=== PATIENT | male | born 1950 | race Caucasian/White ===

== ENCOUNTER → 2016-09-02 | Outpatient (CLI) | payer MEDICARE ==
[2016-09-02 09:58] LABS: ALT 46 U/L (21-72); AST 21 U/L (17-59); Cholesterol 258 mg/dL (<200); HDL Cholesterol 61 mg/dL (40-60); Triglycerides 290 mg/dL (<150)
== END | disposition home or self-care (01) ==
LOC: LABWHC1 08:53
PROVIDERS: ATTEND Internal Medicine Cardiovascular Disease
DX: E78.2 Mixed hyperlipidemia (principal); R06.02 Shortness of breath; R94.31 Abnormal electrocardiogram [ECG] [EKG]
CPT/HCPCS: 36415; 80061; 84450; 84460

== ENCOUNTER → 2016-09-10 | Outpatient (CLI) | payer MEDICARE ==
[2016-09-10 12:04] LABS: CHCM 33.1; HCT 43.3 % (39.0-53.0); HDW 2.25; MCH 29.3 pg (25.0-35.0); MCHC 32.2 g/dL (31.0-37.0); MCV 90.9 fL (80.0-100.0); Mean Platelet Volume 6.1; RBC 4.77 m/uL (4.30-5.90); RDW 12.3 % (11.5-15.5); WBC 6.2 k/uL (3.8-10.6)
[2016-09-10 13:10] LABS: Anion Gap 9 mmol/L; Blood Urea Nitrogen 14 mg/dL (9-20); Calcium 9.2 mg/dL (8.4-10.2); Carbon Dioxide 29 mmol/L (22-30); Chloride 101 mmol/L (98-107); Glucose 225 mg/dL (74-99); Non-African American GFR(MDRD) >60 (>60 ml/min/1.73 sqM); Potassium 4.7 mmol/L (3.5-5.1); Sodium 139 mmol/L (137-145)
[2016-09-10 13:41] LABS: Prostate Specific Antigen 0.38 ng/mL (0.00-4.00)
== END | disposition home or self-care (01) ==
LOC: LABWHC1 11:15
PROVIDERS: ATTEND Family Medicine
DX: Z12.5 Encounter for screening for malignant neoplasm of prostate (principal); E55.9 Vitamin D deficiency, unspecified; R07.9 Chest pain, unspecified; N52.9 Male erectile dysfunction, unspecified
CPT/HCPCS: 36415; 80048; 82306; 84153; 84402; 84403; 84443; 85027

== ENCOUNTER 2019-10-30 09:01 | Day surgery (SDC) | payer MEDICARE ==
[~2019-10-30 09:01] MED LIST: ALPRAZolam 0.25 MG TAB PO PRN; ALPRAZolam 0.5 MG TAB PO PRN; ASPIRIN 325 MG TAB PO STA; ATORVASTATIN 80 MG TAB PO STA; NITROGLYCERIN SL TABS 0.4 MG TAB SUBLINGUAL PRN; SODIUM CHLORIDE 0.9% 1,000 ML in EMPTY BAG 1 BAG IV ONE
[2019-10-30] MEDS ORDERED: SODIUM CHLORIDE 0.9% 1,000 ML IV ONE (09:37)
[2019-10-30 09:38] LABS: Glucose,Whole Blood 227 mg/dL (75-99)
[2019-10-30] MEDS ORDERED: INSULIN ASPART (NovoLOG) 100 UNIT/ML VIAL SQ ONE (09:45)
[2019-10-30] MEDS ORDERED: VERAPAMIL 2.5 MG/ML 2 ML AMP ONE (10:07)
[2019-10-30] MEDS ORDERED: LIDOCAINE 1% INJ 10MG/ML (20 ML MDV) ONE (10:07)
[2019-10-30] MEDS ORDERED: fentaNYL (PF) 50 MCG/ML 2 ML AMP ONE (10:20)
[2019-10-30] MEDS ORDERED: fentaNYL (PF) 50 MCG/ML 2 ML AMP IV ONE (10:36)
[2019-10-30] MEDS ORDERED: LIDOCAINE 1% INJ 10MG/ML (20 ML MDV) SQ ONE (10:43)
[2019-10-30] MEDS ORDERED: VERAPAMIL SYRINGE (5 MG/10 ML) INTRAARTER ONE (10:46)
[2019-10-30] MEDS ORDERED: CLOPIDOGREL 75 MG TAB ONE (10:57)
[2019-10-30] MEDS ORDERED: BIVALIRUDIN BOLUS 250 MG/50 ML IV ONE (10:58)
[2019-10-30] MEDS ORDERED: BIVALIRUDIN 250 MG in SODIUM CHLORIDE 0.9% 50 ML IV ONE (10:59)
[2019-10-30] MEDS ORDERED: CLOPIDOGREL 75 MG TAB PO ONE (10:59)
[2019-10-30] MEDS ORDERED: IOPAMIDOL-370 125ML BTL INJ ONE (11:10)
[2019-10-30] MEDS ORDERED: IOPAMIDOL-370 100ML BTL INJ ONE ×2 (11:26→11:43)
[2019-10-30] MEDS ORDERED: ONDANSETRON 4 MG/2 ML VIAL ONE (11:49)
[2019-10-30] MEDS ORDERED: ONDANSETRON 4 MG/2 ML VIAL IVP ONE (11:51)
[2019-10-30] MEDS ORDERED: ZOLPIDEM 5 MG TAB PO PRN (11:59)
[2019-10-30] MEDS ORDERED: MAG HYDROX/AL HYDROX/SIMETH 30 ML CUP PO PRN (11:59)
[2019-10-30] MEDS ORDERED: NITROGLYCERIN SL TABS 0.4 MG TAB SUBLINGUAL PRN (11:59)
[2019-10-30] MEDS ORDERED: ATROPINE SULFATE 0.1 MG/ML 10ML SYRINGE IV PRN (11:59)
[2019-10-30] MEDS ORDERED: RX INFO: IV CONTRAST WAS GIVEN 1 EACH MISC MISCELLANE PRN (11:59)
[2019-10-30] MEDS ORDERED: SODIUM CHLORIDE 0.9% 1,000 ML IV SCH (12:00)
[2019-10-30 16:58] LABS: Glucose,Whole Blood 299 mg/dL (75-99)
[2019-10-30] MEDS: INSULIN ASPART (NovoLOG) 100 UNIT/ML VIAL SQ SCH ×2 (18:21→21:17)
--- NOTE | 2019-10-30 18:34 | CC ---
CARDIAC CATHETERIZATION REPORT Mr. Miller is a 69-year-old male with known history of hypertension, hyperlipidemia, diabetes mellitus, prior history of myocardial infarction, who recently has been complaining of progressive dyspnea as well as progressive fatigue. He had a stress test where he had chest discomfort on the treadmill as well as evidence of inducible ischemia in the inferolateral wall with transient ischemic dilatation of the left ventricle. In view of that, recommendation was made regarding cardiac catheterization. The procedure, its risks and complications were discussed with the patient, who was in full understanding and agreement. PROCEDURE DESCRIPTION: Patient was brought to the rags laborer in a fasting, semi-sedated state. After receiving fentanyl and Benadryl and achieving a moderate conscious sedated state, using Xylocaine anesthesia and Seldinger technique, a 6-[place]izen [place] sheath was introduced in the right radial artery. Selective right and left coronary angiography was performed using 5- [place] 3-1/2 bend right and left Iliana catheters. Multiple views were taken of the arteries, including hemiaxial views. Following that, angioplasty and stenting was performed. Following that, a 5-[place]izen [place] tight pigtail catheter was introduced in the left ventricle and pressures were calculated. Following that, catheter and sheath were removed. Hemostasis was obtained with deployment of a TR band. There was no immediate complication. Patient was returned to his room in stable condition. FINDINGS: LEFT MAIN: This is a short-sized vessel bifurcating into left circumflex and left anterior descending artery. Left main coronary artery has no evidence of high-grade stenosis. LEFT ANTERIOR DESCENDING ARTERY: This is a large-sized vessel reaching toward the apex. It tapers down in the distal third, giving rise to a diagonal branch of large caliber in the proximal segment. The left anterior descending artery at the takeoff of the diagonal branch has a 40% to 50% plaque involving the diagonal branch as well. The rest of the vessel has no high-grade stenosis. LEFT CIRCUMFLEX: This is a large dominant vessel giving rise to a proximal obtuse marginal branch. At the takeoff of the the vessel is totally occluded with retrograde feeling involving the left PDA and PLV. RIGHT CORONARY ARTERY: This is a small nondominant vessel that has a 60% to 70%stenosis proximally. LEFT VENTRICULOGRAM: Not performed. HEMODYNAMICS: There was no gradient across the aortic valve. The left ventricular end-diastolic pressure was 16-20 mmHg. CONCLUSION: 1. Total occlusion of the mid left circumflex with contralateral collateral. 2. Moderate disease in the LAD. 3. A small nondominant right coronary artery. RECOMMENDATIONS: In view of findings and anatomy, I have recommended proceeding with attempted angioplasty and stenting of the left circumflex. The procedure, its risks and complications were discussed with the patient, who is in full understanding and agreement. MMJESSENIA / NIGHATN: [id number] /
--- NOTE | 2019-10-30 19:28 | PTCA ---
PERCUTANEOUSTRANS CORORONARY ANGIOGRAPHY Mr. Miller is a 69-year-old male with a known history of hypertension, hyperlipidemia, diabetes mellitus, who had abnormal myocardial perfusion imaging and symptoms of progressive dyspnea and an episode of chest discomfort. He underwent cardiac catheterization and was found to have a chronic total occlusion of the left circumflex. In view of that, recommendation was made regarding angioplasty and stenting. The procedure, its risks and complications were discussed with the patient, who was in full understanding and agreement. PROCEDURE DESCRIPTION: A 6-[place] EBU 3.75 guiding catheter was introduced into the system. After cannulating the left main, a 0.014 balanced medium-weight J-wire with a Corsair catheter were introduced. With the help of the Corsair catheter, the wire was advanced across the total occlusion and positioned distally. Following that, a 2.5 x 12 mm Trek balloon was advanced and multiple inflations at 8 atmospheres were done. Following that the balloon was removed and a 3.5 x 15 mm Xience Andree stent was deployed and post-dilated at 18 atmospheres. Following that the balloon was removed and a 4.0 x 12 mm NC Trek balloon was advanced and one inflation at 12 atmospheres was done. Following that, the balloon was removed and the wire with the help of the Corsair was advanced across the total occlusion of the left PLV. After positioning the wire distally, a 2.0 x 12 mm Mini Trek balloon was advanced. Multiple inflations to a maximum of 8 atmospheres were done. After the last inflation, after appropriate wait, the balloon and the guidewire were withdrawn back into the guiding catheter. Images were obtained and repeated. Those images revealed stable successful stenting. At that point, the guiding catheter, the balloon and the guidewire were removed. The left ventricular end-diastolic pressure was calculated. Following that, catheter and sheath were removed. Hemostasis was obtained with deployment of a TR band. There was no immediate complication. Patient was returned to his room in stable condition. Of note, the patient received Angiomax per protocol as well as oral loading dose of clopidogrel. He had no chest discomfort or EKG changes with the inflations. RESULTS: 1. Successful stenting of the mid left circumflex with reduction of stenosis from 100% to 0%. 2. Successful angioplasty of the small left PLV with reduction of stenosis from 100% to less than 5%. RECOMMENDATIONS: Patient will be continued on aspirin, Plavix, beta blockers, YODIT inhibitor and statin. The importance of dual antiplatelet treatment was discussed with the patient and his family, and they are in full understanding and agreement. FRANSICO / NIGHATN: [id number] /
[2019-10-30] MEDS: LISINOPRIL 5 MG TAB PO SCH (20:11)
[2019-10-30] MEDS ORDERED: GABAPENTIN 300 MG CAP PO SCH (21:00)
[2019-10-30 21:12] LABS: Glucose,Whole Blood 265 mg/dL (75-99)
[2019-10-31 06:25] LABS: Glucose,Whole Blood 183 mg/dL (75-99)
[2019-10-31] MEDS ORDERED: LEVOTHYROXINE 112 MCG TAB PO SCH (06:30)
[2019-10-31] MEDS: INSULIN ASPART (NovoLOG) 100 UNIT/ML VIAL SQ SCH (06:33)
[2019-10-31 06:48] VITALS: RESP 18
[2019-10-31 07:27] LABS: African American GFR (CKD) >90 (>60 ml/min/1.73 sqM); Anion Gap 5 mmol/L; Blood Urea Nitrogen 16 mg/dL (9-20); Carbon Dioxide 28 mmol/L (22-30); Chloride 101 mmol/L (98-107); Glucose 166 mg/dL (74-99); Non-African American GFR(CKD) 81 (>60 ml/min/1.73 sqM); Potassium 4.6 mmol/L (3.5-5.1); Sodium 134 mmol/L (137-145)
[2019-10-31] MEDS ORDERED: PANTOPRAZOLE 40 MG TABLET PO SCH (07:30)
[2019-10-31] MEDS: LISINOPRIL 5 MG TAB PO SCH (08:11)
[2019-10-31 08:17] VITALS: BP 125/67; PULSE 61; TEMP 98.5
[2019-10-31] MEDS ORDERED: ATORVASTATIN 80 MG TAB PO SCH (09:00)
[2019-10-31] MEDS ORDERED: METOPROLOL SUCCINATE (ER) 25 MG TAB.ER.24H PO SCH (09:00)
[2019-10-31] MEDS ORDERED: ASPIRIN 81 MG PO SCH (09:00)
--- NOTE | 2019-10-31 09:36 | PN ---
PROGRESS NOTE Mr. Miller is a 69-year-old male who presented with symptoms of progressive dyspnea and had normal myocardial perfusion imaging, underwent cardiac catheterization and was found to have chronic occluded left circumflex in the midsegment, underwent revascularization with PCI and stenting of the midcircumflex and angioplasty of the left PLV. He is doing well this morning. He is breathing stable. He denied any dizziness. No palpitation. No nausea. He is ambulating and feels better. He continues on aspirin once a day, Plavix 75 mg daily, Lipitor 80 mg daily, insulin, Zestril 5 mg twice a day, metoprolol succinate 25 mg daily. PHYSICAL EXAMINATION: Blood pressure 125/60 with a heart rate of 60. LUNGS: Clear. HEART: Regular rate and rhythm. S1, S2. No S3. No rub. ABDOMEN: Soft, nontender. EXTREMITIES: No edema. Right radial pulse intact. LAB DATA: Lab data revealed a BUN and creatinine of 16 and 0.96, potassium 4.6. EKG reported no acute changes. IMPRESSION: 1. Status post stenting of the left circumflex and angioplasty of the left PLV. 2. Hypertension. 3. Hyperlipidemia. RECOMMENDATIONS: The patient will be discharged home today and followed as an outpatient in one week. MMODL / IJN: [id number] /
[2019-10-31 10:41] VITALS: BMI 28.5
[2019-10-31] MEDS ORDERED: CLOPIDOGREL 75 MG TAB PO SCH (12:00)
[2019-10-31 14:03] LABS: Hemoglobin A1C 9.5 % (4.0-6.0)
== END 2019-10-31 11:20 | disposition home or self-care (01) ==
LOC: CATHCVL 09:01 → 3SCARD 16:10 → CATHCVL 10-31 11:20
PROVIDERS: ATTEND Internal Medicine Interventional Cardiology
DX: I25.10 Atherosclerotic heart disease of native coronary artery without angina pectoris (principal); I25.82 Chronic total occlusion of coronary artery; I10 Essential (primary) hypertension; R94.39 Abnormal result of other cardiovascular function study; I25.2 Old myocardial infarction; E11.9 Type 2 diabetes mellitus without complications; E78.5 Hyperlipidemia, unspecified
CPT/HCPCS: 92921; 93458; 85347; 80048; 83036; C9600; C1769 ×2; C1887 ×2; C1725 ×2; C1874; C1894; J2405; J2001; J3010; J0583; Q9967 ×2

== ENCOUNTER → 2020-03-08 | Outpatient (CLI) | payer MEDICARE ==
[2020-03-08 19:29] LABS: African American GFR (CKD) 64.1 (60.0-200.0); Albumin 4.2 g/dL (3.80-4.90); Albumin/Globulin Ratio 1.83 (1.60-3.17); Anion Gap 9.9 mmol/L (4.00-12.00); Calcium 9.4 mg/dL (8.7-10.3); Carbon Dioxide 25.1 mmol/L (21.6-31.8); Chol/HDL Ratio 3.29; Globulin 2.3 g/dL (1.6-3.3); LDL Cholesterol,Calculated 75.8 mg/dL (0.0-131.0); Non-African American GFR(CKD) 55.3 (60.0-200.0); Potassium 5.6 mmol/L (3.5-5.5); Total Bilirubin 0.5 mg/dL (0.3-1.2); Total Protein 6.5 g/dL (6.2-8.2); VLDL Calculation 20.2 mg/dL (5.00-40.00)
== END | disposition home or self-care (01) ==
LOC: LABWHC1 12:14
PROVIDERS: ATTEND Nurse Practitioner Adult Health
DX: I10 Essential (primary) hypertension (principal); E78.2 Mixed hyperlipidemia
CPT/HCPCS: 36415; 80053; 80061

== ENCOUNTER 2020-09-25 07:59 | Day surgery (SDC) | payer MEDICARE ==
[2020-09-23 08:23] VITALS: BMI 31.0
[2020-09-25 08:26] VITALS: RESP 16; TEMP 99.2
[2020-09-25 08:28] LABS: Glucose,Whole Blood 209 mg/dL (75-99)
[2020-09-25] MEDS ORDERED: INSULIN ASPART (NovoLOG) 100 UNIT/ML VIAL SQ SCH (08:28)
[2020-09-25] MEDS ORDERED: INSULIN ASPART (NovoLOG) 100 UNIT/ML VIAL SQ ONE (08:31)
[2020-09-25 08:49] LABS: Basophils # (A) 0.1 k/uL (0-0.2); Basophils % (A) 1 %; Eosinophils # (A) 0.5 k/uL (0-0.7); Eosinophils % (A) 4 %; HCT 36.1 % (39.0-53.0); HGB 12.3 gm/dL (13.0-17.5); Lymphocytes # (A) 2.8 k/uL (1.0-4.8); Lymphocytes % (A) 26 %; MCH 30.3 pg (25.0-35.0); MCHC 34.1 g/dL (31.0-37.0); Mean Platelet Volume 6.5; Monocytes # (A) 0.6 k/uL (0-1.0); Monocytes % (A) 5 %; Neutrophils # (A) 6.6 k/uL (1.3-7.7); Neutrophils % (A) 62 %; Platelet Count 313 k/uL (150-450); RBC 4.06 m/uL (4.30-5.90); RDW 13.2 % (11.5-15.5); WBC 10.7 k/uL (3.8-10.6)
[2020-09-25] MEDS ORDERED: fentaNYL (PF) 50 MCG/ML 2 ML AMP IV ONE (09:45)
[2020-09-25] MEDS ORDERED: LIDOCAINE 1% INJ 10MG/ML (20 ML MDV) SQ ONE (09:45)
[2020-09-25] MEDS ORDERED: VERAPAMIL SYRINGE (5 MG/10 ML) INTRAARTER ONE (09:46)
[2020-09-25] MEDS ORDERED: HEPARIN SODIUM 1,000 UN/ML (10ML VL) IV ONE (09:52)
[2020-09-25] MEDS ORDERED: IOPAMIDOL-370 125ML BTL INJ ONE (09:59)
[2020-09-25] MEDS ORDERED: RX INFO: IV CONTRAST WAS GIVEN 1 EACH MISC MISCELLANE PRN (10:18)
[2020-09-25] MEDS ORDERED: SODIUM CHLORIDE 0.9% 1,000 ML IV SCH (10:30)
--- NOTE | 2020-09-25 11:51 | CC ---
CARDIAC CATHETERIZATION REPORT Mr. Miller is a 70-year-old male with a known history of coronary artery disease, status post stenting of the left circumflex in October of 2019 who has been complaining of progressive dyspnea on exertion. He is scheduled to undergo bladder surgery for malignancy. In view of that, recommendation was made regarding cardiac catheterization. The procedure as well as the risks and the complications were discussed with the patient who is in full understanding and agreement. PROCEDURE: Patient was brought to solar lab technician in a fasting semi-sedated state after receiving fentanyl and Benadryl and achieving moderate conscious sedated state. Using Xylocaine anesthesia and Seldinger technique, a 6-[place] sheath was introduced in the right radial artery. Selective right and left coronary angiography performed using 5-[place] 3.5 bend right and left Iliana catheter. Multiple views of the coronary artery including hemiaxial views were obtained. The right Iliana was used to cross the aortic valve and left ventricular end-diastolic pressure was calculated. Following that, catheter and sheath were removed. Hemostasis was obtained with deployment of a TR band. There was no immediate complication. The patient was returned to his room in stable condition. Of note, the patient received 4500 units of intravenous heparin as well as intra-arterial verapamil. FINDINGS: LEFT MAIN: This is a short size vessel, bifurcating into left circumflex and left anterior descending artery. Left main artery has no evidence of high-grade stenosis. LEFT ANTERIOR DESCENDING ARTERY: This is a vessel tapers down distal third, giving rise to a large size diagonal branch proximally. The left anterior descending artery in the proximal segment at the takeoff of the first diagonal branch has a 40% to 50% plaque. The rest of the vessel has no high-grade stenosis. LEFT CIRCUMFLEX: This is a large dominant vessel giving rise to obtuse marginal branch. The stented segment following the obtuse marginal branch is patent. Distally it bifurcates into PDA and posterolateral segment and branches. The left PLV has a 60% plaque. The rest of the vessel has no high-grade stenosis. RIGHT CORONARY ARTERY: This is a small nondominant vessel that gives rise to an acute marginal branch and small distal branch. The right coronary artery in the proximal segment has a 50% to 60% tubular lesion. The rest of the vessel has no high-grade stenosis. HEMODYNAMICS: There was no gradient across the aortic valve. The left ventricular end-diastolic pressure was 14-16 mmHg. CONCLUSION: 1. Patent stent to the left circumflex with moderate significant disease in the left PLV. 2. Moderate disease in the right coronary artery that is small and nondominant as well as mild to moderate disease in the LAD. RECOMMENDATION: In view of finding anatomy and the upcoming surgical intervention, I see no contraindication to proceed with surgical procedure. I will continue medical therapy and he will be re-evaluated down the road following his surgical intervention to see if revascularization of the left PLV is needed. Those findings and recommendation were discussed with the patient and his over the phone and they are in full understanding and agreement. Duration of the sedation is 16 minutes. MMODL / IJN: [id number] /
--- NOTE | 2020-09-25 11:54 | LTR ---
September 25, 2020 Re: Stephon Miller Dear Dr. Lamb: I had the opportunity to perform cardiac catheterization on Mr. Miller at [facility] on the 25 of September and a full copy of the procedure note will be forwarded to you. In brief, he was found to have patent stented left circumflex with moderate significant disease in the left PLV. Based on those findings, I recommend proceeding with his scheduled bladder surgical intervention and subsequently re-evaluate the need to undergo revascularization of his left PLV. Thank you again for allowing me the opportunity to participate in his care. Please feel free to call for any questions. Sincerely yours, MD PORTER MckeonL / NIGHATN: [id number] /
[2020-09-25 13:53] VITALS: BP 123/60; PULSE 60
[2020-09-25] MEDS ORDERED: lisinopriL 5 MG TAB PO SCH (21:00)
[2020-09-25] MEDS ORDERED: GABAPENTIN 300 MG CAP PO SCH (21:00)
[2020-09-25] MEDS ORDERED: NON FORMULARY DRUG (Repaglinide [Prandin] 2 MG Tablet) PO SCH (21:00)
[2020-09-26] MEDS ORDERED: LEVOTHYROXINE 100 MCG TAB PO SCH (06:30)
[2020-09-26] MEDS ORDERED: PANTOPRAZOLE 40 MG TABLET PO SCH (07:30)
[2020-09-26] MEDS ORDERED: GABAPENTIN 300 MG CAP PO SCH (09:00)
[2020-09-26] MEDS ORDERED: ATORVASTATIN 80 MG TAB PO SCH (09:00)
[2020-09-26] MEDS ORDERED: ASPIRIN 81 MG PO SCH (09:00)
[2020-09-26] MEDS ORDERED: METOPROLOL SUCCINATE (ER) 25 MG TAB.ER.24H PO SCH (09:00)
== END 2020-09-25 13:32 | disposition home or self-care (01) ==
LOC: CATHCVL 07:59
PROVIDERS: ATTEND Internal Medicine Interventional Cardiology
DX: I25.10 Atherosclerotic heart disease of native coronary artery without angina pectoris (principal); I12.9 Hypertensive chronic kidney disease with stage 1 through stage 4 chronic kidney disease, or unspecified chronic kidney disease; E11.22 Type 2 diabetes mellitus with diabetic chronic kidney disease; E78.2 Mixed hyperlipidemia; N18.9 Chronic kidney disease, unspecified; D49.4 Neoplasm of unspecified behavior of bladder; M19.90 Unspecified osteoarthritis, unspecified site; Z87.891 Personal history of nicotine dependence; Z82.49 Family history of ischemic heart disease and other diseases of the circulatory system; Z79.02 Long term (current) use of antithrombotics/antiplatelets; Z79.82 Long term (current) use of aspirin; Z79.899 Other long term (current) drug therapy; Z79.84 Long term (current) use of oral hypoglycemic drugs; Z79.890 Hormone replacement therapy
CPT/HCPCS: 93458; 85025; C1769; C1894; J2001; J3010; J1644; Q9967

== ENCOUNTER 2020-11-24 17:46 | Inpatient (IN) | payer MEDICARE ==
[2020-11-24 19:16] LABS: Basophils % (A) 0 %; Eosinophils % (A) 0 %; HCT 36.1 % (39.0-53.0); Lymphocytes # (A) 0.9 k/uL (1.0-4.8); Lymphocytes % (A) 16 %; MCH 28.9 pg (25.0-35.0); MCHC 33.2 g/dL (31.0-37.0); MCV 87.1 fL (80.0-100.0); Mean Platelet Volume 6.5; Monocytes # (A) 0.2 k/uL (0-1.0); Monocytes % (A) 4 %; Neutrophils # (A) 4.5 k/uL (1.3-7.7); Neutrophils % (A) 79 %; Platelet Count 288 k/uL (150-450); RBC 4.14 m/uL (4.30-5.90); RDW 12.9 % (11.5-15.5); WBC 5.8 k/uL (3.8-10.6)
--- NOTE | 2020-11-24 19:16 | XR ---
EXAMINATION TYPE: XR chest 2V DATE OF EXAM: 11/24/2020 COMPARISON: NONE HISTORY: Shortness of breath. TECHNIQUE: Frontal and lateral views of the chest are obtained. FINDINGS: There is mild perihilar and bibasilar patchy airspace opacities. No pleural effusion, or p neumothorax seen. The cardiac silhouette size is within normal limits. The osseous structures are intact. IMPRESSION: Mild patchy opacities, concerning for infiltrates.
[2020-11-24 19:22] LABS: Calcium 8.8 mg/dL (8.4-10.2); Total Bilirubin 0.5 mg/dL (0.2-1.3); Total Protein 7.1 g/dL (6.3-8.2)
[2020-11-24 19:24] LABS: INR 0.9 (<1.2); Potassium 6.3 mmol/L (3.5-5.1); Prothrombin Time 9.9 sec (9.0-12.0)
[2020-11-24] MEDS ORDERED: SODIUM CHLORIDE 0.9% 2,000 ML IV ONE (19:32)
--- NOTE | 2020-11-24 20:09 | ED ---
SOB HPI - General Chief Complaint: Shortness of Breath Stated Complaint: COVID+, WEAK, SOB Time Seen by Provider: 11/24/20 19:17 Source: patient Mode of arrival: wheelchair Limitations: no limitations - History of Present Illness Initial Comments: Patient is a 7-year-old male with multiple medical conditions who presents emergency Department with worsening shortness of breath. Reports that his is currently in the ICU with Covid. He has had symptoms and has a positive for Covid on the . Reports that he did have some nausea, diarrhea, fevers and muscle aches. He has had increasing shortness of breath and cough which brought him to the emergency room today. He denies previous history of pulmonary issues. Denies any chest pain. No lower extremity swelling. No other alleviating, precipitating or modifying factors - Related Data Home Medications Medication Instructions Recorded Confirmed Celecoxib [CeleBREX] 200 mg PO DAILY 10/27/19 11/24/20 Multivitamins, Thera [Multivitamin 1 tab PO DAILY 10/27/19 11/24/20 (formulary)] Omeprazole 20 mg PO DAILY 10/27/19 11/24/20 Ergocalciferol [Vitamin D2 (1250 1,250 mcg PO PAGE 09/23/20 11/24/20 Mcg = 71162 Iu)] Gabapentin 600 mg PO DAILY 09/23/20 11/24/20 Levothyroxine Sodium [Synthroid] 100 mcg PO DAILY 09/23/20 11/24/20 Metoprolol Succinate (ER) [Toprol 25 mg PO DAILY 09/23/20 11/24/20 XL] Repaglinide [Prandin] 2 mg PO BID 09/23/20 11/24/20 metFORMIN HCL 1,000 mg PO DAILY 09/23/20 11/24/20 Clopidogrel Bisulfate [Plavix] 75 mg PO DAILY 11/24/20 11/24/20 Previous Rx's Medication Instructions Recorded Aspirin 81 mg PO DAILY chew 10/31/19 Atorvastatin [Lipitor] 80 mg PO DAILY #90 tab 10/31/19 lisinopriL [Zestril] 5 mg PO BID #180 tab 10/31/19 Allergies Allergy/AdvReac Type Severity Reaction Status Date / Time No Known Allergies Allergy Verified 09/23/20 08:05 Review of Systems ROS Statement: Those systems with pertinent positive or pertinent negative responses have been documented in the HPI. ROS Other: All systems not noted in ROS Statement are negative. Past Medical History Past Medical History: Coronary Artery Disease (CAD), Cancer, Diabetes Mellitus, GERD/Reflux, Hyperlipidemia, Hypertension, Myocardial Infarction (NH), Osteoarthritis (OA), Thyroid Disorder Additional Past Medical History / Comment(s): increased SOB with activity, hiatal hernia, tendonitis, bladder cancer, hx kidney stones Last Myocardial Infarction Date:: unk History of Any Multi-Drug Resistant Organisms: None Reported Past Surgical History: Heart Catheterization With Stent, Orthopedic Surgery Additional Past Surgical History / Comment(s): colonoscopy, rt knee arthroscopy, two cardiac stents, thien cataracts Past Anesthesia/Blood Transfusion Reactions: Postoperative Nausea & Vomiting (PONV) Date of Last Stent Placement:: 10/2019 Past Psychological History: No Psychological Hx Reported Smoking Status: Former smoker - Past Family History Sister(s) Family Medical History: Cancer Additional Family Medical History / Comment(s): lung with metastisis, breast Father Family Medical History: Cancer Additional Family Medical History / Comment(s): bladder General Exam Limitations: no limitations General appearance: alert, in no apparent distress Head exam: Present: atraumatic, normocephalic, normal inspection Eye exam: Present: normal appearance, PERRL, EOMI. Absent: scleral icterus, conjunctival injection, periorbital swelling ENT exam: Present: normal exam, mucous membranes moist Neck exam: Present: normal inspection. Absent: tenderness, meningismus, lymphadenopathy Respiratory exam: Present: normal lung sounds bilaterally. Absent: respiratory distress, wheezes, rales, rhonchi, stridor Cardiovascular Exam: Present: regular rate, normal rhythm, normal heart sounds. Absent: systolic murmur, diastolic murmur, rubs, gallop, clicks GI/Abdominal exam: Present: soft, normal bowel sounds. Absent: distended, tenderness, guarding, rebound, rigid Extremities exam: Present: normal inspection, full ROM, normal capillary refill. Absent: tenderness, pedal edema, joint swelling, calf tenderness Back exam: Present: normal inspection Neurological exam: Present: alert, oriented X3, CN II-XII intact Psychiatric exam: Present: normal affect, normal mood Skin exam: Present: warm, dry, intact, normal color. Absent: rash Course Vital Signs 11/24/20 11/24/20 11/24/20 18:34 19:37 20:57 Temperature 99.4 F 100.7 F H Pulse Rate 86 81 Respiratory 18 20 18 Rate Blood Pressure 136/72 113/96 O2 Sat by Pulse 93 L 94 L Oximetry 11/24/20 11/24/20 11/25/20 23:12 23:40 01:00 Temperature 100.4 F H Pulse Rate 81 Respiratory 22 Rate Blood Pressure 157/70 O2 Sat by Pulse 22 L 95 95 Oximetry 11/25/20 11/25/20 11/25/20 05:17 09:25 10:38 Temperature 98.2 F 100.1 F H 97.8 F Pulse Rate 70 80 84 Respiratory 18 18 18 Rate Blood Pressure 131/72 132/63 130/75 O2 Sat by Pulse 93 L 98 94 L Oximetry 11/25/20 11/25/20 11/25/20 11:34 15:48 18:45 Temperature 98.4 F Pulse Rate 89 69 67 Respiratory 18 18 18 Rate Blood Pressure 145/83 120/69 132/72 O2 Sat by Pulse 97 98 98 Oximetry Medical Decision Making - Medical Decision Making Upon arrival patient was placed into room 26. A thorough history and physical exam is performed. Laboratory studies are conducted and the patient went for chest x-ray. Laboratory studies are reviewed and demonstrated a potassium of 6.3 with a lactic acid of 2.7. Chest x-ray is reviewed and demonstrates mild patchy opacities concerning for infiltrates. Patient does have oxygen saturations of 93-94% on room air. I did repeat the patient's potassium for which I do that she the same value of 6.3. Because this patient was given calcium chloride, half amp of dextrose, 10 units of insulin, 2 L of normal saline and 30 gm of Kayexalate. I did recommend admission to the hospital for [place] and hyperkalemia. The patient did agree to this. I spoke with Dr. townsend who agreed to admit the patient. Patient is currently awaiting a bed on the floor - Lab Data Result diagrams: 11/25/20 05:08 11/25/20 08:40 Lab Results 11/24/20 11/24/20 11/24/20 Range/Units 18:52 18:52 18:52 WBC 5.8 (3.8-10.6) k/uL RBC 4.14 L (4.30-5.90) m/uL Hgb 12.0 L (13.0-17.5) gm/dL Hct 36.1 L (39.0-53.0) % MCV 87.1 (80.0-100.0) fL MCH 28.9 (25.0-35.0) pg MCHC 33.2 (31.0-37.0) g/dL RDW 12.9 (11.5-15.5) % Plt Count 288 (150-450) k/uL MPV 6.5 Neutrophils % 79 % Lymphocytes % 16 % Monocytes % 4 % Eosinophils % 0 % Basophils % 0 % Neutrophils # 4.5 (1.3-7.7) k/uL Lymphocytes # 0.9 L (1.0-4.8) k/uL Monocytes # 0.2 (0-1.0) k/uL Eosinophils # 0.0 (0-0.7) k/uL Basophils # 0.0 (0-0.2) k/uL PT 9.9 (9.0-12.0) sec INR 0.9 (<1.2) APTT 25.0 (22.0-30.0) sec D-Dimer (<0.60) mg/L FEU Sodium 133 L (137-145) mmol/L Potassium 6.3 H* (3.5-5.1) mmol/L Chloride 100 (98-107) mmol/L Carbon Dioxide 22 (22-30) mmol/L Anion Gap 11 mmol/L BUN 26 H (9-20) mg/dL Creatinine 1.55 H (0.66-1.25) mg/dL Est GFR (CKD-EPI)AfAm 52 (>60 ml/min/1.73 sqM) Est GFR (CKD-EPI)NonAf 45 (>60 ml/min/1.73 sqM) Glucose 199 H (74-99) mg/dL Lactic Ac Sepsis Rflx Plasma Lactic Acid Thompson (0.7-2.0) mmol/L Calcium 8.8 (8.4-10.2) mg/dL Total Bilirubin 0.5 (0.2-1.3) mg/dL AST 57 (17-59) U/L ALT 37 (4-49) U/L Alkaline Phosphatase 94 (38-126) U/L Troponin I (0.000-0.034) ng/mL Total Protein 7.1 (6.3-8.2) g/dL Albumin 4.0 (3.5-5.0) g/dL 11/24/20 11/24/20 11/24/20 Range/Units 18:52 18:52 18:52 WBC (3.8-10.6) k/uL RBC (4.30-5.90) m/uL Hgb (13.0-17.5) gm/dL Hct (39.0-53.0) % MCV (80.0-100.0) fL MCH (25.0-35.0) pg MCHC (31.0-37.0) g/dL RDW (11.5-15.5) % Plt Count (150-450) k/uL MPV Neutrophils % % Lymphocytes % % Monocytes % % Eosinophils % % Basophils % % Neutrophils # (1.3-7.7) k/uL Lymphocytes # (1.0-4.8) k/uL Monocytes # (0-1.0) k/uL Eosinophils # (0-0.7) k/uL Basophils # (0-0.2) k/uL PT (9.0-12.0) sec INR (<1.2) APTT (22.0-30.0) sec D-Dimer 0.32 (<0.60) mg/L FEU Sodium (137-145) mmol/L Potassium (3.5-5.1) mmol/L Chloride (98-107) mmol/L Carbon Dioxide (22-30) mmol/L Anion Gap mmol/L BUN (9-20) mg/dL Creatinine (0.66-1.25) mg/dL Est GFR (CKD-EPI)AfAm (>60 ml/min/1.73 sqM) Est GFR (CKD-EPI)NonAf (>60 ml/min/1.73 sqM) Glucose (74-99) mg/dL Lactic Ac Sepsis Rflx Plasma Lactic Acid Thompson 2.7 H* (0.7-2.0) mmol/L Calcium (8.4-10.2) mg/dL Total Bilirubin (0.2-1.3) mg/dL AST (17-59) U/L ALT (4-49) U/L Alkaline Phosphatase (38-126) U/L Troponin I <0.012 (0.000-0.034) ng/mL Total Protein (6.3-8.2) g/dL Albumin (3.5-5.0) g/dL 11/24/20 11/24/20 11/24/20 Range/Units 19:25 20:48 21:44 WBC (3.8-10.6) k/uL RBC (4.30-5.90) m/uL Hgb (13.0-17.5) gm/dL Hct (39.0-53.0) % MCV (80.0-100.0) fL MCH (25.0-35.0) pg MCHC (31.0-37.0) g/dL RDW (11.5-15.5) % Plt Count (150-450) k/uL MPV Neutrophils % % Lymphocytes % % Monocytes % % Eosinophils % % Basophils % % Neutrophils # (1.3-7.7) k/uL Lymphocytes # (1.0-4.8) k/uL Monocytes # (0-1.0) k/uL Eosinophils # (0-0.7) k/uL Basophils # (0-0.2) k/uL PT (9.0-12.0) sec INR (<1.2) APTT (22.0-30.0) sec D-Dimer (<0.60) mg/L FEU Sodium (137-145) mmol/L Potassium 6.3 H* (3.5-5.1) mmol/L Chloride (98-107) mmol/L Carbon Dioxide (22-30) mmol/L Anion Gap mmol/L BUN (9-20) mg/dL Creatinine (0.66-1.25) mg/dL Est GFR (CKD-EPI)AfAm (>60 ml/min/1.73 sqM) Est GFR (CKD-EPI)NonAf (>60 ml/min/1.73 sqM) Glucose (74-99) mg/dL Lactic Ac Sepsis Rflx Y Plasma Lactic Acid Thompson 1.1 (0.7-2.0) mmol/L Calcium (8.4-10.2) mg/dL Total Bilirubin (0.2-1.3) mg/dL AST (17-59) U/L ALT (4-49) U/L Alkaline Phosphatase (38-126) U/L Troponin I (0.000-0.034) ng/mL Total Protein (6.3-8.2) g/dL Albumin (3.5-5.0) g/dL - EKG Data EKG Comments: EKG demonstrates normal sinus rhythm with a ventricular rate of 81. GA interval 158. QRS 92. QTC 385. Q wave in lead 3. No acute ST segment elevations Disposition Clinical Impression: DARWIN (acute kidney injury), Hyperkalemia, COVID-19 Disposition: ADMITTED IP TO THIS HOSP Condition: Stable Is patient prescribed a controlled substance at d/c from ED?: No Decision to Admit Reason: Admit from EC Decision Date: 11/24/20 Decision Time: 21:43
[2020-11-24] MEDS ORDERED: SODIUM POLYSTYRENE SULFONATE 15 GM/60 ML BOTTLE PO STA (21:18)
[2020-11-24] MEDS ORDERED: CALCIUM CHLORIDE 100 MG/ML 10 ML SYRINGE IVP STA (21:18)
[2020-11-24] MEDS ORDERED: INSULIN REGULAR 100 UNIT/ML VIAL IV ONE (21:18)
[2020-11-24] MEDS: DEXTROSE 50% SYRINGE 50 ML IVP STA (21:33)
[2020-11-24] MEDS ORDERED: ACETAMINOPHEN TAB 500 MG TAB PO STA (21:40)
[2020-11-24] MEDS ORDERED: NALOXONE 0.4 MG/ML 1 ML VIAL IV PRN (21:44)
[2020-11-24] MEDS ORDERED: SODIUM CHLORIDE 0.9% 1,000 ML IV STA (21:46)
[2020-11-24] MEDS ORDERED: ALBUTEROL HFA INHALER INHALATION SCH (22:00)
[2020-11-25 02:02] LABS: Calcium 8.3 mg/dL (8.4-10.2); Potassium 4.7 mmol/L (3.5-5.1)
[2020-11-25] MEDS: DEXTROSE 50% SYRINGE 50 ML IVP STA (02:34)
[2020-11-25 02:37] LABS: Glucose,Whole Blood 36 mg/dL (75-99)
[2020-11-25 02:50] LABS: Glucose,Whole Blood 176 mg/dL (75-99)
[2020-11-25 05:56] LABS: Basophils % (A) 0 %; Eosinophils % (A) 1 %; HCT 29.2 % (39.0-53.0); HGB 10.2 gm/dL (13.0-17.5); Lymphocytes # (A) 0.9 k/uL (1.0-4.8); Lymphocytes % (A) 21 %; MCH 30.8 pg (25.0-35.0); MCHC 35.1 g/dL (31.0-37.0); MCV 87.9 fL (80.0-100.0); Mean Platelet Volume 6.7; Monocytes # (A) 0.2 k/uL (0-1.0); Monocytes % (A) 4 %; Neutrophils # (A) 3.2 k/uL (1.3-7.7); Neutrophils % (A) 73 %; Platelet Count 218 k/uL (150-450); RBC 3.32 m/uL (4.30-5.90); RDW 12.5 % (11.5-15.5); WBC 4.4 k/uL (3.8-10.6)
[2020-11-25 06:14] LABS: Calcium 8.2 mg/dL (8.4-10.2); Potassium 5.3 mmol/L (3.5-5.1)
[2020-11-25 06:22] LABS: Glucose,Whole Blood 106 mg/dL (75-99)
[2020-11-25] MEDS: ALBUTEROL HFA INHALER INHALATION SCH ×4 (08:06→21:05)
[2020-11-25 09:22] LABS: Calcium 8.1 mg/dL (8.4-10.2); Potassium 5.6 mmol/L (3.5-5.1)
[2020-11-25] MEDS: ASPIRIN 81 MG PO SCH (11:27)
[2020-11-25] MEDS: GABAPENTIN 300 MG CAP PO SCH (11:27)
[2020-11-25] MEDS: ACETAMINOPHEN TAB 325 MG TAB PO PRN (11:28)
[2020-11-25] MEDS: CHOLECALCIFEROL 25 MCG (1000 IU) TABLET PO SCH (11:28)
[2020-11-25] MEDS: CLOPIDOGREL 75 MG TAB PO SCH (11:29)
[2020-11-25] MEDS: METOPROLOL SUCCINATE (ER) 25 MG TAB.ER.24H PO SCH (11:29)
[2020-11-25] MEDS: PANTOPRAZOLE 40 MG TABLET PO SCH (11:29)
[2020-11-25] MEDS: DEXAMETHASONE SOD PHOSPHATE 10 MG/ML 1 ML VIAL IV SCH (11:30)
[2020-11-25] MEDS: LEVOTHYROXINE 100 MCG TAB PO SCH (11:30)
[2020-11-25] MEDS: ASCORBIC ACID 500 MG TAB PO SCH (11:30)
[2020-11-25] MEDS: ENOXAPARIN 40 MG/0.4 ML SYRINGE SQ SCH (11:33)
[2020-11-25] MEDS: INSULIN ASPART (NovoLOG) 100 UNIT/ML VIAL SQ SCH ×3 (13:07→22:44)
[2020-11-25 13:10] LABS: Glucose,Whole Blood 238 mg/dL (75-99)
--- NOTE | 2020-11-25 15:56 | CONS ---
CONSULTATION REASON FOR CONSULTATION: Renal failure. HISTORY OF PRESENT ILLNESS: The patient is a 70-year-old male who was admitted to the hospital with complaints of shortness of breath. He was COVID-positive on November 19. Patient denies any nausea, vomiting. He denies any previous history of kidney diseases. He denies use of any nonsteroidal anti-inflammatory agents prior to admission. Patient was maintained on YODIT inhibitors. Serum creatinine was 1.5 mg/dL. Review of previous lab shows creatinine of 1.3 in February of 2020. Blood pressure has not been significantly low. Currently patient is maintained on Decadron. He did get IV fluids on initial admission. He is currently having good urine output. PAST MEDICAL HISTORY: Hypertension, gastroesophageal reflux disease, type 2 diabetes, hypothyroidism, coronary artery disease, history of HI, hiatal hernia, kidney stones, bladder cancer. PAST SURGICAL HISTORY: Cardiac catheterization, coronary stent placement, colonoscopy, right knee arthroscopy, coronary stents, cataract surgery. SOCIAL HISTORY: Patient is a former smoker. No history of drug abuse or alcohol abuse. MEDICATIONS: Medications prior to admission included vitamin D, gabapentin, omeprazole, Celebrex, Synthroid, Prandin, metformin, aspirin, Lipitor, Zestril. ALLERGIES: NONE. REVIEW OF SYSTEMS: As per HPI. Other systems negative. PHYSICAL EXAMINATION: Patient is comfortable. Blood pressure 130/75, heart rate 84 per minute, T-max 100.1. No evidence of edema noted. [employer] exam grossly intact. Lungs and heart not examined. LABS: Sodium 133, potassium 5.6. CO2 is 25, BUN 22, creatinine 1.5, hemoglobin 10.2 g/dL. ASSESSMENT: 1. Acute kidney injury associated with underlying COVID-19 pneumonia as well as use of Celebrex prior to admission. Maintain patient off of NSAIDs and Becerra-2 inhibitors. He did get a dose of Kayexalate. Repeat labs in a.m. Maintain low-potassium diet. 2. COVID-19 pneumonia, maintained on Decadron. 3. Hyperkalemia associated with acute kidney injury, use of Becerra-2 inhibitors prior to admission. 4. History of bladder cancer. 5. Chronic kidney disease. Prior creatinine 1.3 in February of 2020. PLAN: Check UA. Continue off of IV fluids. Low-potassium diet. Repeat labs in a.m. Avoid NSAIDs and Becerra-2 inhibitors. Thank you for this consultation. Will continue to follow the patient with you during his hospitalization. MMPOLINAL / NIGHATN: [id number] /
--- NOTE | 2020-11-25 16:13 | US ---
EXAMINATION TYPE: US kidneys/renal and bladder DATE OF EXAM: 11/25/2020 COMPARISON: NONE CLINICAL HISTORY: Renal failure. abnormal labs. Covid. EXAM MEASUREMENTS: Right Kidney: 9.6 x 4.6 x 4.8 cm Left Kidney: 9.5 x 4.3 x 5.0 cm Right Kidney: No hydronephrosis or masses seen Left Kidney: No hydronephrosis or masses seen Bladder: moderately distended, anechoic Bilateral Jets not seen Kidneys show normal cortical medullary differentiation IMPRESSION: No hydronephrosis
[2020-11-25 17:20] LABS: Glucose,Whole Blood 485 mg/dL (75-99)
[2020-11-25 20:24] LABS: Appearance,Urine Clear (Clear); Bilirubin,Urine Negative (Negative); Blood,Urine Negative (Negative); Color,Urine Yellow; Glucose,Urine (UA) 4+ (Negative); Ketones,Urine Negative (Negative); Leukocyte Esterase,Urine Negative (Negative); Nitrite,Urine Negative (Negative); Protein,Urine 1+ (Negative); RBC,Urine <1 /hpf (0-5); Specific Gravity,Urine 1.018 (1.001-1.035); WBC,Urine 1 /hpf (0-5)
[2020-11-25 21:20] LABS: Glucose,Whole Blood 431 mg/dL (75-99)
[2020-11-25] MEDS: INSULIN DETEMIR (LEVEMIR) 100 UNIT/ML SYR SQ SCH (23:06)
[2020-11-25] MEDS: ATORVASTATIN 80 MG TAB PO SCH (23:09)
[2020-11-26 03:20] LABS: Glucose,Whole Blood 279 mg/dL (75-99)
[2020-11-26] MEDS: ALBUTEROL HFA INHALER INHALATION SCH ×4 (08:02→19:04)
--- NOTE | 2020-11-26 08:19 | P.HPIM ---
History of Present Illness H&P Date: 11/25/20 Chief Complaint: shortness of breath Stephon Miller is a 70 yo M with T2DM, HTN, HLD who presented to the ED with worsening malaise and shortness of breath. He notes his is currently in the ICU with COVID pneumonia. He states his symptoms started about a week ago and he has developed progressively worsening cough as well as chest tightness and chills. No nausea, vomiting or diarrhea. He is a nonsmoker. On presentation he was hypoxic and febrile, WBC 5.8, sodium 133, potassium 6.3, Cr 1.55, lactic 2.7, trop negative. CXR with bilateral patchy infiltrates. Review of Systems All systems: negative Constitutional: Reports malaise, Reports weakness, Denies chills, Denies fever Eyes: denies blurred vision, denies pain Ears, nose, mouth and throat: Denies headache, Denies sore throat Cardiovascular: Denies chest pain, Denies shortness of breath Respiratory: Reports cough, Reports cough with sputum, Reports dyspnea Gastrointestinal: Denies abdominal pain, Denies diarrhea, Denies nausea, Denies vomiting Musculoskeletal: Denies myalgias Integumentary: Denies pruritus, Denies rash Neurological: Denies numbness, Denies weakness Psychiatric: Denies anxiety, Denies depression Endocrine: Denies fatigue, Denies weight change Past Medical History Past Medical History: Coronary Artery Disease (CAD), Cancer, Diabetes Mellitus, GERD/Reflux, Hyperlipidemia, Hypertension, Myocardial Infarction ([place]), Osteoarthritis (OA), Thyroid Disorder Additional Past Medical History / Comment(s): increased SOB with activity, hiatal hernia, tendonitis, bladder cancer, hx kidney stones Last Myocardial Infarction Date:: unk History of Any Multi-Drug Resistant Organisms: None Reported Past Surgical History: Heart Catheterization With Stent, Orthopedic Surgery Additional Past Surgical History / Comment(s): colonoscopy, rt knee arthroscopy, two cardiac stents, thien cataracts Past Anesthesia/Blood Transfusion Reactions: Postoperative Nausea & Vomiting (PONV) Date of Last Stent Placement:: 10/2019 Past Psychological History: No Psychological Hx Reported Smoking Status: Former smoker - Past Family History Sister(s) Family Medical History: Cancer Additional Family Medical History / Comment(s): lung with metastisis, breast Father Family Medical History: Cancer Additional Family Medical History / Comment(s): bladder Medications and Allergies Home Medications Medication Instructions Recorded Confirmed Type Celecoxib [CeleBREX] 200 mg PO DAILY 10/27/19 11/24/20 History Multivitamins, Thera [Multivitamin 1 tab PO DAILY 10/27/19 11/24/20 History (formulary)] Omeprazole 20 mg PO DAILY 10/27/19 11/24/20 History Aspirin 81 mg PO DAILY chew 10/31/19 11/24/20 Rx Atorvastatin [Lipitor] 80 mg PO DAILY #90 tab 10/31/19 11/24/20 Rx lisinopriL [Zestril] 5 mg PO BID #180 tab 10/31/19 11/24/20 Rx Ergocalciferol [Vitamin D2 (1250 1,250 mcg PO PAGE 09/23/20 11/24/20 History Mcg = 45227 Iu)] Gabapentin 600 mg PO DAILY 09/23/20 11/24/20 History Levothyroxine Sodium [Synthroid] 100 mcg PO DAILY 09/23/20 11/24/20 History Metoprolol Succinate (ER) [Toprol 25 mg PO DAILY 09/23/20 11/24/20 History XL] Repaglinide [Prandin] 2 mg PO BID 09/23/20 11/24/20 History metFORMIN HCL 1,000 mg PO DAILY 09/23/20 11/24/20 History Clopidogrel Bisulfate [Plavix] 75 mg PO DAILY 11/24/20 11/24/20 History Allergies Allergy/AdvReac Type Severity Reaction Status Date / Time No Known Allergies Allergy Verified 09/23/20 08:05 Physical Exam Vitals: Vital Signs Temp Pulse Resp BP Pulse Ox 11/26/20 08:02 94 L 11/26/20 05:17 98.4 F 62 16 112/60 97 11/26/20 03:00 56 L 18 132/77 95 11/26/20 02:00 54 L 18 126/73 95 11/26/20 01:00 62 18 93 L 11/26/20 00:00 60 18 130/76 93 L 11/25/20 23:00 58 L 18 93 L 11/25/20 22:00 97.8 F 54 L 18 132/77 96 11/25/20 21:06 96 11/25/20 21:00 54 L 18 130/76 96 11/25/20 20:00 68 18 131/72 97 11/25/20 19:00 98.1 F 67 18 132/77 97 11/25/20 18:45 67 18 132/72 98 11/25/20 15:48 98.4 F 69 18 120/69 98 11/25/20 11:34 89 18 145/83 97 11/25/20 10:38 97.8 F 84 18 130/75 94 L 11/25/20 09:25 100.1 F H 80 18 132/63 98 General: well developed, well nourished, NAD HEENT: normocephalic, atraumatic, mucus membranes moist Neck: supple, no thyromegaly or JVD CV: RRR, no murmur Lungs: normal effort, clear throughout Abd: soft, nontender, non distended Neuro: alert and oriented x3, no focal deficit Skin: warm and dry Results CBC & Chem 7: 11/25/20 05:08 11/25/20 08:40 Labs: Abnormal Lab Results - Last 24 Hours (Table) 11/25/20 11/25/20 11/25/20 Range/Units 08:40 13:03 17:19 Sodium 133 L (137-145) mmol/L Potassium 5.6 H (3.5-5.1) mmol/L BUN 22 H (9-20) mg/dL Creatinine 1.50 H (0.66-1.25) mg/dL Glucose 120 H (74-99) mg/dL POC Glucose (mg/dL) 238 H 485 H (75-99) mg/dL Calcium 8.1 L (8.4-10.2) mg/dL Urine Protein (Negative) Urine Glucose (UA) (Negative) 11/25/20 11/25/20 11/26/20 Range/Units 20:04 21:13 03:18 Sodium (137-145) mmol/L Potassium (3.5-5.1) mmol/L BUN (9-20) mg/dL Creatinine (0.66-1.25) mg/dL Glucose (74-99) mg/dL POC Glucose (mg/dL) 431 H 279 H (75-99) mg/dL Calcium (8.4-10.2) mg/dL Urine Protein 1+ H (Negative) Urine Glucose (UA) 4+ H (Negative) Assessment and Plan (1) Acute hypoxemic respiratory failure due to COVID-19 Current Visit: Yes Status: Acute Code(s): U07.1 - COVID-19; J96.01 - ACUTE RESPIRATORY FAILURE WITH HYPOXIA SNOMED Code(s): 584239964 (2) Essential hypertension Current Visit: Yes Status: Acute Code(s): I10 - ESSENTIAL (PRIMARY) HYPERTENSION SNOMED Code(s): 47706371 (3) Type 2 diabetes mellitus Current Visit: Yes Status: Acute Code(s): E11.9 - TYPE 2 DIABETES MELLITUS WITHOUT COMPLICATIONS SNOMED Code(s): 56835931 (4) DARWIN (acute kidney injury) Current Visit: Yes Status: Acute Code(s): N17.9 - ACUTE KIDNEY FAILURE, UNSPECIFIED SNOMED Code(s): 75846492 (5) COVID-19 Current Visit: Yes Status: Acute Code(s): U07.1 - COVID-19 SNOMED Code(s): 460645714 (6) Hyperkalemia Current Visit: Yes Status: Acute Code(s): E87.5 - HYPERKALEMIA SNOMED C ode(s): 46831690 Plan: 1. COVID pneumonia. Acute hypoxic respiratory failure. Admit, start vit C, vit D, ASA, decadron. Maintain O2 sats above 90%. Closely monitor 2. Acute kidney injury, secondary to above. Nephrology consult. Hold lisinopril. IV fluids 3. T2DM. Hold metformin. Cover with levemir and sliding scale 4. Hypothyroidism. Continue synthroid 5. CKD 3b 6. Hx tobacco use
[2020-11-26 08:29] LABS: HCT 31.1 % (39.0-53.0); HGB 10.6 gm/dL (13.0-17.5); MCH 29.8 pg (25.0-35.0); MCV 87.8 fL (80.0-100.0); Mean Platelet Volume 6.7; Platelet Count 282 k/uL (150-450); RBC 3.54 m/uL (4.30-5.90); RDW 12.5 % (11.5-15.5); WBC 7.3 k/uL (3.8-10.6)
[2020-11-26 09:13] LABS: African American GFR (CKD) 57 (>60 ml/min/1.73 sqM); Anion Gap 7 mmol/L; Blood Urea Nitrogen 28 mg/dL (9-20); Calcium 8.3 mg/dL (8.4-10.2); Carbon Dioxide 23 mmol/L (22-30); Chloride 104 mmol/L (98-107); Glucose 251 mg/dL (74-99); Non-African American GFR(CKD) 50 (>60 ml/min/1.73 sqM); Potassium 5.3 mmol/L (3.5-5.1); Sodium 134 mmol/L (137-145)
--- NOTE | 2020-11-26 09:25 | P.PN ---
Subjective Patient is seen in follow-up for acute kidney injury and hyperkalemia. Potassium level 5.3. Admits to a nonproductive cough. No chest pain or buster rtness of breath. Oral intake is good. Good urine output. Vital signs are stable. General: The patient appeared well nourished and normally developed. HEENT: Head exam is unremarkable. Neck is without jugular venous distension. LUNGS: Breath sounds decreased. HEART: Rate and Rhythm are regular. ABDOMEN: Soft, nontender. EXTREMITITES: No edema. Objective - Vital Signs Vital signs: Vital Signs Temp 98.4 F 11/26/20 05:17 Pulse 62 11/26/20 05:17 Resp 16 11/26/20 05:17 BP 112/60 11/26/20 05:17 Pulse Ox 94 L 11/26/20 08:02 - Labs CBC & Chem 7: 11/26/20 08:06 11/26/20 08:06 Labs: Abnormal Lab Results - Last 24 Hours (Table) 11/25/20 11/25/20 11/25/20 Range/Units 08:40 13:03 17:19 RBC (4.30-5.90) m/uL Hgb (13.0-17.5) gm/dL Hct (39.0-53.0) % Sodium 133 L (137-145) mmol/L Potassium 5.6 H (3.5-5.1) mmol/L BUN 22 H (9-20) mg/dL Creatinine 1.50 H (0.66-1.25) mg/dL Glucose 120 H (74-99) mg/dL POC Glucose (mg/dL) 238 H 485 H (75-99) mg/dL Calcium 8.1 L (8.4-10.2) mg/dL Urine Protein (Negative) Urine Glucose (UA) (Negative) 11/25/20 11/25/20 11/26/20 Range/Units 20:04 21:13 03:18 RBC (4.30-5.90) m/uL Hgb (13.0-17.5) gm/dL Hct (39.0-53.0) % Sodium (137-145) mmol/L Potassium (3.5-5.1) mmol/L BUN (9-20) mg/dL Creatinine (0.66-1.25) mg/dL Glucose (74-99) mg/dL POC Glucose (mg/dL) 431 H 279 H (75-99) mg/dL Calcium (8.4-10.2) mg/dL Urine Protein 1+ H (Negative) Urine Glucose (UA) 4+ H (Negative) 11/26/20 11/26/20 Range/Units 08:06 08:06 RBC 3.54 L (4.30-5.90) m/uL Hgb 10.6 L (13.0-17.5) gm/dL Hct 31.1 L (39.0-53.0) % Sodium 134 L (137-145) mmol/L Potassium 5.3 H (3.5-5.1) mmol/L BUN 28 H (9-20) mg/dL Creatinine 1.43 H (0.66-1.25) mg/dL Glucose 251 H (74-99) mg/dL POC Glucose (mg/dL) (75-99) mg/dL Calcium 8.3 L (8.4-10.2) mg/dL Urine Protein (Negative) Urine Glucose (UA) (Negative) Assessment and Plan Plan: Assessment: 1. Acute kidney injury mostly prerenal secondary to cord 19 pneumonia and nonsteroidals. Renal function stable. Creatinine 1.43 today. No hydronephrosis noted on kidney ultrasound. 2. Hyperkalemia secondary to acute kidney injury, lisinopril and nonsteroidals. Better. 3. Coated 19 pneumonia maintained on steroids. 4. Diabetes mellitus. 5. Chronic kidney disease stage IIIa secondary to diabetic kidney disease. Creatinine 1.3 in February 2020. Plan: Hold lisinopril. Avoid nephrotoxins. Encourage oral intake. Continue to monitor renal function and urine output. Low potassium diet.
[2020-11-26] MEDS: PANTOPRAZOLE 40 MG TABLET PO SCH (09:56)
[2020-11-26] MEDS: DEXAMETHASONE SOD PHOSPHATE 10 MG/ML 1 ML VIAL IV SCH (09:56)
[2020-11-26] MEDS: METOPROLOL SUCCINATE (ER) 25 MG TAB.ER.24H PO SCH (09:56)
[2020-11-26] MEDS: ENOXAPARIN 40 MG/0.4 ML SYRINGE SQ SCH (09:56)
[2020-11-26] MEDS: ASPIRIN 81 MG PO SCH (09:56)
[2020-11-26] MEDS: ASCORBIC ACID 500 MG TAB PO SCH (09:56)
[2020-11-26] MEDS: CHOLECALCIFEROL 25 MCG (1000 IU) TABLET PO SCH (09:56)
[2020-11-26] MEDS: CLOPIDOGREL 75 MG TAB PO SCH (09:57)
[2020-11-26] MEDS: LEVOTHYROXINE 100 MCG TAB PO SCH (09:57)
[2020-11-26 10:09] LABS: Glucose,Whole Blood 283 mg/dL (75-99)
[2020-11-26] MEDS: INSULIN ASPART (NovoLOG) 100 UNIT/ML VIAL SQ SCH ×4 (10:11→23:03)
[2020-11-26] MEDS: INSULIN DETEMIR (LEVEMIR) 100 UNIT/ML SYR SQ SCH ×2 (10:12→23:02)
[2020-11-26 12:20] LABS: Glucose,Whole Blood 333 mg/dL (75-99)
[2020-11-26] MEDS: GABAPENTIN 300 MG CAP PO SCH (17:56)
[2020-11-26 18:19] LABS: Glucose,Whole Blood 316 mg/dL (75-99)
--- NOTE | 2020-11-26 21:39 | P.PN ---
Subjective Progress Note Date: 11/26/20 He is feeling improved today, less coughing and not short of breath. His creatinine is improved to 1.43 from 1.5 yesterday. He continues on 3 LPM O2. Objective - Vital Signs Vital signs: Vital Signs Temp 98.1 F 11/26/20 10:02 Pulse 73 11/26/20 20:00 Resp 20 11/26/20 20:00 BP 132/75 11/26/20 20:00 Pulse Ox 92 L 11/26/20 20:00 Intake & Output 11/26/20 11/26/20 11/27/20 06:59 18:59 06:59 Weight 86.183 kg - Exam General: well nourished, well developed, NAD. Vitals reviewed Lungs: normal respiratory effort, no wheezes or rales CV: Regular rate and rhythm, no murmur. Peripheral pulses 2+ Abdomen: soft, nondistended, no organomegaly Skin: warm and dry. - Labs CBC & Chem 7: 11/26/20 08:06 11/26/20 08:06 Labs: Abnormal Lab Results - Last 24 Hours (Table) 11/26/20 11/26/20 11/26/20 Range/Units 03:18 08:06 08:06 RBC 3.54 L (4.30-5.90) m/uL Hgb 10.6 L (13.0-17.5) gm/dL Hct 31.1 L (39.0-53.0) % Sodium 134 L (137-145) mmol/L Potassium 5.3 H (3.5-5.1) mmol/L BUN 28 H (9-20) mg/dL Creatinine 1.43 H (0.66-1.25) mg/dL Glucose 251 H (74-99) mg/dL POC Glucose (mg/dL) 279 H (75-99) mg/dL Calcium 8.3 L (8.4-10.2) mg/dL 11/26/20 11/26/20 11/26/20 Range/Units 10:07 12:17 18:16 RBC (4.30-5.90) m/uL Hgb (13.0-17.5) gm/dL Hct (39.0-53.0) % Sodium (137-145) mmol/L Potassium (3.5-5.1) mmol/L BUN (9-20) mg/dL Creatinine (0.66-1.25) mg/dL Glucose (74-99) mg/dL POC Glucose (mg/dL) 283 H 333 H 316 H (75-99) mg/dL Calcium (8.4-10.2) mg/dL Assessment and Plan (1) Acute hypoxemic respiratory failure due to COVID-19 Current Visit: Yes Status: Acute Code(s): U07.1 - COVID-19; J96.01 - ACUTE RESPIRATORY FAILURE WITH HYPOXIA SNOMED Code(s): 240393411 (2) Essential hypertension Current Visit: Yes Status: Acute Code(s): I10 - ESSENTIAL (PRIMARY) HYPERTENSION SNOMED Code(s): 02627692 (3) Type 2 diabetes mellitus Current Visit: Yes Status: Acute Code(s): E11.9 - TYPE 2 DIABETES MELLITUS WITHOUT COMPLICATIONS SNOMED Code(s): 31652246 (4) DARWIN (acute kidney injury) Current Visit: Yes Status: Acute Code(s): N17.9 - ACUTE KIDNEY FAILURE, UNSPECIFIED SNOMED Code(s): 62367559 (5) COVID-19 Current Visit: Yes Status: Acute Code(s): U07.1 - COVID-19 SNOMED Code(s): 172490611 (6) Hyperkalemia Current Visit: Yes Status: Acute Code(s): E87.5 - HYPERKALEMIA SNOMED Code(s): 92591748 Plan: Continue with current medications and treatments, continue to wean O2 as tolerated. Continue with IV fluids and follow labs
[2020-11-26 22:31] LABS: Glucose,Whole Blood 343 mg/dL (75-99)
[2020-11-26] MEDS: ATORVASTATIN 80 MG TAB PO SCH (23:07)
[2020-11-27] MEDS: LEVOTHYROXINE 100 MCG TAB PO SCH (05:23)
[2020-11-27] MEDS: ALBUTEROL HFA INHALER INHALATION SCH ×4 (08:11→20:30)
[2020-11-27 08:26] LABS: Glucose,Whole Blood 309 mg/dL (75-99)
[2020-11-27] MEDS: METOPROLOL SUCCINATE (ER) 25 MG TAB.ER.24H PO SCH (08:34)
[2020-11-27] MEDS: ASPIRIN 81 MG PO SCH (08:34)
[2020-11-27] MEDS: ENOXAPARIN 40 MG/0.4 ML SYRINGE SQ SCH (08:35)
[2020-11-27] MEDS: CLOPIDOGREL 75 MG TAB PO SCH (08:35)
[2020-11-27] MEDS: GABAPENTIN 300 MG CAP PO SCH (08:35)
[2020-11-27] MEDS: PANTOPRAZOLE 40 MG TABLET PO SCH (08:35)
[2020-11-27] MEDS: ASCORBIC ACID 500 MG TAB PO SCH (08:35)
[2020-11-27] MEDS: DEXAMETHASONE SOD PHOSPHATE 10 MG/ML 1 ML VIAL IV SCH (08:35)
[2020-11-27] MEDS: INSULIN DETEMIR (LEVEMIR) 100 UNIT/ML SYR SQ SCH ×2 (08:36→21:25)
[2020-11-27] MEDS: CHOLECALCIFEROL 25 MCG (1000 IU) TABLET PO SCH (09:08)
[2020-11-27] MEDS: INSULIN ASPART (NovoLOG) 100 UNIT/ML VIAL SQ SCH ×4 (09:08→21:24)
[2020-11-27 09:47] LABS: African American GFR (CKD) 49.8 (60.0-200.0); Anion Gap 9.3 mmol/L (4.00-12.00); BUN/Creat Ratio 23.13 Ratio (12.00-20.00); Calcium 8.8 mg/dL (8.7-10.3); Carbon Dioxide 22.7 mmol/L (21.6-31.8); Magnesium 1.8 mg/dL (1.5-2.4); Potassium 5.1 mmol/L (3.5-5.5)
[2020-11-27 12:16] LABS: Glucose,Whole Blood 337 mg/dL (75-99)
--- NOTE | 2020-11-27 12:36 | P.PN ---
Subjective Patient is seen in follow-up for acute kidney injury and hyperkalemia. Potassium level 5.1. Admits to a nonproductive cough. Has been voiding. Does get short of breath with exertion. Currently on 5 L nasal cannula. Creatinine fairly stable at 1.6 today. Vital signs are stable. General: The patient appeared well nourished and normally developed. HEENT: Head exam is unremarkable. Neck is without jugular venous distension. LUNGS: Breath sounds decreased. HEART: Rate and Rhythm are regular. ABDOMEN: Soft, nontender. EXTREMITITES: No edema. Objective - Vital Signs Vital signs: Vital Signs Temp 98.3 F 11/27/20 08:00 Pulse 84 11/27/20 08:00 Resp 20 11/27/20 08:00 BP 155/88 11/27/20 08:00 Pulse Ox 84 L 11/27/20 08:00 Intake & Output 11/26/20 11/27/20 11/27/20 18:59 06:59 18:59 Intake Total 240 100 Output Total 200 Balance 40 100 Weight 86.183 kg Intake: Oral 240 100 Output: Urine 200 Other: Voiding Method Urinal # Voids 1 - Labs CBC & Chem 7: 11/26/20 08:06 11/27/20 05:28 Labs: Abnormal Lab Results - Last 24 Hours (Table) 11/26/20 11/26/20 11/27/20 Range/Units 18:16 22:12 05:28 BUN 37.0 H (9.0-27.0) mg/dL Creatinine 1.6 H (0.6-1.5) mg/dL Est GFR (CKD-EPI)AfAm 49.8 L (60.0-200.0) Est GFR (CKD-EPI)NonAf 43.0 L (60.0-200.0) BUN/Creatinine Ratio 23.13 H (12.00-20.00) Ratio Glucose 281 H (70-110) mg/dL POC Glucose (mg/dL) 316 H 343 H (75-99) mg/dL 11/27/20 11/27/20 Range/Units 08:21 12:14 BUN (9.0-27.0) mg/dL Creatinine (0.6-1.5) mg/dL Est GFR (CKD-EPI)AfAm (60.0-200.0) Est GFR (CKD-EPI)NonAf (60.0-200.0) BUN/Creatinine Ratio (12.00-20.00) Ratio Glucose (70-110) mg/dL POC Glucose (mg/dL) 309 H 337 H (75-99) mg/dL Assessment and Plan Plan: Assessment: 1. Acute kidney injury mostly prerenal secondary to cord 19 pneumonia and nonsteroidals. Renal function stable. Creatinine 1.6 today. No hydronephrosis noted on kidney ultrasound. 2. Hyperkalemia secondary to acute kidney injury, lisinopril and nonsteroidals. Better. 3. Coated 19 pneumonia maintained on steroids. 4. Diabetes mellitus. 5. Chronic kidney disease stage IIIa secondary to diabetic kidney disease. Creatinine 1.3 in February 2020. Plan: Continue to hold lisinopril. Avoid nephrotoxins. Encourage oral intake. Continue to monitor renal function and urine output. Low potassium diet.
[2020-11-27 13:21] VITALS: BMI 29.7
--- NOTE | 2020-11-27 16:40 | P.PN ---
Subjective Progress Note Date: 11/27/20 11/27/2020 during the night, patient became more hypoxic, requiring nonrebreather. Significant clinical improvement, maintaining O2 sats in the 90s on 5 L nasal cannula. Minimal nonproductive cough. Creatinine 1.6. Objective - Vital Signs Vital signs: Vital Signs Temp 97 F L 11/27/20 13:59 Pulse 81 11/27/20 13:59 Resp 20 11/27/20 13:59 BP 150/70 11/27/20 13:59 Pulse Ox 90 L 11/27/20 13:59 Intake & Output 11/26/20 11/27/20 11/27/20 18:59 06:59 18:59 Intake Total 240 218 Output Total 200 Balance 40 218 Weight 86.183 kg 86.183 kg Intake: Oral 240 218 Output: Urine 200 Other: Voiding Method Urinal # Voids 1 - Exam - Exam General: well nourished, well developed, NAD. Vitals reviewed Lungs: normal respiratory effort, minimal rhonchi, no wheezes or rales CV: Regular rate and rhythm, no murmur. Peripheral pulses 2+ Abdomen: soft, nondistended, no organomegaly Skin: warm and dry. - Labs CBC & Chem 7: 11/26/20 08:06 11/27/20 05:28 Labs: Abnormal Lab Results - Last 24 Hours (Table) 11/26/20 11/26/20 11/27/20 Range/Units 18:16 22:12 05:28 BUN 37.0 H (9.0-27.0) mg/dL Creatinine 1.6 H (0.6-1.5) mg/dL Est GFR (CKD-EPI)AfAm 49.8 L (60.0-200.0) Est GFR (CKD-EPI)NonAf 43.0 L (60.0-200.0) BUN/Creatinine Ratio 23.13 H (12.00-20.00) Ratio Glucose 281 H (70-110) mg/dL POC Glucose (mg/dL) 316 H 343 H (75-99) mg/dL 11/27/20 11/27/20 Range/Units 08:21 12:14 BUN (9.0-27.0) mg/dL Creatinine (0.6-1.5) mg/dL Est GFR (CKD-EPI)AfAm (60.0-200.0) Est GFR (CKD-EPI)NonAf (60.0-200.0) BUN/Creatinine Ratio (12.00-20.00) Ratio Glucose (70-110) mg/dL POC Glucose (mg/dL) 309 H 337 H (75-99) mg/dL Assessment and Plan Assessment: (1) Acute hypoxemic respiratory failure due to COVID-19 Current Visit: Yes Status: Acute Code(s): U07.1 - COVID-19; J96.01 - ACUTE RESPIRATORY FAILURE WITH HYPOXIA SNOMED Code(s): 724865110 (2) Essential hypertension Current Visit: Yes Status: Acute Code(s): I10 - ESSENTIAL (PRIMARY) HYPERTENSION SNOMED Code(s): 69492499 (3) Type 2 diabetes mellitus Current Visit: Yes Status: Acute Code(s): E11.9 - TYPE 2 DIABETES MELLITUS WITHOUT COMPLICATIONS SNOMED Code(s): 43089612 (4) DARWIN (acute kidney injury), prerenal secondary to #1 Current Visit: Yes Status: Acute Code(s): N17.9 - ACUTE KIDNEY FAILURE, UNSPECIFIED SNOMED Code(s): 76580526 (5) chronic kidney disease stage IIIa secondary to DKA, baseline 1.3 (6) COVID-19 Current Visit: Yes Status: Acute Code(s): U07.1 - COVID-19 SNOMED Code(s): 362592162 (7) Hyperkalemia secondary to acute renal failure, YODIT inhibitor and NSAIDs, improving Current Visit: Yes Status: Acute Code(s): E87.5 - HYPERKALEMIA SNOMED Code(s): 04298370 Plan: Continue on current medication regime ,monitoring and symptomatic treatment. Weaning of oxygen in progress. Maintain Covid regimen. Continue holding YODIT inhibitor, close monitoring of renal function with repeat labs or dered for a.m. hyperglycemia,Levemir adjusted. Close monitoring of renal function. The impression and plan of care has been dictated as directed. : I performed a history and examination of this patient, discussed the same with the dictator. I agree with the dictator's note ,documented as a scribe. Any additional findings or plans will be noted.
[2020-11-27 17:15] LABS: Glucose,Whole Blood 386 mg/dL (75-99)
[2020-11-27] MEDS: ATORVASTATIN 80 MG TAB PO SCH (21:24)
[2020-11-27 21:39] LABS: Glucose,Whole Blood 397 mg/dL (75-99)
[2020-11-28] MEDS: LEVOTHYROXINE 100 MCG TAB PO SCH (05:59)
[2020-11-28 07:51] LABS: Glucose,Whole Blood 193 mg/dL (75-99)
[2020-11-28] MEDS: INSULIN DETEMIR (LEVEMIR) 100 UNIT/ML SYR SQ SCH ×2 (07:52→20:03)
[2020-11-28] MEDS: PANTOPRAZOLE 40 MG TABLET PO SCH (07:53)
[2020-11-28] MEDS: GABAPENTIN 300 MG CAP PO SCH (07:54)
[2020-11-28] MEDS: METOPROLOL SUCCINATE (ER) 25 MG TAB.ER.24H PO SCH (07:54)
[2020-11-28] MEDS: ASCORBIC ACID 500 MG TAB PO SCH (08:01)
[2020-11-28] MEDS: ASPIRIN 81 MG PO SCH (08:01)
[2020-11-28] MEDS: DEXAMETHASONE SOD PHOSPHATE 10 MG/ML 1 ML VIAL IV SCH (08:02)
[2020-11-28] MEDS: ENOXAPARIN 40 MG/0.4 ML SYRINGE SQ SCH (08:02)
[2020-11-28] MEDS: CHOLECALCIFEROL 25 MCG (1000 IU) TABLET PO SCH (08:02)
[2020-11-28] MEDS: CLOPIDOGREL 75 MG TAB PO SCH (08:02)
[2020-11-28] MEDS: INSULIN ASPART (NovoLOG) 100 UNIT/ML VIAL SQ SCH ×4 (08:22→20:03)
[2020-11-28] MEDS: ALBUTEROL HFA INHALER INHALATION SCH ×4 (09:21→19:30)
--- NOTE | 2020-11-28 09:28 | P.PN ---
Subjective Patient is seen in follow-up for acute kidney injury and hyperkalemia. Labs from today pending. Has been voiding. Does get short of breath with exertion. Remains on 5 L nasal cannula. No active complaints. Hemodynamically stable. Vital signs are stable. General: The patient appeared well nourished and normally developed. HEENT: Head exam is unremarkable. Neck is without jugular venous distension. LUNGS: Breath sounds decreased. HEART: Rate and Rhythm are regular. ABDOMEN: Soft, nontender. EXTREMITITES: No edema. Objective - Vital Signs Vital signs: Vital Signs Temp 98.5 F 11/28/20 07:36 Pulse 79 11/28/20 07:36 Resp 18 11/28/20 07:36 BP 150/81 11/28/20 07:36 Pulse Ox 90 L 11/28/20 07:36 Intake & Output 11/27/20 11/28/20 11/28/20 18:59 06:59 18:59 Intake Total 218 320 Output Total 1100 400 Balance 218 -780 -400 Weight 86.183 kg Intake: Oral 218 320 Output: Urine 1100 400 Other: Voiding Method Urinal # Voids 1 - Labs CBC & Chem 7: 11/26/20 08:06 11/27/20 05:28 Labs: Abnormal Lab Results - Last 24 Hours (Table) 11/27/20 11/27/20 11/27/20 Range/Units 05:28 12:14 17:13 BUN 37.0 H (9.0-27.0) mg/dL Creatinine 1.6 H (0.6-1.5) mg/dL Est GFR (CKD-EPI)AfAm 49.8 L (60.0-200.0) Est GFR (CKD-EPI)NonAf 43.0 L (60.0-200.0) BUN/Creatinine Ratio 23.13 H (12.00-20.00) Ratio Glucose 281 H (70-110) mg/dL POC Glucose (mg/dL) 337 H 386 H (75-99) mg/dL 11/27/20 11/28/20 Range/Units 21:23 07:38 BUN (9.0-27.0) mg/dL Creatinine (0.6-1.5) mg/dL Est GFR (CKD-EPI)AfAm (60.0-200.0) Est GFR (CKD-EPI)NonAf (60.0-200.0) BUN/Creatinine Ratio (12.00-20.00) Ratio Glucose (70-110) mg/dL POC Glucose (mg/dL) 397 H 193 H (75-99) mg/dL Assessment and Plan Plan: Assessment: 1. Acute kidney injury mostly prerenal secondary to cord 19 pneumonia and nonsteroidals. Renal function stable. Creatinine 1.6 as of yesterday. No hydronephrosis noted on kidney ultrasound. 2. Hyperkalemia secondary to acute kidney injury, lisinopril and nonsteroidals. Better. 3. Coated 19 pneumonia maintained on steroids. 4. Diabetes mellitus. 5. Chronic kidney disease stage IIIa secondary to diabetic kidney disease. Creatinine 1.3 in February 2020. Plan: Continue to hold lisinopril. Avoid nephrotoxins. Encourage oral intake. Continue to monitor renal function and urine output. Low potassium diet. Follow-up morning labs.
--- NOTE | 2020-11-28 10:14 | P.PN ---
Subjective Progress Note Date: 11/28/20 11/27/2020 during the night, patient became more hypoxic, requiring nonrebreather. Significant clinical improvement, maintaining O2 sats in the 90s on 5 L nasal cannula. Minimal nonproductive cough. Creatinine 1.6. 11/28/2020 Required nonrebreather briefly during the night; currently maintained on 5 L nasal cannula, O2 sats of 90-91%. Complains of worsening shortness of breath, especially with minimal exertion, nonproductive cough. Maintained on Covid regimen, including dexamethasone. Blood sugars elevated throughout the night, better controlled this morning. Denies chest pain, palpitations or shortness of breath. Labs pending. Objective - Vital Signs Vital signs: Vital Signs Temp 98.5 F 11/28/20 07:36 Pulse 79 11/28/20 07:36 Resp 18 11/28/20 07:36 BP 150/81 11/28/20 07:36 Pulse Ox 90 L 11/28/20 07:36 Intake & Output 11/27/20 11/28/20 11/28/20 18:59 06:59 18:59 Intake Total 218 320 100 Output Total 1100 400 Balance 218 -780 -300 Weight 86.183 kg Intake: Oral 218 320 100 Output: Urine 1100 400 Other: Voiding Method Urinal # Voids 1 - Exam - Exam General: Sitting up in bed, NAD. Mild increase in respiratory effort ,Vitals reviewed Lungs: normal respiratory effort, minimal rhonchi, no wheezes or rales CV: Regular rate and rhythm, no murmur. Peripheral pulses 2+ Abdomen: soft, nondistended, no organomegaly. Positive bowel sounds Skin: warm and dry. - Labs CBC & Chem 7: 11/26/20 08:06 11/27/20 05:28 Labs: Abnormal Lab Results - Last 24 Hours (Table) 11/27/20 11/27/20 11/27/20 Range/Units 12:14 17:13 21:23 POC Glucose (mg/dL) 337 H 386 H 397 H (75-99) mg/dL 11/28/20 Range/Units 07:38 POC Glucose (mg/dL) 193 H (75-99) mg/dL Assessment and Plan Assessment: (1) Acute hypoxemic respiratory failure due to COVID-19 Current Visit: Yes Status: Acute Code(s): U07.1 - COVID-19; J96.01 - ACUTE RESPIRATORY FAILURE WITH HYPOXIA SNOMED Code(s): 508389494 (2) Essential hypertension Current Visit: Yes Status: Acute Code(s): I10 - ESSENTIAL (PRIMARY) HYPERTENSION SNOMED Code(s): 51716498 (3) Type 2 diabetes mellitus Current Visit: Yes Status: Acute Code(s): E11.9 - TYPE 2 DIABETES MELLITUS WITHOUT COMPLICATIONS SNOMED Code(s): 49926261 (4) DARWIN (acute kidney injury), prerenal secondary to #1 Current Visit: Yes Status: Acute Code(s): N17.9 - ACUTE KIDNEY FAILURE, UNSPECIFIED SNOMED Code(s): 96663388 (5) chronic kidney disease stage IIIa secondary to DKA, baseline 1.3 (6) COVID-19 Current Visit: Yes Status: Acute Code(s): U07.1 - COVID-19 SNOMED Code(s): 197733429 (7) Hyperkalemia secondary to acute renal failure, YODIT inhibitor and NSAIDs, improving Current Visit: Yes Status: Acute Code(s): E87.5 - HYPERKALEMIA SNOMED Code(s): 31093667 Plan: Continue on current medication regime ,monitoring and symptomatic treatment. Patient unable to wean from 5 L, requiring nonrebreather at night, complains of exertional hypoxia, may benefit from Remdesevir-pulmonary consulted. Maintain Covid regimen. Levemir further adjusted for tighter control blood sugars. Labs pending, continue holding YODIT inhibitor. Close monitoring of renal function. The impression and plan of care has been dictated as directed. : I performed a history and examination of this patient, discussed the same with the dictator. I agree with the dictator's note ,documented as a scribe. Any additional findings or plans will be noted.
[2020-11-28] MEDS ORDERED: INSULIN DETEMIR (LEVEMIR) 100 UNIT/ML SYR SQ ONE (10:30)
[2020-11-28] MEDS: ZINC SULFATE 220 MG CAP PO SCH (10:41)
[2020-11-28 11:11] LABS: Basophils # (A) 0.02 X 10*3/uL (0.00-0.10); Basophils % (A) 0.2 %; Eosinophils # (A) 0 X 10*3/uL (0.04-0.35); Eosinophils % (A) 0 %; HCT 31.6 % (39.6-50.0); HGB 10.7 g/dL (13.0-17.0); Lymphocytes # (A) 0.97 X 10*3/uL (0.90-5.00); Lymphocytes % (A) 8.8 %; MCH 29.6 pg (27.0-32.0); MCHC 33.9 g/dL (32.0-37.0); MCV 87.3 fL (80.0-97.0); Mean Platelet Volume 8.9 fL (9.5-12.2); Monocytes # (A) 0.64 X 10*3/uL (0.20-1.00); Monocytes % (A) 5.8 %; Neutrophils # (A) 9.27 X 10*3/uL (1.80-7.70); Neutrophils % (A) 84.5 %; Platelet Count 357 X 10*3/uL (140-440); RBC 3.62 X 10*6/uL (4.40-5.60); RDW 12.4 % (11.5-14.5); WBC 10.98 X 10*3/uL (4.50-10.00)
[2020-11-28 12:03] LABS: African American GFR (CKD) 58.6 (60.0-200.0); Anion Gap 12.5 mmol/L (4.00-12.00); BUN/Creat Ratio 28.57 Ratio (12.00-20.00); Calcium 8.8 mg/dL (8.7-10.3); Carbon Dioxide 20.5 mmol/L (21.6-31.8); Magnesium 1.8 mg/dL (1.5-2.4); Non-African American GFR(CKD) 50.5 (60.0-200.0); Potassium 4.7 mmol/L (3.5-5.5)
[2020-11-28 12:21] LABS: Glucose,Whole Blood 225 mg/dL (75-99)
--- NOTE | 2020-11-28 12:33 | P.CNPUL ---
History of Present Illness Consult date: 11/28/20 Requesting physician: Collin Lamb Reason for consult: pneumonia Chief complaint: Shortness of breath and weakness. History of present illness: This is a 70-year-old white male with history of multiple medical problems including hypertension, type 2 diabetes, dyslipidemia, coronary artery disease and previous MN, previous stent placement, degenerative joint disease, bladder cancer, nephrolithiasis, patient presented to the emergency room on 11/24/2020, mostly with 1 week history of multiple constitutional symptoms including muscle aches, fever, shortness of breath, cough, nausea, and he tested positive on the with contreras virus PCR. Chest x-ray showed evidence of bilateral opacitie s/infiltrates. Patient had adequate saturations on room air, it was about 94%, he was also noted to be hyperkalemic, and he had lactic acid of 2.7. Received dextrose, insulin, Kayexalate, and the patient was eventually admitted seen by nephrology on consultation, he was placed on the Covid 19 cocktail, and we were asked to see him yesterday because of his worsening shortness of breath. No follow-up chest x-ray done since admission, and I will be ordering one to be done today. Labs today clearly showed relatively normal CBC. Elevated BUN of 40 creatinine is 1.4. D-dimer was normal on admission, and I do not see any inflammatory markers on the chart. After evaluating the patient, we recommended one unit of convalescent plan is to be given. Patient obviously did not qualify for REM. And he is not at the point of requiring actemtra Review of Systems Constitutional: Reports malaise, Reports weakness, Denies chills, Denies fever Eyes: denies blurred vision, denies pain Ears, nose, mouth and throat: Denies headache, Denies sore throat Cardiovascular: Denies chest pain, Denies shortness of breath Respiratory: Reports cough, Reports cough with sputum, Reports dyspnea Gastrointestinal: Denies abdominal pain, Denies diarrhea, Denies nausea, Denies vomiting Musculoskeletal: Vague aches and pains and fatigue. Integumentary: Denies pruritus, Denies rash Neurological: Denies numbness, Denies weakness Psychiatric: Denies anxiety, Denies depression Endocrine: Denies any symptoms to suggest hypothyroidism. Past Medical History Past Medical History: Coronary Artery Disease (CAD), Cancer, Diabetes Mellitus, GERD/Reflux, Hyperlipidemia, Hypertension, Myocardial Infarction (MN), Osteoarthritis (OA), Thyroid Disorder Additional Past Medical History / Comment(s): Pt tested covid + on 11/19/20 at [facility]. Other hx: NIDDM type II, neuropathy bilateral hands, bladder cancer with surgery and will be receiving BCG installation soon, cardiomyopathy, MN per diagnostic-pt thinks showed on EKG, hiatal hernia, arthritis bilateral hands/chronic cervical and low back pain, tendonitis bilateral hands, bilateral carpal tunnel syndrome, nephrolithiasis-pt passed stone on his own, hypothyroid Last Myocardial Infarction Date:: unk History of Any Multi-Drug Resistant Organisms: None Reported Past Surgical History: Bladder Surgery, Heart Catheterization, Heart Catheterization With Stent, Orthopedic Surgery Additional Past Surgical History / Comment(s): 10/2019 PCI with stents, cystoscopies/bladder tumor resection, cervical epi steroid injection, R knee arthroscopy, EGD, colonoscopy, bilateral cataract removals. Past Anesthesia/Blood Transfusion Reactions: Postoperative Nausea & Vomiting (PONV) Date of Last Stent Placement:: 10/2019 Smoking Status: Former smoker - Past Family History Sister(s) Family Medical History: Cancer Additional Family Medical History / Comment(s): Sister of dinesh with metastisis to her brain at the age of 70 yrs.. Father Family Medical History: Cancer Additional Family Medical History / Comment(s): Father had bladder cancer. He lived to be 95 yrs old. Mother Additional Family Medical History / Comment(s): Mother had lupus. She at the age of 84 yrs. Medications and Allergies Home Medications Medication Instructions Recorded Confirmed Type Celecoxib [CeleBREX] 200 mg PO DAILY 10/27/19 11/24/20 History Multivitamins, Thera [Multivitamin 1 tab PO DAILY 10/27/19 11/24/20 History (formulary)] Omeprazole 20 mg PO DAILY 10/27/19 11/24/20 History Aspirin 81 mg PO DAILY chew 10/31/19 11/24/20 Rx Atorvastatin [Lipitor] 80 mg PO DAILY #90 tab 10/31/19 11/24/20 Rx lisinopriL [Zestril] 5 mg PO BID #180 tab 10/31/19 11/24/20 Rx Ergocalciferol [Vitamin D2 (1250 1,250 mcg PO PAGE 09/23/20 11/24/20 History Mcg = 01245 Iu)] Gabapentin 600 mg PO DAILY 09/23/20 11/24/20 History Levothyroxine Sodium [Synthroid] 100 mcg PO DAILY 09/23/20 11/24/20 History Metoprolol Succinate (ER) [Toprol 25 mg PO DAILY 09/23/20 11/24/20 History XL] Repaglinide [Prandin] 2 mg PO BID 09/23/20 11/24/20 History metFORMIN HCL 1,000 mg PO DAILY 09/23/20 11/24/20 History Clopidogrel Bisulfate [Plavix] 75 mg PO DAILY 11/24/20 11/24/20 History Allergies Allergy/AdvReac Type Severity Reaction Status Date / Time No Known Allergies Allergy Verified 09/23/20 08:05 Physical Exam Vitals: Vital Signs Temp Pulse Resp BP Pulse Ox 11/28/20 07:36 98.5 F 70 18 150/81 90 L 11/28/20 02:00 97.7 F 79 18 135/67 90 L 11/27/20 20:00 98.3 F 71 22 157/83 91 L 11/27/20 14:20 98.5 F 11/27/20 13:59 97 F L 81 20 150/70 90 L Intake and Output 11/27/20 11/28/20 11/28/20 22:59 06:59 14:59 Intake Total 320 100 Output Total 1100 200 Balance -780 -100 Intake: Oral 320 100 Output: Urine 1100 200 Other: Voiding Method Urinal # Voids 1 Physical Exam: Revealed 70-year-old white male in no distress, pleasant, on 5 L nasal cannula, O2 saturations 90%. Head: Atraumatic, normocephalic. HEENT:[Neck is supple.] [No neck masses.] [No thyromegaly.] [No JVD.] Chest: [No medical chest expansion, crackles at the bases bilaterally..] Cardiac Exam: [Normal S1 and S2, no S3 gallop, no murmur.] Abdomen: [Soft, nontender, no megaly, no rebound, no guarding, normal bowel sounds.] Extremities: [No clubbing, no edema, no cyanosis.] Neurological Exam: [No focal neurologic deficit.] Alert and oriented 3. Psychiatric: Normal mood affect and normal mental status examination. Musculoskeletal: No limitation in range of motion, no deformities. Results - Laboratory Findings CBC and BMP: 11/28/20 06:19 11/28/20 06:19 PT/INR, D-dimer PT 9.9 sec (9.0-12.0) 11/24/20 18:52 INR 0.9 (<1.2) 11/24/20 18:52 D-Dimer 0.32 mg/L FEU (<0.60) 11/24/20 18:52 Abnormal lab findings: Abnormal Labs 11/24/20 11/24/20 11/24/20 18:52 18:52 18:52 WBC RBC 4.14 L Hgb 12.0 L Hct 36.1 L MPV Immature Gran # Neutrophils # Lymphocytes # 0.9 L Eosinophils # Sodium 133 L Potassium 6.3 H* Carbon Dioxide Anion Gap BUN 26 H Creatinine 1.55 H Est GFR (CKD-EPI)AfAm Est GFR (CKD-EPI)NonAf BUN/Creatinine Ratio Glucose 199 H POC Glucose (mg/dL) Plasma Lactic Acid Thompson 2.7 H* Calcium Urine Protein Urine Glucose (UA) 11/24/20 11/25/20 11/25/20 20:48 01:14 02:31 WBC RBC Hgb Hct MPV Immature Gran # Neutrophils # Lymphocytes # Eosinophils # Sodium 132 L Potassium 6.3 H* Carbon Dioxide Anion Gap BUN 23 H Creatinine 1.56 H Est GFR (CKD-EPI)AfAm Est GFR (CKD-EPI)NonAf BUN/Creatinine Ratio Glucose 38 L* POC Glucose (mg/dL) 36 L Plasma Lactic Acid Thompson Calcium 8.3 L Urine Protein Urine Glucose (UA) 11/25/20 11/25/20 11/25/20 02:47 05:08 05:08 WBC RBC 3.32 L Hgb 10.2 L Hct 29.2 L MPV Immature Gran # Neutrophils # Lymphocytes # 0.9 L Eosinophils # Sodium 133 L Potassium 5.3 H Carbon Dioxide Anion Gap BUN 22 H Creatinine 1.55 H Est GFR (CKD-EPI)AfAm Est GFR (CKD-EPI)NonAf BUN/Creatinine Ratio Glucose 122 H POC Glucose (mg/dL) 176 H Plasma Lactic Acid Thompson Calcium 8.2 L Urine Protein Urine Glucose (UA) 11/25/20 11/25/2021 06:20 08:40 13:03 WBC RBC Hgb Hct MPV Immature Gran # Neutrophils # Lymphocytes # Eosinophils # Sodium 133 L Potassium 5.6 H Carbon Dioxide Anion Gap BUN 22 H Creatinine 1.50 H Est GFR (CKD-EPI)AfAm Est GFR (CKD-EPI)NonAf BUN/Creatinine Ratio Glucose 120 H POC Glucose (mg/dL) 106 H 238 H Plasma Lactic Acid Thompson Calcium 8.1 L Urine Protein Urine Glucose (UA) 11/25/20 11/25/20 11/25/20 17:19 20:04 21:13 WBC RBC Hgb Hct MPV Immature Gran # Neutrophils # Lymphocytes # Eosinophils # Sodium Potassium Carbon Dioxide Anion Gap BUN Creatinine Est GFR (CKD-EPI)AfAm Est GFR (CKD-EPI)NonAf BUN/Creatinine Ratio Glucose POC Glucose (mg/dL) 485 H 431 H Plasma Lactic Acid Thompson Calcium Urine Protein 1+ H Urine Glucose (UA) 4+ H 11/26/20 11/26/20 11/26/20 03:18 08:06 08:06 WBC RBC 3.54 L Hgb 10.6 L Hct 31.1 L MPV Immature Gran # Neutrophils # Lymphocytes # Eosinophils # Sodium 134 L Potassium 5.3 H Carbon Dioxide Anion Gap BUN 28 H Creatinine 1.43 H Est GFR (CKD-EPI)AfAm Est GFR (CKD-EPI)NonAf BUN/Creatinine Ratio Glucose 251 H POC Glucose (mg/dL) 279 H Plasma Lactic Acid Thompson Calcium 8.3 L Urine Protein Urine Glucose (UA) 11/26/20 11/26/20 11/26/20 10:07 12:17 18:16 WBC RBC Hgb Hct MPV Immature Gran # Neutrophils # Lymphocytes # Eosinophils # Sodium Potassium Carbon Dioxide Anion Gap BUN Creatinine Est GFR (CKD-EPI)AfAm Est GFR (CKD-EPI)NonAf BUN/Creatinine Ratio Glucose POC Glucose (mg/dL) 283 H 333 H 316 H Plasma Lactic Acid Thompson Calcium Urine Protein Urine Glucose (UA) 11/26/20 11/27/20 11/27/20 22:12 05:28 08:21 WBC RBC Hgb Hct MPV Immature Gran # Neutrophils # Lymphocytes # Eosinophils # Sodium Potassium Carbon Dioxide Anion Gap BUN 37.0 H Creatinine 1.6 H Est GFR (CKD-EPI)AfAm 49.8 L Est GFR (CKD-EPI)NonAf 43.0 L BUN/Creatinine Ratio 23.13 H Glucose 281 H POC Glucose (mg/dL) 343 H 309 H Plasma Lactic Acid Thompson Calcium Urine Protein Urine Glucose (UA) 11/27/20 11/27/20 11/27/20 12:14 17:13 21:23 WBC RBC Hgb Hct MPV Immature Gran # Neutrophils # Lymphocytes # Eosinophils # Sodium Potassium Carbon Dioxide Anion Gap BUN Creatinine Est GFR (CKD-EPI)AfAm Est GFR (CKD-EPI)NonAf BUN/Creatinine Ratio Glucose POC Glucose (mg/dL) 337 H 386 H 397 H Plasma Lactic Acid Thompson Calcium Urine Protein Urine Glucose (UA) 11/28/20 11/28/20 11/28/20 06:19 06:19 07:38 WBC 10.98 H RBC 3.62 L Hgb 10.7 L Hct 31.6 L MPV 8.9 L Immature Gran # 0.08 H Neutrophils # 9.27 H Lymphocytes # Eosinophils # 0 L Sodium Potassium Carbon Dioxide 20.5 L Anion Gap 12.50 H BUN 40.0 H Creatinine Est GFR (CKD-EPI)AfAm 58.6 L Est GFR (CKD-EPI)NonAf 50.5 L BUN/Creatinine Ratio 28.57 H Glucose 193 H POC Glucose (mg/dL) 193 H Plasma Lactic Acid Thompson Calcium Urine Protein Urine Glucose (UA) - Diagnostic Findings Chest x-ray: image reviewed (Chest x-ray showed bilateral opacities/infiltrates consistent with covid19 pneumonia.) Assessment and Plan Assessment: Impression: Acute hypoxic respiratory failure secondary to acute covid 19 pneumonitis. Acute on chronic kidney injury associated with underlying Covid 19 infection History of bladder cancer. Acute hyperkalemia with acute kidney injury. Chronic kidney disease, previous creatinine was 1.3 in February 2020. 9 essential hypertension. Type 2 diabetes Recommendation: Continue present supportive care measures Continue oxygen Repeat chest x-ray and check inflammatory markers Continue the Covid 19 cocktail. Will recommend convalescent plasma Patient is out of the window for REM and he presently does not qualify for ac temra Prognosis is relatively guarded. We'll continue to follow. Time with Patient: Greater than 30
--- NOTE | 2020-11-28 13:40 | XR ---
EXAMINATION TYPE: XR chest 1V portable DATE OF EXAM: 11/28/2020 COMPARISON: Chest x-ray 11/24/2020 HISTORY: Cough and shortness of breath, Covid pneumonia TECHNIQUE: Single frontal view of the chest is obtained. FINDINGS: Patchy bilateral airspace disease is present. There is no evident pneumothorax or pleural effusion. Cardiac mediastinal silhouette is not significantly changed accounting for differences in t echnique. There are overlying artifacts. IMPRESSION: Correlate for pneumonia.
[2020-11-28 17:26] LABS: Glucose,Whole Blood 347 mg/dL (75-99)
[2020-11-28 19:56] LABS: Glucose,Whole Blood 278 mg/dL (75-99)
[2020-11-28] MEDS: ATORVASTATIN 80 MG TAB PO SCH (20:03)
[2020-11-29] MEDS: LEVOTHYROXINE 100 MCG TAB PO SCH (05:44)
[2020-11-29 06:56] LABS: Glucose,Whole Blood 147 mg/dL (75-99)
[2020-11-29] MEDS ORDERED: INSULIN DETEMIR (LEVEMIR) 100 UNIT/ML SYR SQ SCH (07:00)
[2020-11-29] MEDS: INSULIN DETEMIR (LEVEMIR) 100 UNIT/ML SYR SQ SCH ×2 (07:30→22:16)
[2020-11-29] MEDS: PANTOPRAZOLE 40 MG TABLET PO SCH (07:30)
[2020-11-29] MEDS: ASPIRIN 81 MG PO SCH (08:24)
[2020-11-29] MEDS: GABAPENTIN 300 MG CAP PO SCH (08:24)
[2020-11-29] MEDS: INSULIN ASPART (NovoLOG) 100 UNIT/ML VIAL SQ SCH ×4 (08:24→21:54)
[2020-11-29] MEDS: ASCORBIC ACID 500 MG TAB PO SCH (08:25)
[2020-11-29] MEDS: METOPROLOL SUCCINATE (ER) 25 MG TAB.ER.24H PO SCH (08:25)
[2020-11-29] MEDS: CHOLECALCIFEROL 25 MCG (1000 IU) TABLET PO SCH (08:25)
[2020-11-29] MEDS: ZINC SULFATE 220 MG CAP PO SCH (08:25)
[2020-11-29] MEDS: DEXAMETHASONE SOD PHOSPHATE 10 MG/ML 1 ML VIAL IV SCH (08:25)
[2020-11-29] MEDS: CLOPIDOGREL 75 MG TAB PO SCH (08:25)
[2020-11-29] MEDS: ENOXAPARIN 40 MG/0.4 ML SYRINGE SQ SCH (08:26)
[2020-11-29] MEDS ORDERED: ASCORBIC ACID 500 MG TAB PO SCH (09:00)
--- NOTE | 2020-11-29 09:42 | P.PN ---
Subjective Patient is seen in follow-up for acute kidney injury and hyperkalemia. 0.4 as of yesterday. Has been voiding. Did become more short of breath and is now on 6 L nasal cannula. Oral intake fair. Hemodynamically stable. Vital signs are stable. General: The patient appeared well nourished and normally developed. HEENT: Head exam is unremarkable. Neck is without jugular venous distension. LUNGS: Breath sounds decreased. HEART: Rate and Rhythm are regular. ABDOMEN: Soft, nontender. EXTREMITITES: No edema. Objective - Vital Signs Vital signs: Vital Signs Temp 99.3 F 11/29/20 01:09 Pulse 83 11/29/20 01:09 Resp 22 11/29/20 01:09 BP 127/69 11/29/20 01:09 Pulse Ox 89 L 11/29/20 01:09 Intake & Output 11/28/20 11/29/20 11/29/20 18:59 06:59 18:59 Intake Total 953 180 Output Total 900 350 Balance 53 -350 180 Intake: Oral 600 180 Blood Product 353 Ffp Convalescent Plasma 353 Cpd Unit [id number] Output: Urine 900 350 Other: Voiding Method Urinal Urinal Urinal # Voids 1 - Labs CBC & Chem 7: 11/28/20 06:19 11/28/20 06:19 Labs: Abnormal Lab Results - Last 24 Hours (Table) 11/28/20 11/28/20 11/28/20 Range/Units 06:19 06:19 06:19 WBC 10.98 H (4.50-10.00) X 10*3/uL RBC 3.62 L (4.40-5.60) X 10*6/uL Hgb 10.7 L (13.0-17.0) g/dL Hct 31.6 L (39.6-50.0) % MPV 8.9 L (9.5-12.2) fL Immature Gran # 0.08 H (0.00-0.04) X 10*3/uL Neutrophils # 9.27 H (1.80-7.70) X 10*3/uL Eosinophils # 0 L (0.04-0.35) X 10*3/uL D-Dimer (<0.60) mg/L FEU Carbon Dioxide 20.5 L (21.6-31.8) mmol/L Anion Gap 12.50 H (4.00-12.00) mmol/L BUN 40.0 H (9.0-27.0) mg/dL Est GFR (CKD-EPI)AfAm 58.6 L (60.0-200.0) Est GFR (CKD-EPI)NonAf 50.5 L (60.0-200.0) BUN/Creatinine Ratio 28.57 H (12.00-20.00) Ratio Glucose 193 H (70-110) mg/dL POC Glucose (mg/dL) (75-99) mg/dL Lactate Dehydrogenase 1466 H (313-618) U/L C-Reactive Protein 24.0 H (<10.0) mg/L 11/28/20 11/28/20 11/28/20 Range/Units 11:40 12:16 17:24 WBC (4.50-10.00) X 10*3/uL RBC (4.40-5.60) X 10*6/uL Hgb (13.0-17.0) g/dL Hct (39.6-50.0) % MPV (9.5-12.2) fL Immature Gran # (0.00-0.04) X 10*3/uL Neutrophils # (1.80-7.70) X 10*3/uL Eosinophils # (0.04-0.35) X 10*3/uL D-Dimer 1.21 H (<0.60) mg/L FEU Carbon Dioxide (21.6-31.8) mmol/L Anion Gap (4.00-12.00) mmol/L BUN (9.0-27.0) mg/dL Est GFR (CKD-EPI)AfAm (60.0-200.0) Est GFR (CKD-EPI)NonAf (60.0-200.0) BUN/Creatinine Ratio (12.00-20.00) Ratio Glucose (70-110) mg/dL POC Glucose (mg/dL) 225 H 347 H (75-99) mg/dL Lactate Dehydrogenase (313-618) U/L C-Reactive Protein (<10.0) mg/L 11/28/20 11/29/20 Range/Units 19:52 06:52 WBC (4.50-10.00) X 10*3/uL RBC (4.40-5.60) X 10*6/uL Hgb (13.0-17.0) g/dL Hct (39.6-50.0) % MPV (9.5-12.2) fL Immature Gran # (0.00-0.04) X 10*3/uL Neutrophils # (1.80-7.70) X 10*3/uL Eosinophils # (0.04-0.35) X 10*3/uL D-Dimer (<0.60) mg/L FEU Carbon Dioxide (21.6-31.8) mmol/L Anion Gap (4.00-12.00) mmol/L BUN (9.0-27.0) mg/dL Est GFR (CKD-EPI)AfAm (60.0-200.0) Est GFR (CKD-EPI)NonAf (60.0-200.0) BUN/Creatinine Ratio (12.00-20.00) Ratio Glucose (70-110) mg/dL POC Glucose (mg/dL) 278 H 147 H (75-99) mg/dL Lactate Dehydrogenase (313-618) U/L C-Reactive Protein (<10.0) mg/L Assessment and Plan Plan: Assessment: 1. Acute kidney injury mostly prerenal secondary to cord 19 pneumonia and nonsteroidals. Renal function stable. Creatinine 1.4 as of yesterday. No hydronephrosis noted on kidney ultrasound. 2. Hyperkalemia secondary to acute kidney injury, lisinopril and nonsteroidals. Better. 3. Coated 19 pneumonia maintained on steroids and zinc. 4. Diabetes mellitus. 5. Chronic kidney disease stage IIIa secondary to diabetic kidney disease. Creatinine 1.3 in February 2020. Plan: Continue to hold lisinopril. Avoid nephrotoxins. Encourage oral intake. Continue to monitor renal function and urine output. Low potassium diet.
[2020-11-29] MEDS: ALBUTEROL HFA INHALER INHALATION SCH ×4 (09:46→20:17)
[2020-11-29 10:33] LABS: African American GFR (CKD) 58.6 (60.0-200.0); Anion Gap 10.3 mmol/L (4.00-12.00); BUN/Creat Ratio 26.43 Ratio (12.00-20.00); Calcium 8.9 mg/dL (8.7-10.3); Carbon Dioxide 23.7 mmol/L (21.6-31.8); Non-African American GFR(CKD) 50.5 (60.0-200.0); Potassium 4.7 mmol/L (3.5-5.5)
[2020-11-29 11:40] LABS: Glucose,Whole Blood 185 mg/dL (75-99)
--- NOTE | 2020-11-29 13:34 | P.PN ---
Subjective Progress Note Date: 11/29/20 Principal diagnosis: Acute hypoxic respiratory failure secondary to acute covid 19 pneumonitis. This is a 70-year-old white male with history of multiple medical problems including hypertension, type 2 diabetes, dyslipidemia, coronary artery disease and previous CA, previous stent placement, degenerative joint disease, bladder cancer, nephrolithiasis, patient presented to the emergency room on 11/24/2020, mostly with 1 week history of multiple constitutional symptoms including muscle aches, fever, shortness of breath, cough, nausea, and he tested positive on the with contreras virus PCR. Chest x-ray showed evidence of bilateral opacities/infiltrates. Patient had adequate saturations on room air, it was about 94%, he was also noted to be hyperkalemic, and he had lactic acid of 2.7. Received dextrose, insulin, Kayexalate, and the patient was eventually admitted seen by nephrology on consultation, he was placed on the Covid 19 cocktail, and we were asked to see him yesterday because of his worsening shortness of breath. No follow-up chest x-ray done since admission, and I will be ordering one to be done today. Labs today clearly showed relatively normal CBC. Elevated BUN of 40 creatinine is 1.4. D-dimer was normal on admission, and I do not see any inflammatory markers on the chart. After evaluating the patient, we recommended one unit of convalescent plan is to be given. Patient obviously did not qualify for REM. And he is not at the point of requiring actemtra Patient was reevaluated today on 11/29/2020, he is basically about the same. Not much of a change in the last 24 hours. Patient is on 6 L nasal cannula, and his O2 saturation is in the low 90s. Continues to have intermittent cough, shortness of breath, basic metabolic profile is normal. His LDH is 1466, and C- reactive protein is 24. Patient remains on the Covid 19 cocktail. He received convalescent plasma. He was out of the window for REM. Objective - Vital Signs Vital signs: Vital Signs Temp 99.3 F 11/29/20 01:09 Pulse 83 11/29/20 01:09 Resp 22 11/29/20 01:09 BP 127/69 11/29/20 01:09 Pulse Ox 89 L 11/29/20 01:09 Intake & Output 11/28/20 11/29/20 11/29/20 18:59 06:59 18:59 Intake Total 953 180 Output Total 900 350 Balance 53 -350 180 Intake: Oral 600 180 Blood Product 353 Ffp Convalescent Plasma 353 Cpd Unit [id number] Output: Urine 900 350 Other: Voiding Method Urinal Urinal Urinal # Voids 1 - Exam Physical Exam: Revealed 70-year-old white male in no distress, pleasant, on 6 L nasal cannula, O2 saturations 90%. Head: Atraumatic, normocephalic. HEENT:[Neck is supple.] [No neck masses.] [No thyromegaly.] [No JVD.] Chest: [No medical chest expansion, crackles at the bases bilaterally..] Cardiac Exam: [Normal S1 and S2, no S3 gallop, no murmur.] Abdomen: [Soft, nontender, no megaly, no rebound, no guarding, normal bowel sounds.] Extremities: [No clubbing, no edema, no cyanosis.] Neurological Exam: [No focal neurologic deficit.] Alert and oriented 3. Psychiatric: Normal mood affect and normal mental status examination. Musculoskeletal: No limitation in range of motion, no deformities. - Labs CBC & Chem 7: 11/28/20 06:19 11/29/20 05:10 Labs: Abnormal Lab Results - Last 24 Hours (Table) 11/28/20 11/28/20 11/29/20 Range/Units 17:24 19:52 05:10 BUN 37.0 H (9.0-27.0) mg/dL Est GFR (CKD-EPI)AfAm 58.6 L (60.0-200.0) Est GFR (CKD-EPI)NonAf 50.5 L (60.0-200.0) BUN/Creatinine Ratio 26.43 H (12.00-20.00) Ratio Glucose 162 H (70-110) mg/dL POC Glucose (mg/dL) 347 H 278 H (75-99) mg/dL 11/29/20 11/29/20 Range/Units 06:52 11:35 BUN (9.0-27.0) mg/dL Est GFR (CKD-EPI)AfAm (60.0-200.0) Est GFR (CKD-EPI)NonAf (60.0-200.0) BUN/Creatinine Ratio (12.00-20.00) Ratio Glucose (70-110) mg/dL POC Glucose (mg/dL) 147 H 185 H (75-99) mg/dL Assessment and Plan Assessment: Impression: Acute hypoxic respiratory failure secondary to acute covid 19 pneumonitis. Acute on chronic kidney injury associated with underlying Covid 19 infection History of bladder cancer. Acute hyperkalemia with acute kidney injury. Chronic kidney disease, previous creatinine was 1.3 in February 2020. 9 essential hypertension. Type 2 diabetes Recommendation: Obviously the patient is not quite ready to be discharged home. Continue present supportive care measures Continue oxygen, titrate accordingly maintain O2 saturation above 90%. Continue to follow inflammatory markers. Continue the Covid 19 cocktail. Received 1 unit of convalescent plasma. Patient is out of the window for REM and he presently does not qualify for actemra Prognosis is relatively guarded. We'll continue to follow. Time with Patient: Less than 30
--- NOTE | 2020-11-29 14:29 | P.PN ---
Subjective Progress Note Date: 11/29/20 11/27/2020 during the night, patient became more hypoxic, requiring nonrebreather. Significant clinical improvement, maintaining O2 sats in the 90s on 5 L nasal cannula. Minimal nonproductive cough. Creatinine 1.6. 11/28/2020 Required nonrebreather briefly during the night; currently maintained on 5 L nasal cannula, O2 sats of 90-91%. Complains of worsening shortness of breath, especially with minimal exertion, nonproductive cough. Maintained on Covid regimen, including dexamethasone. Blood sugars elevated throughout the night, better controlled this morning. Denies chest pain, palpitations or shortness of breath. Labs pending. 11/29/20 S/P convalescent plasma .Continues on Covid regimen, maintaining O2 sats in the 90s on 6 L nasal cannula. Occasional nonproductive cough. Denies chest pain, palpitations. Evaluated by pulmonary, outside the window for Remdesevir. Creatinine 1.4. Objective - Vital Signs Vital signs: Vital Signs Temp 99.3 F 11/29/20 01:09 Pulse 83 11/29/20 01:09 Resp 22 11/29/20 01:09 BP 127/69 11/29/20 01:09 Pulse Ox 89 L 11/29/20 01:09 Intake & Output 11/28/20 11/29/20 11/29/20 18:59 06:59 18:59 Intake Total 953 330 Output Total 900 350 Balance 53 -350 330 Intake: Oral 600 330 Blood Product 353 Ffp Convalescent Plasma 353 Cpd Unit [id number] Output: Urine 900 350 Other: Voiding Method Urinal Urinal Urinal # Voids 1 - Exam - Exam General: Sitting up in bed, NAD. Vitals reviewed Lungs: normal respiratory effort, minimal rhonchi, no wheezes/ rales CV: Regular rate and rhythm, no murmur. Peripheral pulses 2+ Abdomen: soft, nondistended, no organomegaly. Positive bowel sounds Skin: warm and dry. - Labs CBC & Chem 7: 11/28/20 06:19 11/29/20 05:10 Labs: Abnormal Lab Results - Last 24 Hours (Table) 11/28/20 11/28/20 11/29/20 Range/Units 17:24 19:52 05:10 BUN 37.0 H (9.0-27.0) mg/dL Est GFR (CKD-EPI)AfAm 58.6 L (60.0-200.0) Est GFR (CKD-EPI)NonAf 50.5 L (60.0-200.0) BUN/Creatinine Ratio 26.43 H (12.00-20.00) Ratio Glucose 162 H (70-110) mg/dL POC Glucose (mg/dL) 347 H 278 H (75-99) mg/dL 11/29/20 11/29/20 Range/Units 06:52 11:35 BUN (9.0-27.0) mg/dL Est GFR (CKD-EPI)AfAm (60.0-200.0) Est GFR (CKD-EPI)NonAf (60.0-200.0) BUN/Creatinine Ratio (12.00-20.00) Ratio Glucose (70-110) mg/dL POC Glucose (mg/dL) 147 H 185 H (75-99) mg/dL Assessment and Plan Assessment: (1) Acute hypoxemic respiratory failure due to COVID-19, status post convalescent plasma, outside the window for Remdesevir. Current Visit: Yes Status: Acute Code(s): U07.1 - COVID-19; J96.01 - ACUTE RESPIRATORY FAILURE WITH HYPOXIA SNOMED Code(s): 335071648 (2) Essential hypertension Current Visit: Yes Status: Acute Code(s): I10 - ESSENTIAL (PRIMARY) HYPERTENSION SNOMED Code(s): 23836382 (3) Type 2 diabetes mellitus Current Visit: Yes Status: Acute Code(s): E11.9 - TYPE 2 DIABETES MELLITUS WITHOUT COMPLICATIONS SNOMED Code(s): 97550864 (4) DARWIN (acute kidney injury), prerenal secondary to #1 Current Visit: Yes Status: Acute Code(s): N17.9 - ACUTE KIDNEY FAILURE, UNSPECIFIED SNOMED Code(s): 62749955 (5) chronic kidney disease stage IIIa secondary to DKA, baseline 1.3 (6) COVID-19 Current Visit: Yes Status: Acute Code(s): U07.1 - COVID-19 SNOMED Code(s): 927519725 (7) Hyperkalemia secondary to acute renal failure, YODIT inhibitor and NSAIDs,resolved Current Visit: Yes Status: Acute Code(s): E87.5 - HYPERKALEMIA SNOMED Code(s): 04453651 Plan: Continue on current medication regime ,monitoring and symptomatic treatment. Maintain COVID regimen .Continue titrating O2 to maintain O2 sat greater than 90%. Close monitoring of Accu-Cheks, renal function with repeat labs ordered for a.m. The impression and plan of care has been dictated as directed. : I performed a history and examination of this patient, discussed the same with the dictator. I agree with the dictator's note ,documented as a scribe. Any additional findings or plans will be noted.
[2020-11-29 17:01] LABS: Glucose,Whole Blood 329 mg/dL (75-99)
[2020-11-29 20:04] LABS: Glucose,Whole Blood 388 mg/dL (75-99)
[2020-11-29] MEDS: ATORVASTATIN 80 MG TAB PO SCH (21:54)
[2020-11-30] MEDS: LEVOTHYROXINE 100 MCG TAB PO SCH (06:05)
[2020-11-30 07:04] LABS: Glucose,Whole Blood 217 mg/dL (75-99)
[2020-11-30] MEDS: INSULIN DETEMIR (LEVEMIR) 100 UNIT/ML SYR SQ SCH ×2 (07:50→21:21)
[2020-11-30] MEDS: PANTOPRAZOLE 40 MG TABLET PO SCH (07:52)
[2020-11-30] MEDS: ALBUTEROL HFA INHALER INHALATION SCH ×4 (07:54→20:49)
[2020-11-30] MEDS: GABAPENTIN 300 MG CAP PO SCH (08:30)
[2020-11-30] MEDS: ASPIRIN 81 MG PO SCH (08:30)
[2020-11-30] MEDS: METOPROLOL SUCCINATE (ER) 25 MG TAB.ER.24H PO SCH (08:30)
[2020-11-30] MEDS: CHOLECALCIFEROL 25 MCG (1000 IU) TABLET PO SCH (08:30)
[2020-11-30] MEDS: INSULIN ASPART (NovoLOG) 100 UNIT/ML VIAL SQ SCH ×4 (08:30→21:19)
[2020-11-30] MEDS: DEXAMETHASONE SOD PHOSPHATE 10 MG/ML 1 ML VIAL IV SCH (08:31)
[2020-11-30] MEDS: ZINC SULFATE 220 MG CAP PO SCH (08:31)
[2020-11-30] MEDS: ASCORBIC ACID 500 MG TAB PO SCH (08:31)
[2020-11-30] MEDS: CLOPIDOGREL 75 MG TAB PO SCH (08:31)
[2020-11-30] MEDS: ENOXAPARIN 40 MG/0.4 ML SYRINGE SQ SCH (08:31)
--- NOTE | 2020-11-30 10:49 | P.PN ---
Subjective Progress Note Date: 11/30/20 Principal diagnosis: Shortness of breath. This is a 70-year-old white male with history of multiple medical problems including hypertension, type 2 diabetes, dyslipidemia, coronary artery disease and previous [place], previous stent placement, degenerative joint disease, bladder cancer, nephrolithiasis, patient presented to the emergency room on 11/24/2020, mostly with 1 week history of multiple constitutional symptoms including muscle aches, fever, shortness of breath, cough, nausea, and he tested positive on the with contreras virus PCR. Chest x-ray showed evidence of bilateral opacities/infiltrates. Patient had adequate saturations on room air, it was about 94%, he was also noted to be hyperkalemic, and he had lactic acid of 2.7. Received dextrose, insulin, Kayexalate, and the patient was eventually admitted seen by nephrology on consultation, he was placed on the Covid 19 cocktail, and we were asked to see him yesterday because of his worsening shortness of breath. No follow-up chest x-ray done since admission, and I will be ordering one to be done today. Labs today clearly showed relatively normal CBC. Elevated BUN of 40 creatinine is 1.4. D-dimer was normal on admission, and I do not see any inflammatory markers on the chart. After evaluating the patient, we recommended one unit of convalescent plan is to be given. Patient obviously did not qualify for REM. And he is not at the point of requiring actemtra Patient was reevaluated today on 11/29/2020, he is basically about the same. Not much of a change in the last 24 hours. Patient is on 6 L nasal cannula, and his O2 saturation is in the low 90s. Continues to have intermittent cough, shor tness of breath, basic metabolic profile is normal. His LDH is 1466, and C- reactive protein is 24. Patient remains on the Covid 19 cocktail. He received convalescent plasma. He was out of the window for REM. Progress note dated 11/30/2020. 70-year-old male who was admitted with a diagnosis of acute hypoxemic respiratory failure secondary to COVID 19 pneumonia. The patient has a history of multiple medical problems including essential hypertension, type 2 diabetes mellitus, hyperlipidemia, coronary artery disease, previous [place] with stent placement, degenerative joint disease, bladder cancer, and kidney stones. He presented to the emergency department on November 24, with one-week worth of muscle aches, fever, shortness breath, cough, nausea, and tested positive for COVID on the . The patient was outside the window for REM, but did receive CP. No new labs today. The patient is currently on 15 L high flow nasal O2. The patient does not feel any better today. Chest x-ray on November 28 showed bilateral patchy airspace disease. Objective - Vital Signs Vital signs: Vital Signs Temp 99.1 F 11/30/20 07:57 Pulse 83 11/30/20 00:56 Resp 20 11/30/20 07:57 BP 145/66 11/30/20 07:57 Pulse Ox 87 L 11/30/20 07:57 Intake & Output 11/29/20 11/30/20 11/30/20 18:59 06:59 18:59 Intake Total 510 180 Output Total 500 300 Balance 10 -300 180 Intake: Oral 510 180 Output: Urine 500 300 Other: Voiding Method Urinal Urinal # Voids 1 2 - Exam No acute distress, oriented 3. High flow nasal cannula noted at 15 L. Patient appears a bit weak. No conversational dyspnea. HEENT examination is grossly unremarkable. Mucous membranes are moist. No oral lesions. Neck supple. Full range of motion. No adenopathy thyromegaly or neck vein distention. Cardiovascular examination reveals regular rhythm rate. S1-S2 normal. No S3 or S4. No discernible murmur noted. Heart rate 83 bpm. Lungs reveal bilateral and bibasilar rhonchi and crackles. No wheezes. The patient has a hard time taking a deep breath. When he does, he coughs. Abdomen soft bowel sounds are heard. No masses or tenderness. Extremities are intact. No cyanosis clubbing or edema. Skin is without rash or lesion. Neurologic examination is brief but nonfocal. - Labs CBC & Chem 7: 11/28/20 06:19 11/29/20 05:10 Labs: Abnormal Lab Results - Last 24 Hours (Table) 11/29/20 11/29/20 11/29/20 Range/Units 11:35 17:00 20:02 POC Glucose (mg/dL) 185 H 329 H 388 H (75-99) mg/dL 11/30/20 Range/Units 06:59 POC Glucose (mg/dL) 217 H (75-99) mg/dL Assessment and Plan Assessment: Acute hypoxemic respiratory failure secondary to COVID 19 pneumonitis/pneumonia. Acute on chronic kidney injury, associated with COVID infection. History of bladder cancer Acute kidney injury associated hyperkalemia. Essential hypertension. Type 2 diabetes. History of CAD, with previous myocardial infarction and stent placement. History of hyperlipidemia. History of kidney stones. Plan: Plan dated 11/30/2020. Currently, the patient is not feeling much improvement. He is on 15 L high flow oxygen. The patient did receive CP. He was outside the window for REM. He is currently on vitamin C, vitamin D3, and zinc. In addition, he is on Decadron, and Lovenox. Additional recommendations and suggestions are forthcoming. We will continue to follow the patient closely. Patient may eventually be transferred to the intensive care unit. Other options would include BiPAP and/or AIRVO. We will continue to watch this patient carefully, and make recom mendations were appropriate. Time with Patient: Less than 30
[2020-11-30 12:06] LABS: Glucose,Whole Blood 275 mg/dL (75-99)
[2020-11-30 16:52] LABS: Glucose,Whole Blood 349 mg/dL (75-99)
--- NOTE | 2020-11-30 17:13 | P.PN ---
Subjective Progress Note Date: 11/30/20 Follow-up for acute kidney injury. Objective - Vital Signs Vital signs: Vital Signs Temp 98.2 F 11/30/20 14:00 Pulse 84 11/30/20 14:00 Resp 20 11/30/20 16:23 BP 142/74 11/30/20 14:00 Pulse Ox 87 L 11/30/20 16:23 Intake & Output 11/29/20 11/30/20 11/30/20 18:59 06:59 18:59 Intake Total 510 360 Output Total 500 300 Balance 10 -300 360 Intake: Oral 510 360 Output: Urine 500 300 Other: Voiding Method Urinal Urinal Urinal # Voids 1 2 - Exam Family limited secondary to Covid 19 pandemic. - Labs CBC & Chem 7: 11/28/20 06:19 11/29/20 05:10 Labs: Abnormal Lab Results - Last 24 Hours (Table) 11/29/20 11/30/20 11/30/20 Range/Units 20:02 06:59 12:04 POC Glucose (mg/dL) 388 H 217 H 275 H (75-99) mg/dL 11/30/20 Range/Units 16:47 POC Glucose (mg/dL) 349 H (75-99) mg/dL Assessment and Plan Assessment: #1 acute kidney injury secondary to Covid 90 pneumonia and NSAID use. Renal function stable creatinine around 1.4 #2 hyperkalemia secondary to acute kidney injury/lisinopril/NSAID use. Res olved. #3 Covid 90 pneumonia #4 CK D stage III secondary to diabetic kidney disease Baseline creatinine about 1.3 MG per DL. Plan: #1 renal function stable continue to hold lisinopril. #2 avoid nephrotoxic agents and hypotensive episodes.
--- NOTE | 2020-11-30 18:07 | P.PN ---
Subjective Progress Note Date: 11/30/20 70-year-old male who was admitted with a diagnosis of acute hypoxemic respiratory failure secondary to COVID 19 pneumonia. The patient has a history of multiple medical problems including essential hypertension, type 2 diabetes mellitus, hyperlipidemia, coronary artery disease, previous [place] with stent sienna cement, degenerative joint disease, bladder cancer, and kidney stones. He presented to the emergency department on November 24, with one-week worth of muscle aches, fever, shortness breath, cough, nausea, and tested positive for COVID on the . The patient was outside the window for REM, but did receive CP. 11/30/2020 Patient is seen and evaluated in room at bedside; The patient is currently on 15 L high flow nasal O2. The patient does not feel any better today. Chest x-ray on November 28 showed bilateral patchy airspace disease. Patient remains on vitamin C, vitamin D, zinc sulfate along with Decadron and subcu Lovenox; patient has not shown much improvement since admission; pulmonary service on board and recommending to continue current management with patient being high risk for need to be transferred to ICU; continue to monitor closely Objective - Vital Signs Vital signs: Vital Signs Temp 99.1 F 11/30/20 07:57 Pulse 83 11/30/20 00:56 Resp 20 11/30/20 07:57 BP 145/66 11/30/20 07:57 Pulse Ox 87 L 11/30/20 07:57 Intake & Output 11/29/20 11/30/20 11/30/20 18:59 06:59 18:59 Intake Total 510 180 Output Total 500 300 Balance 10 -300 180 Intake: Oral 510 180 Output: Urine 500 300 Other: Voiding Method Urinal Urinal # Voids 1 2 - Exam General: Sitting up in bed, NAD. Vitals reviewed Lungs: normal respiratory effort, minimal rhonchi, no wheezes/ rales CV: Regular rate and rhythm, no murmur. Peripheral pulses 2+ Abdomen: soft, nondistended, no organomegaly. Positive bowel sounds Skin: warm and dry. - Labs CBC & Chem 7: 11/28/20 06:19 11/29/20 05:10 Labs: Abnormal Lab Results - Last 24 Hours (Table) 11/29/20 11/29/20 11/30/20 Range/Units 17:00 20:02 06:59 POC Glucose (mg/dL) 329 H 388 H 217 H (75-99) mg/dL 11/30/20 Range/Units 12:04 POC Glucose (mg/dL) 275 H (75-99) mg/dL Assessment and Plan Assessment: Acute hypoxic respiratory failure secondary to acute covid 19 pneumonitis. Acute on chronic kidney injury associated with underlying Covid 19 infection History of bladder cancer. Acute hyperkalemia with acute kidney injury. Chronic kidney disease, previous creatinine was 1.3 in February 2020. 9 essential hypertension. Type 2 diabetes Recommendation: Continue present supportive care measures Continue oxygen Repeat chest x-ray and check inflammatory markers Continue the Covid 19 cocktail. Will recommend convalescent plasma Patient is out of the window for REM and he presently does not qualify for actemra Prognosis is relatively guarded.
[2020-11-30 19:42] LABS: Glucose,Whole Blood 411 mg/dL (75-99)
[2020-11-30] MEDS ORDERED: INSULIN ASPART (NovoLOG) 100 UNIT/ML VIAL SQ ONE (21:00)
[2020-11-30] MEDS: ATORVASTATIN 80 MG TAB PO SCH (21:23)
[2020-12-01 01:03] LABS: Glucose,Whole Blood 209 mg/dL (75-99)
[2020-12-01] MEDS: LEVOTHYROXINE 100 MCG TAB PO SCH (05:45)
[2020-12-01 07:43] LABS: Glucose,Whole Blood 105 mg/dL (75-99)
[2020-12-01] MEDS: INSULIN DETEMIR (LEVEMIR) 100 UNIT/ML SYR SQ SCH ×2 (08:15→22:08)
[2020-12-01] MEDS: ALBUTEROL HFA INHALER INHALATION SCH ×4 (08:48→21:35)
[2020-12-01] MEDS: ASPIRIN 81 MG PO SCH (09:34)
[2020-12-01] MEDS: CLOPIDOGREL 75 MG TAB PO SCH (09:34)
[2020-12-01] MEDS: GABAPENTIN 300 MG CAP PO SCH (09:34)
[2020-12-01] MEDS: PANTOPRAZOLE 40 MG TABLET PO SCH (09:34)
[2020-12-01] MEDS: ENOXAPARIN 40 MG/0.4 ML SYRINGE SQ SCH (09:34)
[2020-12-01] MEDS: ASCORBIC ACID 500 MG TAB PO SCH (09:34)
[2020-12-01] MEDS: CHOLECALCIFEROL 25 MCG (1000 IU) TABLET PO SCH (09:34)
[2020-12-01] MEDS: ZINC SULFATE 220 MG CAP PO SCH (09:34)
[2020-12-01] MEDS: METOPROLOL SUCCINATE (ER) 25 MG TAB.ER.24H PO SCH (09:35)
[2020-12-01] MEDS: DEXAMETHASONE SOD PHOSPHATE 10 MG/ML 1 ML VIAL IV SCH (09:35)
[2020-12-01 11:14] LABS: African American GFR (CKD) 50 (>60 ml/min/1.73 sqM); Anion Gap 7 mmol/L; Blood Urea Nitrogen 46 mg/dL (9-20); Carbon Dioxide 25 mmol/L (22-30); Chloride 101 mmol/L (98-107); Glucose 197 mg/dL (74-99); LDH 1882 U/L (313-618); Non-African American GFR(CKD) 43 (>60 ml/min/1.73 sqM); Potassium 5.7 mmol/L (3.5-5.1); Sodium 133 mmol/L (137-145)
[2020-12-01 11:20] LABS: Basophils % (A) 0 %; Eosinophils # (A) 0.2 k/uL (0-0.7); Eosinophils % (A) 1 %; HCT 34.2 % (39.0-53.0); HGB 11.8 gm/dL (13.0-17.5); Lymphocytes # (A) 0.6 k/uL (1.0-4.8); Lymphocytes % (A) 5 %; MCH 30.2 pg (25.0-35.0); MCHC 34.6 g/dL (31.0-37.0); MCV 87.4 fL (80.0-100.0); Mean Platelet Volume 6.8; Monocytes # (A) 0.3 k/uL (0-1.0); Monocytes % (A) 3 %; Neutrophils # (A) 10.3 k/uL (1.3-7.7); Neutrophils % (A) 90 %; Platelet Count 423 k/uL (150-450); RBC 3.91 m/uL (4.30-5.90); RDW 12.5 % (11.5-15.5); WBC 11.4 k/uL (3.8-10.6)
[2020-12-01 11:44] LABS: Glucose,Whole Blood 195 mg/dL (75-99)
--- NOTE | 2020-12-01 11:52 | XR ---
EXAMINATION TYPE: XR chest 1V portable DATE OF EXAM: 12/01/2020 Comparison: 11/28/2020 Clinical History: 70 year-old male shortness of breath Findings: The heart is normal size. Aorta within normal limits. Diffuse interstitial and patchy airspace opacit ies slightly progressed in the interval. No pleural effusion. Impression: Interstitial and patchy bilateral airspace infiltrates slightly progressed from prior.
[2020-12-01] MEDS: INSULIN ASPART (NovoLOG) 100 UNIT/ML VIAL SQ SCH ×3 (11:53→22:07)
--- NOTE | 2020-12-01 12:14 | P.PN ---
Subjective Progress Note Date: 12/01/20 Principal diagnosis: Shortness of breath. This is a 70-year-old white male with history of multiple medical problems including hypertension, type 2 diabetes, dyslipidemia, coronary artery disease and previous [place], previous stent placement, degenerative joint disease, bladder cancer, nephrolithiasis, patient presented to the emergency room on 11/24/2020, mostly with 1 week history of multiple constitutional symptoms including muscle aches, fever, shortness of breath, cough, nausea, and he tested positive on the with contreras virus PCR. Chest x-ray showed evidence of bilateral opacities/infiltrates. Patient had adequate saturations on room air, it was about 94%, he was also noted to be hyperkalemic, and he had lactic acid of 2.7. Received dextrose, insulin, Kayexalate, and the patient was eventually admitted seen by nephrology on consultation, he was placed on the Covid 19 cocktail, and we were asked to see him yesterday because of his worsening shortness of breath. No follow-up chest x-ray done since admission, and I will be ordering one to be done today. Labs today clearly showed relatively normal CBC. Elevated BUN of 40 creatinine is 1.4. D-dimer was normal on admission, and I do not see any inflammatory markers on the chart. After evaluating the patient, we recommended one unit of convalescent plan is to be given. Patient obviously did not qualify for REM. And he is not at the point of requiring actemtra Patient was reevaluated today on 11/29/2020, he is basically about the same. Not much of a change in the last 24 hours. Patient is on 6 L nasal cannula, and his O2 saturation is in the low 90s. Continues to have intermittent cough, shor tness of breath, basic metabolic profile is normal. His LDH is 1466, and C- reactive protein is 24. Patient remains on the Covid 19 cocktail. He received convalescent plasma. He was out of the window for REM. Progress note dated 11/30/2020. 70-year-old male who was admitted with a diagnosis of acute hypoxemic respiratory failure secondary to COVID 19 pneumonia. The patient has a history of multiple medical problems including essential hypertension, type 2 diabetes mellitus, hyperlipidemia, coronary artery disease, previous [place] with stent placement, degenerative joint disease, bladder cancer, and kidney stones. He presented to the emergency department on November 24, with one-week worth of muscle aches, fever, shortness breath, cough, nausea, and tested positive for COVID on the . The patient was outside the window for REM, but did receive CP. No new labs today. The patient is currently on 15 L high flow nasal O2. The patient does not feel any better today. Chest x-ray on November 28 showed bilateral patchy airspace disease. Progress note dated 12/01/2020. 70-year-old male was admitted with diagnosis of acute hypoxemic respiratory failure secondary to COVID 19 pneumonia. Currently, the patient is on both a nonrebreather mask, 15 L high flow nasal cannula. Saturations are 95%. The patient isn't receiving any IV fluids. The patient is lying on his left side. Yesterday I told him to move about in bed, right side down, left side down, supine, and even prone if possible. I did order a follow-up chest x-ray. White count 11.4, hemoglobin 0.8, hematocrit 34.2, and platelet count normal. Sodium 133, potassium 5.7, chlorides 101, CO2 25, anion gap 7, BUN 46, creatinine 1.60. LDH is 1882. Chest x-ray shows a pattern of bilateral patchy infiltrates, slightly worse than the prior chest x-ray. Objective - Vital Signs Vital signs: Vital Signs Temp 99.5 F 12/01/20 08:00 Pulse 109 H 12/01/20 08:00 Resp 22 12/01/20 08:00 BP 126/78 12/01/20 08:00 Pulse Ox 93 L 12/01/20 08:00 Intake & Output 11/30/20 12/01/20 12/01/20 18:59 06:59 18:59 Intake Total 600 240 Output Total 300 Balance 600 240 -300 Intake: Oral 600 240 Output: Urine 300 Other: Voiding Method Urinal Urinal Urinal # Voids 1 1 1 - Exam No acute distress, oriented 3. High flow nasal cannula noted at 15 L and nonrebreather mask. Patient appears a bit weak. No conversational dyspnea. HEENT examination is grossly unremarkable. Neck supple. Full range of motion. No adenopathy thyromegaly or neck vein distention. Cardiovascular examination reveals regular rhythm rate. S1-S2 normal. No S3 or S4. No discernible murmur noted. Heart rate 109 bpm. Lungs reveal bilateral and bibasilar rhonchi and crackles. No wheezes. The patient has a hard time taking a deep breath. When he does, he coughs. Abdomen soft bowel sounds are heard. No masses or tenderness. Extremities are intact. No cyanosis clubbing or edema. Skin is without rash or lesion. Neurologic examination is brief but nonfocal. - Labs CBC & Chem 7: 12/01/20 10:40 12/01/20 10:40 Labs: Abnormal Lab Results - Last 24 Hours (Table) 11/30/20 11/30/20 12/01/20 Range/Units 16:47 19:34 00:45 WBC (3.8-10.6) k/uL RBC (4.30-5.90) m/uL Hgb (13.0-17.5) gm/dL Hct (39.0-53.0) % Neutrophils # (1.3-7.7) k/uL Lymphocytes # (1.0-4.8) k/uL Sodium (137-145) mmol/L Potassium (3.5-5.1) mmol/L BUN (9-20) mg/dL Creatinine (0.66-1.25) mg/dL Glucose (74-99) mg/dL POC Glucose (mg/dL) 349 H 411 H 209 H (75-99) mg/dL Lactate Dehydrogenase (313-618) U/L 12/01/20 12/01/20 12/01/20 Range/Units 07:41 10:40 10:40 WBC 11.4 H (3.8-10.6) k/uL RBC 3.91 L (4.30-5.90) m/uL Hgb 11.8 L (13.0-17.5) gm/dL Hct 34.2 L (39.0-53.0) % Neutrophils # 10.3 H (1.3-7.7) k/uL Lymphocytes # 0.6 L (1.0-4.8) k/uL Sodium 133 L (137-145) mmol/L Potassium 5.7 H (3.5-5.1) mmol/L BUN 46 H (9-20) mg/dL Creatinine 1.60 H (0.66-1.25) mg/dL Glucose 197 H (74-99) mg/dL POC Glucose (mg/dL) 105 H (75-99) mg/dL Lactate Dehydrogenase 1882 H (313-618) U/L 12/01/20 Range/Units 11:43 WBC (3.8-10.6) k/uL RBC (4.30-5.90) m/uL Hgb (13.0-17.5) gm/dL Hct (39.0-53.0) % Neutrophils # (1.3-7.7) k/uL Lymphocytes # (1.0-4.8) k/uL Sodium (137-145) mmol/L Potassium (3.5-5.1) mmol/L BUN (9-20) mg/dL Creatinine (0.66-1.25) mg/dL Glucose (74-99) mg/dL POC Glucose (mg/dL) 195 H (75-99) mg/dL Lactate Dehydrogenase (313-618) U/L Assessment and Plan Assessment: Acute hypoxemic respiratory failure secondary to COVID 19 pneumonitis/pneumonia, with worsening oxygenation and chest x-ray. Acute on chronic kidney injury, associated with COVID infection. History of bladder cancer Acute kidney injury associated hyperkalemia. Essential hypertension. Type 2 diabetes. History of CAD, with previous myocardial infarction and stent placement. History of hyperlipidemia. History of kidney stones. Plan: Plan dated 11/30/2020. Currently, the patient is not feeling much improvement. He is on 15 L high flow oxygen. The patient did receive CP. He was outside the window for REM. He is currently on vitamin C, vitamin D3, and zinc. In addition, he is on Decadron, and Lovenox. Additional recommendations and suggestions are forthcoming. We will continue to follow the patient closely. Patient may eventually be transferred to the intensive care unit. Other options would include BiPAP and/or AIRVO. We will continue to watch this patient carefully, and make recommendations were appropriate. Plan dated 12/01/2020. Currently, the patient's both on 15 L high flow oxygen, and a nonrebreather mask. Saturations are 95%. The patient was outside the window for REM. The patient is currently on vitamin C, vitamin D3, and zinc. He is also on Decadron and Lovenox. We'll have to watch this patient carefully. He may deteriorate further. Chest x-ray shows a worsening pattern of bilateral infiltrates. We will continue to follow the patient closely and make recommendations were appropriate. Prognosis is very guarded. Time with Patient: Less than 30
--- NOTE | 2020-12-01 14:26 | P.PN ---
Subjective Progress Note Date: 12/01/20 Follow-up for acute kidney injury. Objective - Vital Signs Vital signs: Vital Signs Temp 99.5 F 12/01/20 08:00 Pulse 109 H 12/01/20 08:00 Resp 22 12/01/20 08:00 BP 126/78 12/01/20 08:00 Pulse Ox 93 L 12/01/20 08:00 Intake & Output 11/30/20 12/01/20 12/01/20 18:59 06:59 18:59 Intake Total 600 240 Output Total 300 Balance 600 240 -300 Intake: Oral 600 240 Output: Urine 300 Other: Voiding Method Urinal Urinal Urinal # Voids 1 1 1 - Exam Exam limited secondary to Covid 19 pandemic. - Labs CBC & Chem 7: 12/01/20 10:40 12/01/20 10:40 Labs: Abnormal Lab Results - Last 24 Hours (Table) 11/30/20 11/30/20 12/01/20 Range/Units 16:47 19:34 00:45 WBC (3.8-10.6) k/uL RBC (4.30-5.90) m/uL Hgb (13.0-17.5) gm/dL Hct (39.0-53.0) % Neutrophils # (1.3-7.7) k/uL Lymphocytes # (1.0-4.8) k/uL Sodium (137-145) mmol/L Potassium (3.5-5.1) mmol/L BUN (9-20) mg/dL Creatinine (0.66-1.25) mg/dL Glucose (74-99) mg/dL POC Glucose (mg/dL) 349 H 411 H 209 H (75-99) mg/dL Lactate Dehydrogenase (313-618) U/L 12/01/20 12/01/20 12/01/20 Range/Units 07:41 10:40 10:40 WBC 11.4 H (3.8-10.6) k/uL RBC 3.91 L (4.30-5.90) m/uL Hgb 11.8 L (13.0-17.5) gm/dL Hct 34.2 L (39.0-53.0) % Neutrophils # 10.3 H (1.3-7.7) k/uL Lymphocytes # 0.6 L (1.0-4.8) k/uL Sodium 133 L (137-145) mmol/L Potassium 5.7 H (3.5-5.1) mmol/L BUN 46 H (9-20) mg/dL Creatinine 1.60 H (0.66-1.25) mg/dL Glucose 197 H (74-99) mg/dL POC Glucose (mg/dL) 105 H (75-99) mg/dL Lactate Dehydrogenase 1882 H (313-618) U/L 12/01/20 Range/Units 11:43 WBC (3.8-10.6) k/uL RBC (4.30-5.90) m/uL Hgb (13.0-17.5) gm/dL Hct (39.0-53.0) % Neutrophils # (1.3-7.7) k/uL Lymphocytes # (1.0-4.8) k/uL Sodium (137-145) mmol/L Potassium (3.5-5.1) mmol/L BUN (9-20) mg/dL Creatinine (0.66-1.25) mg/dL Glucose (74-99) mg/dL POC Glucose (mg/dL) 195 H (75-99) mg/dL Lactate Dehydrogenase (313-618) U/L Assessment and Plan Assessment: #1 acute kidney injury secondary to Covid 90 pneumonia and NSAID use. #2 hyperkalemia secondary to acute kidney injury/lisinopril/NSAID use. Check bladder scan to rule out urinary retention #3 Covid 90 pneumonia #4 CK D stage III secondary to diabetic kidney disease Baseline creatinine about 1.3 MG per DL. Plan: #1 renal function stable, add Lasix 60 mg IV twice a day. #2 bladder scan to rule out urinary retention
[2020-12-01 16:28] LABS: Ferritin 1325.6 ng/mL (22.0-322.0)
[2020-12-01] MEDS: FUROSEMIDE 10 MG/ML 10 ML VIAL IV SCH ×2 (16:49→23:28)
[2020-12-01 17:47] LABS: Glucose,Whole Blood 369 mg/dL (75-99)
--- NOTE | 2020-12-01 17:54 | P.PN ---
Subjective Progress Note Date: 12/01/20 Principal diagnosis: Acute hypoxemic respiratory failure secondary to COVID 19 pneumonitis/pneumonia Acute on chronic kidney injury, associated with COVID infection 70-year-old male who was admitted with a diagnosis of acute hypoxemic respiratory failure secondary to COVID 19 pneumonia. The patient has a history of multiple medical problems including essential hypertension, type 2 diabetes mellitus, hyperlipidemia, coronary artery disease, previous DC with stent placement, degenerative joint disease, bladder cancer, and kidney stones. He presented to the emergency department on November 24, with one-week worth of muscle aches, fever, shortness breath, cough, nausea, and tested positive for COVID on the . The patient was outside the window for REM, but did receive CP. 11/30/2020 Patient is seen and evaluated in room at bedside; The patient is currently on 15 L high flow nasal O2. The patient does not feel any better today. Chest x-ray on November 28 showed bilateral patchy airspace disease. Patient remains on vitamin C, vitamin D, zinc sulfate along with Decadron and subcu Lovenox; patient has not shown much improvement since admission; pulmonary service on board and recommending to continue current management with patient being high risk for need to be transferred to ICU; continue to monitor closely 12/01/2020 Patient is seen and evaluated in room at bedside; Currently, the patient's both on 15 L high flow oxygen, and a nonrebreather mask with SpO2 at 95%. The patient was outside the window for REM. The patient is currently on vitamin C, vitamin D3, and zinc. He is also on Decadron and Lovenox. Patient shows worsening of chest x-ray and oxygenation. He may deteriorate further. Chest x- ray shows a worsening pattern of bilateral infiltrates. We will continue to follow the patient closely and make recommendations were appropriate. Prognosis is very guarded. Objective - Vital Signs Vital signs: Vital Signs Temp 99.5 F 12/01/20 08:00 Pulse 109 H 12/01/20 08:00 Resp 22 12/01/20 08:00 BP 126/78 12/01/20 08:00 Pulse Ox 93 L 12/01/20 08:00 Intake & Output 11/30/20 12/01/20 12/01/20 18:59 06:59 18:59 Intake Total 600 240 Output Total 300 Balance 600 240 -300 Intake: Oral 600 240 Output: Urine 300 Other: Voiding Method Urinal Urinal Urinal # Voids 1 1 1 - Exam General: Sitting up in bed, NAD. Vitals reviewed Lungs: normal respiratory effort, minimal rhonchi, no wheezes/ rales CV: Regular rate and rhythm, no murmur. Peripheral pulses 2+ Abdomen: soft, nondistended, no organomegaly. Positive bowel sounds Skin: warm and dry. - Labs CBC & Chem 7: 12/01/20 10:40 12/01/20 10:40 Labs: Abnormal Lab Results - Last 24 Hours (Table) 11/30/20 11/30/20 11/30/20 Range/Units 12:04 16:47 19:34 POC Glucose (mg/dL) 275 H 349 H 411 H (75-99) mg/dL 12/01/20 12/01/20 Range/Units 00:45 07:41 POC Glucose (mg/dL) 209 H 105 H (75-99) mg/dL Assessment and Plan Assessment: Acute hypoxic respiratory failure secondary to acute covid 19 pneumonitis. Acute on chronic kidney injury associated with underlying Covid 19 infection History of bladder cancer. Acute hyperkalemia with acute kidney injury. Chronic kidney disease, previous creatinine was 1.3 in February 2020. 9 essential hypertension. Type 2 diabetes Recommendation: Continue present supportive care measures Continue oxygen Repeat chest x-ray and check inflammatory markers Continue the Covid 19 cocktail. Will recommend convalescent plasma Patient is out of the window for REM and he presently does not qualify for actemra Prognosis is relatively guarded.
[2020-12-01] MEDS: ATORVASTATIN 80 MG TAB PO SCH (21:04)
[2020-12-01 22:03] LABS: Glucose,Whole Blood 395 mg/dL (75-99)
[2020-12-01] MEDS ORDERED: INSULIN ASPART (NovoLOG) 100 UNIT/ML VIAL SQ ONE (22:51)
[2020-12-02] MEDS: LEVOTHYROXINE 100 MCG TAB PO SCH (05:55)
[2020-12-02 06:00] LABS: Glucose,Whole Blood 158 mg/dL (75-99)
[2020-12-02 07:11] LABS: Glucose,Whole Blood 166 mg/dL (75-99)
[2020-12-02] MEDS: INSULIN DETEMIR (LEVEMIR) 100 UNIT/ML SYR SQ SCH ×2 (07:22→17:58)
[2020-12-02] MEDS: ALBUTEROL HFA INHALER INHALATION SCH ×4 (07:27→20:36)
[2020-12-02] MEDS: INSULIN ASPART (NovoLOG) 100 UNIT/ML VIAL SQ SCH ×4 (08:21→21:48)
[2020-12-02] MEDS: CHOLECALCIFEROL 25 MCG (1000 IU) TABLET PO SCH (08:22)
[2020-12-02] MEDS: CLOPIDOGREL 75 MG TAB PO SCH (08:22)
[2020-12-02] MEDS: METOPROLOL SUCCINATE (ER) 25 MG TAB.ER.24H PO SCH (08:22)
[2020-12-02] MEDS: ASPIRIN 81 MG PO SCH (08:22)
[2020-12-02] MEDS: ZINC SULFATE 220 MG CAP PO SCH (08:22)
[2020-12-02] MEDS: ASCORBIC ACID 500 MG TAB PO SCH (08:22)
[2020-12-02] MEDS: PANTOPRAZOLE 40 MG TABLET PO SCH (08:22)
[2020-12-02] MEDS: FUROSEMIDE 10 MG/ML 10 ML VIAL IV SCH ×2 (08:23→21:47)
[2020-12-02] MEDS: DEXAMETHASONE SOD PHOSPHATE 10 MG/ML 1 ML VIAL IV SCH ×2 (08:23→22:02)
[2020-12-02] MEDS: ENOXAPARIN 40 MG/0.4 ML SYRINGE SQ SCH (08:24)
[2020-12-02] MEDS: GABAPENTIN 300 MG CAP PO SCH (09:05)
[2020-12-02 11:09] LABS: Glucose,Whole Blood 347 mg/dL (75-99)
[2020-12-02 11:25] LABS: African American GFR (CKD) 49.8 (60.0-200.0); Anion Gap 11.1 mmol/L (4.00-12.00); BUN/Creat Ratio 37.5 Ratio (12.00-20.00); Calcium 8.7 mg/dL (8.7-10.3); Carbon Dioxide 22.9 mmol/L (21.6-31.8); Potassium 4.4 mmol/L (3.5-5.5)
--- NOTE | 2020-12-02 11:49 | P.PN ---
Subjective Progress Note Date: 12/02/20 Principal diagnosis: Acute hypoxic respiratory failure secondary to acute covid 19 pneumonitis. This is a 70-year-old white male with history of multiple medical problems including hypertension, type 2 diabetes, dyslipidemia, coronary artery disease and previous [place], previous stent placement, degenerative joint disease, bladder cancer, nephrolithiasis, patient presented to the emergency room on 11/24/2020, mostly with 1 week history of multiple constitutional symptoms including muscle aches, fever, shortness of breath, cough, nausea, and he tested positive on the with contreras virus PCR. Chest x-ray showed evidence of bilateral opacities/infiltrates. Patient had adequate saturations on room air, it was about 94%, he was also noted to be hyperkalemic, and he had lactic acid of 2.7. Received dextrose, insulin, Kayexalate, and the patient was eventually admitted seen by nephrology on consultation, he was placed on the Covid 19 cocktail, and we were asked to see him yesterday because of his worsening shortness of breath. No follow-up chest x-ray done since admission, and I will be ordering one to be done today. Labs today clearly showed relatively normal CBC. Elevated BUN of 40 creatinine is 1.4. D-dimer was normal on admission, and I do not see any inflammatory markers on the chart. After evaluating the patient, we recommended one unit of convalescent plan is to be given. Patient obviously did not qualify for REM. And he is not at the point of requiring actemtra Patient was reevaluated today on 11/29/2020, he is basically about the same. Not much of a change in the last 24 hours. Patient is on 6 L nasal cannula, and his O2 saturation is in the low 90s. Continues to have intermittent cough, shortness of breath, basic metabolic profile is normal. His LDH is 1466, and C- reactive protein is 24. Patient remains on the Covid 19 cocktail. He received convalescent plasma. He was out of the window for REM. Patient was reevaluated today on 12/02/2020, does not seem to be improving much. Patient is now on higher FiO2, requiring airvo high flow with FiO2 of 90% and total of 60 L/m in addition to this he is also on a nonrebreather. Chest x-ray seems to be a bit worse. LDH is worse 1881 last C-reactive protein is 24. Renal functioning is also worse with a BUN of 46 creatinine 1.60 and a potassium of 5.7 being addressed by nephrology on the case. His last chest x-ray was on 12/02/1912/17/2020, I will go ahead and order a chest x-ray for the morning. Patient remains on the Covid 19 cocktail. He received convalescent plasma. Interstitia l and patchy bilateral airspace disease/infiltrates progressed from admission x- ray. Repeat basic metabolic profile was done today, potassium is down to 4.4 from 5.7 yesterday. BUN is 60 creatinine is 1.60. Objective - Vital Signs Vital signs: Vital Signs Temp 97.7 F 12/02/20 08:41 Pulse 84 12/02/20 08:41 Resp 18 12/02/20 08:41 BP 105/75 12/02/20 08:41 Pulse Ox 90 L 12/02/20 08:41 Intake & Output 12/01/20 12/02/20 12/02/20 18:59 06:59 18:59 Intake Total 1050 Output Total 950 306 Balance 100 -306 Intake: Oral 1050 Output: Urine 950 306 Other: Voiding Method Urinal Urinal Urinal # Voids 1 1 - Exam Physical Exam: Revealed 70-year-old white male in mild distress in spite of FiO2 being high. Flow is high Head: Atraumatic, normocephalic. HEENT:[Neck is supple.] [No neck masses.] [No thyromegaly.] [No JVD.] Chest: Symmetrical chest expansion, crackles at the bases bilaterally..] Cardiac Exam: [Normal S1 and S2, no S3 gallop, no murmur.] Abdomen: [Soft, nontender, no megaly, no rebound, no guarding, normal bowel sounds.] Extremities: [No clubbing, no edema, no cyanosis.] Neurological Exam: [No focal neurologic deficit.] Alert and oriented 3. Psychiatric: Normal mood affect and normal mental status examination. Musculoskeletal: No limitation in range of motion, no deformities. - Labs CBC & Chem 7: 12/01/20 10:40 12/02/20 05:28 Labs: Abnormal Lab Results - Last 24 Hours (Table) 12/01/20 12/01/20 12/01/20 Range/Units 10:40 10:40 11:43 Sodium (135-145) mmol/L BUN (9.0-27.0) mg/dL Creatinine (0.6-1.5) mg/dL Est GFR (CKD-EPI)AfAm (60.0-200.0) Est GFR (CKD-EPI)NonAf (60.0-200.0) BUN/Creatinine Ratio (12.00-20.00) Ratio Glucose (70-110) mg/dL POC Glucose (mg/dL) 195 H (75-99) mg/dL Ferritin 1325.6 H (22.0-322.0) ng/mL Procalcitonin 0.33 H (0.02-0.09) ng/mL 12/01/20 12/01/20 12/02/20 Range/Units 17:45 22:01 05:28 Sodium 132 L (135-145) mmol/L BUN 60.0 H (9.0-27.0) mg/dL Creatinine 1.6 H (0.6-1.5) mg/dL Est GFR (CKD-EPI)AfAm 49.8 L (60.0-200.0) Est GFR (CKD-EPI)NonAf 43.0 L (60.0-200.0) BUN/Creatinine Ratio 37.50 H (12.00-20.00) Ratio Glucose 173 H (70-110) mg/dL POC Glucose (mg/dL) 369 H 395 H (75-99) mg/dL Ferritin (22.0-322.0) ng/mL Procalcitonin (0.02-0.09) ng/mL 12/02/20 12/02/20 12/02/20 Range/Units 05:57 07:04 11:06 Sodium (135-145) mmol/L BUN (9.0-27.0) mg/dL Creatinine (0.6-1.5) mg/dL Est GFR (CKD-EPI)AfAm (60.0-200.0) Est GFR (CKD-EPI)NonAf (60.0-200.0) BUN/Creatinine Ratio (12.00-20.00) Ratio Glucose (70-110) mg/dL POC Glucose (mg/dL) 158 H 166 H 347 H (75-99) mg/dL Ferritin (22.0-322.0) ng/mL Procalcitonin (0.02-0.09) ng/mL Assessment and Plan Assessment: Impression: Acute hypoxic respiratory failure secondary to acute covid 19 pneumonitis. Seems to be progressing since admission. Acute on chronic kidney injury associated with underlying Covid 19 infection History of bladder cancer. Acute hyperkalemia with acute kidney injury. Chronic kidney disease, previous creatinine was 1.3 in February 2020. Benign essential hypertension Type 2 diabetes. Recommendation: Continue high flow oxygen and titrate accordingly to maintain O2 saturation above 90%. Continue present supportive care measures Continue oxygen, titrate accordingly maintain O2 saturation above 90%. Continue to follow inflammatory markers. Continue the Covid 19 cocktail. Received 1 unit of convalescent plasma., Patient was out of the window for REM. May consider actemra, now that his condition is a bit worse. And he is requiring relatively high FiO2. Prognosis is relatively guarded. Patient is not ready for any discharge planning. If his condition gets worse we could potentially transfer the patient down to the ICU We'll continue to follow. Time with Patient: Less than 30
--- NOTE | 2020-12-02 15:38 | PN ---
PROGRESS NOTE Patient is seen for followup for acute kidney injury. He is currently being treated for COVID pneumonia. Serum creatinine is about the same over the last couple of days, staying at about 1.6. Patient has been voiding in a urinal; 24-hour output documented at 1.2 L. PHYSICAL EXAMINATION: On examination today, blood pressure 105/75, heart rate 84 per minute. Examination of lower extremities shows trace edema bilaterally. Lungs and heart are not examined due to COVID infection. [employer] EXAM: Grossly intact. LABS: Labs from today show sodium 132, potassium 4.4, BUN 60, creatinine 1.6 mg/dL. ASSESSMENT: 1. Acute kidney injury, acute tubular necrosis, nonoliguric, associated with underlying COVID infection and non-steroidal anti-inflammatories, currently stable. 2. Hyperkalemia associated with YODIT inhibitors and NSAID use. 3. Urine retention. 4. COVID-19 pneumonia. 5. Chronic kidney disease, stage 3, secondary to diabetic kidney disease. Baseline creatinine about 1.3 mg/dL. PLAN: Continue current dose of IV Lasix. Repeat labs in a.m. Monitor electrolytes. Continue steroids and management of COVID-19 pneumonia. MMODL / IJN: [id number] /
[2020-12-02 17:08] LABS: Glucose,Whole Blood 441 mg/dL (75-99)
--- NOTE | 2020-12-02 17:15 | P.PN ---
Subjective Progress Note Date: 12/02/20 11/27/2020 during the night, patient became more hypoxic, requiring nonrebreather. Significant clinical improvement, maintaining O2 sats in the 90s on 5 L nasal cannula. Minimal nonproductive cough. Creatinine 1.6. 11/28/2020 Required nonrebreather briefly during the night; currently maintained on 5 L nasal cannula, O2 sats of 90-91%. Complains of worsening shortness of breath, especially with minimal exertion, nonproductive cough. Maintained on Covid regimen, including dexamethasone. Blood sugars elevated throughout the night, better controlled this morning. Denies chest pain, palpitations or shortness of breath. Labs pending. 11/29/20 S/P convalescent plasma .Continues on Covid regimen, maintaining O2 sats in the 90s on 6 L nasal cannula. Occasional nonproductive cough. Denies chest pain, palpitations. Evaluated by pulmonary, outside the window for Remdesevir. Creatinine 1.4. 12/02/2020 maintained on high flow cannula with FiO2 of 90% post nonrebreather to maintain O2 sats in the 90s. Chest x-ray reporting progression of interstitial and patchy bilateral airspace infiltrates. Afebrile, T-max 99.5. BUN 60, Creatinine 1.6 sodium 132. Objective - Vital Signs Vital signs: Vital Signs Temp 97.7 F 12/02/20 08:41 Pulse 84 12/02/20 08:41 Resp 18 12/02/20 08:41 BP 105/75 12/02/20 08:41 Pulse Ox 90 L 12/02/20 08:41 Intake & Output 12/01/20 12/02/20 12/02/20 18:59 06:59 18:59 Intake Total 1050 Output Total 950 306 Balance 100 -306 Intake: Oral 1050 Output: Urine 950 306 Other: Voiding Method Urinal Urinal Urinal # Voids 1 1 - Exam - Exam General: Sitting up in bed, weak, malaise, etc. effort increased. Vitals reviewed Lungs: normal respiratory effort, minimal rhonchi, no wheezes/ rales CV: Regular rate and rhythm, no murmur. Peripheral pulses 2+ Abdomen: soft, nondistended, no organomegaly. Positive bowel sounds Skin: warm and dry. - Labs CBC & Chem 7: 12/01/20 10:40 12/02/20 05:28 Labs: Abnormal Lab Results - Last 24 Hours (Table) 12/01/20 12/01/20 12/01/20 Range/Units 10:40 10:40 10:40 WBC 11.4 H (3.8-10.6) k/uL RBC 3.91 L (4.30-5.90) m/uL Hgb 11.8 L (13.0-17.5) gm/dL Hct 34.2 L (39.0-53.0) % Neutrophils # 10.3 H (1.3-7.7) k/uL Lymphocytes # 0.6 L (1.0-4.8) k/uL Sodium 133 L (137-145) mmol/L Potassium 5.7 H (3.5-5.1) mmol/L BUN 46 H (9-20) mg/dL Creatinine 1.60 H (0.66-1.25) mg/dL Glucose 197 H (74-99) mg/dL POC Glucose (mg/dL) (75-99) mg/dL Ferritin 1325.6 H (22.0-322.0) ng/mL Lactate Dehydrogenase 1882 H (313-618) U/L Procalcitonin 0.33 H (0.02-0.09) ng/mL 12/01/20 12/01/20 12/01/20 Range/Units 11:43 17:45 22:01 WBC (3.8-10.6) k/uL RBC (4.30-5.90) m/uL Hgb (13.0-17.5) gm/dL Hct (39.0-53.0) % Neutrophils # (1.3-7.7) k/uL Lymphocytes # (1.0-4.8) k/uL Sodium (137-145) mmol/L Potassium (3.5-5.1) mmol/L BUN (9-20) mg/dL Creatinine (0.66-1.25) mg/dL Glucose (74-99) mg/dL POC Glucose (mg/dL) 195 H 369 H 395 H (75-99) mg/dL Ferritin (22.0-322.0) ng/mL Lactate Dehydrogenase (313-618) U/L Procalcitonin (0.02-0.09) ng/mL 12/02/20 12/02/20 Range/Units 05:57 07:04 WBC (3.8-10.6) k/uL RBC (4.30-5.90) m/uL Hgb (13.0-17.5) gm/dL Hct (39.0-53.0) % Neutrophils # (1.3-7.7) k/uL Lymphocytes # (1.0-4.8) k/uL Sodium (137-145) mmol/L Potassium (3.5-5.1) mmol/L BUN (9-20) mg/dL Creatinine (0.66-1.25) mg/dL Glucose (74-99) mg/dL POC Glucose (mg/dL) 158 H 166 H (75-99) mg/dL Ferritin (22.0-322.0) ng/mL Lactate Dehydrogenase (313-618) U/L Procalcitonin (0.02-0.09) ng/mL Assessment and Plan Assessment: (1) Acute hypoxemic respiratory failure due to COVID-19 pneumonitis, status post convalescent plasma, outside the window for anabell White. Current Visit: Yes Status: Acute Code(s): U07.1 - COVID-19; J96.01 - ACUTE RESPIRATORY FAILURE WITH HYPOXIA SNOMED Code(s): 614905156 (2) Essential hypertension Current Visit: Yes Status: Acute Code(s): I10 - ESSENTIAL (PRIMARY) HYPERTENSION SNOMED Code(s): 41105090 (3) Type 2 diabetes mellitus Current Visit: Yes Status: Acute Code(s): E11.9 - TYPE 2 DIABETES MELLITUS WITHOUT COMPLICATIONS SNOMED Code(s): 86216042 (4) DARWIN (acute kidney injury), prerenal secondary to #1 Current Visit: Yes Status: Acute Code(s): N17.9 - ACUTE KIDNEY FAILURE, UNSPECIFIED SNOMED Code(s): 76787606 (5) chronic kidney disease stage IIIa secondary to DKA, baseline 1.3 (6) COVID-19 Current Visit: Yes Status: Acute Code(s): U07.1 - COVID-19 SNOMED Code(s): 817964010 (7) Hyperkalemia secondary to acute renal failure, YODIT inhibitor and NSAIDs ,resolved Current Visit: Yes Status: Acute Code(s): E87.5 - HYPERKALEMIA SNOMED Code(s): 93007039 Plan: Continue on current medication regime ,monitoring and symptomatic treatment. Pulmonary discussing possible acterma. Maintain COVID regimen, titrating O2 to maintain O2 sat greater than 90%. Levemir increased. Close monitoring of Accu-Cheks, renal function with repeat labs ordered for a.m. prognosis guarded given multiple complex medical issues per The impression and plan of care has been dictated as directed. : I performed a history and examination of this patient, discussed the same with the dictator. I agree with the dictator's note ,documented as a scribe. Any additional findings or plans will be noted.
[2020-12-02 20:35] LABS: Glucose,Whole Blood 499 mg/dL (75-99)
[2020-12-02 20:35] LABS: Glucose,Whole Blood 454 mg/dL (75-99)
[2020-12-02] MEDS ORDERED: INSULIN DETEMIR (LEVEMIR) 100 UNIT/ML SYR SQ SCH (21:15)
[2020-12-02] MEDS: ATORVASTATIN 80 MG TAB PO SCH (21:47)
[2020-12-03 04:09] LABS: Albumin 3.7 g/dL (3.80-4.90); Total Bilirubin 0.8 mg/dL (0.2-1.2); Total Protein 6.5 g/dL (6.2-8.2)
[2020-12-03] MEDS: LEVOTHYROXINE 100 MCG TAB PO SCH (05:56)
[2020-12-03] MEDS: ALBUTEROL HFA INHALER INHALATION SCH ×4 (07:09→20:30)
[2020-12-03 07:15] LABS: Glucose,Whole Blood 136 mg/dL (75-99)
[2020-12-03] MEDS: INSULIN ASPART (NovoLOG) 100 UNIT/ML VIAL SQ SCH ×4 (09:04→20:25)
[2020-12-03] MEDS: FUROSEMIDE 10 MG/ML 10 ML VIAL IV SCH ×2 (09:40→20:24)
[2020-12-03] MEDS: ASPIRIN 81 MG PO SCH (09:41)
[2020-12-03] MEDS: ASCORBIC ACID 500 MG TAB PO SCH (09:41)
[2020-12-03] MEDS: CLOPIDOGREL 75 MG TAB PO SCH (09:41)
[2020-12-03] MEDS: ZINC SULFATE 220 MG CAP PO SCH (09:41)
[2020-12-03] MEDS: ENOXAPARIN 40 MG/0.4 ML SYRINGE SQ SCH (09:41)
[2020-12-03] MEDS: CHOLECALCIFEROL 25 MCG (1000 IU) TABLET PO SCH (09:41)
[2020-12-03] MEDS: METOPROLOL SUCCINATE (ER) 25 MG TAB.ER.24H PO SCH (09:41)
[2020-12-03] MEDS: PANTOPRAZOLE 40 MG TABLET PO SCH (09:41)
[2020-12-03] MEDS: DEXAMETHASONE SOD PHOSPHATE 10 MG/ML 1 ML VIAL IV SCH ×2 (09:42→20:25)
[2020-12-03] MEDS: GABAPENTIN 300 MG CAP PO SCH (09:42)
[2020-12-03] MEDS: INSULIN DETEMIR (LEVEMIR) 100 UNIT/ML SYR SQ SCH ×2 (10:05→20:25)
[2020-12-03] MEDS ORDERED: TOCILIZUMAB 720 MG in SODIUM CHLORIDE 0.9% 64 ML IV ONE (11:30)
[2020-12-03 11:33] LABS: Glucose,Whole Blood 145 mg/dL (75-99)
--- NOTE | 2020-12-03 12:16 | P.PN ---
Subjective Progress Note Date: 12/03/20 Principal diagnosis: Acute hypoxic respiratory failure secondary to acute covid 19 pneumonitis. This is a 70-year-old white male with history of multiple medical problems including hypertension, type 2 diabetes, dyslipidemia, coronary artery disease and previous [place], previous stent placement, degenerative joint disease, bladder cancer, nephrolithiasis, patient presented to the emergency room on 11/24/2020, mostly with 1 week history of multiple constitutional symptoms including muscle aches, fever, shortness of breath, cough, nausea, and he tested positive on the with contreras virus PCR. Chest x-ray showed evidence of bilateral opacities/infiltrates. Patient had adequate saturations on room air, it was about 94%, he was also noted to be hyperkalemic, and he had lactic acid of 2.7. Received dextrose, insulin, Kayexalate, and the patient was eventually admitted seen by nephrology on consultation, he was placed on the Covid 19 cocktail, and we were asked to see him yesterday because of his worsening shortness of breath. No follow-up chest x-ray done since admission, and I will be ordering one to be done today. Labs today clearly showed relatively normal CBC. Elevated BUN of 40 creatinine is 1.4. D-dimer was normal on admission, and I do not see any inflammatory markers on the chart. After evaluating the patient, we recommended one unit of convalescent plan is to be given. Patient obviously did not qualify for REM. And he is not at the point of requiring actemtra Patient was reevaluated today on 11/29/2020, he is basically about the same. Not much of a change in the last 24 hours. Patient is on 6 L nasal cannula, and his O2 saturation is in the low 90s. Continues to have intermittent cough, shortness of breath, basic metabolic profile is normal. His LDH is 1466, and C- reactive protein is 24. Patient remains on the Covid 19 cocktail. He received convalescent plasma. He was out of the window for REM. Patient was reevaluated today on 12/02/2020, does not seem to be improving much. Patient is now on higher FiO2, requiring airvo high flow with FiO2 of 90% and total of 60 L/m in addition to this he is also on a nonrebreather. Chest x-ray seems to be a bit worse. LDH is worse 1881 last C-reactive protein is 24. Renal functioning is also worse with a BUN of 46 creatinine 1.60 and a potassium of 5.7 being addressed by nephrology on the case. His last chest x-ray was on 12/02/1912/17/2020, I will go ahead and order a chest x-ray for the morning. Patient remains on the Covid 19 cocktail. He received convalescent plasma. Interstitia l and patchy bilateral airspace disease/infiltrates progressed from admission x- ray. Repeat basic metabolic profile was done today, potassium is down to 4.4 from 5.7 yesterday. BUN is 60 creatinine is 1.60. Reevaluated today on 12/03/2020, patient is about the same remains on nonrebreather mask and high flow cannula,He is on 90% FiO2 with flow of 15 L/m and his O2 saturation is in the low 90s. Continues to have intermittent cough, shortness of breath with any activity. Patient has been steadily worsening clinically over the last few days. Hence I would recommend actemra on this patient. Remains on the Covid 19 cocktail. And he also received convalescent plasma. Objective - Vital Signs Vital signs: Vital Signs Temp 98.1 F 12/03/20 08:00 Pulse 81 12/03/20 08:00 Resp 18 12/03/20 08:00 BP 121/72 12/03/20 08:00 Pulse Ox 90 L 12/03/20 08:00 Intake & Output 12/02/20 12/03/20 12/03/20 18:59 06:59 18:59 Output Total 630 300 Balance -630 -300 Output: Urine 400 300 Post Void Residual 230 Other: Voiding Method Urinal Urinal - Exam Physical Exam: Revealed 70-year-old white male in remains on high FiO2 and high flow oxygen. Head: Atraumatic, normocephalic. HEENT:[Neck is supple.] [No neck masses.] [No thyromegaly.] [No JVD.] Chest: Symmetrical chest expansion, crackles at the bases bilaterally..] Cardiac Exam: [Normal S1 and S2, no S3 gallop, no murmur.] Abdomen: [Soft, nontender, no megaly, no rebound, no guarding, normal bowel sounds.] Extremities: [No clubbing, no edema, no cyanosis.] Neurological Exam: [No focal neurologic deficit.] Alert and oriented 3. Psychiatric: Normal mood affect and normal mental status examination. Musculoskeletal: No limitation in range of motion, no deformities. - Labs CBC & Chem 7: 12/01/20 10:40 12/02/20 05:28 Labs: Abnormal Lab Results - Last 24 Hours (Table) 12/02/20 12/02/20 12/02/20 Range/Units 05:28 17:05 20:33 POC Glucose (mg/dL) 441 H 454 H (75-99) mg/dL AST 169 H (14-35) U/L ALT 223 H (10-49) U/L Alkaline Phosphatase 128 H (41-126) U/L Albumin 3.70 L (3.80-4.90) g/dL 12/02/20 12/03/20 12/03/20 Range/Units 20:34 07:13 11:32 POC Glucose (mg/dL) 499 H 136 H 145 H (75-99) mg/dL AST (14-35) U/L ALT (10-49) U/L Alkaline Phosphatase (41-126) U/L Albumin (3.80-4.90) g/dL Assessment and Plan Assessment: Impression: Acute hypoxic respiratory failure secondary to acute covid 19 pneumonitis. Worsening clinically over the last few days. Acute on chronic kidney injury associated with underlying Covid 19 infection History of bladder cancer. Acute hyperkalemia with acute kidney injury. Chronic kidney disease, previous creatinine was 1.3 in February 2020. Benign essential hypertension Type 2 diabetes. Recommendation: Continue high flow oxygen and titrate accordingly to maintain O2 saturation above 90%. Continue present supportive care measures Continue oxygen, titrate accordingly maintain O2 saturation above 90%. Continue to follow inflammatory markers. Continue the Covid 19 cocktail. Received 1 unit of convalescent plasma., actemra was added today. Prognosis is relatively guarded. Patient is not ready for any discharge planning. Clinically worse. We'll continue to follow. Time with Patient: Less than 30
--- NOTE | 2020-12-03 17:00 | P.PN ---
Subjective Progress Note Date: 12/03/20 11/27/2020 during the night, patient became more hypoxic, requiring nonrebreather. Significant clinical improvement, maintaining O2 sats in the 90s on 5 L nasal cannula. Minimal nonproductive cough. Creatinine 1.6. 11/28/2020 Required nonrebreather briefly during the night; currently maintained on 5 L nasal cannula, O2 sats of 90-91%. Complains of worsening shortness of breath, especially with minimal exertion, nonproductive cough. Maintained on Covid regimen, including dexamethasone. Blood sugars elevated throughout the night, better controlled this morning. Denies chest pain, palpitations or shortness of breath. Labs pending. 11/29/20 S/P convalescent plasma .Continues on Covid regimen, maintaining O2 sats in the 90s on 6 L nasal cannula. Occasional nonproductive cough. Denies chest pain, palpitations. Evaluated by pulmonary, outside the window for Remdesevir. Creatinine 1.4. 12/02/2020 maintained on high flow cannula with FiO2 of 90% post nonrebreather to maintain O2 sats in the 90s. Chest x-ray reporting progression of interstitial and patchy bilateral airspace infiltrates. Afebrile, T-max 99.5. BUN 60, Creatinine 1.6 sodium 132. 12/03/2020 maintained on Covid 19 cocktail ,continues on 15 L high flow nasal cannula and nonrebreather mask, maintaining O2 sats of 90%. Nonproductive cough. Afebrile. Minimal reserve. Objective - Vital Signs Vital signs: Vital Signs Temp 97.9 F 12/03/20 15:15 Pulse 87 12/03/20 15:15 Resp 16 12/03/20 15:15 BP 103/68 12/03/20 15:15 Pulse Ox 96 12/03/20 15:15 Intake & Output 12/02/20 12/03/20 12/03/20 18:59 06:59 18:59 Output Total 630 300 900 Balance -630 -300 -900 Output: Urine 400 300 900 Post Void Residual 230 Other: Voiding Method Urinal Urinal Urinal - Exam - Exam General: Sitting up in bed, weak, malaise, etc. effort increased. Vitals reviewed Lungs: normal respiratory effort, minimal rhonchi, no wheezes/ fine bibasilar rales CV: Regular rate and rhythm, no murmur. Peripheral pulses 2+ Abdomen: soft, nondistended, no organomegaly. Positive bowel sounds Skin: warm and dry. - Labs CBC & Chem 7: 12/01/20 10:40 12/02/20 05:28 Labs: Abnormal Lab Results - Last 24 Hours (Table) 12/02/20 12/02/20 12/02/20 Range/Units 05:28 17:05 20:33 POC Glucose (mg/dL) 441 H 454 H (75-99) mg/dL AST 169 H (14-35) U/L ALT 223 H (10-49) U/L Alkaline Phosphatase 128 H (41-126) U/L Albumin 3.70 L (3.80-4.90) g/dL 12/02/20 12/03/20 12/03/20 Range/Units 20:34 07:13 11:32 POC Glucose (mg/dL) 499 H 136 H 145 H (75-99) mg/dL AST (14-35) U/L ALT (10-49) U/L Alkaline Phosphatase (41-126) U/L Albumin (3.80-4.90) g/dL Assessment and Plan Assessment: (1) Acute hypoxemic respiratory failure due to COVID-19 pneumonitis, status post convalescent plasma, outside the window for anabell White. Current Visit: Yes Status: Acute Code(s): U07.1 - COVID-19; J96.01 - ACUTE RESPIRATORY FAILURE WITH HYPOXIA SNOMED Code(s): 960340060 (2) Essential hypertension Current Visit: Yes Status: Acute Code(s): I10 - ESSENTIAL (PRIMARY) H YPERTENSION SNOMED Code(s): 88891560 (3) Type 2 diabetes mellitus Current Visit: Yes Status: Acute Code(s): E11.9 - TYPE 2 DIABETES MELLITUS WITHOUT COMPLICATIONS SNOMED Code(s): 73507100 (4) DARWIN (acute kidney injury), prerenal secondary to #1 Current Visit: Yes Status: Acute Code(s): N17.9 - ACUTE KIDNEY FAILURE, UNSPECIFIED SNOMED Code(s): 00176655 (5) chronic kidney disease stage IIIa secondary to DKA, baseline 1.3 (6) COVID-19 Current Visit: Yes Status: Acute Code(s): U07.1 - COVID-19 SNOMED Code(s): 441491463 (7) Hyperkalemia secondary to acute renal failure, YODIT inhibitor and NSAIDs,resolved Current Visit: Yes Status: Acute Code(s): E87.5 - HYPERKALEMIA SNOMED Code(s): 40641438 Plan: Continue on current medication regime ,monitoring and symptomatic t reatment. Pulmonary discussing possible acterma. Maintain COVID regimen.Levemir increased yesterday,blood sugars controlled this morning. Close monitoring of Accu-Cheks, renal function with repeat labs ordered for a.m. prognosis guarded given multiple complex medical issues per The impression and plan of care has been dictated as directed. : I performed a history and examination of this patient, discussed the same with the dictator. I agree with the dictator's note ,documented as a scribe. Any additional findings or plans will be noted.
[2020-12-03 17:15] LABS: Glucose,Whole Blood 325 mg/dL (75-99)
[2020-12-03 19:58] LABS: Glucose,Whole Blood 286 mg/dL (75-99)
[2020-12-03] MEDS: ATORVASTATIN 80 MG TAB PO SCH (20:25)
--- NOTE | 2020-12-03 21:51 | PN ---
PROGRESS NOTE Patient is seen for followup for acute kidney injury. His serum creatinine was 1.6 yesterday. We do not have any labs today. It had been fairly stable. He is currently being treated for COVID pneumonia. Patient has been voiding. He denies any significant urinary symptoms. PHYSICAL EXAMINATION: On examination today, blood pressure was 103/68, heart rate 87 per minute. His lungs and heart are not examined. Lower extremities show no significant edema. 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 The patient is maintained on a non-rebreather, FiO2 at about 90%. LABS: No labs available from today. Serum creatinine 1.6 yesterday on 12/02/2020. ASSESSMENT: 1. Acute kidney injury, acute tubular necrosis, associated with underlying COVID infection and pneumonia, currently nonoliguric. Repeat labs in a.m. 2. Hyperkalemia associated with acute kidney injury and YODIT inhibitors and non- steroidal anti-inflammatory usage. 3. Urine retention, improved. 4. COVID-19 pneumonia. 5. Chronic kidney disease secondary to diabetic kidney disease; baseline creatinine about 1.3 mg/dL. 6. Volume overload, currently maintained on IV Lasix. PLAN: Continue with the IV Lasix. Check labs in a.m. MMODL / IJN: [id number] /
[2020-12-04] MEDS: LEVOTHYROXINE 100 MCG TAB PO SCH (05:48)
[2020-12-04] MEDS: ALBUTEROL HFA INHALER INHALATION SCH ×4 (07:11→19:23)
[2020-12-04 07:44] LABS: Glucose,Whole Blood 166 mg/dL (75-99)
[2020-12-04] MEDS: INSULIN DETEMIR (LEVEMIR) 100 UNIT/ML SYR SQ SCH (08:44)
[2020-12-04] MEDS: ZINC SULFATE 220 MG CAP PO SCH (08:45)
[2020-12-04] MEDS: ASPIRIN 81 MG PO SCH (08:45)
[2020-12-04] MEDS: FUROSEMIDE 10 MG/ML 10 ML VIAL IV SCH (08:45)
[2020-12-04] MEDS: GABAPENTIN 300 MG CAP PO SCH (08:45)
[2020-12-04] MEDS: CHOLECALCIFEROL 25 MCG (1000 IU) TABLET PO SCH (08:45)
[2020-12-04] MEDS: CLOPIDOGREL 75 MG TAB PO SCH (08:45)
[2020-12-04] MEDS: METOPROLOL SUCCINATE (ER) 25 MG TAB.ER.24H PO SCH (08:45)
[2020-12-04] MEDS: ASCORBIC ACID 500 MG TAB PO SCH (08:45)
[2020-12-04] MEDS: DEXAMETHASONE SOD PHOSPHATE 10 MG/ML 1 ML VIAL IV SCH ×2 (08:45→20:38)
[2020-12-04] MEDS: PANTOPRAZOLE 40 MG TABLET PO SCH (08:46)
[2020-12-04] MEDS: ENOXAPARIN 40 MG/0.4 ML SYRINGE SQ SCH (08:46)
[2020-12-04] MEDS: INSULIN ASPART (NovoLOG) 100 UNIT/ML VIAL SQ SCH ×4 (08:57→20:38)
--- NOTE | 2020-12-04 10:17 | P.PN ---
Subjective Progress Note Date: 12/04/20 Principal diagnosis: Acute hypoxic respiratory failure secondary to acute covid 19 pneumonitis. This is a 70-year-old white male with history of multiple medical problems including hypertension, type 2 diabetes, dyslipidemia, coronary artery disease and previous RI, previous stent placement, degenerative joint disease, bladder cancer, nephrolithiasis, patient presented to the emergency room on 11/24/2020, mostly with 1 week history of multiple constitutional symptoms including muscle aches, fever, shortness of breath, cough, nausea, and he tested positive on the with contreras virus PCR. Chest x-ray showed evidence of bilateral opacities/infiltrates. Patient had adequate saturations on room air, it was about 94%, he was also noted to be hyperkalemic, and he had lactic acid of 2.7. Received dextrose, insulin, Kayexalate, and the patient was eventually admitted seen by nephrology on consultation, he was placed on the Covid 19 cocktail, and we were asked to see him yesterday because of his worsening shortness of breath. No follow-up chest x-ray done since admission, and I will be ordering one to be done today. Labs today clearly showed relatively normal CBC. Elevated BUN of 40 creatinine is 1.4. D-dimer was normal on admission, and I do not see any inflammatory markers on the chart. After evaluating the patient, we recommended one unit of convalescent plan is to be given. Patient obviously did not qualify for REM. And he is not at the point of requiring actemtra Patient was reevaluated today on 11/29/2020, he is basically about the same. Not much of a change in the last 24 hours. Patient is on 6 L nasal cannula, and his O2 saturation is in the low 90s. Continues to have intermittent cough, shortness of breath, basic metabolic profile is normal. His LDH is 1466, and C- reactive protein is 24. Patient remains on the Covid 19 cocktail. He received convalescent plasma. He was out of the window for REM. Patient was reevaluated today on 12/02/2020, does not seem to be improving much. Patient is now on higher FiO2, requiring airvo high flow with FiO2 of 90% and total of 60 L/m in addition to this he is also on a nonrebreather. Chest x-ray seems to be a bit worse. LDH is worse 1881 last C-reactive protein is 24. Renal functioning is also worse with a BUN of 46 creatinine 1.60 and a potassium of 5.7 being addressed by nephrology on the case. His last chest x-ray was on 12/02/1912/17/2020, I will go ahead and order a chest x-ray for the morning. Patient remains on the Covid 19 cocktail. He received convalescent plasma. Interstitia l and patchy bilateral airspace disease/infiltrates progressed from admission x- ray. Repeat basic metabolic profile was done today, potassium is down to 4.4 from 5.7 yesterday. BUN is 60 creatinine is 1.60. Reevaluated today on 12/03/2020, patient is about the same remains on nonrebreather mask and high flow cannula,He is on 90% FiO2 with flow of 15 L/m and his O2 saturation is in the low 90s. Continues to have intermittent cough, shortness of breath with any activity. Patient has been steadily worsening clinically over the last few days. Hence I would recommend actemra on this patient. Remains on the Covid 19 cocktail. And he also received convalescent plasma. Patient was reevaluated today on 12/04/2020, remains on high flow oxygen using Airvo and a nonrebreather mask. Patient is on 90% FiO2 and 50 L flow with O2 saturation in the high 80s and low 90s. Clinically however he feels a bit better today compared to how he felt yesterday. Even his lungs sounded a bit better and less crackles noted on examination. No labs were done today except blood sugar of 166 Objective - Vital Signs Vital signs: Vital Signs Temp 97.1 F L 12/04/20 07:54 Pulse 83 12/04/20 07:54 Resp 20 12/04/20 07:54 BP 115/72 12/04/20 07:54 Pulse Ox 87 L 12/04/20 07:54 Intake & Output 12/03/20 12/04/20 12/04/20 18:59 06:59 18:59 Intake Total 200 Output Total 900 250 400 Balance -900 -50 -400 Intake: Oral 200 Output: Urine 900 250 400 Other: Voiding Method Urinal Urinal # Voids 2 - Exam Physical Exam: Revealed 70-year-old white male in remains on high FiO2 and high flow oxygen. Head: Atraumatic, normocephalic. HEENT:[Neck is supple.] [No neck masses.] [No thyromegaly.] [No JVD.] Chest: Symmetrical chest expansion, crackles at the bases bilaterally..] Cardiac Exam: [Normal S1 and S2, no S3 gallop, no murmur.] Abdomen: [Soft, nontender, no megaly, no rebound, no guarding, normal bowel sounds.] Extremities: [No clubbing, no edema, no cyanosis.] Neurological Exam: [No focal neurologic deficit.] Alert and oriented 3. Psychiatric: Normal mood affect and normal mental status examination. Musculoskeletal: No limitation in range of motion, no deformities. - Labs CBC & Chem 7: 12/01/20 10:40 12/02/20 05:28 Labs: Abnormal Lab Results - Last 24 Hours (Table) 12/03/20 12/03/20 12/03/20 Range/Units 11:32 17:14 19:57 POC Glucose (mg/dL) 145 H 325 H 286 H (75-99) mg/dL 12/04/20 Range/Units 07:11 POC Glucose (mg/dL) 166 H (75-99) mg/dL Assessment and Plan Assessment: Impression: Acute hypoxic respiratory failure secondary to acute covid 19 pneumonitis. With very poor marginal pulmonary status. Acute on chronic kidney injury associated with underlying Covid 19 infection History of bladder cancer. Acute hyperkalemia with acute kidney injury. Chronic kidney disease, previous creatinine was 1.3 in February 2020. Benign essential hypertension Type 2 diabetes. Recommendation: Continue high flow oxygen and titrate accordingly to maintain O2 saturation above 90%. Continue present supportive care measures Continue oxygen, titrate accordingly maintain O2 saturation above 90%. Continue to follow inflammatory markers. Continue the Covid 19 cocktail. Received 1 unit of convalescent plasma., He also received VIOLETA I. Prognosis is relatively guarded. Patient is not ready for any discharge planning. At least not in the next few days We'll continue to follow Time with Patient: Less than 30
[2020-12-04 10:32] LABS: Basophils # (A) 0.02 X 10*3/uL (0.00-0.10); Basophils % (A) 0.1 %; Eosinophils # (A) 0.13 X 10*3/uL (0.04-0.35); Eosinophils % (A) 0.8 %; HCT 36.8 % (39.6-50.0); HGB 12.6 g/dL (13.0-17.0); Lymphocytes # (A) 0.74 X 10*3/uL (0.90-5.00); Lymphocytes % (A) 4.4 %; MCHC 34.2 g/dL (32.0-37.0); MCV 84.6 fL (80.0-97.0); Mean Platelet Volume 9.3 fL (9.5-12.2); Monocytes # (A) 0.32 X 10*3/uL (0.20-1.00); Monocytes % (A) 1.9 %; Neutrophils % (A) 91.2 %; Platelet Count 578 X 10*3/uL (140-440); RBC 4.35 X 10*6/uL (4.40-5.60); RDW 12.1 % (11.5-14.5); WBC 16.88 X 10*3/uL (4.50-10.00)
[2020-12-04 11:14] LABS: African American GFR (CKD) 43.2 (60.0-200.0); Anion Gap 13.5 mmol/L (4.00-12.00); BUN/Creat Ratio 46.67 Ratio (12.00-20.00); Calcium 8.7 mg/dL (8.7-10.3); Carbon Dioxide 21.5 mmol/L (21.6-31.8); Non-African American GFR(CKD) 37.3 (60.0-200.0)
[2020-12-04 12:41] LABS: Glucose,Whole Blood 271 mg/dL (75-99)
[2020-12-04] MEDS ORDERED: INSULIN DETEMIR (LEVEMIR) 100 UNIT/ML SYR SQ ONE (15:31)
--- NOTE | 2020-12-04 15:34 | P.PN ---
Subjective Progress Note Date: 12/04/20 11/27/2020 during the night, patient became more hypoxic, requiring nonrebreather. Significant clinical improvement, maintaining O2 sats in the 90s on 5 L nasal cannula. Minimal nonproductive cough. Creatinine 1.6. 11/28/2020 Required nonrebreather briefly during the night; currently maintained on 5 L nasal cannula, O2 sats of 90-91%. Complains of worsening shortness of breath, especially with minimal exertion, nonproductive cough. Maintained on Covid regimen, including dexamethasone. Blood sugars elevated throughout the night, better controlled this morning. Denies chest pain, palpitations or shortness of breath. Labs pending. 11/29/20 S/P convalescent plasma .Continues on Covid regimen, maintaining O2 sats in the 90s on 6 L nasal cannula. Occasional nonproductive cough. Denies chest pain, palpitations. Evaluated by pulmonary, outside the window for Remdesevir. Creatinine 1.4. 12/02/2020 maintained on high flow cannula with FiO2 of 90% post nonrebreather to maintain O2 sats in the 90s. Chest x-ray reporting progression of interstitial and patchy bilateral airspace infiltrates. Afebrile, T-max 99.5. BUN 60, Creatinine 1.6 sodium 132. 12/03/2020 maintained on Covid 19 cocktail ,continues on 15 L high flow nasal cannula and nonrebreather mask, maintaining O2 sats of 90%. Nonproductive cough. Afebrile. Minimal reserve. 12/04/2020 Received Acterma yesterday. Maintained on 90% airvo and a nonrebreather mask, maintaining O2 sats in the high 80s to low 90s. Staff reports last night he ate better, was more conversant. Reports he feels more comfortable and not as weak. Afebrile. Creatinine 1.8. Hyperglycemic, blood sugars up to 271 at lunch. Objective - Vital Signs Vital signs: Vital Signs Temp 97.2 F L 12/04/20 14:00 Pulse 60 12/04/20 14:00 Resp 18 12/04/20 14:00 BP 107/67 12/04/20 14:00 Pulse Ox 92 L 12/04/20 14:00 Intake & Output 12/03/20 12/04/20 12/04/20 18:59 06:59 18:59 Intake Total 200 200 Output Total 900 250 400 Balance -900 -50 -200 Intake: Oral 200 200 Output: Urine 900 250 400 Other: Voiding Method Urinal Urinal Urinal # Voids 2 1 - Exam - Exam General: Sitting up in bed, appears comfortable, NAD.Vitals reviewed Lungs: normal respiratory effort, minimal rhonchi, no wheezes/ less bibasilar rales CV: Regular rate and rhythm, no murmur. Peripheral pulses 2+ Abdomen: soft, nondistended, no organomegaly. Positive bowel sounds Skin: warm and dry. - Labs CBC & Chem 7: 12/04/20 06:49 12/04/20 06:49 Labs: Abnormal Lab Results - Last 24 Hours (Table) 12/03/20 12/03/20 12/04/20 Range/Units 17:14 19:57 06:49 WBC 16.88 H (4.50-10.00) X 10*3/uL RBC 4.35 L (4.40-5.60) X 10*6/uL Hgb 12.6 L (13.0-17.0) g/dL Hct 36.8 L (39.6-50.0) % Plt Count 578 H (140-440) X 10*3/uL MPV 9.3 L (9.5-12.2) fL Immature Gran # 0.27 H (0.00-0.04) X 10*3/uL Neutrophils # 15.40 H (1.80-7.70) X 10*3/uL Lymphocytes # 0.74 L (0.90-5.00) X 10*3/uL Sodium (135-145) mmol/L Chloride (96-109) mmol/L Carbon Dioxide (21.6-31.8) mmol/L Anion Gap (4.00-12.00) mmol/L BUN (9.0-27.0) mg/dL Creatinine (0.6-1.5) mg/dL Est GFR (CKD-EPI)AfAm (60.0-200.0) Est GFR (CKD-EPI)NonAf (60.0-200.0) BUN/Creatinine Ratio (12.00-20.00) Ratio Glucose (70-110) mg/dL POC Glucose (mg/dL) 325 H 286 H (75-99) mg/dL 04/07/21 04/07/21 04/07/21 Range/Units 06:49 07:11 12:38 WBC (4.50-10.00) X 10*3/uL RBC (4.40-5.60) X 10*6/uL Hgb (13.0-17.0) g/dL Hct (39.6-50.0) % Plt Count (140-440) X 10*3/uL MPV (9.5-12.2) fL Immature Gran # (0.00-0.04) X 10*3/uL Neutrophils # (1.80-7.70) X 10*3/uL Lymphocytes # (0.90-5.00) X 10*3/uL Sodium 128 L (135-145) mmol/L Chloride 93 L (96-109) mmol/L Carbon Dioxide 21.5 L (21.6-31.8) mmol/L Anion Gap 13.50 H (4.00-12.00) mmol/L BUN 84.0 H (9.0-27.0) mg/dL Creatinine 1.8 H (0.6-1.5) mg/dL Est GFR (CKD-EPI)AfAm 43.2 L (60.0-200.0) Est GFR (CKD-EPI)NonAf 37.3 L (60.0-200.0) BUN/Creatinine Ratio 46.67 H (12.00-20.00) Ratio Glucose 181 H (70-110) mg/dL POC Glucose (mg/dL) 166 H 271 H (75-99) mg/dL Assessment and Plan Assessment: (1) Acute hypoxemic respiratory failure due to COVID-19 pneumonitis, status post convalescent plasma,TOCI, outside the window for Remdesevir, Current Visit: Yes Status: Acute Code(s): U07.1 - COVID-19; J96.01 - ACUTE RESPIRATORY FAILURE WITH HYPOXIA SNOMED Code(s): 395503450 (2) Essential hypertension Current Visit: Yes Status: Acute Code(s): I10 - ESSENTIAL (PRIMARY) HYPERTENSION SNOMED Code(s): 01919613 (3) Type 2 diabetes mellitus Current Visit: Yes Status: Acute Code(s): E11.9 - TYPE 2 DIABETES MELLITUS WITHOUT COMPLICATIONS SNOMED Code(s): 71356953 (4) DARWIN (acute kidney injury), prerenal secondary to #1 Current Visit: Yes Status: Acute Code(s): N17.9 - ACUTE KIDNEY FAILURE, UNSPECIFIED SNOMED Code(s): 06461246 (5) chronic kidney disease stage IIIa secondary to DKA, baseline 1.3 (6) COVID-19 Current Visit: Yes Status: Acute Code(s): U07.1 - COVID-19 SNOMED Code(s): 021823316 (7) Hyperkalemia secondary to acute renal failure, YODIT inhibitor and NSAIDs,resolved Current Visit: Yes Status: Acute Code(s): E87.5 - HYPERKALEMIA SNOMED Code(s): 76240498 Plan: Continue on current medication regime ,monitoring and symptomatic treatment. Maintain COVID regimen.a.m. dose of Levemir increased ,Close monitoring of Accu-Cheks, renal function with repeat labs ordered for a.m. prognosis guarded given multiple complex medical issues. The impression and plan of care has been dictated as directed. : I performed a history and examination of this patient, discussed the same with the dictator. I agree with the dictator's note ,documented as a scribe. Any additional findings or plans will be noted.
[2020-12-04 17:15] LABS: Glucose,Whole Blood 384 mg/dL (75-99)
[2020-12-04] MEDS: ATORVASTATIN 80 MG TAB PO SCH (19:38)
--- NOTE | 2020-12-04 20:02 | PN ---
PROGRESS NOTE Patient is seen for followup for acute kidney injury associated with underlying COVID- 19 pneumonia. I have discussed with nursing staff. The patient is feeling better today. He was seen briefly sitting up on a bedside chair. He was being washed. The patient has had good urine output. He has been voiding frequently. PHYSICAL EXAMINATION: Vital signs were reviewed. This morning blood pressure was 115/72, heart rate 83 per minute, he is afebrile. He is maintained on rebreather FiO2 at about 90%. 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 LAB: Show sodium 128, potassium 5.0, chloride 93, BUN of 84, serum creatinine 1.8. ASSESSMENT: 1. Acute kidney injury with slight worsening of the creatinine. The patient is nonoliguric. Blood pressure is on the lower side but not below 100. Maintained on Lasix 60 IV q.12 hours. I will decrease the Lasix as creatinine is slightly higher today. Continue with the steroids. 2. COVID-19 pneumonia, slowly improving, maintained on Decadron. 3. Volume overload, currently improved. 4. Chronic kidney disease secondary to diabetic kidney disease, stage III, with baseline creatinine 1.3. 5. Hyperkalemia associated with acute kidney injury and use of YODIT inhibitors and NSAIDs. PLAN: Decrease IV Lasix. Repeat labs in a.m. MMODL / IJN: [id number] /
[2020-12-04 20:04] LABS: Glucose,Whole Blood 344 mg/dL (75-99)
[2020-12-04] MEDS: FUROSEMIDE 10 MG/ML 4 ML VIAL IV SCH (20:39)
[2020-12-04] MEDS ORDERED: INSULIN DETEMIR (LEVEMIR) 100 UNIT/ML SYR SQ SCH ×2 (21:00)
[2020-12-05] MEDS: LEVOTHYROXINE 100 MCG TAB PO SCH (05:23)
[2020-12-05] MEDS ORDERED: INSULIN DETEMIR (LEVEMIR) 100 UNIT/ML SYR SQ SCH ×2 (07:00→21:00)
[2020-12-05 07:29] LABS: Glucose,Whole Blood 275 mg/dL (75-99)
[2020-12-05] MEDS: INSULIN ASPART (NovoLOG) 100 UNIT/ML VIAL SQ SCH ×4 (08:19→20:08)
[2020-12-05] MEDS: METOPROLOL SUCCINATE (ER) 25 MG TAB.ER.24H PO SCH (08:21)
[2020-12-05] MEDS: GABAPENTIN 300 MG CAP PO SCH (08:21)
[2020-12-05] MEDS: PANTOPRAZOLE 40 MG TABLET PO SCH (08:21)
[2020-12-05] MEDS: ASPIRIN 81 MG PO SCH (08:22)
[2020-12-05] MEDS: ALBUTEROL HFA INHALER INHALATION SCH ×4 (08:22→19:52)
[2020-12-05] MEDS: ZINC SULFATE 220 MG CAP PO SCH (08:22)
[2020-12-05] MEDS: DEXAMETHASONE SOD PHOSPHATE 10 MG/ML 1 ML VIAL IV SCH ×2 (08:22→20:01)
[2020-12-05] MEDS: CHOLECALCIFEROL 25 MCG (1000 IU) TABLET PO SCH (08:22)
[2020-12-05] MEDS: CLOPIDOGREL 75 MG TAB PO SCH (08:22)
[2020-12-05] MEDS: ASCORBIC ACID 500 MG TAB PO SCH (08:22)
[2020-12-05] MEDS: ENOXAPARIN 40 MG/0.4 ML SYRINGE SQ SCH (08:23)
[2020-12-05] MEDS: FUROSEMIDE 10 MG/ML 4 ML VIAL IV SCH (08:23)
[2020-12-05 10:10] LABS: African American GFR (CKD) 43.2 (60.0-200.0); Anion Gap 12.7 mmol/L (4.00-12.00); BUN/Creat Ratio 48.89 Ratio (12.00-20.00); Calcium 8.7 mg/dL (8.7-10.3); Carbon Dioxide 22.3 mmol/L (21.6-31.8); Non-African American GFR(CKD) 37.3 (60.0-200.0); Potassium 5.1 mmol/L (3.5-5.5)
--- NOTE | 2020-12-05 11:10 | P.PN ---
Subjective Progress Note Date: 12/05/20 Principal diagnosis: Acute hypoxic respiratory failure secondary to acute covid 19 pneumonitis. This is a 70-year-old white male with history of multiple medical problems including hypertension, type 2 diabetes, dyslipidemia, coronary artery disease and previous [place], previous stent placement, degenerative joint disease, bladder cancer, nephrolithiasis, patient presented to the emergency room on 11/24/2020, mostly with 1 week history of multiple constitutional symptoms including muscle aches, fever, shortness of breath, cough, nausea, and he tested positive on the with contreras virus PCR. Chest x-ray showed evidence of bilateral opacities/infiltrates. Patient had adequate saturations on room air, it was about 94%, he was also noted to be hyperkalemic, and he had lactic acid of 2.7. Received dextrose, insulin, Kayexalate, and the patient was eventually admitted seen by nephrology on consultation, he was placed on the Covid 19 cocktail, and we were asked to see him yesterday because of his worsening shortness of breath. No follow-up chest x-ray done since admission, and I will be ordering one to be done today. Labs today clearly showed relatively normal CBC. Elevated BUN of 40 creatinine is 1.4. D-dimer was normal on admission, and I do not see any inflammatory markers on the chart. After evaluating the patient, we recommended one unit of convalescent plan is to be given. Patient obviously did not qualify for REM. And he is not at the point of requiring actemtra Patient was reevaluated today on 11/29/2020, he is basically about the same. Not much of a change in the last 24 hours. Patient is on 6 L nasal cannula, and his O2 saturation is in the low 90s. Continues to have intermittent cough, shortness of breath, basic metabolic profile is normal. His LDH is 1466, and C- reactive protein is 24. Patient remains on the Covid 19 cocktail. He received convalescent plasma. He was out of the window for REM. Patient was reevaluated today on 12/02/2020, does not seem to be improving much. Patient is now on higher FiO2, requiring airvo high flow with FiO2 of 90% and total of 60 L/m in addition to this he is also on a nonrebreather. Chest x-ray seems to be a bit worse. LDH is worse 1881 last C-reactive protein is 24. Renal functioning is also worse with a BUN of 46 creatinine 1.60 and a potassium of 5.7 being addressed by nephrology on the case. His last chest x-ray was on 12/02/1912/17/2020, I will go ahead and order a chest x-ray for the morning. Patient remains on the Covid 19 cocktail. He received convalescent plasma. Interstitia l and patchy bilateral airspace disease/infiltrates progressed from admission x- ray. Repeat basic metabolic profile was done today, potassium is down to 4.4 from 5.7 yesterday. BUN is 60 creatinine is 1.60. Reevaluated today on 12/03/2020, patient is about the same remains on nonrebreather mask and high flow cannula,He is on 90% FiO2 with flow of 15 L/m and his O2 saturation is in the low 90s. Continues to have intermittent cough, shortness of breath with any activity. Patient has been steadily worsening clinically over the last few days. Hence I would recommend actemra on this patient. Remains on the Covid 19 cocktail. And he also received convalescent plasma. Patient was reevaluated today on 12/04/2020, remains on high flow oxygen using Airvo and a nonrebreather mask. Patient is on 90% FiO2 and 50 L flow with O2 saturation in the high 80s and low 90s. Clinically however he feels a bit better today compared to how he felt yesterday. Even his lungs sounded a bit better and less crackles noted on examination. No labs were done today except blood sugar of 166 Patient was reevaluated today on 12/05/2020, remains on high flow via airvo , presently on 90% FiO2 and 50 L flow. O2 saturations are in the low 90s. Patient tells me that he feels a bit better today compared to the last couple of days. Less shortness of breath, less aches and pains, overall feels better. On examination he did sound better. And his labs were reviewed, sodium is down to 125 and his BUN is 88 creatinine is 1.8, I suspect that we are dealing with hypovolemic hyponatremia and prerenal azotemia hence the patient would benefit from more fluid/0.9 normal saline will be added. And will put his Lasix on hold today. I believe his hyponatremia is related to diuretics , placed him back on 0.9 normal saline at 75 mL per hour may even require more fluids. Objective - Vital Signs Vital signs: Vital Signs Temp 98.7 F 12/05/20 08:00 Pulse 74 12/05/20 08:00 Resp 22 12/05/20 08:00 BP 116/79 12/05/20 08:00 Pulse Ox 90 L 12/05/20 08:00 Intake & Output 12/04/20 12/05/20 12/05/20 18:59 06:59 18:59 Intake Total 200 200 Output Total 600 600 Balance -400 -600 200 Intake: Oral 200 200 Output: Urine 600 600 Other: Voiding Method Urinal Urinal # Voids 1 3 - Exam Physical Exam: Revealed 70-year-old white male in remains on high FiO2 and high flow oxygen. Head: Atraumatic, normocephalic. HEENT:[Neck is supple.] [No neck masses.] [No thyromegaly.] [No JVD.] Chest: Symmetrical chest expansion, crackles at the bases bilaterally..] Cardiac Exam: [Normal S1 and S2, no S3 gallop, no murmur.] Abdomen: [Soft, nontender, no megaly, no rebound, no guarding, normal bowel sounds.] Extremities: [No clubbing, no edema, no cyanosis.] Neurological Exam: [No focal neurologic deficit.] Alert and oriented 3. Psychiatric: Normal mood affect and normal mental status examination. Musculoskeletal: No limitation in range of motion, no deformities. - Labs CBC & Chem 7: 12/04/20 06:49 12/05/20 05:12 Labs: Abnormal Lab Results - Last 24 Hours (Table) 12/04/20 12/04/20 12/04/20 Range/Units 06:49 12:38 17:10 Sodium 128 L (135-145) mmol/L Chloride 93 L (96-109) mmol/L Carbon Dioxide 21.5 L (21.6-31.8) mmol/L Anion Gap 13.50 H (4.00-12.00) mmol/L BUN 84.0 H (9.0-27.0) mg/dL Creatinine 1.8 H (0.6-1.5) mg/dL Est GFR (CKD-EPI)AfAm 43.2 L (60.0-200.0) Est GFR (CKD-EPI)NonAf 37.3 L (60.0-200.0) BUN/Creatinine Ratio 46.67 H (12.00-20.00) Ratio Glucose 181 H (70-110) mg/dL POC Glucose (mg/dL) 271 H 384 H (75-99) mg/dL 12/04/20 12/05/20 12/05/20 Range/Units 19:49 05:12 07:26 Sodium 125 L (135-145) mmol/L Chloride 90 L (96-109) mmol/L Carbon Dioxide (21.6-31.8) mmol/L Anion Gap 12.70 H (4.00-12.00) mmol/L BUN 88.0 H (9.0-27.0) mg/dL Creatinine 1.8 H (0.6-1.5) mg/dL Est GFR (CKD-EPI)AfAm 43.2 L (60.0-200.0) Est GFR (CKD-EPI)NonAf 37.3 L (60.0-200.0) BUN/Creatinine Ratio 48.89 H (12.00-20.00) Ratio Glucose 263 H (70-110) mg/dL POC Glucose (mg/dL) 344 H 275 H (75-99) mg/dL Assessment and Plan Assessment: Impression: Acute hypoxic respiratory failure secondary to acute covid 19 pneumonitis. With very poor marginal pulmonary status. Acute on chronic kidney injury associated with underlying Covid 19 infection History of bladder cancer. Acute hyperkalemia with acute kidney injury. Chronic kidney disease, previous creatinine was 1.3 in February 2020. Benign essential hypertension Type 2 diabetes. Hypovolemic hyponatremia secondary to diuretics. Recommendation: Continue high flow oxygen and titrate accordingly to maintain O2 saturation above 90%. Continue present supportive care measures Continue oxygen, titrate accordingly maintain O2 saturation above 90%. Continue to follow inflammatory markers. Continue the Covid 19 cocktail. Received 1 unit of convalescent plasma., He also received VIOLETA I. Prognosis is relatively guarded. Placed back on 0.9 normal saline at 75 mL per hour, continue to monitor electrolytes and renal profile We'll continue to follow Time with Patient: Less than 30
[2020-12-05] MEDS ORDERED: SODIUM CHLORIDE 0.9% 1,000 ML IV SCH (11:15)
[2020-12-05 11:31] LABS: Glucose,Whole Blood 332 mg/dL (75-99)
[2020-12-05] MEDS ORDERED: INSULIN DETEMIR (LEVEMIR) 100 UNIT/ML SYR SQ ONE (12:40)
[2020-12-05 17:27] LABS: Glucose,Whole Blood 401 mg/dL (75-99)
[2020-12-05] MEDS ORDERED: TOLVAPTAN 15 MG 1/2 TABLET PO ONE (18:00)
[2020-12-05 18:02] LABS: Glucose,Whole Blood 373 mg/dL (75-99)
--- NOTE | 2020-12-05 18:03 | P.PN ---
Subjective Progress Note Date: 12/05/20 11/27/2020 during the night, patient became more hypoxic, requiring nonrebreather. Significant clinical improvement, maintaining O2 sats in the 90s on 5 L nasal cannula. Minimal nonproductive cough. Creatinine 1.6. 11/28/2020 Required nonrebreather briefly during the night; currently maintained on 5 L nasal cannula, O2 sats of 90-91%. Complains of worsening shortness of breath, especially with minimal exertion, nonproductive cough. Maintained on Covid regimen, including dexamethasone. Blood sugars elevated throughout the night, better controlled this morning. Denies chest pain, palpitations or shortness of breath. Labs pending. 11/29/20 S/P convalescent plasma .Continues on Covid regimen, maintaining O2 sats in the 90s on 6 L nasal cannula. Occasional nonproductive cough. Denies chest pain, palpitations. Evaluated by pulmonary, outside the window for Remdesevir. Creatinine 1.4. 12/02/2020 maintained on high flow cannula with FiO2 of 90% post nonrebreather to maintain O2 sats in the 90s. Chest x-ray reporting progression of interstitial and patchy bilateral airspace infiltrates. Afebrile, T-max 99.5. BUN 60, Creatinine 1.6 sodium 132. 12/03/2020 maintained on Covid 19 cocktail ,continues on 15 L high flow nasal cannula and nonrebreather mask, maintaining O2 sats of 90%. Nonproductive cough. Afebrile. Minimal reserve. 12/04/2020 Received Acterma yesterday. Maintained on 90% airvo and a nonrebreather mask, maintaining O2 sats in the high 80s to low 90s. Staff reports last night he ate better, was more conversant. Reports he feels more comfortable and not as weak. Afebrile. Creatinine 1.8. Hyperglycemic, blood sugars up to 271 at lunch. 12/05/2020 continue a 90% high flow airvo, maintaining O2 sats in the low 90s. Continues to feel better with less fatigue, less shortness of breath. Labs pending. Afebrile. Objective - Vital Signs Vital signs: Vital Signs Temp 97.3 F L 12/05/20 14:00 Pulse 86 12/05/20 14:00 Resp 18 12/05/20 14:00 BP 118/72 04/08/21 14:00 Pulse Ox 94 L 12/05/20 16:00 Intake & Output 12/04/20 12/05/20 12/05/20 18:59 06:59 18:59 Intake Total 200 400 Output Total 600 600 200 Balance -400 -600 200 Intake: Oral 200 400 Output: Urine 600 600 200 Other: Voiding Method Urinal Urinal Urinal # Voids 1 3 1 - Exam - Exam General: Sitting up in bed, appears comfortable, NAD.Vitals reviewed Lungs: normal respiratory effort, minimal rhonchi, no wheezes/ less bibasilar rales CV: Regular rate and rhythm, no murmur. Peripheral pulses 2+ Abdomen: soft, nondistended, no organomegaly. Positive bowel sounds Skin: warm and dry. - Labs CBC & Chem 7: 12/04/20 06:49 12/05/20 13:47 Labs: Abnormal Lab Results - Last 24 Hours (Table) 12/04/20 12/05/20 12/05/20 Range/Units 19:49 05:12 07:26 Sodium 125 L (135-145) mmol/L Chloride 90 L (96-109) mmol/L Anion Gap 12.70 H (4.00-12.00) mmol/L BUN 88.0 H (9.0-27.0) mg/dL Creatinine 1.8 H (0.6-1.5) mg/dL Est GFR (CKD-EPI)AfAm 43.2 L (60.0-200.0) Est GFR (CKD-EPI)NonAf 37.3 L (60.0-200.0) BUN/Creatinine Ratio 48.89 H (12.00-20.00) Ratio Glucose 263 H (70-110) mg/dL POC Glucose (mg/dL) 344 H 275 H (75-99) mg/dL 12/05/20 12/05/20 12/05/20 Range/Units 11:29 13:47 17:17 Sodium 123 L (135-145) mmol/L Chloride (96-109) mmol/L Anion Gap (4.00-12.00) mmol/L BUN (9.0-27.0) mg/dL Creatinine (0.6-1.5) mg/dL Est GFR (CKD-EPI)AfAm (60.0-200.0) Est GFR (CKD-EPI)NonAf (60.0-200.0) BUN/Creatinine Ratio (12.00-20.00) Ratio Glucose (70-110) mg/dL POC Glucose (mg/dL) 332 H 401 H (75-99) mg/dL Assessment and Plan Assessment: (1) Acute hypoxemic respiratory failure due to COVID-19 pneumonitis, status post convalescent plasma,TOCI, outside the window for Remdesevir, Current Visit: Yes Status: Acute Code(s): U07.1 - COVID-19; J96.01 - ACUTE RESPIRATORY FAILURE WITH HYPOXIA SNOMED Code(s): 143251006 (2) Essential hypertension Current Visit: Yes Status: Acute Code(s): I10 - ESSENTIAL (PRIMARY) HYPERTENSION SNOMED Code(s): 59799493 (3) Type 2 diabetes mellitus Current Visit: Yes Status: Acute Code(s): E11.9 - TYPE 2 DIABETES MELLITUS WITHOUT COMPLICATIONS SNOMED Code(s): 24013082 (4) DARWIN (acute kidney injury), prerenal secondary to #1 Current Visit: Yes Status: Acute Code(s): N17.9 - ACUTE KIDNEY FAILURE, UNSPECIFIED SNOMED Code(s): 04475493 (5) chronic kidney disease stage IIIa secondary to DKA, baseline 1.3 (6) COVID-19 Current Visit: Yes Status: Acute Code(s): U07.1 - COVID-19 SNOMED Code(s): 128248473 (7) Hyperkalemia secondary to acute renal failure, YODIT inhibitor and NSAIDs ,resolved Current Visit: Yes Status: Acute Code(s): E87.5 - HYPERKALEMIA SNOMED Code(s): 78814098 (8) hyponatremia, hypovolemic Plan: Continue on current medication regime ,monitoring and symptomatic treatment. Maintain COVID regimen.a.m. dose of Levemir further increased ,Close monitoring of Accu-Cheks, electrolytes, renal function with repeat labs ordered for a.m. prognosis guarded given multiple complex medical issues. The impression and plan of care has been dictated as directed. : I performed a history and examination of this patient, discussed the same with the dictator. I agree with the dictator's note ,documented as a scribe. Any additional findings or plans will be noted.
--- NOTE | 2020-12-05 18:31 | PN ---
PROGRESS NOTE Patient is seen for followup for acute kidney injury secondary to underlying COVID infection and ATN. Patient was diuresed. His sodium had dropped and he was started on normal saline today and it looks like his sodium has worsened to 123. Overall patient denies any other complaints. PHYSICAL EXAMINATION: On examination today blood pressure was 116/79, heart rate of 86 per minute. He is afebrile. Examination shows no evidence of edema in lower extremities. Abdomen is soft, nontender. Heart and lungs are not examined due to COVID pneumonia. LABS: Sodium 125, potassium 5.1, chloride 90, BUN 88, creatinine 1.8. ASSESSMENT: 1. Acute kidney injury, acute tubular necrosis, associated with underlying COVID pneumonia. Patient was volume-overloaded as well and he has been diuresed. Lasix is currently on hold and patient was started on IV fluids; however, his sodium has worsened. 2. Hyponatremia, most likely syndrome of inappropriate antidiuretic hormone. Urine osmolality was ordered this morning; currently not available yet. I will discontinue the saline and give one dose of Samsca and repeat sodium later on tonight. Encourage increased protein intake. Since blood pressure is on the lower side, I will add a dose of sodium chloride tabs as well. MMODL / IJN: [id number] /
[2020-12-05] MEDS: ATORVASTATIN 80 MG TAB PO SCH (20:01)
[2020-12-05 20:05] LABS: Glucose,Whole Blood 331 mg/dL (75-99)
[2020-12-06] MEDS: LEVOTHYROXINE 100 MCG TAB PO SCH (05:16)
[2020-12-06] MEDS: INSULIN DETEMIR (LEVEMIR) 100 UNIT/ML SYR SQ SCH ×2 (08:26→22:20)
[2020-12-06] MEDS: GABAPENTIN 300 MG CAP PO SCH (08:27)
[2020-12-06] MEDS: ASCORBIC ACID 500 MG TAB PO SCH (08:27)
[2020-12-06] MEDS: PANTOPRAZOLE 40 MG TABLET PO SCH (08:27)
[2020-12-06] MEDS: CLOPIDOGREL 75 MG TAB PO SCH (08:27)
[2020-12-06] MEDS: ASPIRIN 81 MG PO SCH (08:27)
[2020-12-06 08:28] LABS: Glucose,Whole Blood 71 mg/dL (75-99)
[2020-12-06] MEDS: ZINC SULFATE 220 MG CAP PO SCH (08:28)
[2020-12-06] MEDS: CHOLECALCIFEROL 25 MCG (1000 IU) TABLET PO SCH (08:28)
[2020-12-06] MEDS: METOPROLOL SUCCINATE (ER) 25 MG TAB.ER.24H PO SCH (08:28)
[2020-12-06] MEDS: DEXAMETHASONE SOD PHOSPHATE 10 MG/ML 1 ML VIAL IV SCH ×2 (08:28→22:21)
[2020-12-06] MEDS: ENOXAPARIN 40 MG/0.4 ML SYRINGE SQ SCH (08:29)
[2020-12-06] MEDS: INSULIN ASPART (NovoLOG) 100 UNIT/ML VIAL SQ SCH ×4 (08:29→22:19)
[2020-12-06 09:00] LABS: HCT 38.4 % (39.6-50.0); HGB 13.4 g/dL (13.0-17.0); MCH 28.9 pg (27.0-32.0); MCHC 34.9 g/dL (32.0-37.0); MCV 82.9 fL (80.0-97.0); Mean Platelet Volume 9.4 fL (9.5-12.2); Platelet Count 665 X 10*3/uL (140-440); RBC 4.63 X 10*6/uL (4.40-5.60); RDW 12.1 % (11.5-14.5); WBC 24.08 X 10*3/uL (4.50-10.00)
--- NOTE | 2020-12-06 09:04 | XR ---
EXAMINATION TYPE: XR chest 1V portable DATE OF EXAM: 12/06/2020 COMPARISON: 12/01/2020 HISTORY: Shortness of breath TECHNIQUE: Single frontal view of the chest is obtained. FINDINGS: Diffuse interstitial pattern noted with by basilar consolidation. No pneumothorax or pleur al effusion. Arthropathy shoulders. Heart size normal. IMPRESSION: Diffuse bilateral interstitial infiltrate stable.
[2020-12-06] MEDS: ALBUTEROL HFA INHALER INHALATION SCH ×4 (09:34→20:45)
[2020-12-06 11:04] LABS: Basophils # (A) 0.04 X 10*3/uL (0.00-0.10); Basophils % (A) 0.2 %; Eosinophils # (A) 0.18 X 10*3/uL (0.04-0.35); Eosinophils % (A) 0.7 %; Lymphocytes # (A) 1.06 X 10*3/uL (0.90-5.00); Lymphocytes % (A) 4.4 %; Monocytes # (A) 0.47 X 10*3/uL (0.20-1.00); Neutrophils # (A) 21.85 X 10*3/uL (1.80-7.70); Neutrophils % (A) 90.7 %
--- NOTE | 2020-12-06 11:25 | P.PN ---
Subjective Progress Note Date: 12/06/20 Principal diagnosis: Acute hypoxic respiratory failure secondary to acute covid 19 pneumonitis. This is a 70-year-old white male with history of multiple medical problems including hypertension, type 2 diabetes, dyslipidemia, coronary artery disease and previous [place], previous stent placement, degenerative joint disease, bladder cancer, nephrolithiasis, patient presented to the emergency room on 11/24/2020, mostly with 1 week history of multiple constitutional symptoms including muscle aches, fever, shortness of breath, cough, nausea, and he tested positive on the with contreras virus PCR. Chest x-ray showed evidence of bilateral opacities/infiltrates. Patient had adequate saturations on room air, it was about 94%, he was also noted to be hyperkalemic, and he had lactic acid of 2.7. Received dextrose, insulin, Kayexalate, and the patient was eventually admitted seen by nephrology on consultation, he was placed on the Covid 19 cocktail, and we were asked to see him yesterday because of his worsening shortness of breath. No follow-up chest x-ray done since admission, and I will be ordering one to be done today. Labs today clearly showed relatively normal CBC. Elevated BUN of 40 creatinine is 1.4. D-dimer was normal on admission, and I do not see any inflammatory markers on the chart. After evaluating the patient, we recommended one unit of convalescent plan is to be given. Patient obviously did not qualify for REM. And he is not at the point of requiring actemtra Patient was reevaluated today on 11/29/2020, he is basically about the same. Not much of a change in the last 24 hours. Patient is on 6 L nasal cannula, and his O2 saturation is in the low 90s. Continues to have intermittent cough, shortness of breath, basic metabolic profile is normal. His LDH is 1466, and C- reactive protein is 24. Patient remains on the Covid 19 cocktail. He received convalescent plasma. He was out of the window for REM. Patient was reevaluated today on 12/02/2020, does not seem to be improving much. Patient is now on higher FiO2, requiring airvo high flow with FiO2 of 90% and total of 60 L/m in addition to this he is also on a nonrebreather. Chest x-ray seems to be a bit worse. LDH is worse 1881 last C-reactive protein is 24. Renal functioning is also worse with a BUN of 46 creatinine 1.60 and a potassium of 5.7 being addressed by nephrology on the case. His last chest x-ray was on 12/02/1912/17/2020, I will go ahead and order a chest x-ray for the morning. Patient remains on the Covid 19 cocktail. He received convalescent plasma. Interstitia l and patchy bilateral airspace disease/infiltrates progressed from admission x- ray. Repeat basic metabolic profile was done today, potassium is down to 4.4 from 5.7 yesterday. BUN is 60 creatinine is 1.60. Reevaluated today on 12/03/2020, patient is about the same remains on nonrebreather mask and high flow cannula,He is on 90% FiO2 with flow of 15 L/m and his O2 saturation is in the low 90s. Continues to have intermittent cough, shortness of breath with any activity. Patient has been steadily worsening clinically over the last few days. Hence I would recommend actemra on this patient. Remains on the Covid 19 cocktail. And he also received convalescent plasma. Patient was reevaluated today on 12/04/2020, remains on high flow oxygen using Airvo and a nonrebreather mask. Patient is on 90% FiO2 and 50 L flow with O2 saturation in the high 80s and low 90s. Clinically however he feels a bit better today compared to how he felt yesterday. Even his lungs sounded a bit better and less crackles noted on examination. No labs were done today except blood sugar of 166 Patient was reevaluated today on 12/05/2020, remains on high flow via airvo , presently on 90% FiO2 and 50 L flow. O2 saturations are in the low 90s. Patient tells me that he feels a bit better today compared to the last couple of days. Less shortness of breath, less aches and pains, overall feels better. On examination he did sound better. And his labs were reviewed, sodium is down to 125 and his BUN is 88 creatinine is 1.8, I suspect that we are dealing with hypovolemic hyponatremia and prerenal azotemia hence the patient would benefit from more fluid/0.9 normal saline will be added. And will put his Lasix on hold today. I believe his hyponatremia is related to diuretics , placed him back on 0.9 normal saline at 75 mL per hour may even require more fluids. Reevaluated today on 12/06/2020, patient is basically about the same. Remains on high flow oxygen AIRVO, 85% and 50 L flow. He is also on a nonrebreather mask, O2 saturation remains marginal in the low 90s. Today for some reason the patient is feeling a bit better but nowhere near his baseline. Patient is generally weak. His sodium has been coming down and today is 125. This is being addressed by nephrology on the case. White count is high today at 24.08. Platelets are also high at 665. Blood sugar is 71. I reviewed his follow-up chest x-ray today no significant change, continues to show bilateral diffuse interstitial infiltrates. Objective - Vital Signs Vital signs: Vital Signs Temp 97.7 F 12/06/20 08:00 Pulse 81 12/06/20 08:00 Resp 18 12/06/20 08:00 BP 123/80 12/06/20 08:00 Pulse Ox 90 L 12/06/20 09:34 Intake & Output 12/05/20 12/06/20 12/06/20 18:59 06:59 18:59 Intake Total 400 Output Total 600 700 Balance -200 -700 Intake: Oral 400 Output: Urine 600 700 Other: Voiding Method Urinal Urinal # Voids 1 - Exam Physical Exam: Revealed 70-year-old white male in remains on high FiO2 and high flow oxygen. And on a nonrebreather mask Head: Atraumatic, normocephalic. HEENT:[Neck is supple.] [No neck masses.] [No thyromegaly.] [No JVD.] Chest: Symmetrical chest expansion, crackles at the bases bilaterally..] Cardiac Exam: [Normal S1 and S2, no S3 gallop, no murmur.] Abdomen: [Soft, nontender, no megaly, no rebound, no guarding, normal bowel sounds.] Extremities: [No clubbing, no edema, no cyanosis.] Neurological Exam: [No focal neurologic deficit.] Alert and oriented 3. Psychiatric: Normal mood affect and normal mental status examination. Musculoskeletal: No limitation in range of motion, no deformities. - Labs CBC & Chem 7: 12/06/20 05:39 12/06/20 09:49 Labs: Abnormal Lab Results - Last 24 Hours (Table) 12/05/20 12/05/20 12/05/20 Range/Units 11:29 13:47 17:17 WBC (4.50-10.00) X 10*3/uL Hct (39.6-50.0) % Plt Count (140-440) X 10*3/uL Plt Count Comment MPV (9.5-12.2) fL Immature Gran # (0.00-0.04) X 10*3/uL Neutrophils # (1.80-7.70) X 10*3/uL Sodium 123 L (137-145) mmol/L POC Glucose (mg/dL) 332 H 401 H (75-99) mg/dL 12/05/20 12/05/20 12/05/20 Range/Units 17:59 18:33 20:04 WBC (4.50-10.00) X 10*3/uL Hct (39.6-50.0) % Plt Count (140-440) X 10*3/uL Plt Count Comment MPV (9.5-12.2) fL Immature Gran # (0.00-0.04) X 10*3/uL Neutrophils # (1.80-7.70) X 10*3/uL Sodium 122 L (137-145) mmol/L POC Glucose (mg/dL) 373 H 331 H (75-99) mg/dL 12/06/20 12/06/20 12/06/20 Range/Units 05:39 08:17 09:49 WBC 24.08 H (4.50-10.00) X 10*3/uL Hct 38.4 L (39.6-50.0) % Plt Count 665 H (140-440) X 10*3/uL Plt Count Comment INCREASED A MPV 9.4 L (9.5-12.2) fL Immature Gran # 0.48 H (0.00-0.04) X 10*3/uL Neutrophils # 21.85 H (1.80-7.70) X 10*3/uL Sodium 125 L (137-145) mmol/L POC Glucose (mg/dL) 71 L (75-99) mg/dL Assessment and Plan Assessment: Impression: Acute hypoxic respiratory failure secondary to acute covid 19 pneumonitis. With very poor marginal pulmonary status. Acute on chronic kidney injury associated with underlying Covid 19 infection History of bladder cancer. Acute hyperkalemia with acute kidney injury. Chronic kidney disease, previous creatinine was 1.3 in February 2020. Benign essential hypertension Type 2 diabetes. Hypovolemic hyponatremia secondary to diuretics. Possibility of hyponatremia secondary to SIADH is not entirely ruled out. Nonetheless this is being addressed by nephrology on the case. Recommendation: Continue high flow oxygen and titrate accordingly to maintain O2 saturation above 90%. Continue present supportive care measures Continue oxygen, titrate accordingly maintain O2 saturation above 90%. Continue to follow inflammatory markers. Continue the Covid 19 cocktail. Received 1 unit of convalescent plasma., He also received VIOLETA I. Prognosis is relatively guarded. We'll continue to follow Time with Patient: Less than 30
[2020-12-06 12:11] LABS: African American GFR (CKD) 49.8 (60.0-200.0); Anion Gap 13.9 mmol/L (4.00-12.00); Carbon Dioxide 21.1 mmol/L (21.6-31.8); Potassium 4.7 mmol/L (3.5-5.5)
[2020-12-06 12:24] LABS: Glucose,Whole Blood 145 mg/dL (75-99)
--- NOTE | 2020-12-06 14:54 | P.PN ---
Subjective Progress Note Date: 12/06/20 11/27/2020 during the night, patient became more hypoxic, requiring nonrebreather. Significant clinical improvement, maintaining O2 sats in the 90s on 5 L nasal cannula. Minimal nonproductive cough. Creatinine 1.6. 11/28/2020 Required nonrebreather briefly during the night; currently maintained on 5 L nasal cannula, O2 sats of 90-91%. Complains of worsening shortness of breath, especially with minimal exertion, nonproductive cough. Maintained on Covid regimen, including dexamethasone. Blood sugars elevated throughout the night, better controlled this morning. Denies chest pain, palpitations or shortness of breath. Labs pending. 11/29/20 S/P convalescent plasma .Continues on Covid regimen, maintaining O2 sats in the 90s on 6 L nasal cannula. Occasional nonproductive cough. Denies chest pain, palpitations. Evaluated by pulmonary, outside the window for Remdesevir. Creatinine 1.4. 12/02/2020 maintained on high flow cannula with FiO2 of 90% post nonrebreather to maintain O2 sats in the 90s. Chest x-ray reporting progression of interstitial and patchy bilateral airspace infiltrates. Afebrile, T-max 99.5. BUN 60, Creatinine 1.6 sodium 132. 12/03/2020 maintained on Covid 19 cocktail ,continues on 15 L high flow nasal cannula and nonrebreather mask, maintaining O2 sats of 90%. Nonproductive cough. Afebrile. Minimal reserve. 12/04/2020 Received Acterma yesterday. Maintained on 90% airvo and a nonrebreather mask, maintaining O2 sats in the high 80s to low 90s. Staff reports last night he ate better, was more conversant. Reports he feels more comfortable and not as weak. Afebrile. Creatinine 1.8. Hyperglycemic, blood sugars up to 271 at lunch. 12/05/2020 continue a 90% high flow airvo, maintaining O2 sats in the low 90s. Continues to feel better with less fatigue, less shortness of breath. Labs pending. Afebrile. 12/06/2020 no overnight events. Maintaining O2 sat in the low 90s, settings unchanged. Feels better today. Sodium worsening decreased to 123 yesterday, labs pending today. Urine osmolality ordered, received a dose Samsca. Afebrile. Denies chest pain, palpitations. Objective - Vital Signs Vital signs: Vital Signs Temp 97.7 F 12/06/20 08:00 Pulse 81 12/06/20 08:00 Resp 18 12/06/20 08:00 BP 123/80 12/06/20 08:00 Pulse Ox 94 L 12/06/20 13:24 Intake & Output 12/05/20 12/06/20 12/06/20 18:59 06:59 18:59 Intake Total 400 Output Total 600 700 Balance -200 -700 Intake: Oral 400 Output: Urine 600 700 Other: Voiding Method Urinal Urinal # Voids 1 - Exam - Exam General: Sitting up in bed, appears comfortable, NAD.Vitals reviewed Lungs: normal respiratory effort, less bibasilar rales CV: Regular rate and rhythm, no murmur. Peripheral pulses 2+ Abdomen: soft, nondistended, no organomegaly. Positive bowel sounds Skin: warm and dry. - Labs CBC & Chem 7: 12/06/20 05:39 12/06/20 09:49 Labs: Abnormal Lab Results - Last 24 Hours (Table) 12/05/20 12/05/20 12/05/20 Range/Units 17:17 17:59 18:33 WBC (4.50-10.00) X 10*3/uL Hct (39.6-50.0) % Plt Count (140-440) X 10*3/uL Plt Count Comment MPV (9.5-12.2) fL Immature Gran # (0.00-0.04) X 10*3/uL Neutrophils # (1.80-7.70) X 10*3/uL Sodium 122 L (137-145) mmol/L Chloride (96-109) mmol/L Carbon Dioxide (21.6-31.8) mmol/L Anion Gap (4.00-12.00) mmol/L BUN (9.0-27.0) mg/dL Creatinine (0.6-1.5) mg/dL Est GFR (CKD-EPI)AfAm (60.0-200.0) Est GFR (CKD-EPI)NonAf (60.0-200.0) BUN/Creatinine Ratio (12.00-20.00) Ratio POC Glucose (mg/dL) 401 H 373 H (75-99) mg/dL 12/05/20 12/06/20 12/06/20 Range/Units 20:04 05:39 05:39 WBC 24.08 H (4.50-10.00) X 10*3/uL Hct 38.4 L (39.6-50.0) % Plt Count 665 H (140-440) X 10*3/uL Plt Count Comment INCREASED A MPV 9.4 L (9.5-12.2) fL Immature Gran # 0.48 H (0.00-0.04) X 10*3/uL Neutrophils # 21.85 H (1.80-7.70) X 10*3/uL Sodium 130 L (137-145) mmol/L Chloride 95 L (96-109) mmol/L Carbon Dioxide 21.1 L (21.6-31.8) mmol/L Anion Gap 13.90 H (4.00-12.00) mmol/L BUN 80.0 H (9.0-27.0) mg/dL Creatinine 1.6 H (0.6-1.5) mg/dL Est GFR (CKD-EPI)AfAm 49.8 L (60.0-200.0) Est GFR (CKD-EPI)NonAf 43.0 L (60.0-200.0) BUN/Creatinine Ratio 50.00 H (12.00-20.00) Ratio POC Glucose (mg/dL) 331 H (75-99) mg/dL 12/06/20 12/06/20 12/06/20 Range/Units 08:17 09:49 12:11 WBC (4.50-10.00) X 10*3/uL Hct (39.6-50.0) % Plt Count (140-440) X 10*3/uL Plt Count Comment MPV (9.5-12.2) fL Immature Gran # (0.00-0.04) X 10*3/uL Neutrophils # (1.80-7.70) X 10*3/uL Sodium 125 L (137-145) mmol/L Chloride (96-109) mmol/L Carbon Dioxide (21.6-31.8) mmol/L Anion Gap (4.00-12.00) mmol/L BUN (9.0-27.0) mg/dL Creatinine (0.6-1.5) mg/dL Est GFR (CKD-EPI)AfAm (60.0-200.0) Est GFR (CKD-EPI)NonAf (60.0-200.0) BUN/Creatinine Ratio (12.00-20.00) Ratio POC Glucose (mg/dL) 71 L 145 H (75-99) mg/dL Assessment and Plan Assessment: (1) Acute hypoxemic respiratory failure due to COVID-19 pneumonitis, status post convalescent plasma,TOCI, outside the window for Remdesevir, Current Visit: Yes Status: Acute Code(s): U07.1 - COVID-19; J96.01 - ACUTE RESPIRATORY FAILURE WITH HYPOXIA SNOMED Code(s): 256240979 (2) Essential hypertension Current Visit: Yes Status: Acute Code(s): I10 - ESSENTIAL (PRIMARY) HYPERTENSION SNOMED Code(s): 07224743 (3) Type 2 diabetes mellitus Current Visit: Yes Status: Acute Code(s): E11.9 - TYPE 2 DIABETES MELLITUS WITHOUT COMPLICATIONS SNOMED Code(s): 85006131 (4) DARWIN (acute kidney injury), prerenal secondary to #1 Current Visit: Yes Status: Acute Code(s): N17.9 - ACUTE KIDNEY FAILURE, UNSPECIFIED SNOMED Code(s): 57469580 (5) chronic kidney disease stage IIIa secondary to DKA, baseline 1.3 (6) COVID-19 Current Visit: Yes Status: Acute Code(s): U07.1 - COVID-19 SNOMED Code(s): 505464153 (7) Hyperkalemia secondary to acute renal failure, YODIT inhibitor and NSAIDs,resolved Current Visit: Yes Status: Acute Code(s): E87.5 - HYPERKALEMIA SNOMED Code(s): 77199446 (8) hyponatremia, hypovolemic Plan: Continue on current medication regime ,monitoring and symptomatic treatment. Labs pending .Maintain COVID regimen.further adjustments to Levemir insulin, decreased hs dose as am BS 71. Close monitoring of Accu-Cheks, electrolytes, renal function with repeat labs ordered for a.m. prognosis guarded given multiple complex medical issues. The impression and plan of care has been dictated as directed. : I performed a history and examination of this patient, discussed the same with the dictator. I agree with the dictator's note ,documented as a scribe. Any additional findings or plans will be noted.
[2020-12-06 17:30] LABS: Glucose,Whole Blood 201 mg/dL (75-99)
[2020-12-06] MEDS ORDERED: TOLVAPTAN 15 MG 1/2 TABLET PO ONE (20:02)
--- NOTE | 2020-12-06 20:39 | PN ---
PROGRESS NOTE Patient is seen for followup for acute kidney injury and hyponatremia. Patient has underlying COVID pneumonia. His oxygen requirements are fairly stable. He remains on high-flow oxygen. This morning blood pressure was 123/80, heart rate 78 per minute. Patient is afebrile. There is no significant edema in his lower extremities. Labs from this morning were pending. Later on the sodium came back at 125; however, last night it was at 130. Patient did receive a dose of Samsca yesterday. He was started on IV saline, and serum sodium worsened with saline administration. ASSESSMENT: 1. Acute kidney injury associated with underlying COVID pneumonia and acute tubular necrosis. Creatinine had been improving; serum creatinine down to 1.6 from 1.8. 2. Hyponatremia secondary to syndrome of inappropriate antidiuretic hormone, improved with Samsca yesterday. Serum sodium dropped again today. I will repeat another dose today. Patient will be maintained on fluid restriction. He is encouraged to increase oral protein intake. However, he has not been eating much. 3. COVID pneumonia. 4. Acute hypoxic respiratory failure secondary to COVID pneumonia. PLAN: Repeat Samsca tonight. Continue off of saline. Increase oral intake as tolerated. MMODL / IJN: [id number] /
[2020-12-06 21:33] LABS: Glucose,Whole Blood 320 mg/dL (75-99)
[2020-12-06] MEDS: ATORVASTATIN 80 MG TAB PO SCH (22:21)
[2020-12-06] MEDS ORDERED: MORPHINE SULFATE 4 MG/ML SYRINGE IVP PRN (22:53)
[2020-12-07 02:52] LABS: African American GFR (CKD) 49.8 (60.0-200.0); Anion Gap 14.2 mmol/L (4.00-12.00); BUN/Creat Ratio 51.25 Ratio (12.00-20.00); Calcium 8.9 mg/dL (8.7-10.3); Carbon Dioxide 20.8 mmol/L (21.6-31.8); Potassium 4.8 mmol/L (3.5-5.5)
[2020-12-07] MEDS: LEVOTHYROXINE 100 MCG TAB PO SCH (05:44)
[2020-12-07] MEDS: ALBUTEROL HFA INHALER INHALATION SCH ×4 (07:25→19:00)
[2020-12-07 07:30] LABS: Glucose,Whole Blood 160 mg/dL (75-99)
--- NOTE | 2020-12-07 07:36 | P.CRDCN ---
History of Present Illness Consult date: 12/07/20 Chief complaint: Chest pain History of present illness: This is a pleasant 70-year-old gentleman who we are asked to see for further evaluation of chest discomfort. Currently the patient is on isolation and he was diagnosed with COVID -19. The patient does have coronary artery disease and in the past he underwent stenting of the left circumflex coronary artery and beside that he does have diabetes and hypertension and dyslipidemia. The pa gilbert initially presented to the hospital in to the emergency department on November 24 complaining of one-week history of generalized weakness and fatigue associated with shortness of breath as well as body ache as well as fever. He was tested positive for COVID-19 infection. He was hypoxic. Currently he is on non-rebreather. We requested to see the patient today for chest discomfort. The patient describes atypical/pleuritic chest discomfort. The discomfort is in the middle of the chest mostly once he coughs. No radiation of the chest discomfort to the arms or neck or shoulders. The patient states clearly that the chest discomfort is totally different from what he experienced back before his coronary artery stenting. The EKG showed sinus rhythm without any significant or ischemic ST or T-wave abnormalities. 3 sets of troponin came in to be unremarkable. The patient underwent a heart catheterization in August 2020 before bladder surgery for cancer and the heart catheterization revealed patent stent in the left circumflex with intermediate disease involving the left circumflex as well as RCA. Currently the patient is on dual antiplatelet therapy along with anti-ischemic medications along with high intensity statin and currently is chest pain-free. Past Medical History Past Medical History: Coronary Artery Disease (CAD), Cancer, Diabetes Mellitus, GERD/Reflux, Hyperlipidemia, Hypertension, Myocardial Infarction (CO), Osteoarthritis (OA), Thyroid Disorder Additional Past Medical History / Comment(s): Pt tested covid + on 11/19/20 at [facility]. Other hx: NIDDM type II, neuropathy bilateral hands, bladder cancer with surgery and will be receiving BCG installation soon, cardiomyopathy, CO per diagnostic-pt thinks showed on EKG, hiatal hernia, arthritis bilateral hands/chronic cervical and low back pain, tendonitis bilateral hands, bilateral carpal tunnel syndrome, nephrolithiasis-pt passed stone on his own, hypothyroid Last Myocardial Infarction Date:: unk History of Any Multi-Drug Resistant Organisms: None Reported Past Surgical History: Bladder Surgery, Heart Catheterization, Heart Catheterization With Stent, Orthopedic Surgery Additional Past Surgical History / Comment(s): 10/2019 PCI with stents, cystoscopies/bladder tumor resection, cervical epi steroid injection, R knee arthroscopy, EGD, colonoscopy, bilateral cataract removals. Past Anesthesia/Blood Transfusion Reactions: Postoperative Nausea & Vomiting (PONV) Date of Last Stent Placement:: 10/2019 Smoking Status: Former smoker - Past Family History Sister(s) Family Medical History: Cancer Additional Family Medical History / Comment(s): Sister of dinesh with m etastisis to her brain at the age of 70 yrs.. Father Family Medical History: Cancer Additional Family Medical History / Comment(s): Father had bladder cancer. He lived to be 95 yrs old. Mother Additional Family Medical History / Comment(s): Mother had lupus. She at the age of 84 yrs. Medications and Allergies Home Medications Medication Instructions Recorded Confirmed Type Celecoxib [CeleBREX] 200 mg PO DAILY 10/27/19 11/24/20 History Multivitamins, Thera [Multivitamin 1 tab PO DAILY 10/27/19 11/24/20 History (formulary)] Omeprazole 20 mg PO DAILY 10/27/19 11/24/20 History Aspirin 81 mg PO DAILY chew 10/31/19 11/24/20 Rx Atorvastatin [Lipitor] 80 mg PO DAILY #90 tab 10/31/19 11/24/20 Rx lisinopriL [Zestril] 5 mg PO BID #180 tab 10/31/19 11/24/20 Rx Ergocalciferol [Vitamin D2 (1250 1,250 mcg PO PAGE 09/23/20 11/24/20 History Mcg = 65285 Iu)] Gabapentin 600 mg PO DAILY 09/23/20 11/24/20 History Levothyroxine Sodium [Synthroid] 100 mcg PO DAILY 09/23/20 11/24/20 History Metoprolol Succinate (ER) [Toprol 25 mg PO DAILY 09/23/20 11/24/20 History XL] Repaglinide [Prandin] 2 mg PO BID 09/23/20 11/24/20 History metFORMIN HCL 1,000 mg PO DAILY 09/23/20 11/24/20 History Clopidogrel Bisulfate [Plavix] 75 mg PO DAILY 11/24/20 11/24/20 History Allergies Allergy/AdvReac Type Severity Reaction Status Date / Time No Known Allergies Allergy Verified 09/23/20 08:05 Physical Exam Vitals: Vital Signs Temp Pulse Resp BP Pulse Ox 12/07/20 07:21 88 L 12/07/20 01:33 97.6 F 75 18 111/70 90 L 12/06/20 22:20 64 20 12/06/20 20:29 98.1 F 64 20 115/68 90 L 12/06/20 17:00 98.4 F 82 16 132/58 86 L 12/06/20 16:24 91 L 12/06/20 14:00 98.1 F 78 18 114/70 94 L 12/06/20 13:24 94 L 12/06/20 09:34 90 L 12/06/20 08:00 97.7 F 81 18 123/80 Intake and Output 12/06/20 12/07/20 12/07/20 22:59 06:59 14:59 Output Total 250 700 Balance -250 -700 Output: Urine 250 450 Post Void Residual 250 Other: Voiding Method Urinal - Constitutional General appearance: no acute distress - Respiratory Respiratory: bilateral: rales - Cardiovascular Rhythm: regular Results 12/06/20 05:39 12/06/20 14:55 Cardiac Enzymes 12/07/20 12/07/20 Range/Units 00:22 02:47 Troponin I <0.012 <0.012 (0.000-0.034) ng/mL CBC 12/06/20 Range/Units 05:39 WBC 24.08 H (4.50-10.00) X 10*3/uL RBC 4.63 (4.40-5.60) X 10*6/uL Hgb 13.4 (13.0-17.0) g/dL Hct 38.4 L (39.6-50.0) % Plt Count 665 H (140-440) X 10*3/uL Comprehensive Metabolic Panel 12/06/20 12/06/20 12/06/20 Range/Units 05:39 09:49 14:55 Sodium 130 L 125 L 128 L (135-145) mmol/L Potassium 4.7 4.8 (3.5-5.5) mmol/L Chloride 95 L 93 L (96-109) mmol/L Carbon Dioxide 21.1 L 20.8 L (21.6-31.8) mmol/L BUN 80.0 H 82.0 H (9.0-27.0) mg/dL Creatinine 1.6 H 1.6 H (0.6-1.5) mg/dL Glucose 95 201 H (70-110) mg/dL Calcium 9.0 8.9 (8.7-10.3) mg/dL Current Medications Generic Name Dose Route Start Last Admin Trade Name Freq PRN Reason Stop Dose Admin Acetaminophen 650 mg 11/25/20 09:50 11/25/20 11:28 Acetaminophen Tab 325 Mg Tab PO 650 mg Q4HR PRN Administration Fever and/ or Pain Albuterol Sulfate 2 puff 11/25/20 08:00 12/07/20 07:25 Albuterol Hfa Inhaler INHALATION Not Given RT-QID [facility] Ascorbic Acid 500 mg 11/25/20 09:30 12/06/20 08:27 Ascorbic Acid 500 Mg Tab PO 500 mg DAILY CAM Administration Aspirin 81 mg 11/25/20 09:30 12/06/20 08:27 Aspirin 81 Mg PO 81 mg DAILY CAM Administration Atorvastatin Calcium 80 mg 11/25/20 21:00 12/06/20 22:21 Atorvastatin 80 Mg Tab PO 80 mg HS CAM Administration Cholecalciferol 50 mcg 11/25/20 09:30 12/06/20 08:28 Cholecalciferol 25 Mcg (1000 Iu) Tablet PO 50 mcg DAILY CAM Administration Clopidogrel Bisulfate 75 mg 11/25/20 09:30 12/06/20 08:27 Clopidogrel 75 Mg Tab PO 75 mg DAILY CAM Administration Dexamethasone Sodium Phosphate 6 mg 12/02/20 21:00 12/06/20 22:21 Dexamethasone Sod Phosphate 10 Mg/Ml 1 Ml Vial IV 6 mg BID CAM Administration Enoxaparin Sodium 40 mg 11/25/20 09:30 12/06/20 08:29 Enoxaparin 40 Mg/0.4 Ml Syringe SQ 40 mg DAILY CAM Administration Gabapentin 600 mg 11/25/20 09:30 12/06/20 08:27 Gabapentin 300 Mg Cap PO 600 mg DAILY CAM Administration Insulin Aspart 0 unit 12/01/20 07:30 12/06/20 22:19 Insulin Aspart (Novolog) 100 Unit/Ml Vial SQ 8 unit ACHS CAM Administration Protocol Insulin Detemir 30 unit 12/06/20 07:00 12/06/20 08:26 Insulin Detemir (Levemir) 100 Unit/Ml Syr SQ 30 unit DAILY@0700 CAM Administration Insulin Detemir 27 unit 12/06/20 21:00 12/06/20 22:20 Insulin Detemir (Levemir) 100 Unit/Ml Syr SQ 27 unit HS CAM Administration Levothyroxine Sodium 100 mcg 11/25/20 06:30 12/07/20 05:44 Levothyroxine 100 Mcg Tab PO 100 mcg DAILY@0630 CAM Administration Metoprolol Succinate 25 mg 11/25/20 09:30 12/06/20 08:28 Metoprolol Succinate (Er) 25 Mg Tab.Er.24h PO 25 mg DAILY CAM Administration Morphine Sulfate 4 mg 12/06/20 22:53 Morphine Sulfate 4 Mg/Ml Syringe IVP Q6HR PRN Pain Naloxone HCl 0.2 mg 11/24/20 21:44 Naloxone 0.4 Mg/Ml 1 Ml Vial IV Q2M PRN Opioid Reversal Pantoprazole Sodium 40 mg 11/25/20 09:30 12/06/20 08:27 Pantoprazole 40 Mg Tablet PO 40 mg DAILY@0730 CAM Administration Zinc Sulfate 220 mg 11/28/20 10:15 12/06/20 08:28 Zinc Sulfate 220 Mg Cap PO 220 mg DAILY CAM Administration Intake and Output 12/06/20 12/07/20 12/07/20 22:59 06:59 14:59 Output Total 250 700 Balance -250 -700 Output: Urine 250 450 Post Void Residual 250 Other: Voiding Method Urinal 12/06/20 05:39 12/06/20 14:55 Assessment and Plan Assessment: Assessment #1 acute hypoxic respiratory failure #2 infection with COVID-19 #3 acute renal failure #4 known chronic renal disease #5 atypical/pleuritic chest discomfort #6 coronary artery disease Plan #1 acute coronary event was ruled out #2 the chest discomfort is pleuritic and does not seems to be anginal #3 please note that recent heart catheterization showed intermediate disease only #4 I would rule out pulmonary embolism giving the infection with COVID-19 #5 in view of the acute renal failure he might benefit from VQ scan I would leave that to pulmonary service to address this issue #6 obtain limited echocardiogram to rule out pericardial effusion
[2020-12-07] MEDS: INSULIN ASPART (NovoLOG) 100 UNIT/ML VIAL SQ SCH ×4 (08:15→21:04)
[2020-12-07] MEDS: ENOXAPARIN 40 MG/0.4 ML SYRINGE SQ SCH (08:15)
[2020-12-07] MEDS: ASCORBIC ACID 500 MG TAB PO SCH (08:16)
[2020-12-07] MEDS: GABAPENTIN 300 MG CAP PO SCH (08:16)
[2020-12-07] MEDS: INSULIN DETEMIR (LEVEMIR) 100 UNIT/ML SYR SQ SCH ×2 (08:16→21:05)
[2020-12-07] MEDS: ASPIRIN 81 MG PO SCH (08:16)
[2020-12-07] MEDS: CHOLECALCIFEROL 25 MCG (1000 IU) TABLET PO SCH (08:16)
[2020-12-07] MEDS: PANTOPRAZOLE 40 MG TABLET PO SCH (08:16)
[2020-12-07] MEDS: METOPROLOL SUCCINATE (ER) 25 MG TAB.ER.24H PO SCH (08:16)
[2020-12-07] MEDS: ZINC SULFATE 220 MG CAP PO SCH (08:16)
[2020-12-07] MEDS: CLOPIDOGREL 75 MG TAB PO SCH (08:16)
--- NOTE | 2020-12-07 09:01 | P.PN ---
Subjective Patient is seen in follow-up for acute kidney injury and hyponatremia. Has been voiding. Oral intake fair. Currently on high flow cannula. Vital signs are stable. General: The patient appeared well nourished and normally developed. HEENT: Head exam is unremarkable. Neck is without jugular venous distension. LUNGS: Breath sounds decreased. HEART: Rate and Rhythm are regular. ABDOMEN: Soft, nontender. EXTREMITITES: No edema. Objective - Vital Signs Vital signs: Vital Signs Temp 96.8 F L 12/07/20 07:46 Pulse 122 H 12/07/20 07:46 Resp 16 12/07/20 07:46 BP 122/79 12/07/20 07:46 Pulse Ox 92 L 12/07/20 07:46 Intake & Output 12/06/20 12/07/20 12/07/20 18:59 06:59 18:59 Output Total 250 700 Balance -250 -700 Output: Urine 250 450 Post Void Residual 250 Other: Voiding Method Urinal - Labs CBC & Chem 7: 12/06/20 05:39 12/06/20 14:55 Labs: Abnormal Lab Results - Last 24 Hours (Table) 12/06/20 12/06/20 12/06/20 Range/Units 05:39 05:39 09:49 WBC 24.08 H (4.50-10.00) X 10*3/uL Hct 38.4 L (39.6-50.0) % Plt Count 665 H (140-440) X 10*3/uL Plt Count Comment INCREASED A MPV 9.4 L (9.5-12.2) fL Immature Gran # 0.48 H (0.00-0.04) X 10*3/uL Neutrophils # 21.85 H (1.80-7.70) X 10*3/uL Sodium 130 L 125 L (135-145) mmol/L Chloride 95 L (96-109) mmol/L Carbon Dioxide 21.1 L (21.6-31.8) mmol/L Anion Gap 13.90 H (4.00-12.00) mmol/L BUN 80.0 H (9.0-27.0) mg/dL Creatinine 1.6 H (0.6-1.5) mg/dL Est GFR (CKD-EPI)AfAm 49.8 L (60.0-200.0) Est GFR (CKD-EPI)NonAf 43.0 L (60.0-200.0) BUN/Creatinine Ratio 50.00 H (12.00-20.00) Ratio Glucose (70-110) mg/dL POC Glucose (mg/dL) (75-99) mg/dL Procalcitonin (0.02-0.09) ng/mL 12/06/20 12/06/20 12/06/20 Range/Units 11:25 12:11 14:55 WBC (4.50-10.00) X 10*3/uL Hct (39.6-50.0) % Plt Count (140-440) X 10*3/uL Plt Count Comment MPV (9.5-12.2) fL Immature Gran # (0.00-0.04) X 10*3/uL Neutrophils # (1.80-7.70) X 10*3/uL Sodium 128 L (135-145) mmol/L Chloride 93 L (96-109) mmol/L Carbon Dioxide 20.8 L (21.6-31.8) mmol/L Anion Gap 14.20 H (4.00-12.00) mmol/L BUN 82.0 H (9.0-27.0) mg/dL Creatinine 1.6 H (0.6-1.5) mg/dL Est GFR (CKD-EPI)AfAm 49.8 L (60.0-200.0) Est GFR (CKD-EPI)NonAf 43.0 L (60.0-200.0) BUN/Creatinine Ratio 51.25 H (12.00-20.00) Ratio Glucose 201 H (70-110) mg/dL POC Glucose (mg/dL) 145 H (75-99) mg/dL Procalcitonin 0.24 H (0.02-0.09) ng/mL 12/06/20 12/06/20 12/07/20 Range/Units 17:28 21:30 07:27 WBC (4.50-10.00) X 10*3/uL Hct (39.6-50.0) % Plt Count (140-440) X 10*3/uL Plt Count Comment MPV (9.5-12.2) fL Immature Gran # (0.00-0.04) X 10*3/uL Neutrophils # (1.80-7.70) X 10*3/uL Sodium (135-145) mmol/L Chloride (96-109) mmol/L Carbon Dioxide (21.6-31.8) mmol/L Anion Gap (4.00-12.00) mmol/L BUN (9.0-27.0) mg/dL Creatinine (0.6-1.5) mg/dL Est GFR (CKD-EPI)AfAm (60.0-200.0) Est GFR (CKD-EPI)NonAf (60.0-200.0) BUN/Creatinine Ratio (12.00-20.00) Ratio Glucose (70-110) mg/dL POC Glucose (mg/dL) 201 H 320 H 160 H (75-99) mg/dL Procalcitonin (0.02-0.09) ng/mL Assessment and Plan Plan: Assessment: 1. Acute kidney injury mostly prerenal secondary to covid 19 pneumonia and nonsteroidals. Renal function stable. Creatinine 1.6 as of yesterday. No hydronephrosis noted on kidney ultrasound. 2. 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 Status post [facility]. Sodium level 128 as of yesterday. 3. Covid 19 pneumonia maintained on steroids and zinc. 4. Diabetes mellitus. 5. Chronic kidney disease stage IIIa secondary to diabetic kidney disease. Creatinine 1.3 in February 2020. 6. Metabolic acidosis secondary to acute kidney injury. Plan: Encouraged oral intake, especially protein. Maintain fluid restriction. Follow-up echocardiogram. Avoid nephrotoxins. Morning labs pending. Add bicarb if remains acidotic.
[2020-12-07] MEDS: DEXAMETHASONE SOD PHOSPHATE 10 MG/ML 1 ML VIAL IV SCH ×2 (09:03→21:04)
[2020-12-07 09:37] LABS: African American GFR (CKD) 49.8 (60.0-200.0); Anion Gap 12.7 mmol/L (4.00-12.00); BUN/Creat Ratio 48.13 Ratio (12.00-20.00); Calcium 9.2 mg/dL (8.7-10.3); Carbon Dioxide 21.3 mmol/L (21.6-31.8); Potassium 4.6 mmol/L (3.5-5.5)
--- NOTE | 2020-12-07 11:11 | P.PN ---
Subjective Progress Note Date: 12/07/20 Principal diagnosis: Acute hypoxic respiratory failure secondary to acute covid 19 pneumonitis. This is a 70-year-old white male with history of multiple medical problems including hypertension, type 2 diabetes, dyslipidemia, coronary artery disease and previous AR, previous stent placement, degenerative joint disease, bladder cancer, nephrolithiasis, patient presented to the emergency room on 11/24/2020, mostly with 1 week history of multiple constitutional symptoms including muscle aches, fever, shortness of breath, cough, nausea, and he tested positive on the with contreras virus PCR. Chest x-ray showed evidence of bilateral opacities/infiltrates. Patient had adequate saturations on room air, it was about 94%, he was also noted to be hyperkalemic, and he had lactic acid of 2.7. Received dextrose, insulin, Kayexalate, and the patient was eventually admitted seen by nephrology on consultation, he was placed on the Covid 19 cocktail, and we were asked to see him yesterday because of his worsening shortness of breath. No follow-up chest x-ray done since admission, and I will be ordering one to be done today. Labs today clearly showed relatively normal CBC. Elevated BUN of 40 creatinine is 1.4. D-dimer was normal on admission, and I do not see any inflammatory markers on the chart. After evaluating the patient, we recommended one unit of convalescent plan is to be given. Patient obviously did not qualify for REM. And he is not at the point of requiring actemtra Patient was reevaluated today on 11/29/2020, he is basically about the same. Not much of a change in the last 24 hours. Patient is on 6 L nasal cannula, and his O2 saturation is in the low 90s. Continues to have intermittent cough, shortness of breath, basic metabolic profile is normal. His LDH is 1466, and C- reactive protein is 24. Patient remains on the Covid 19 cocktail. He received convalescent plasma. He was out of the window for REM. Patient was reevaluated today on 12/02/2020, does not seem to be improving much. Patient is now on higher FiO2, requiring airvo high flow with FiO2 of 90% and total of 60 L/m in addition to this he is also on a nonrebreather. Chest x-ray seems to be a bit worse. LDH is worse 1881 last C-reactive protein is 24. Renal functioning is also worse with a BUN of 46 creatinine 1.60 and a potassium of 5.7 being addressed by nephrology on the case. His last chest x-ray was on 12/02/1912/17/2020, I will go ahead and order a chest x-ray for the morning. Patient remains on the Covid 19 cocktail. He received convalescent plasma. Interstitia l and patchy bilateral airspace disease/infiltrates progressed from admission x- ray. Repeat basic metabolic profile was done today, potassium is down to 4.4 from 5.7 yesterday. BUN is 60 creatinine is 1.60. Reevaluated today on 12/03/2020, patient is about the same remains on nonrebreather mask and high flow cannula,He is on 90% FiO2 with flow of 15 L/m and his O2 saturation is in the low 90s. Continues to have intermittent cough, shortness of breath with any activity. Patient has been steadily worsening clinically over the last few days. Hence I would recommend actemra on this patient. Remains on the Covid 19 cocktail. And he also received convalescent plasma. Patient was reevaluated today on 12/04/2020, remains on high flow oxygen using Airvo and a nonrebreather mask. Patient is on 90% FiO2 and 50 L flow with O2 saturation in the high 80s and low 90s. Clinically however he feels a bit better today compared to how he felt yesterday. Even his lungs sounded a bit better and less crackles noted on examination. No labs were done today except blood sugar of 166 Patient was reevaluated today on 12/05/2020, remains on high flow via airvo , presently on 90% FiO2 and 50 L flow. O2 saturations are in the low 90s. Patient tells me that he feels a bit better today compared to the last couple of days. Less shortness of breath, less aches and pains, overall feels better. On examination he did sound better. And his labs were reviewed, sodium is down to 125 and his BUN is 88 creatinine is 1.8, I suspect that we are dealing with hypovolemic hyponatremia and prerenal azotemia hence the patient would benefit from more fluid/0.9 normal saline will be added. And will put his Lasix on hold today. I believe his hyponatremia is related to diuretics , placed him back on 0.9 normal saline at 75 mL per hour may even require more fluids. Reevaluated today on 12/06/2020, patient is basically about the same. Remains on high flow oxygen AIRVO, 85% and 50 L flow. He is also on a nonrebreather mask, O2 saturation remains marginal in the low 90s. Today for some reason the patient is feeling a bit better but nowhere near his baseline. Patient is generally weak. His sodium has been coming down and today is 125. This is being addressed by nephrology on the case. White count is high today at 24.08. Platelets are also high at 665. Blood sugar is 71. I reviewed his follow-up chest x-ray today no significant change, continues to show bilateral diffuse interstitial infiltrates. Reevaluated today on 12/07/2020, patient is feeling a bit better, remains on high flow oxygen 90%/60 L flow and his O2 saturation is 92%. Patient is having echocardiogram as I was examining him. Results of the echocardiogram are pending. Again the patient is feeling a bit better, less shortness of breath, no cough, no wheezing, no chest pain, no fever, no chills, he feels generally weak, and he does have shortness of breath with any activity. Yesterday's chest x-ray continued to show diffuse bilateral interstitial infiltrates. Not much of a change. Labs today showed improved sodium of 129 BUN is 77 and creatinine 1.6. Objective - Vital Signs Vital signs: Vital Signs Temp 96.8 F L 12/07/20 07:46 Pulse 122 H 12/07/20 07:46 Resp 16 12/07/20 07:46 BP 122/79 12/07/20 07:46 Pulse Ox 92 L 12/07/20 07:46 Intake & Output 12/06/20 12/07/20 12/07/20 18:59 06:59 18:59 Output Total 250 700 Balance -250 -700 Output: Urine 250 450 Post Void Residual 250 Other: Voiding Method Urinal - Exam Physical Exam: Revealed 70-year-old white male in remains on high FiO2 and high flow oxygen.airvo 90% and 60 L flow Head: Atraumatic, normocephalic. HEENT:[Neck is supple.] [No neck masses.] [No thyromegaly.] [No JVD.] Chest: Symmetrical chest expansion, crackles at the bases bilaterally..] Cardiac Exam: [Normal S1 and S2, no S3 gallop, no murmur.] Abdomen: [Soft, nontender, no megaly, no rebound, no guarding, normal bowel sounds.] Extremities: [No clubbing, no edema, no cyanosis.] Neurological Exam: [No focal neurologic deficit.] Alert and oriented 3. Psychiatric: Normal mood affect and normal mental status examination. Musculoskeletal: No limitation in range of motion, no deformities. - Labs CBC & Chem 7: 12/06/20 05:39 12/07/20 02:47 Labs: Abnormal Lab Results - Last 24 Hours (Table) 12/06/20 12/06/20 12/06/20 Range/Units 05:39 11:25 12:11 Sodium 130 L (135-145) mmol/L Chloride 95 L (96-109) mmol/L Carbon Dioxide 21.1 L (21.6-31.8) mmol/L Anion Gap 13.90 H (4.00-12.00) mmol/L BUN 80.0 H (9.0-27.0) mg/dL Creatinine 1.6 H (0.6-1.5) mg/dL Est GFR (CKD-EPI)AfAm 49.8 L (60.0-200.0) Est GFR (CKD-EPI)NonAf 43.0 L (60.0-200.0) BUN/Creatinine Ratio 50.00 H (12.00-20.00) Ratio Glucose (70-110) mg/dL POC Glucose (mg/dL) 145 H (75-99) mg/dL Procalcitonin 0.24 H (0.02-0.09) ng/mL 12/06/20 12/06/20 12/06/20 Range/Units 14:55 17:28 21:30 Sodium 128 L (135-145) mmol/L Chloride 93 L (96-109) mmol/L Carbon Dioxide 20.8 L (21.6-31.8) mmol/L Anion Gap 14.20 H (4.00-12.00) mmol/L BUN 82.0 H (9.0-27.0) mg/dL Creatinine 1.6 H (0.6-1.5) mg/dL Est GFR (CKD-EPI)AfAm 49.8 L (60.0-200.0) Est GFR (CKD-EPI)NonAf 43.0 L (60.0-200.0) BUN/Creatinine Ratio 51.25 H (12.00-20.00) Ratio Glucose 201 H (70-110) mg/dL POC Glucose (mg/dL) 201 H 320 H (75-99) mg/dL Procalcitonin (0.02-0.09) ng/mL 12/07/20 12/07/20 Range/Units 02:47 07:27 Sodium 129 L (135-145) mmol/L Chloride 95 L (96-109) mmol/L Carbon Dioxide 21.3 L (21.6-31.8) mmol/L Anion Gap 12.70 H (4.00-12.00) mmol/L BUN 77.0 H (9.0-27.0) mg/dL Creatinine 1.6 H (0.6-1.5) mg/dL Est GFR (CKD-EPI)AfAm 49.8 L (60.0-200.0) Est GFR (CKD-EPI)NonAf 43.0 L (60.0-200.0) BUN/Creatinine Ratio 48.13 H (12.00-20.00) Ratio Glucose 179 H (70-110) mg/dL POC Glucose (mg/dL) 160 H (75-99) mg/dL Procalcitonin (0.02-0.09) ng/mL Assessment and Plan Assessment: Impression: Acute hypoxic respiratory failure secondary to acute covid 19 pneumonitis. With very poor marginal pulmonary status. Acute on chronic kidney injury associated with underlying Covid 19 infection History of bladder cancer. Acute hyperkalemia with acute kidney injury. Chronic kidney disease, previous creatinine was 1.3 in February 2020. Benign essential hypertension Type 2 diabetes Hyponatremia, possible SIADH. Improving. Recommendation: Will review the results of the echocardiogram once available Continue high flow oxygen and titrate accordingly to maintain O2 saturation above 90%. Continue present supportive care measures Continue oxygen, titrate accordingly maintain O2 saturation above 90%. Continue to follow inflammatory markers. Continue the Covid 19 cocktail. Received 1 unit of convalescent plasma., He also received VIOLETA I. Prognosis is relatively guarded. We'll continue to follow Time with Patient: Less than 30
[2020-12-07 11:53] LABS: Glucose,Whole Blood 240 mg/dL (75-99)
--- NOTE | 2020-12-07 12:43 | ECHOF ---
Referral Reason:Chest pain MEASUREMENTS -------- HEIGHT: 170.2 cm WEIGHT: 86.2 kg BP: 111/70 RVIDd: 2.7 cm (< 3.3) IVSd: 1.3 cm (0.6 - 1.1) LVIDd: 3.8 cm (3.9 - 5.3) LVPWd: 1.2 cm (0.6 - 1.1) IVSs: 1.6 cm LVIDs: 2.7 cm LVPWs: 1.8 cm LA Diam: 2.8 cm (2.7 - 3.8) LAESV Index (A-L): 12.10 ml/m Ao Diam: 3.1 cm (2.0 - 3.7) AV Cusp: 2.1 cm (1.5 - 2.6) MV EXCURSION: 9.718 mm (> 18.000) MV EF SLOPE: 68 mm/s (70 - 150) EPSS: 1.4 cm RAP: 5.00 mmHg RVSP: 35.33 mmHg FINDINGS -------- Sinus rhythm. This was a technically adequate study. The left ventricular size is normal. There is mild concentric left ventricular hypertrophy. Overa ll left ventricular systolic function is moderately impaired with, an EF between 35 - 40 %. Basal i nferior LV wall motion is dyskinetic. Mid inferior LV wall motion is dyskinetic. Apical inferior LV wall motion is hypokinetic. The right ventricle is normal in size. The left atrium is normal in size. The right atrium is normal in size. Lipomatous Hypertrophy of the atrial septum is present The aortic valve is trileaflet, and appears structurally normal. No aortic stenosis or regurgitation. Mild mitral annular calcification present. Mild tricuspid regurgitation present. There is mild pulmonary hypertension. The right ventricular systolic pressure, as measured by Doppler, is 35.33mmHg. Trace/mild (physiologic) pulmonic regurgitation. The aortic root size is normal. Normal inferior vena cava with normal inspiratory collapse consistent with estimated right atrial pre ssure of 5 mmHg. There is no pericardial effusion. CONCLUSIONS -------- 1. The left ventricular size is normal. 2. There is mild concentric left ventricular hypertrophy. 3. Overall left ventricular systolic function is moderately impaired with, an EF between 35 - 40 %. 4. Basal inferior LV wall motion is dyskinetic. 5. Mid inferior LV wall motion is dyskinetic. 6. Apical inferior LV wall motion is hypokinetic. 7. Lipomatous Hypertrophy of the atrial septum is present 8. Mild mitral annular calcification present. 9. Mild tricuspid regurgitation present. 10. There is mild pulmonary hypertension. 11. The right ventricular systolic pressure, as measured by Doppler, is 35.33mmHg. 12. Trace/mild (physiologic) pulmonic regurgitation. 13. There is no pericardial effusion. [employer]: Julita Washington RDCS
--- NOTE | 2020-12-07 14:51 | PN ---
PROGRESS NOTE DATE OF SERVICE: 12/07/2020 This 70-year-old gentleman who was admitted with acute hypoxic respiratory secondary to COVID-19 pneumonia is being closely monitored at this time. Multiple consultants are following the patient closely. Dr. Cartwright also has seen the patient today. The patient received convalescent plasma and as well as a tocilizumab. Most recent chest x- ray which I reviewed personally showed bilateral infiltrates. The patient also had elevated creatinine at 1.6 and blood sugar was also elevated. PAST MEDICAL HISTORY: Reviewed. REVIEW OF SYSTEMS: CARDIOVASCULAR: No angina. RESPIRATORY: As mentioned earlier. GI: As mentioned earlier. : No dysuria. NERVOUS SYSTEM: No numbness or weakness. CURRENT MEDICATIONS: Reviewed include Tylenol, Ventolin, vitamin C, aspirin, Lipitor, vitamin D3. Doses and other medications also reviewed. PHYSICAL EXAMINATION: The patient is alert and oriented x3. Pulse 122, blood pressure 110/70, respirations 16, temperature 98.8, pulse ox 92% on high-flow oxygen 60% FiO2. HEENT: Conjunctivae normal. Oral mucosa moist. NECK: No jugular venous distention. No lymph node enlargement. CARDIOVASCULAR: S1, S2, muffled. No S3, no S4, RESPIRATORY: Diminished breath sounds at the bases. Bilateral scattered rhonchi and crackles. ABDOMEN: Soft, nontender. LEGS: No edema, no swelling. NERVOUS SYSTEM: No focal deficits. LAB STUDIES: WBC 24.8, hemoglobin 13.4. Sodium is 128. Procalcitonin 0.24. ASSESSMENT: 1. Acute COVID-19 infection with bilateral pneumonia with acute hypoxic respiratory failure. 2. Acute on chronic kidney disease with underlying COVID-19 infection. 3. History of bladder cancer. 4. Hyponatremia. 5. Elevated WBC. 6. Elevated platelets. 7. Hypertension. 8. Diabetes mellitus type 2. 9. History of myocardial infarction. 10.History of hypothyroidism. 11.History of coronary artery disease, stent. 12.FULL CODE. RECOMMENDATIONS AND DISCUSSION: In this 70-year-old gentleman who presented with multiple complex medical issues, we will monitor the patient closely, continue the current management and continue with the Lovenox, continue the zinc, continue the rest of the medications. Monitor blood sugars closely. The patient is on Levemir 27 units subcu q.h.s. at this time. Otherwise, the prognosis is guarded. Further recommendations to follow. MMODL / IJN: [id number] /
[2020-12-07 16:59] LABS: Glucose,Whole Blood 226 mg/dL (75-99)
[2020-12-07 20:27] LABS: Glucose,Whole Blood 194 mg/dL (75-99)
[2020-12-07] MEDS: ATORVASTATIN 80 MG TAB PO SCH (21:04)
[2020-12-08] MEDS: LEVOTHYROXINE 100 MCG TAB PO SCH (05:39)
[2020-12-08 07:34] LABS: Glucose,Whole Blood 124 mg/dL (75-99)
[2020-12-08] MEDS: CLOPIDOGREL 75 MG TAB PO SCH (07:41)
[2020-12-08] MEDS: INSULIN DETEMIR (LEVEMIR) 100 UNIT/ML SYR SQ SCH ×2 (07:41→21:34)
[2020-12-08] MEDS: ASPIRIN 81 MG PO SCH (07:41)
[2020-12-08] MEDS: METOPROLOL SUCCINATE (ER) 25 MG TAB.ER.24H PO SCH (07:42)
[2020-12-08] MEDS: CHOLECALCIFEROL 25 MCG (1000 IU) TABLET PO SCH (07:42)
[2020-12-08] MEDS: ZINC SULFATE 220 MG CAP PO SCH (07:42)
[2020-12-08] MEDS: PANTOPRAZOLE 40 MG TABLET PO SCH (07:42)
[2020-12-08] MEDS: DEXAMETHASONE SOD PHOSPHATE 10 MG/ML 1 ML VIAL IV SCH ×2 (07:43→21:08)
[2020-12-08] MEDS: ASCORBIC ACID 500 MG TAB PO SCH (07:43)
[2020-12-08] MEDS: ENOXAPARIN 40 MG/0.4 ML SYRINGE SQ SCH (07:45)
[2020-12-08] MEDS: GABAPENTIN 300 MG CAP PO SCH (07:53)
[2020-12-08 08:15] LABS: African American GFR (CKD) 60 (>60 ml/min/1.73 sqM); Anion Gap 9 mmol/L; Blood Urea Nitrogen 67 mg/dL (9-20); Calcium 8.8 mg/dL (8.4-10.2); Carbon Dioxide 22 mmol/L (22-30); Chloride 94 mmol/L (98-107); Glucose 112 mg/dL (74-99); Magnesium 2.6 mg/dL (1.6-2.3); Non-African American GFR(CKD) 52 (>60 ml/min/1.73 sqM); Potassium 5.2 mmol/L (3.5-5.1); Sodium 125 mmol/L (137-145)
--- NOTE | 2020-12-08 08:41 | P.PN ---
Subjective Progress Note Date: 12/08/20 Principal diagnosis: Pleuritic chest discomfort This is a 7-year-old gentleman with coronary artery disease and prior revascularization as well as renal failure as well as dyslipidemia who was admitted to the hospital with acute hypoxic respiratory failure secondary to COVID-19 infection and we consulted to see the patient for chest discomfort. The patient did not have any chest pain or chest discomfort for the last 12-24 hours. Anyway the chest discomfort was very pleuritic in nature. He underwent yesterday and echocardiogram and that showed no evidence of pericardial effusion. He continues to require oxygen and he continues to be hypoxic. He is in renal failure. He is on dual antiplatelet therapy along with a statin. The chest discomfort is likely related to the pneumonia. Objective - Vital Signs Vital signs: Vital Signs Temp 97.4 F L 12/08/20 07:46 Pulse 68 12/08/20 07:46 Resp 22 12/08/20 07:46 BP 131/82 12/08/20 07:46 Pulse Ox 92 L 12/08/20 07:46 Intake & Output 12/07/20 12/08/20 12/08/20 18:59 06:59 18:59 Intake Total 218 Output Total 800 250 Balance -582 -250 Intake: Oral 218 Output: Urine 800 250 Other: Voiding Method Urinal Urinal # Voids 400 - Labs CBC & Chem 7: 12/06/20 05:39 12/08/20 06:56 Labs: Abnormal Lab Results - Last 24 Hours (Table) 12/07/20 12/07/20 12/07/20 Range/Units 02:47 11:52 16:56 Sodium 129 L (135-145) mmol/L Potassium (3.5-5.1) mmol/L Chloride 95 L (96-109) mmol/L Carbon Dioxide 21.3 L (21.6-31.8) mmol/L Anion Gap 12.70 H (4.00-12.00) mmol/L BUN 77.0 H (9.0-27.0) mg/dL Creatinine 1.6 H (0.6-1.5) mg/dL Est GFR (CKD-EPI)AfAm 49.8 L (60.0-200.0) Est GFR (CKD-EPI)NonAf 43.0 L (60.0-200.0) BUN/Creatinine Ratio 48.13 H (12.00-20.00) Ratio Glucose 179 H (70-110) mg/dL POC Glucose (mg/dL) 240 H 226 H (75-99) mg/dL Magnesium (1.6-2.3) mg/dL 12/07/20 12/08/20 12/08/20 Range/Units 20:22 06:56 07:04 Sodium 125 L (135-145) mmol/L Potassium 5.2 H (3.5-5.1) mmol/L Chloride 94 L (96-109) mmol/L Carbon Dioxide (21.6-31.8) mmol/L Anion Gap (4.00-12.00) mmol/L BUN 67 H (9.0-27.0) mg/dL Creatinine 1.37 H (0.6-1.5) mg/dL Est GFR (CKD-EPI)AfAm (60.0-200.0) Est GFR (CKD-EPI)NonAf (60.0-200.0) BUN/Creatinine Ratio (12.00-20.00) Ratio Glucose 112 H (70-110) mg/dL POC Glucose (mg/dL) 194 H 124 H (75-99) mg/dL Magnesium 2.6 H (1.6-2.3) mg/dL Assessment and Plan Assessment: Assessment #1 acute hypoxic respiratory failure #2 infection with COVID-19 #3 acute renal failure #4 known chronic renal disease #5 atypical/pleuritic chest discomfort #6 coronary artery disease Plan #1 acute coronary event was ruled out #2 the chest discomfort is pleuritic and does not seems to be anginal #3 please note that recent heart catheterization showed intermediate disease only #4 pericardial effusion was ruled out #5 the chest discomfort is likely related to pneumonia
[2020-12-08] MEDS: ALBUTEROL HFA INHALER INHALATION SCH ×4 (09:00→19:21)
[2020-12-08] MEDS ORDERED: TOLVAPTAN 15 MG 1/2 TABLET PO ONE (10:44)
--- NOTE | 2020-12-08 10:45 | P.PN ---
Subjective Patient is seen in follow-up for acute kidney injury and hyponatremia. Has been voiding. Oral intake fair. Currently on high flow cannula. Sodium level down to 125. Renal function improving. Vital signs are stable. General: The patient appeared well nourished and normally developed. HEENT: Head exam is unremarkable. Neck is without jugular venous distension. LUNGS: Breath sounds decreased. HEART: Rate and Rhythm are regular. ABDOMEN: Soft, nontender. EXTREMITITES: No edema. Objective - Vital Signs Vital signs: Vital Signs Temp 97.4 F L 12/08/20 07:46 Pulse 68 12/08/20 07:46 Resp 22 12/08/20 08:00 BP 131/82 12/08/20 07:46 Pulse Ox 92 L 12/08/20 07:46 Intake & Output 12/07/20 12/08/20 12/08/20 18:59 06:59 18:59 Intake Total 218 180 Output Total 800 250 Balance -582 -250 180 Intake: Oral 218 180 Output: Urine 800 250 Other: Voiding Method Urinal Urinal # Voids 400 - Labs CBC & Chem 7: 12/06/20 05:39 12/08/20 06:56 Labs: Abnormal Lab Results - Last 24 Hours (Table) 12/07/20 12/07/20 12/07/20 Range/Units 11:52 16:56 20:22 Sodium (137-145) mmol/L Potassium (3.5-5.1) mmol/L Chloride (98-107) mmol/L BUN (9-20) mg/dL Creatinine (0.66-1.25) mg/dL Glucose (74-99) mg/dL POC Glucose (mg/dL) 240 H 226 H 194 H (75-99) mg/dL Magnesium (1.6-2.3) mg/dL 12/08/20 12/08/20 Range/Units 06:56 07:04 Sodium 125 L (137-145) mmol/L Potassium 5.2 H (3.5-5.1) mmol/L Chloride 94 L (98-107) mmol/L BUN 67 H (9-20) mg/dL Creatinine 1.37 H (0.66-1.25) mg/dL Glucose 112 H (74-99) mg/dL POC Glucose (mg/dL) 124 H (75-99) mg/dL Magnesium 2.6 H (1.6-2.3) mg/dL Assessment and Plan Plan: Assessment: 1. Acute kidney injury mostly prerenal secondary to covid 19 pneumonia and nonsteroidals. Renal function better. Creatinine 1.37 today. No hydronephrosis noted on kidney ultrasound. 2. 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 Status post Samsca. Sodium level 125. 3. Covid 19 pneumonia maintained on steroids and zinc. 4. Diabetes mellitus. 5. Chronic kidney disease stage IIIa secondary to diabetic kidney disease. Creatinine 1.3 in February 2020. 6. Metabolic acidosis secondary to acute kidney injury. Better. 7. Cardiomyopathy. Ejection fraction 35-40%. Plan: Encouraged oral intake, especially protein. Maintain fluid restriction. Avoid nephrotoxins. Maintain fluid restriction. Repeat Samsca 15 mg once today.
[2020-12-08] MEDS: INSULIN ASPART (NovoLOG) 100 UNIT/ML VIAL SQ SCH ×4 (11:03→21:34)
[2020-12-08 11:38] LABS: Glucose,Whole Blood 206 mg/dL (75-99)
--- NOTE | 2020-12-08 15:08 | PN ---
PROGRESS NOTE DATE OF SERVICE: 12/08/2020 I am covering for Dr. Lamb. INTERVAL HISTORY: This 70-year-old gentleman who was admitted with acute hypoxic respiratory, acute COVID- 19 bilateral pneumonia. The patient also had kidney disease. Patient has extreme shortness of breath. The patient is on AIRVO at this time. A 2D echo with Doppler was read by Cardiology which showed ejection fraction 35-40% with diffuse wall motion abnormalities. PAST MEDICAL HISTORY: Reviewed. REVIEW OF SYSTEMS: CARDIOVASCULAR: No angina or palpitations. RESPIRATORY: As mentioned earlier. GI: As mentioned earlier. : No dysuria. NERVOUS SYSTEM: No numbness or weakness. CURRENT MEDICATIONS: Reviewed include Tylenol, Ventolin, vitamin C, aspirin, Lipitor, vitamin D3, Plavix, Decadron, Lovenox, Neurontin, NovoLog. Doses are reviewed. PHYSICAL EXAMINATION: GENERAL: Patient is alert and oriented times three. VITAL SIGNS: Pulse 68, blood pressure 131/82, respirations 22, temperature 97.2, pulse ox 92% on high flow oxygen, 84% FIO2. HEENT: Conjunctivae normal. NECK: No jugular venous distention. RESPIRATORY: Breath sounds diminished at the bases. Bilateral scattered rhonchi and crackles. HEART: S1 and S2, muffled. ABDOMEN: Soft, no tenderness. EXTREMITIES: No edema, no swelling. NERVOUS: No focal deficits. LABS: Sodium ntd, potassium 3.2, creatinine 3.7. ASSESSMENT: 1. Acute COVID-19 infection with bilateral pneumonia with acute hypoxic respiratory failure. 2. Acute on chronic kidney disease, underlying COVID-19 infection. 3. Possible cardiomyopathy ejection fraction 35-40%, possibly COVID-19 related. 4. History of bladder cancer. 5. Hyponatremia. 6. Elevated WBC. 7. Elevated platelets. 8. Hypertension. 9. Diabetes mellitus type 2. 10.History of myocardial infarction. 11.History of hypothyroidism. 12.History of coronary artery disease, stent. 13.FULL CODE. RECOMMENDATIONS AND DISCUSSION: Recommend to continue current management and continue symptomatic treatment. Otherwise closely follow with Cardiology, Nephrology. The patient is still on high-flow oxygen. We will repeat labs. Prognosis guarded. Further recommendations to follow. See other orders. Patient on Lovenox, zinc, and dexamethasone. Monitor blood sugars closely. MMODL / IJN: [id number] / ROSITA
[2020-12-08 16:10] LABS: AST 54 U/L (17-59); African American GFR (CKD) 63 (>60 ml/min/1.73 sqM); Albumin 3.1 g/dL (3.5-5.0); Alkaline Phosphatase 125 U/L (38-126); Anion Gap 11 mmol/L; Blood Urea Nitrogen 63 mg/dL (9-20); Calcium 8.7 mg/dL (8.4-10.2); Carbon Dioxide 21 mmol/L (22-30); Chloride 91 mmol/L (98-107); Globulin 3.2 g/dL; Glucose 243 mg/dL (74-99); Non-African American GFR(CKD) 54 (>60 ml/min/1.73 sqM); Potassium 4.9 mmol/L (3.5-5.1); Sodium 123 mmol/L (137-145); Total Bilirubin 0.7 mg/dL (0.2-1.3); Total Protein 6.3 g/dL (6.3-8.2)
--- NOTE | 2020-12-08 16:17 | P.PN ---
Subjective Progress Note Date: 12/08/20 Principal diagnosis: Shortness of breath. This is a 70-year-old white male with history of multiple medical problems including hypertension, type 2 diabetes, dyslipidemia, coronary artery disease and previous DE, previous stent placement, degenerative joint disease, bladder cancer, nephrolithiasis, patient presented to the emergency room on 11/24/2020, mostly with 1 week history of multiple constitutional symptoms including muscle aches, fever, shortness of breath, cough, nausea, and he tested positive on the with contreras virus PCR. Chest x-ray showed evidence of bilateral opacities/infiltrates. Patient had adequate saturations on room air, it was about 94%, he was also noted to be hyperkalemic, and he had lactic acid of 2.7. Received dextrose, insulin, Kayexalate, and the patient was eventually admitted seen by nephrology on consultation, he was placed on the Covid 19 cocktail, and we were asked to see him yesterday because of his worsening shortness of breath. No follow-up chest x-ray done since admission, and I will be ordering one to be done today. Labs today clearly showed relatively normal CBC. Elevated BUN of 40 creatinine is 1.4. D-dimer was normal on admission, and I do not see any inflammatory markers on the chart. After evaluating the patient, we recommended one unit of convalescent plan is to be given. Patient obviously did not qualify for REM. And he is not at the point of requiring actemtra Patient was reevaluated today on 11/29/2020, he is basically about the same. Not much of a change in the last 24 hours. Patient is on 6 L nasal cannula, and his O2 saturation is in the low 90s. Continues to have intermittent cough, shor tness of breath, basic metabolic profile is normal. His LDH is 1466, and C- reactive protein is 24. Patient remains on the Covid 19 cocktail. He received convalescent plasma. He was out of the window for REM. Progress note dated 11/30/2020. 70-year-old male who was admitted with a diagnosis of acute hypoxemic respiratory failure secondary to COVID 19 pneumonia. The patient has a history of multiple medical problems including essential hypertension, type 2 diabetes mellitus, hyperlipidemia, coronary artery disease, previous DE with stent placement, degenerative joint disease, bladder cancer, and kidney stones. He presented to the emergency department on November 24, with one-week worth of muscle aches, fever, shortness breath, cough, nausea, and tested positive for COVID on the . The patient was outside the window for REM, but did receive CP. No new labs today. The patient is currently on 15 L high flow nasal O2. The patient does not feel any better today. Chest x-ray on November 28 showed bilateral patchy airspace disease. Progress note dated 12/01/2020. 70-year-old male was admitted with diagnosis of acute hypoxemic respiratory failure secondary to COVID 19 pneumonia. Currently, the patient is on both a nonrebreather mask, 15 L high flow nasal cannula. Saturations are 95%. The patient isn't receiving any IV fluids. The patient is lying on his left side. Yesterday I told him to move about in bed, right side down, left side down, supine, and even prone if possible. I did order a follow-up chest x-ray. White count 11.4, hemoglobin 0.8, hematocrit 34.2, and platelet count normal. Sodium 133, potassium 5.7, chlorides 101, CO2 25, anion gap 7, BUN 46, creatinine 1.60. LDH is 1882. Chest x-ray shows a pattern of bilateral patchy infiltrates, slightly worse than the prior chest x-ray. Progress note dated 12/08/2020. 70-year-old male, admitted with a diagnosis of acute hypoxemic respiratory failure secondary to COVID 19 pneumonia. Currently, the patient is on AIRVO, with settings of 15 L/m 81%. He's not receiving any IV fluids. He does feel like he is getting better. I saw him last on December 01. Both he and his are in the hospital with the same infection. He is not receiving any IV fluids. His biggest complaint is shortness of breath with any activity. He also has a nonproductive, dry cough, which is painful at times. He denies any fever or chills. He denies any chest pain or chest discomfort. Lab data includes a sodium 123, potassium 4.9, chloride 91, CO2 21, anion gap 11, BUN 63, and creatinine 1.33. Objective - Vital Signs Vital signs: Vital Signs Temp 97.6 F 12/08/20 14:00 Pulse 91 12/08/20 14:00 Resp 24 12/08/20 14:00 BP 131/78 12/08/20 14:00 Pulse Ox 92 L 12/08/20 07:46 Intake & Output 12/07/20 12/08/20 12/08/20 18:59 06:59 18:59 Intake Total 218 180 Output Total 800 250 Balance -582 -250 180 Intake: Oral 218 180 Output: Urine 800 250 Other: Voiding Method Urinal Urinal # Voids 400 - Exam No acute distress, oriented 3. The patient is currently on AIRVO, at 50 L/m with an FiO2 of 81%. Saturations are in the low 90s. There is no conversational dyspnea or use of accessory muscles. HEENT examination is grossly unremarkable. Neck supple. Full range of motion. No adenopathy thyromegaly or neck vein distention. Cardiovascular examination reveals regular rhythm rate. S1-S2 normal. No S3 or S4. No discernible murmur noted. Heart rate 91 bpm. Lungs reveal bilateral and bibasilar rhonchi and crackles. No wheezes. The patient has a hard time taking a deep breath. When he does, he coughs. Abdomen soft bowel sounds are heard. No masses or tenderness. Extremities are intact. No cyanosis clubbing or edema. Skin is without rash or lesion. Neurologic examination is brief but nonfocal. - Labs CBC & Chem 7: 12/06/20 05:39 12/08/20 06:56 Labs: Abnormal Lab Results - Last 24 Hours (Table) 12/07/20 12/07/20 12/08/20 Range/Units 16:56 20:22 06:56 Sodium 125 L (137-145) mmol/L Potassium 5.2 H (3.5-5.1) mmol/L Chloride 94 L (98-107) mmol/L BUN 67 H (9-20) mg/dL Creatinine 1.37 H (0.66-1.25) mg/dL Glucose 112 H (74-99) mg/dL POC Glucose (mg/dL) 226 H 194 H (75-99) mg/dL Magnesium 2.6 H (1.6-2.3) mg/dL 12/08/20 12/08/20 Range/Units 07:04 11:36 Sodium (137-145) mmol/L Potassium (3.5-5.1) mmol/L Chloride (98-107) mmol/L BUN (9-20) mg/dL Creatinine (0.66-1.25) mg/dL Glucose (74-99) mg/dL POC Glucose (mg/dL) 124 H 206 H (75-99) mg/dL Magnesium (1.6-2.3) mg/dL Assessment and Plan Assessment: Acute hypoxemic respiratory failure secondary to COVID 19 pneumonitis/pneumonia, with worsening oxygenation and chest x-ray. Acute on chronic kidney injury, associated with COVID infection. History of bladder cancer Acute kidney injury associated hyperkalemia. Essential hypertension. Type 2 diabetes. History of CAD, with previous myocardial infarction and stent placement. History of hyperlipidemia. History of kidney stones. Hyponatremia. Plan: Plan dated 11/30/2020. Currently, the patient is not feeling much improvement. He is on 15 L high flow oxygen. The patient did receive CP. He was outside the window for REM. He is currently on vitamin C, vitamin D3, and zinc. In addition, he is on Decadron, and Lovenox. Additional recommendations and suggestions are forthcoming. We will continue to follow the patient closely. Patient may eventually be transferred to the intensive care unit. Other options would include BiPAP and/or AIRVO. We will continue to watch this patient carefully, and make recommendations were appropriate. Plan dated 12/01/2020. Currently, the patient's both on 15 L high flow oxygen, and a nonrebreather mask. Saturations are 95%. The patient was outside the window for REM. The patient is currently on vitamin C, vitamin D3, and zinc. He is also on Decadron and Lovenox. We'll have to watch this patient carefully. He may deteriorate further. Chest x-ray shows a worsening pattern of bilateral infiltrates. We will continue to follow the patient closely and make recommendations were appropriate. Prognosis is very guarded. Plan dated 12/08/2020. Currently, he is on AIRVO, 50 L/m, 81%. When I saw him last on December 01, patient was using 15 L high flow nasal O2, as well as a nonrebreather mask. Current saturations are in the low 90s. The patient was outside the window for REM the patient did receive vitamin C, vitamin D3, zinc, as well as Decadron and Lovenox. The patient feels like he is showing some improvement. We'll continue to follow. Prognosis is guarded. Additional recommendations and suggestions are forthcoming. Time with Patient: Less than 30
[2020-12-08 16:20] LABS: ALT 88 U/L (4-49)
[2020-12-08 17:22] LABS: Glucose,Whole Blood 212 mg/dL (75-99)
[2020-12-08] MEDS: ATORVASTATIN 80 MG TAB PO SCH (21:08)
[2020-12-08 21:11] LABS: Glucose,Whole Blood 139 mg/dL (75-99)
[2020-12-09 05:41] LABS: African American GFR (CKD) 61 (>60 ml/min/1.73 sqM); Anion Gap 11 mmol/L; Blood Urea Nitrogen 60 mg/dL (9-20); Calcium 9.2 mg/dL (8.4-10.2); Carbon Dioxide 23 mmol/L (22-30); Chloride 93 mmol/L (98-107); Glucose 110 mg/dL (74-99); Magnesium 2.6 mg/dL (1.6-2.3); Non-African American GFR(CKD) 53 (>60 ml/min/1.73 sqM); Potassium 5.2 mmol/L (3.5-5.1); Sodium 127 mmol/L (137-145)
[2020-12-09] MEDS: LEVOTHYROXINE 100 MCG TAB PO SCH (05:51)
[2020-12-09 07:33] LABS: Glucose,Whole Blood 119 mg/dL (75-99)
[2020-12-09] MEDS: INSULIN DETEMIR (LEVEMIR) 100 UNIT/ML SYR SQ SCH ×2 (07:35→20:57)
[2020-12-09] MEDS: ASPIRIN 81 MG PO SCH (07:35)
[2020-12-09] MEDS: INSULIN ASPART (NovoLOG) 100 UNIT/ML VIAL SQ SCH ×4 (07:35→20:57)
[2020-12-09] MEDS: PANTOPRAZOLE 40 MG TABLET PO SCH (07:35)
[2020-12-09] MEDS: GABAPENTIN 300 MG CAP PO SCH (07:36)
[2020-12-09] MEDS: ZINC SULFATE 220 MG CAP PO SCH (07:36)
[2020-12-09] MEDS: CLOPIDOGREL 75 MG TAB PO SCH (07:36)
[2020-12-09] MEDS: DEXAMETHASONE SOD PHOSPHATE 10 MG/ML 1 ML VIAL IV SCH (07:36)
[2020-12-09] MEDS: METOPROLOL SUCCINATE (ER) 25 MG TAB.ER.24H PO SCH (07:36)
[2020-12-09] MEDS: ASCORBIC ACID 500 MG TAB PO SCH (07:36)
[2020-12-09] MEDS: ENOXAPARIN 40 MG/0.4 ML SYRINGE SQ SCH (07:40)
[2020-12-09] MEDS ORDERED: TOLVAPTAN 15 MG 1/2 TABLET PO ONE (07:58)
[2020-12-09] MEDS: ALBUTEROL HFA INHALER INHALATION SCH ×4 (08:41→19:48)
[2020-12-09 09:20] LABS: Basophils # (A) 0.05 X 10*3/uL (0.00-0.10); Basophils % (A) 0.2 %; Eosinophils # (A) 0.07 X 10*3/uL (0.04-0.35); Eosinophils % (A) 0.2 %; HCT 38.7 % (39.6-50.0); HGB 13.3 g/dL (13.0-17.0); Lymphocytes # (A) 1.16 X 10*3/uL (0.90-5.00); Lymphocytes % (A) 4.1 %; MCH 28.6 pg (27.0-32.0); MCHC 34.4 g/dL (32.0-37.0); MCV 83.2 fL (80.0-97.0); Mean Platelet Volume 9.3 fL (9.5-12.2); Monocytes # (A) 0.56 X 10*3/uL (0.20-1.00); Neutrophils # (A) 25.65 X 10*3/uL (1.80-7.70); Neutrophils % (A) 91.5 %; Platelet Count 630 X 10*3/uL (140-440); RBC 4.65 X 10*6/uL (4.40-5.60); RDW 12.1 % (11.5-14.5); WBC 28.04 X 10*3/uL (4.50-10.00)
--- NOTE | 2020-12-09 11:28 | P.PN ---
Subjective Patient is seen in follow-up for acute kidney injury and hyponatremia. Has been voiding. Oral intake fair. Currently on high flow cannula. Sodium level 127 today. Renal function stable. Blood pressure stable. Vital signs are stable. General: The patient appeared well nourished and normally developed. HEENT: Head exam is unremarkable. Neck is without jugular venous distension. LUNGS: Breath sounds decreased. HEART: Rate and Rhythm are regular. ABDOMEN: Soft, nontender. EXTREMITITES: No edema. Objective - Vital Signs Vital signs: Vital Signs Temp 97.6 F 12/09/20 08:00 Pulse 80 12/09/20 08:00 Resp 24 12/09/20 08:00 BP 113/76 12/09/20 08:00 Pulse Ox 92 L 12/09/20 08:41 Intake & Output 12/08/20 12/09/20 12/09/20 18:59 06:59 18:59 Intake Total 180 200 Output Total 1050 200 Balance -870 0 Intake: Oral 180 200 Output: Urine 1050 200 Other: Voiding Method Urinal # Voids 2 1 - Labs CBC & Chem 7: 12/09/20 04:35 12/09/20 04:35 Labs: Abnormal Lab Results - Last 24 Hours (Table) 12/08/20 12/08/20 12/08/20 Range/Units 11:36 15:36 17:01 WBC (4.50-10.00) X 10*3/uL Hct (39.6-50.0) % Plt Count (140-440) X 10*3/uL MPV (9.5-12.2) fL Immature Gran # (0.00-0.04) X 10*3/uL Neutrophils # (1.80-7.70) X 10*3/uL Sodium 123 L (137-145) mmol/L Potassium (3.5-5.1) mmol/L Chloride 91 L (98-107) mmol/L Carbon Dioxide 21 L (22-30) mmol/L BUN 63 H (9-20) mg/dL Creatinine 1.33 H (0.66-1.25) mg/dL Glucose 243 H (74-99) mg/dL POC Glucose (mg/dL) 206 H 212 H (75-99) mg/dL Magnesium (1.6-2.3) mg/dL ALT 88 H (4-49) U/L Albumin 3.1 L (3.5-5.0) g/dL 12/08/20 12/09/20 12/09/20 Range/Units 21:09 04:35 04:35 WBC 28.04 H (4.50-10.00) X 10*3/uL Hct 38.7 L (39.6-50.0) % Plt Count 630 H (140-440) X 10*3/uL MPV 9.3 L (9.5-12.2) fL Immature Gran # 0.55 H (0.00-0.04) X 10*3/uL Neutrophils # 25.65 H (1.80-7.70) X 10*3/uL Sodium 127 L (137-145) mmol/L Potassium 5.2 H (3.5-5.1) mmol/L Chloride 93 L (98-107) mmol/L Carbon Dioxide (22-30) mmol/L BUN 60 H (9-20) mg/dL Creatinine 1.35 H (0.66-1.25) mg/dL Glucose 110 H (74-99) mg/dL POC Glucose (mg/dL) 139 H (75-99) mg/dL Magnesium 2.6 H (1.6-2.3) mg/dL ALT (4-49) U/L Albumin (3.5-5.0) g/dL 12/09/20 Range/Units 07:32 WBC (4.50-10.00) X 10*3/uL Hct (39.6-50.0) % Plt Count (140-440) X 10*3/uL MPV (9.5-12.2) fL Immature Gran # (0.00-0.04) X 10*3/uL Neutrophils # (1.80-7.70) X 10*3/uL Sodium (137-145) mmol/L Potassium (3.5-5.1) mmol/L Chloride (98-107) mmol/L Carbon Dioxide (22-30) mmol/L BUN (9-20) mg/dL Creatinine (0.66-1.25) mg/dL Glucose (74-99) mg/dL POC Glucose (mg/dL) 119 H (75-99) mg/dL Magnesium (1.6-2.3) mg/dL ALT (4-49) U/L Albumin (3.5-5.0) g/dL Assessment and Plan Plan: Assessment: 1. Acute kidney injury mostly prerenal secondary to covid 19 pneumonia and nonsteroidals. Renal function stable. No hydronephrosis noted on kidney ultrasound. 2. 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 Status post Samsca. Sodium level 127. 3. Covid 19 pneumonia maintained on steroids and zinc. 4. Diabetes mellitus. 5. Chronic kidney disease stage IIIa secondary to diabetic kidney disease. Creatinine 1.3 in February 2020. 6. Metabolic acidosis secondary to acute kidney injury. Better. 7. Cardiomyopathy. Ejection fraction 35-40%. Plan: Encouraged oral intake, especially protein. Maintain fluid restriction. Avoid nephrotoxins. Maintain fluid restriction. Repeat Samsca 15 mg once today. Repeat electrolytes in the morning.
[2020-12-09 12:06] LABS: Glucose,Whole Blood 189 mg/dL (75-99)
--- NOTE | 2020-12-09 13:02 | P.PN ---
Subjective Progress Note Date: 12/09/20 HISTORY OF PRESENT ILLNESS: This is a 70-year-old male who follows in the office with Dr. Almanzar. He is currently admitted to the hospital secondary to Covid. Cardiology is following for an episode of chest pain that was pleuritic in nature. An acute coronary event has been ruled out. Per nursing, the patient has not had any chest pain this morning, overnight, or yesterday. Echocardiogram completed revealed ejection fraction 35-40% with inferior LV wall hypokinesis. Previous echocardiogram completed in August 2020 at the office revealed ejection fraction 50-55% with small hypokinetic areas of the inferolateral and inferior sorensen. Patient is currently on aspirin, Plavix, metoprolol, and Lipitor. Patient was taking lisinopril on an outpatient basis which was placed on hold secondary to hyperkalemia and kidney function. Patient is on Airvo with oxygen saturations greater than 90%. He is afebrile. Heart rate is in the 80s and 90s. Blood pressure 113/76. Patient underwent cardiac catheterization in August 2020 revealing patent stent to the left circumflex with moderate significant disease in the left PLV. Moderate disease in the right coronary artery that is small and nondominant as well as [id number] disease in LAD. PHYSICAL EXAM: Thorough physical exam not completed secondary to limited evaluation/examination due to Covid19 ASSESSMENT: Covid 19 Chest pain, secondary to above, acute coronary syndrome ruled out Acute hypoxic respiratory failure Coronary artery disease with previous PCI Hyperkalemia Acute on chronic kidney disease Hypertension Hyperlipidemia PLAN: Continue current cardiac medications: aspirin, Plavix, metoprolol, and Lipitor YODIT on hold due to hyperkalemia and DARWIN. Resume when appropriate Continue telemetry monitoring Wean oxygen as tolerated Echo reveals decreased EF when compared to previous echo: may be secondary to Covid. Patient to follow up outpatient in the cardiology office after he has recovered from Covid for further workup of cardiomyopathy. We will sign off. Please reconsult if needed. Nurse practitioner note has been reviewed by physician. Signing provider agrees with the documented findings, assessment, and plan of care. Objective - Vital Signs Vital signs: Vital Signs Temp 97.6 F 12/09/20 08:00 Pulse 80 12/09/20 08:00 Resp 24 12/09/20 08:00 BP 113/76 12/09/20 08:00 Pulse Ox 92 L 04/12/21 08:41 Intake & Output 12/08/20 12/09/20 12/09/20 18:59 06:59 18:59 Intake Total 180 200 Output Total 1050 200 Balance -870 0 Intake: Oral 180 200 Output: Urine 1050 200 Other: Voiding Method Urinal # Voids 2 1 - Labs CBC & Chem 7: 12/09/20 04:35 12/09/20 04:35 Labs: Abnormal Lab Results - Last 24 Hours (Table) 12/08/20 12/08/20 12/08/20 Range/Units 11:36 15:36 17:01 WBC (4.50-10.00) X 10*3/uL Hct (39.6-50.0) % Plt Count (140-440) X 10*3/uL MPV (9.5-12.2) fL Immature Gran # (0.00-0.04) X 10*3/uL Neutrophils # (1.80-7.70) X 10*3/uL Sodium 123 L (137-145) mmol/L Potassium (3.5-5.1) mmol/L Chloride 91 L (98-107) mmol/L Carbon Dioxide 21 L (22-30) mmol/L BUN 63 H (9-20) mg/dL Creatinine 1.33 H (0.66-1.25) mg/dL Glucose 243 H (74-99) mg/dL POC Glucose (mg/dL) 206 H 212 H (75-99) mg/dL Magnesium (1.6-2.3) mg/dL ALT 88 H (4-49) U/L Albumin 3.1 L (3.5-5.0) g/dL 12/08/20 12/09/20 12/09/20 Range/Units 21:09 04:35 04:35 WBC 28.04 H (4.50-10.00) X 10*3/uL Hct 38.7 L (39.6-50.0) % Plt Count 630 H (140-440) X 10*3/uL MPV 9.3 L (9.5-12.2) fL Immature Gran # 0.55 H (0.00-0.04) X 10*3/uL Neutrophils # 25.65 H (1.80-7.70) X 10*3/uL Sodium 127 L (137-145) mmol/L Potassium 5.2 H (3.5-5.1) mmol/L Chloride 93 L (98-107) mmol/L Carbon Dioxide (22-30) mmol/L BUN 60 H (9-20) mg/dL Creatinine 1.35 H (0.66-1.25) mg/dL Glucose 110 H (74-99) mg/dL POC Glucose (mg/dL) 139 H (75-99) mg/dL Magnesium 2.6 H (1.6-2.3) mg/dL ALT (4-49) U/L Albumin (3.5-5.0) g/dL 12/09/20 Range/Units 07:32 WBC (4.50-10.00) X 10*3/uL Hct (39.6-50.0) % Plt Count (140-440) X 10*3/uL MPV (9.5-12.2) fL Immature Gran # (0.00-0.04) X 10*3/uL Neutrophils # (1.80-7.70) X 10*3/uL Sodium (137-145) mmol/L Potassium (3.5-5.1) mmol/L Chloride (98-107) mmol/L Carbon Dioxide (22-30) mmol/L BUN (9-20) mg/dL Creatinine (0.66-1.25) mg/dL Glucose (74-99) mg/dL POC Glucose (mg/dL) 119 H (75-99) mg/dL Magnesium (1.6-2.3) mg/dL ALT (4-49) U/L Albumin (3.5-5.0) g/dL
--- NOTE | 2020-12-09 14:34 | P.PN ---
Subjective Progress Note Date: 12/09/20 12/09/2020 this 70-year-old male patient is being seen in follow-up regarding his morbid 19 related pneumonia. The patient remains on high flow oxygen 45 liters of FiO2 of 70%. Current pulse ox is 92%. The patient has been in the hospital for the past 15 days. The most recent blood work from today showing a white cell count of 28 and a hemoglobin of 13.3, the patient has a sodium level of 127, potassium level is at 5.2, the patient has a stable creatinine of 1.3 which is improving in terms of his acute kidney injury, his inflammatory markers were not checked recently. His pro calcitonin level 0.24. His last chest x-ray was from 12/06/2020 and the patient had stable patchy bilateral pulmonary infiltrates, unchanged compared to the films earlier. He remains on treatment with he is on 60 mg IV every 12 hours, he is also on multivitamins, Lovenox 40 mg subcu every 24 hours and the patient has received also a unit of convalescent plasma. The patient is also on Levemir insulin 30 units in the morning 27 units in the evening along with his vascular coverage. The sodium level was at 127 and the patient has shown demonstrated gradual improvement in the sodium level and the patient will be receiving tolvaptan by nephrology. Objective - Vital Signs Vital signs: Vital Signs Temp 97.6 F 12/09/20 08:00 Pulse 80 12/09/20 08:00 Resp 24 12/09/20 08:00 BP 113/76 12/09/20 08:00 Pulse Ox 92 L 12/09/20 13:00 Intake & Output 12/08/20 12/09/20 12/09/20 18:59 06:59 18:59 Intake Total 180 200 Output Total 1050 400 Balance -870 -200 Intake: Oral 180 200 Output: Urine 1050 400 Other: Voiding Method Urinal # Voids 2 1 - Exam No acute distress, oriented 3. The patient is currently on AIRVO, at 45 L/m with an FiO2 of 70%. Saturations are in the low 90s. There is no conversational dyspnea or use of accessory muscles. HEENT examination is grossly unremarkable. Neck supple. Full range of motion. No adenopathy thyromegaly or neck vein distention. Cardiovascular examination reveals regular rhythm rate. S1-S2 normal. No S3 or S4. No discernible murmur noted. Lungs reveal bilateral and bibasilar rhonchi and crackles. No wheezes. The patient has a hard time taking a deep breath. When he does, he coughs. Abdomen soft bowel sounds are heard. No masses or tenderness. Extremities are intact. No cyanosis clubbing or edema. Skin is without rash or lesion. Neurologic examination is brief but nonfocal. - Labs CBC & Chem 7: 12/09/20 04:35 12/09/20 04:35 Labs: Abnormal Lab Results - Last 24 Hours (Table) 12/08/20 12/08/20 12/08/20 Range/Units 15:36 17:01 21:09 WBC (4.50-10.00) X 10*3/uL Hct (39.6-50.0) % Plt Count (140-440) X 10*3/uL MPV (9.5-12.2) fL Immature Gran # (0.00-0.04) X 10*3/uL Neutrophils # (1.80-7.70) X 10*3/uL Sodium 123 L (137-145) mmol/L Potassium (3.5-5.1) mmol/L Chloride 91 L (98-107) mmol/L Carbon Dioxide 21 L (22-30) mmol/L BUN 63 H (9-20) mg/dL Creatinine 1.33 H (0.66-1.25) mg/dL Glucose 243 H (74-99) mg/dL POC Glucose (mg/dL) 212 H 139 H (75-99) mg/dL Magnesium (1.6-2.3) mg/dL ALT 88 H (4-49) U/L Albumin 3.1 L (3.5-5.0) g/dL 12/09/20 12/09/20 12/09/20 Range/Units 04:35 04:35 07:32 WBC 28.04 H (4.50-10.00) X 10*3/uL Hct 38.7 L (39.6-50.0) % Plt Count 630 H (140-440) X 10*3/uL MPV 9.3 L (9.5-12.2) fL Immature Gran # 0.55 H (0.00-0.04) X 10*3/uL Neutrophils # 25.65 H (1.80-7.70) X 10*3/uL Sodium 127 L (137-145) mmol/L Potassium 5.2 H (3.5-5.1) mmol/L Chloride 93 L (98-107) mmol/L Carbon Dioxide (22-30) mmol/L BUN 60 H (9-20) mg/dL Creatinine 1.35 H (0.66-1.25) mg/dL Glucose 110 H (74-99) mg/dL POC Glucose (mg/dL) 119 H (75-99) mg/dL Magnesium 2.6 H (1.6-2.3) mg/dL ALT (4-49) U/L Albumin (3.5-5.0) g/dL 12/09/20 Range/Units 12:04 WBC (4.50-10.00) X 10*3/uL Hct (39.6-50.0) % Plt Count (140-440) X 10*3/uL MPV (9.5-12.2) fL Immature Gran # (0.00-0.04) X 10*3/uL Neutrophils # (1.80-7.70) X 10*3/uL Sodium (137-145) mmol/L Potassium (3.5-5.1) mmol/L Chloride (98-107) mmol/L Carbon Dioxide (22-30) mmol/L BUN (9-20) mg/dL Creatinine (0.66-1.25) mg/dL Glucose (74-99) mg/dL POC Glucose (mg/dL) 189 H (75-99) mg/dL Magnesium (1.6-2.3) mg/dL ALT (4-49) U/L Albumin (3.5-5.0) g/dL Assessment and Plan Plan: 1 Acute hypoxemic respiratory failure secondary to COVID 19 pneumonitis/pneumonia, with worsening oxygenation and chest x-ray. The patient has had some improvement in oxygenation and patient is currently down to 45 L with an FiO2 of 70%. The patient remains on Decadron 6 mg IV every 12 hours. 2 Acute on chronic kidney injury, associated with COVID infection. The acute kidney injury is improving and the creatinine is also improving 3 History of bladder cancer 4 Acute kidney injury associated hyperkalemia. 5 Essential hypertension. 6 Type 2 diabetes. 7 History of CAD, with previous myocardial infarction and stent placement. 8 History of hyperlipidemia. 9 History of kidney stones. 10 Hyponatremia. The sodium level is improving and the patient's sodium level is up 127 Plan: Reduce the Decadron dose to once a day 6 mg IV Wean down the FiO2 to maintain saturation above 90% Monitor blood sugar and the patient is currently on Levemir insulin Continue Lovenox Continue monitoring sodium level in the patient's level is gradually improving and the findings on the case We'll continue to follow
[2020-12-09 17:24] LABS: Glucose,Whole Blood 181 mg/dL (75-99)
--- NOTE | 2020-12-09 17:54 | P.PN ---
Subjective Progress Note Date: 12/09/20 11/27/2020 during the night, patient became more hypoxic, requiring nonrebreather. Significant clinical improvement, maintaining O2 sats in the 90s on 5 L nasal cannula. Minimal nonproductive cough. Creatinine 1.6. 11/28/2020 Required nonrebreather briefly during the night; currently maintained on 5 L nasal cannula, O2 sats of 90-91%. Complains of worsening shortness of breath, especially with minimal exertion, nonproductive cough. Maintained on Covid regimen, including dexamethasone. Blood sugars elevated throughout the night, better controlled this morning. Denies chest pain, palpitations or shortness of breath. Labs pending. 11/29/20 S/P convalescent plasma .Continues on Covid regimen, maintaining O2 sats in the 90s on 6 L nasal cannula. Occasional nonproductive cough. Denies chest pain, palpitations. Evaluated by pulmonary, outside the window for Remdesevir. Creatinine 1.4. 12/02/2020 maintained on high flow cannula with FiO2 of 90% post nonrebreather to maintain O2 sats in the 90s. Chest x-ray reporting progression of interstitial and patchy bilateral airspace infiltrates. Afebrile, T-max 99.5. BUN 60, Creatinine 1.6 sodium 132. 12/03/2020 maintained on Covid 19 cocktail ,continues on 15 L high flow nasal cannula and nonrebreather mask, maintaining O2 sats of 90%. Nonproductive cough. Afebrile. Minimal reserve. 12/04/2020 Received Acterma yesterday. Maintained on 90% airvo and a nonrebreather mask, maintaining O2 sats in the high 80s to low 90s. Staff reports last night he ate better, was more conversant. Reports he feels more comfortable and not as weak. Afebrile. Creatinine 1.8. Hyperglycemic, blood sugars up to 271 at lunch. 12/05/2020 continue a 90% high flow airvo, maintaining O2 sats in the low 90s. Continues to feel better with less fatigue, less shortness of breath. Labs pending. Afebrile. 12/06/2020 no overnight events. Maintaining O2 sat in the low 90s, settings unchanged. Feels better today. Sodium worsening decreased to 123 yesterday, labs pending today. Urine osmolality ordered, received a dose Samsca. Afebrile. Denies chest pain, palpitations. 12/09/2020 continue on Covid cocktail. Continues on high flow oxygen, 45 L/70% FiO2 maintaining O2 sats in the high 80s to low 90s. Nonproductive cough with deep inspiration. Sodium 127, creatinine 1.35, potassium 5.2. Repeating Tolvaptan today as per nephrology. Blood sugars better controlled. Afebrile. Objective - Vital Signs Vital signs: Vital Signs Temp 97.6 F 12/09/20 14:00 Pulse 80 12/09/20 14:00 Resp 22 12/09/20 14:00 BP 113/76 12/09/20 14:00 Pulse Ox 87 L 12/09/20 14:00 Intake & Output 12/08/20 12/09/20 12/09/20 18:59 06:59 18:59 Intake Total 180 200 Output Total 1050 400 Balance -870 -200 Intake: Oral 180 200 Output: Urine 1050 400 Other: Voiding Method Urinal # Voids 2 1 - Exam - Exam General: Sitting up in bed, appears comfortable, NAD.Vitals reviewed Lungs: normal respiratory effort, rhonchi and less bibasilar rales CV: Regular rate and rhythm, no murmur. Peripheral pulses 2+ Abdomen: soft, nondistended, no organomegaly. Positive bowel sounds Skin: warm and dry. - Labs CBC & Chem 7: 12/09/20 04:35 12/09/20 04:35 Labs: Abnormal Lab Results - Last 24 Hours (Table) 12/08/20 12/09/20 12/09/20 Range/Units 21:09 04:35 04:35 WBC 28.04 H (4.50-10.00) X 10*3/uL Hct 38.7 L (39.6-50.0) % Plt Count 630 H (140-440) X 10*3/uL MPV 9.3 L (9.5-12.2) fL Immature Gran # 0.55 H (0.00-0.04) X 10*3/uL Neutrophils # 25.65 H (1.80-7.70) X 10*3/uL Sodium 127 L (137-145) mmol/L Potassium 5.2 H (3.5-5.1) mmol/L Chloride 93 L (98-107) mmol/L BUN 60 H (9-20) mg/dL Creatinine 1.35 H (0.66-1.25) mg/dL Glucose 110 H (74-99) mg/dL POC Glucose (mg/dL) 139 H (75-99) mg/dL Magnesium 2.6 H (1.6-2.3) mg/dL 12/09/20 12/09/20 12/09/20 Range/Units 07:32 12:04 17:23 WBC (4.50-10.00) X 10*3/uL Hct (39.6-50.0) % Plt Count (140-440) X 10*3/uL MPV (9.5-12.2) fL Immature Gran # (0.00-0.04) X 10*3/uL Neutrophils # (1.80-7.70) X 10*3/uL Sodium (137-145) mmol/L Potassium (3.5-5.1) mmol/L Chloride (98-107) mmol/L BUN (9-20) mg/dL Creatinine (0.66-1.25) mg/dL Glucose (74-99) mg/dL POC Glucose (mg/dL) 119 H 189 H 181 H (75-99) mg/dL Magnesium (1.6-2.3) mg/dL Assessment and Plan Assessment: (1) Acute hypoxemic respiratory failure due to COVID-19 pneumonitis, status post convalescent plasma,TOCI, outside the window for Remdesevir, Current Visit: Yes Status: Acute Code(s): U07.1 - COVID-19; J96.01 - ACUTE RESPIRATORY FAILURE WITH HYPOXIA SNOMED Code(s): 078902094 (2) Essential hypertension Current Visit: Yes Status: Acute Code(s): I10 - ESSENTIAL (PRIMARY) HYPERTENSION SNOMED Code(s): 56043353 (3) Type 2 diabetes mellitus Current Visit: Yes Status: Acute Code(s): E11.9 - TYPE 2 DIABETES MELLITUS WITHOUT COMPLICATIONS SNOMED Code(s): 56636880 (4) DARWIN (acute kidney injury), prerenal secondary to #1 Current Visit: Yes Status: Acute Code(s): N17.9 - ACUTE KIDNEY FAILURE, UNSPECIFIED SNOMED Code(s): 27155989 (5) chronic kidney disease stage IIIa secondary to DKA, baseline 1.3 (6) COVID-19 Current Visit: Yes Status: Acute Code(s): U07.1 - COVID-19 SNOMED Code(s): 039121014 (7) Hyperkalemia secondary to acute renal failure, YODIT inhibitor and NSAIDs,resolved Current Visit: Yes Status: Acute Code(s): E87.5 - HYPERKALEMIA SNOMED Code(s): 64095482 (8) hyponatremia, 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 Plan: Continue on current medication regime ,monitoring and symptomatic treatment. COVID regimen. Maintain fluid restriction.Tolvaptan again today. Close monitoring of Accu-Cheks, electrolytes, renal function with repeat labs ordered for a.m. prognosis guarded given multiple complex medical issues. The impression and plan of care has been dictated as directed. : I performed a history and examination of this patient, discussed the same with the dictator. I agree with the dictator's note ,documented as a scribe. Any additional findings or plans will be noted.
[2020-12-09 20:43] LABS: Glucose,Whole Blood 96 mg/dL (75-99)
[2020-12-09] MEDS: ATORVASTATIN 80 MG TAB PO SCH (21:13)
[2020-12-10] MEDS: LEVOTHYROXINE 100 MCG TAB PO SCH (05:30)
[2020-12-10 07:03] LABS: Glucose,Whole Blood 72 mg/dL (75-99)
[2020-12-10] MEDS: ALBUTEROL HFA INHALER INHALATION SCH ×4 (07:14→19:47)
[2020-12-10] MEDS: INSULIN DETEMIR (LEVEMIR) 100 UNIT/ML SYR SQ SCH ×2 (07:39→21:18)
[2020-12-10] MEDS: METOPROLOL SUCCINATE (ER) 25 MG TAB.ER.24H PO SCH (07:39)
[2020-12-10] MEDS: GABAPENTIN 300 MG CAP PO SCH (07:39)
[2020-12-10] MEDS: DEXAMETHASONE SOD PHOSPHATE 10 MG/ML 1 ML VIAL IV SCH (07:40)
[2020-12-10] MEDS: CHOLECALCIFEROL 25 MCG (1000 IU) TABLET PO SCH (07:40)
[2020-12-10] MEDS: ENOXAPARIN 40 MG/0.4 ML SYRINGE SQ SCH ×2 (07:40→21:17)
[2020-12-10] MEDS: CLOPIDOGREL 75 MG TAB PO SCH (07:41)
[2020-12-10] MEDS: PANTOPRAZOLE 40 MG TABLET PO SCH (07:41)
[2020-12-10] MEDS: ASCORBIC ACID 500 MG TAB PO SCH (07:41)
[2020-12-10] MEDS: ASPIRIN 81 MG PO SCH (07:41)
[2020-12-10] MEDS: ZINC SULFATE 220 MG CAP PO SCH (07:41)
--- NOTE | 2020-12-10 08:46 | XR ---
EXAMINATION TYPE: XR chest 1V portable DATE OF EXAM: 12/10/2020 COMPARISON: 12/06/2020 HISTORY: Cough TECHNIQUE: Single frontal view of the chest is obtained. FINDINGS: Diffuse mixed alveolar and interstitial infiltrate stable. No sizable effusion or pneumoth orax. Heart size stable. Osseous structures unchanged. IMPRESSION: Diffuse bilateral infiltrate stable.
[2020-12-10] MEDS: INSULIN ASPART (NovoLOG) 100 UNIT/ML VIAL SQ SCH ×4 (10:34→21:17)
--- NOTE | 2020-12-10 11:42 | P.PN ---
Subjective Patient is seen in follow-up for acute kidney injury and hyponatremia. Has been voiding. Oral intake fair. Currently on high flow cannula. Sodium level 127 as of yesterday. Renal function stable. Blood pressure stable. labs from today pending. No changes overnight. Vital signs are stable. General: The patient appeared well nourished and normally developed. HEENT: On high flow nasal cannula. LUNGS: Breath sounds decreased. HEART: Rate and Rhythm are regular. ABDOMEN: Soft, nontender. EXTREMITITES: No edema. Objective - Vital Signs Vital signs: Vital Signs Temp 97.7 F 12/10/20 08:00 Pulse 92 12/10/20 08:00 Resp 24 12/10/20 08:00 BP 110/79 12/10/20 08:00 Pulse Ox 90 L 12/10/20 11:01 Intake & Output 12/09/20 12/10/20 12/10/20 18:59 06:59 18:59 Intake Total 200 Output Total 600 200 Balance -400 -200 Intake: Oral 200 Output: Urine 600 200 Other: Voiding Method Urinal # Voids 1 - Labs CBC & Chem 7: 12/09/20 04:35 12/09/20 04:35 Labs: Abnormal Lab Results - Last 24 Hours (Table) 12/09/20 12/09/20 12/10/20 Range/Units 12:04 17:23 04:33 D-Dimer 8.70 H (<0.60) mg/L FEU POC Glucose (mg/dL) 189 H 181 H (75-99) mg/dL 12/10/20 Range/Units 07:01 D-Dimer (<0.60) mg/L FEU POC Glucose (mg/dL) 72 L (75-99) mg/dL Assessment and Plan Plan: Assessment: 1. Acute kidney injury mostly prerenal secondary to covid 19 pneumonia and nonsteroidals. Renal function stable. No hydronephrosis noted on kidney ultrasound. 2. 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 Status post [facility]. Sodium level 127 as of yesterday. 3. Covid 19 pneumonia. Currently ca high flow nnula. 4. Diabetes mellitus. 5. Chronic kidney disease stage IIIa secondary to diabetic kidney disease. Creatinine 1.3 in February 2020. 6. Metabolic acidosis secondary to acute kidney injury. Better. 7. Cardiomyopathy. Ejection fraction 35-40%. Plan: Encouraged oral intake, especially protein. Maintain fluid restriction. Avoid nephrotoxins. Maintain fluid restriction. Morning labs pending.
[2020-12-10 11:52] LABS: Glucose,Whole Blood 156 mg/dL (75-99)
--- NOTE | 2020-12-10 14:07 | P.PN ---
Subjective Progress Note Date: 12/10/20 11/27/2020 during the night, patient became more hypoxic, requiring nonrebreather. Significant clinical improvement, maintaining O2 sats in the 90s on 5 L nasal cannula. Minimal nonproductive cough. Creatinine 1.6. 11/28/2020 Required nonrebreather briefly during the night; currently maintained on 5 L nasal cannula, O2 sats of 90-91%. Complains of worsening shortness of breath, especially with minimal exertion, nonproductive cough. Maintained on Covid regimen, including dexamethasone. Blood sugars elevated throughout the night, better controlled this morning. Denies chest pain, palpitations or shortness of breath. Labs pending. 11/29/20 S/P convalescent plasma .Continues on Covid regimen, maintaining O2 sats in the 90s on 6 L nasal cannula. Occasional nonproductive cough. Denies chest pain, palpitations. Evaluated by pulmonary, outside the window for Remdesevir. Creatinine 1.4. 12/02/2020 maintained on high flow cannula with FiO2 of 90% post nonrebreather to maintain O2 sats in the 90s. Chest x-ray reporting progression of interstitial and patchy bilateral airspace infiltrates. Afebrile, T-max 99.5. BUN 60, Creatinine 1.6 sodium 132. 12/03/2020 maintained on Covid 19 cocktail ,continues on 15 L high flow nasal cannula and nonrebreather mask, maintaining O2 sats of 90%. Nonproductive cough. Afebrile. Minimal reserve. 12/04/2020 Received Acterma yesterday. Maintained on 90% airvo and a nonrebreather mask, maintaining O2 sats in the high 80s to low 90s. Staff reports last night he ate better, was more conversant. Reports he feels more comfortable and not as weak. Afebrile. Creatinine 1.8. Hyperglycemic, blood sugars up to 271 at lunch. 12/05/2020 continue a 90% high flow airvo, maintaining O2 sats in the low 90s. Continues to feel better with less fatigue, less shortness of breath. Labs pending. Afebrile. 12/06/2020 no overnight events. Maintaining O2 sat in the low 90s, settings unchanged. Feels better today. Sodium worsening decreased to 123 yesterday, labs pending today. Urine osmolality ordered, received a dose Samsca. Afebrile. Denies chest pain, palpitations. 12/09/2020 continue on Covid cocktail. Continues on high flow oxygen, 45 L/70% FiO2 maintaining O2 sats in the high 80s to low 90s. Nonproductive cough with deep inspiration. Sodium 127, creatinine 1.35, potassium 5.2. Repeating Tolvaptan today as per nephrology. Blood sugars better controlled. Afebrile. 12/10/2020 received tolvaptan yesterday, labs pending. Chest x-ray reporting diffuse bilateral infiltrates stable. No changes overnight, maintaining on high flow nasal cannula maintaining O2 sats in the 90s, mostly low 90s. Denies chest pain, palpitations. Afebrile. Objective - Vital Signs Vital signs: Vital Signs Temp 97.7 F 12/10/20 08:00 Pulse 92 12/10/20 08:00 Resp 24 12/10/20 08:00 BP 110/79 12/10/20 08:00 Pulse Ox 90 L 12/10/20 11:01 Intake & Output 12/09/20 12/10/20 12/10/20 18:59 06:59 18:59 Intake Total 200 Output Total 600 200 Balance -400 -200 Intake: Oral 200 Output: Urine 600 200 Other: Voiding Method Urinal # Voids 1 - Exam - Exam General: Sitting up in bed,appears comfortable, NAD.Vitals reviewed Lungs: normal respiratory effort, rhonchi and less bibasilar rales CV: Regular rate and rhythm, no murmur. Peripheral pulses 2+ Abdomen: soft, nondistended, no organomegaly. Positive bowel sounds Skin: warm and dry. - Labs CBC & Chem 7: 12/09/20 04:35 12/09/20 04:35 Labs: Abnormal Lab Results - Last 24 Hours (Table) 12/09/20 12/10/20 12/10/20 Range/Units 17:23 04:33 07:01 D-Dimer 8.70 H (<0.60) mg/L FEU POC Glucose (mg/dL) 181 H 72 L (75-99) mg/dL 12/10/20 Range/Units 11:43 D-Dimer (<0.60) mg/L FEU POC Glucose (mg/dL) 156 H (75-99) mg/dL Assessment and Plan Assessment: (1) Acute hypoxemic respiratory failure due to COVID-19 pneumonitis, status post convalescent plasma,TOCI, outside the window for Remdesevir, Current Visit: Yes Status: Acute Code(s): U07.1 - COVID-19; J96.01 - ACUTE RESPIRATORY FAILURE WITH HYPOXIA SNOMED Code(s): 513382345 (2) Essential hypertension Current Visit: Yes Status: Acute Code(s): I10 - ESSENTIAL (PRIMARY) HYPERTENSION SNOMED Code(s): 03225516 (3) Type 2 diabetes mellitus Current Visit: Yes Status: Acute Code(s): E11.9 - TYPE 2 DIABETES MELLITUS WITHOUT COMPLICATIONS SNOMED Code(s): 94520641 (4) DARWIN (acute kidney injury), prerenal secondary to #1 Current Visit: Yes Status: Acute Code(s): N17.9 - ACUTE KIDNEY FAILURE, UNSPECIFIED SNOMED Code(s): 08374014 (5) chronic kidney disease stage IIIa secondary to DKA, baseline 1.3 (6) COVID-19 Current Visit: Yes Status: Acute Code(s): U07.1 - COVID-19 SNOMED Code(s): 858759310 (7) Hyperkalemia secondary to acute renal failure, YODIT inhibitor and NSAIDs,resolved Current Visit: Yes Status: Acute Code(s): E87.5 - HYPERKALEMIA SNOMED Code(s): 60876906 (8) hyponatremia, 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 Plan: Continue on current medication regime ,monitoring and symptomatic treatment. Labs pending .COVID regimen. Maintain fluid restriction. prognosis guarded given multiple complex medical issues. The impression and plan of care has been dictated as directed. : I performed a history and examination of this patient, discussed the same with the dictator. I agree with the dictator's note ,documented as a scribe. Any additional findings or plans will be noted.
[2020-12-10 14:22] LABS: African American GFR (CKD) 70.6 (60.0-200.0); BUN/Creat Ratio 53.33 Ratio (12.00-20.00); C Reactive Protein <0.4 mg/dL (0.0-0.8); Calcium 9.4 mg/dL (8.7-10.3); Carbon Dioxide 19.6 mmol/L (21.6-31.8); Chloride 94 mmol/L (96-109); Glucose 49 mg/dL (70-110); Magnesium 2.6 mg/dL (1.5-2.4); Non-African American GFR(CKD) 60.9 (60.0-200.0); Potassium 4.9 mmol/L (3.5-5.5); Sodium 129 mmol/L (135-145)
--- NOTE | 2020-12-10 14:57 | P.PN ---
Subjective Progress Note Date: 12/10/20 Principal diagnosis: COVID pneumonia 12/09/2020 this 70-year-old male patient is being seen in follow-up regarding his morbid 19 related pneumonia. The patient remains on high flow oxygen 45 liters of FiO2 of 70%. Current pulse ox is 92%. The patient has been in the hospital for the past 15 days. The most recent blood work from today showing a white cell count of 28 and a hemoglobin of 13.3, the patient has a sodium level of 127, potassium level is at 5.2, the patient has a stable creatinine of 1.3 which is improving in terms of his acute kidney injury, his inflammatory markers were not checked recently. His pro calcitonin level 0.24. His last chest x-ray was from 12/06/2020 and the patient had stable patchy bilateral pulmonary infiltrates, unchanged compared to the films earlier. He remains on treatment with he is on 60 mg IV every 12 hours, he is also on multivitamins, Lovenox 40 mg subcu every 24 hours and the patient has received also a unit of convalescent plasma. The patient is also on Levemir insulin 30 units in the morning 27 units in the evening along with his vascular coverage. The sodium level was at 127 and the patient has shown demonstrated gradual improvement in the sodium level and the patient will be receiving tolvaptan by nephrology. On 12/10/2020 she is seen in follow-up on medical surgical floor, he is currently on full oxygen device, airflow, 45 L and FiO2 of 70%, his pulse ox is between 90-93%, he is afebrile, hemodynamically stable, feels weak, he is laying in bed, he states he hasn't been up out of bed much, but appears to be in no acute distress, he does short of breath and desaturated with exertion, however he is not in any distress. No nausea vomiting or diarrhea, today's chest x-ray shows diffuse bilateral infiltrates that are stable in appearance. Today's labs have been reviewed, d-dimer is 8.7, sodium is 129, potassium is 4.9, B UN of 64, and creatinine is 1.2, CRP was less than 0.4, LDH is still pending at this time pro calcitonin level from a few days ago was low at 0.24. Vital signs have been stable. No acute events overnight. Objective - Vital Signs Vital signs: Vital Signs Temp 97.4 F L 12/10/20 14:00 Pulse 77 12/10/20 14:00 Resp 16 12/10/20 14:00 BP 114/79 12/10/20 14:00 Pulse Ox 93 L 12/10/20 14:00 Intake & Output 12/09/20 12/10/20 12/10/20 18:59 06:59 18:59 Intake Total 200 Output Total 600 200 Balance -400 -200 Intake: Oral 200 Output: Urine 600 200 Other: Voiding Method Urinal # Voids 1 - Exam GENERAL EXAM: Alert, very pleasant, 70-year-old white male, appears weak, he is currently on Airvo, with a flow of 45 L/m, and FiO2 of 70%, and the pulse ox is between 90-93% comfortable in no apparent distress. HEAD: Normocephalic/atraumatic. EYES: Normal reaction of pupils, equal size. Conjunctiva pink, sclera white. NOSE: Clear with pink turbinates. THROAT: No erythema or exudates. NECK: No masses, no JVD, no thyroid enlargement, no adenopathy. CHEST: No chest wall deformity. Symmetrical expansion. LUNGS: Equal air entry with diffuse crackles CVS: Regular rate and rhythm, normal S1 and S2, no gallops, no murmurs, no rubs ABDOMEN: Soft, nontender. No hepatosplenomegaly, normal bowel sounds, no guarding or rigidity. EXTREMITIES: No clubbing, no edema, no cyanosis, 2+ pulses and upper and lower extremities. MUSCULOSKELETAL: Muscle strength and tone normal. SPINE: No scoliosis or deformity SKIN: No rashes CENTRAL NERVOUS SYSTEM: Alert and oriented -3. No focal deficits, tone is normal in all 4 extremities. PSYCHIATRIC: Alert and oriented -3. Appropriate affect. Intact judgment and insight. - Labs CBC & Chem 7: 12/09/20 04:35 12/10/20 04:33 Labs: Abnormal Lab Results - Last 24 Hours (Table) 12/09/20 12/10/20 12/10/20 Range/Units 17:23 04:33 04:33 D-Dimer 8.70 H (<0.60) mg/L FEU Sodium 129 L (135-145) mmol/L Chloride 94 L (96-109) mmol/L Carbon Dioxide 19.6 L (21.6-31.8) mmol/L Anion Gap 15.40 H (4.00-12.00) mmol/L BUN 64.0 H (9.0-27.0) mg/dL BUN/Creatinine Ratio 53.33 H (12.00-20.00) Ratio Glucose 49 L* (70-110) mg/dL POC Glucose (mg/dL) 181 H (75-99) mg/dL Magnesium 2.6 H (1.5-2.4) mg/dL 12/10/20 12/10/20 Range/Units 07:01 11:43 D-Dimer (<0.60) mg/L FEU Sodium (135-145) mmol/L Chloride (96-109) mmol/L Carbon Dioxide (21.6-31.8) mmol/L Anion Gap (4.00-12.00) mmol/L BUN (9.0-27.0) mg/dL BUN/Creatinine Ratio (12.00-20.00) Ratio Glucose (70-110) mg/dL POC Glucose (mg/dL) 72 L 156 H (75-99) mg/dL Magnesium (1.5-2.4) mg/dL Assessment and Plan Plan: Assessment: 1 Acute hypoxemic respiratory failure secondary to COVID 19 pneumonitis/pneumonia, with worsening oxygenation and chest x-ray. The patient has had some improvement in oxygenation and patient is currently down to 45 L with an FiO2 of 70%. The patient remains on Decadron 6 mg IV every 12 hours. 2 Acute on chronic kidney injury, associated with COVID infection. The acute kidney injury is improving and the creatinine is also improving 3 History of bladder cancer 4 Acute kidney injury associated hyperkalemia. 5 Essential hypertension. 6 Type 2 diabetes. 7 History of CAD, with previous myocardial infarction and stent placement. 8 History of hyperlipidemia. 9 History of kidney stones. 10 Hyponatremia. The sodium level is improving and the patient's sodium level is up 129 Plan: Wean FiO2 to keep O2 sat between 89-90%, no acute events overnight, chest x-ray shows stable bilateral infiltrates. Supportive treatment, continue IV dexamethasone, we will increase Lovenox to twice daily. Follow-up labs tomorrow, follow up inflammatory markers and d-dimer. I performed a history & physical examination of the patient and discussed their management with my nurse practitioner, Hollie Brand. I reviewed the nurse practitioner's note and agree with the documented findings and plan of care. Lung sounds are positive for diminished breath sounds with crackles. The findings and the impression was discussed with the patient. I attest to the documentation by the nurse practitioner. Time with Patient: Less than 30
[2020-12-10 16:20] LABS: LDH 739 U/L (120-246)
[2020-12-10 17:06] LABS: Glucose,Whole Blood 174 mg/dL (75-99)
[2020-12-10 20:53] LABS: Glucose,Whole Blood 186 mg/dL (75-99)
[2020-12-10] MEDS: ATORVASTATIN 80 MG TAB PO SCH (21:17)
[2020-12-11] MEDS: LEVOTHYROXINE 100 MCG TAB PO SCH (06:10)
[2020-12-11 06:56] LABS: African American GFR (CKD) 70 (>60 ml/min/1.73 sqM); Anion Gap 9 mmol/L; Blood Urea Nitrogen 62 mg/dL (9-20); Calcium 8.9 mg/dL (8.4-10.2); Carbon Dioxide 23 mmol/L (22-30); Chloride 94 mmol/L (98-107); Glucose 60 mg/dL (74-99); Magnesium 2.6 mg/dL (1.6-2.3); Non-African American GFR(CKD) 61 (>60 ml/min/1.73 sqM); Potassium 5.2 mmol/L (3.5-5.1); Sodium 126 mmol/L (137-145)
[2020-12-11] MEDS: INSULIN ASPART (NovoLOG) 100 UNIT/ML VIAL SQ SCH ×4 (08:17→21:23)
[2020-12-11 08:20] LABS: Glucose,Whole Blood 85 mg/dL (75-99)
[2020-12-11] MEDS: INSULIN DETEMIR (LEVEMIR) 100 UNIT/ML SYR SQ SCH ×3 (08:21→21:22)
[2020-12-11] MEDS: GABAPENTIN 300 MG CAP PO SCH (08:33)
[2020-12-11] MEDS: DEXAMETHASONE SOD PHOSPHATE 10 MG/ML 1 ML VIAL IV SCH (08:33)
[2020-12-11] MEDS: PANTOPRAZOLE 40 MG TABLET PO SCH (08:33)
[2020-12-11] MEDS: CLOPIDOGREL 75 MG TAB PO SCH (08:34)
[2020-12-11] MEDS: ENOXAPARIN 40 MG/0.4 ML SYRINGE SQ SCH ×2 (08:34→21:23)
[2020-12-11] MEDS: METOPROLOL SUCCINATE (ER) 25 MG TAB.ER.24H PO SCH (08:34)
[2020-12-11] MEDS: CHOLECALCIFEROL 25 MCG (1000 IU) TABLET PO SCH (08:34)
[2020-12-11] MEDS: ASPIRIN 81 MG PO SCH (08:34)
[2020-12-11] MEDS: ZINC SULFATE 220 MG CAP PO SCH (08:34)
[2020-12-11] MEDS: ASCORBIC ACID 500 MG TAB PO SCH (08:34)
[2020-12-11] MEDS: ALBUTEROL HFA INHALER INHALATION SCH ×4 (08:55→21:07)
[2020-12-11] MEDS ORDERED: TOLVAPTAN 15 MG 1/2 TABLET PO ONE (09:00)
--- NOTE | 2020-12-11 11:34 | P.PN ---
Subjective Patient is seen in follow-up for acute kidney injury and hyponatremia. Has been voiding. Oral intake fair. Still requiring high amounts of oxygen. Renal function stable. Blood pressure stable. Sodium level 126 this morning. Vital signs are stable. General: The patient appeared well nourished and normally developed. HEENT: On high flow nasal cannula. LUNGS: Breath sounds decreased. HEART: Rate and Rhythm are regular. ABDOMEN: Soft, nontender. EXTREMITITES: No edema. Objective - Vital Signs Vital signs: Vital Signs Temp 97.8 F 12/11/20 08:00 Pulse 89 12/11/20 08:00 Resp 20 12/11/20 08:00 BP 103/69 12/11/20 08:00 Pulse Ox 91 L 12/11/20 08:00 Intake & Output 12/10/20 12/11/20 12/11/20 18:59 06:59 18:59 Intake Total 360 200 Output Total 150 300 Balance 210 -100 Intake: Oral 360 200 Output: Urine 150 300 Other: Voiding Method Urinal Urinal # Voids 3 1 # Bowel Movements 0 - Labs CBC & Chem 7: 12/09/20 04:35 12/11/20 04:52 Labs: Abnormal Lab Results - Last 24 Hours (Table) 12/10/20 12/10/20 12/10/20 Range/Units 04:33 11:43 17:02 D-Dimer (<0.60) mg/L FEU Sodium 129 L (135-145) mmol/L Potassium (3.5-5.1) mmol/L Chloride 94 L (96-109) mmol/L Carbon Dioxide 19.6 L (21.6-31.8) mmol/L Anion Gap 15.40 H (4.00-12.00) mmol/L BUN 64.0 H (9.0-27.0) mg/dL BUN/Creatinine Ratio 53.33 H (12.00-20.00) Ratio Glucose 49 L* (70-110) mg/dL POC Glucose (mg/dL) 156 H 174 H (75-99) mg/dL Magnesium 2.6 H (1.5-2.4) mg/dL Lactate Dehydrogenase 739 H (120-246) U/L 12/10/20 12/11/20 12/11/20 Range/Units 20:49 04:52 04:52 D-Dimer 6.70 H (<0.60) mg/L FEU Sodium 126 L (135-145) mmol/L Potassium 5.2 H (3.5-5.1) mmol/L Chloride 94 L (96-109) mmol/L Carbon Dioxide (21.6-31.8) mmol/L Anion Gap (4.00-12.00) mmol/L BUN 62 H (9.0-27.0) mg/dL BUN/Creatinine Ratio (12.00-20.00) Ratio Glucose 60 L (70-110) mg/dL POC Glucose (mg/dL) 186 H (75-99) mg/dL Magnesium 2.6 H (1.5-2.4) mg/dL Lactate Dehydrogenase (120-246) U/L Assessment and Plan Plan: Assessment: 1. Acute kidney injury mostly prerenal secondary to covid 19 pneumonia and nonsteroidals. Renal function stable. No hydronephrosis noted on kidney ultrasound. 2. 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 Has been rec eiving samsca this admission. 3. Covid 19 pneumonia. Currently on high flow cannula. 4. Diabetes mellitus. 5. Chronic kidney disease stage IIIa secondary to diabetic kidney disease. Creatinine 1.3 in February 2020. 6. Metabolic acidosis secondary to acute kidney injury. Better. 7. Cardiomyopathy. Ejection fraction 35-40%. Plan: Encouraged oral intake, especially protein. Maintain fluid restriction. Avoid nephrotoxins. Repeat Samsca 15 mg once today. Repeat urine sodium as well as serum and urine osmolality. Check TSH.
[2020-12-11 12:07] LABS: Glucose,Whole Blood 192 mg/dL (75-99)
--- NOTE | 2020-12-11 13:20 | P.PN ---
Subjective Progress Note Date: 12/11/20 Principal diagnosis: COVID-19 pneumonia 12/09/2020 this 70-year-old male patient is being seen in follow-up regarding his morbid 19 related pneumonia. The patient remains on high flow oxygen 45 liters of FiO2 of 70%. Current pulse ox is 92%. The patient has been in the hospital for the past 15 days. The most recent blood work from today showing a white cell count of 28 and a hemoglobin of 13.3, the patient has a sodium level of 127, potassium level is at 5.2, the patient has a stable creatinine of 1.3 which is improving in terms of his acute kidney injury, his inflammatory markers were not checked recently. His pro calcitonin level 0.24. His last chest x-ray was from 12/06/2020 and the patient had stable patchy bilateral pulmonary infiltrates, unchanged compared to the films earlier. He remains on treatment with he is on 60 mg IV every 12 hours, he is also on multivitamins, Lovenox 40 mg subcu every 24 hours and the patient has received also a unit of convalescent plasma. The patient is also on Levemir insulin 30 units in the morning 27 units in the evening along with his vascular coverage. The sodium level was at 127 and the patient has shown demonstrated gradual improvement in the sodium level and the patient will be receiving tolvaptan by nephrology. On 12/10/2020 she is seen in follow-up on medical surgical floor, he is currently on full oxygen device, airflow, 45 L and FiO2 of 70%, his pulse ox is between 90-93%, he is afebrile, hemodynamically stable, feels weak, he is laying in bed, he states he hasn't been up out of bed much, but appears to be in no acute distress, he does short of breath and desaturated with exertion, however he is not in any distress. No nausea vomiting or diarrhea, today's chest x-ray shows diffuse bilateral infiltrates that are stable in appearance. Today's labs have been reviewed, d-dimer is 8.7, sodium is 129, potassium is 4.9, B UN of 64, and creatinine is 1.2, CRP was less than 0.4, LDH is still pending at this time pro calcitonin level from a few days ago was low at 0.24. Vital signs have been stable. No acute events overnight. The patient is seen today 12/11/2020 in follow-up on the regular medical floor. He is currently resting comfortably in bed. He is on the airflow high flow oxygen at 45 L and 60% FiO2 with O2 saturation 91%. However he was working with physical therapy note was only sitting up at the edge of the bed and his O2 sats dropped to 73% and it took 10-15 minutes to recover. He states he is comfortable at rest. D-dimer 6.7. Sodium 126. Potassium 5.2. Creatinine 1 .21. He remains on therapeutic Lovenox, Decadron, vitamin supplements. He was given Samsca today per nephrology. Objective - Vital Signs Vital signs: Vital Signs Temp 97.8 F 12/11/20 08:00 Pulse 89 12/11/20 08:00 Resp 20 12/11/20 08:00 BP 103/69 12/11/20 08:00 Pulse Ox 90 L 12/11/20 12:05 Intake & Output 12/10/20 12/11/20 12/11/20 18:59 06:59 18:59 Intake Total 360 200 Output Total 150 300 Balance 210 -100 Weight 86.183 kg Intake: Oral 360 200 Output: Urine 150 300 Other: Voiding Method Urinal Urinal # Voids 3 1 # Bowel Movements 0 - Exam GENERAL EXAM: Alert, very pleasant, 70-year-old white male, appears weak, he is currently on Airvo, with a flow of 45 L/m, and FiO2 of 90%, currently comfortable in no apparent distress. HEAD: Normocephalic/atraumatic. EYES: Normal reaction of pupils, equal size. Conjunctiva pink, sclera white. NOSE: Clear with pink turbinates. THROAT: No erythema or exudates. NECK: No masses, no JVD, no thyroid enlargement, no adenopathy. CHEST: No chest wall deformity. Symmetrical expansion. LUNGS: Equal air entry with diffuse crackles CVS: Regular rate and rhythm, normal S1 and S2, no gallops, no murmurs, no rubs ABDOMEN: Soft, nontender. No hepatosplenomegaly, normal bowel sounds, no guarding or rigidity. EXTREMITIES: No clubbing, no edema, no cyanosis, 2+ pulses and upper and lower extremities. MUSCULOSKELETAL: Muscle strength and tone normal. SPINE: No scoliosis or deformity SKIN: No rashes CENTRAL NERVOUS SYSTEM: Alert and oriented -3. No focal deficits, tone is normal in all 4 extremities. PSYCHIATRIC: Alert and oriented -3. Appropriate affect. Intact judgment and insight. - Labs CBC & Chem 7: 12/09/20 04:35 12/11/20 04:52 Labs: Abnormal Lab Results - Last 24 Hours (Table) 12/10/20 12/10/20 12/10/20 Range/Units 04:33 17:02 20:49 D-Dimer (<0.60) mg/L FEU Sodium 129 L (135-145) mmol/L Potassium (3.5-5.1) mmol/L Chloride 94 L (96-109) mmol/L Carbon Dioxide 19.6 L (21.6-31.8) mmol/L Anion Gap 15.40 H (4.00-12.00) mmol/L BUN 64.0 H (9.0-27.0) mg/dL BUN/Creatinine Ratio 53.33 H (12.00-20.00) Ratio Glucose 49 L* (70-110) mg/dL POC Glucose (mg/dL) 174 H 186 H (75-99) mg/dL Magnesium 2.6 H (1.5-2.4) mg/dL Lactate Dehydrogenase 739 H (120-246) U/L 12/11/20 12/11/20 12/11/20 Range/Units 04:52 04:52 11:57 D-Dimer 6.70 H (<0.60) mg/L FEU Sodium 126 L (135-145) mmol/L Potassium 5.2 H (3.5-5.1) mmol/L Chloride 94 L (96-109) mmol/L Carbon Dioxide (21.6-31.8) mmol/L Anion Gap (4.00-12.00) mmol/L BUN 62 H (9.0-27.0) mg/dL BUN/Creatinine Ratio (12.00-20.00) Ratio Glucose 60 L (70-110) mg/dL POC Glucose (mg/dL) 192 H (75-99) mg/dL Magnesium 2.6 H (1.5-2.4) mg/dL Lactate Dehydrogenase (120-246) U/L Assessment and Plan Assessment: 1 Acute hypoxemic respiratory failure secondary to COVID 19 pneumonitis/pneumonia, with worsening oxygenation and chest x-ray. The patient has had some improvement in oxygenation and patient is currently down to 45 L with an FiO2 of 60%. The patient remains on Decadron 6 mg IV daily. 2 Acute on chronic kidney injury, associated with COVID infection. The acute kidney injury is improving and the creatinine is also improving 3 History of bladder cancer 4 Acute kidney injury associated hyperkalemia. 5 Essential hypertension. 6 Type 2 diabetes. 7 History of CAD, with previous myocardial infarction and stent placement. 8 History of hyperlipidemia. 9 History of kidney stones. 10 Hyponatremia. The sodium level is improving and the patient's sodium level is up 129 Plan: The patient was seen and evaluated by Dr. Ibrahim Still requiring interval high flow oxygen at 45 L and 60% FiO2. Very minimal activity tolerance We will continue the current treatment plan We'll continue to follow
--- NOTE | 2020-12-11 15:14 | P.PN ---
Subjective Progress Note Date: 12/11/20 11/27/2020 during the night, patient became more hypoxic, requiring nonrebreather. Significant clinical improvement, maintaining O2 sats in the 90s on 5 L nasal cannula. Minimal nonproductive cough. Creatinine 1.6. 11/28/2020 Required nonrebreather briefly during the night; currently maintained on 5 L nasal cannula, O2 sats of 90-91%. Complains of worsening shortness of breath, especially with minimal exertion, nonproductive cough. Maintained on Covid regimen, including dexamethasone. Blood sugars elevated throughout the night, better controlled this morning. Denies chest pain, palpitations or shortness of breath. Labs pending. 11/29/20 S/P convalescent plasma .Continues on Covid regimen, maintaining O2 sats in the 90s on 6 L nasal cannula. Occasional nonproductive cough. Denies chest pain, palpitations. Evaluated by pulmonary, outside the window for Remdesevir. Creatinine 1.4. 12/02/2020 maintained on high flow cannula with FiO2 of 90% post nonrebreather to maintain O2 sats in the 90s. Chest x-ray reporting progression of interstitial and patchy bilateral airspace infiltrates. Afebrile, T-max 99.5. BUN 60, Creatinine 1.6 sodium 132. 12/03/2020 maintained on Covid 19 cocktail ,continues on 15 L high flow nasal cannula and nonrebreather mask, maintaining O2 sats of 90%. Nonproductive cough. Afebrile. Minimal reserve. 12/04/2020 Received Acterma yesterday. Maintained on 90% airvo and a nonrebreather mask, maintaining O2 sats in the high 80s to low 90s. Staff reports last night he ate better, was more conversant. Reports he feels more comfortable and not as weak. Afebrile. Creatinine 1.8. Hyperglycemic, blood sugars up to 271 at lunch. 12/05/2020 continue a 90% high flow airvo, maintaining O2 sats in the low 90s. Continues to feel better with less fatigue, less shortness of breath. Labs pending. Afebrile. 12/06/2020 no overnight events. Maintaining O2 sat in the low 90s, settings unchanged. Feels better today. Sodium worsening decreased to 123 yesterday, labs pending today. Urine osmolality ordered, received a dose Samsca. Afebrile. Denies chest pain, palpitations. 12/09/2020 continue on Covid cocktail. Continues on high flow oxygen, 45 L/70% FiO2 maintaining O2 sats in the high 80s to low 90s. Nonproductive cough with deep inspiration. Sodium 127, creatinine 1.35, potassium 5.2. Repeating Tolvaptan today as per nephrology. Blood sugars better controlled. Afebrile. 12/10/2020 received tolvaptan yesterday, labs pending. Chest x-ray reporting diffuse bilateral infiltrates stable. No changes overnight, maintaining on high flow nasal cannula maintaining O2 sats in the 90s, mostly low 90s. Denies chest pain, palpitations. Afebrile. 12/11/2020 currently on high flow oxygen at 45 L and 60% FiO2 with O2 saturation 91%. Reports less shortness of breath today. Less acessory muscle use noted. Creatinine 1.21. Sodium 126, Afebrile. Objective - Vital Signs Vital signs: Vital Signs Temp 97.4 F L 12/11/20 14:00 Pulse 75 12/11/20 14:00 Resp 16 12/11/20 14:00 BP 119/66 12/11/20 14:00 Pulse Ox 94 L 12/11/20 14:00 Intake & Output 12/10/20 12/11/20 12/11/20 18:59 06:59 18:59 Intake Total 360 400 Output Total 150 300 Balance 210 100 Weight 86.183 kg Intake: Oral 360 400 Output: Urine 150 300 Other: Voiding Method Urinal Urinal # Voids 3 1 # Bowel Movements 0 - Exam - Exam General: Sitting up in bed,appears comfortable, NAD.Vitals reviewed Lungs: normal respiratory effort, rhonchi and less bibasilar rales CV: Regular rate and rhythm, no murmur. Peripheral pulses 2+ Abdomen: soft, nondistended, no organomegaly. Positive bowel sounds Skin: warm and dry. - Labs CBC & Chem 7: 12/09/20 04:35 12/11/20 04:52 Labs: Abnormal Lab Results - Last 24 Hours (Table) 12/10/20 12/10/20 12/10/20 Range/Units 04:33 17:02 20:49 D-Dimer (<0.60) mg/L FEU Sodium (137-145) mmol/L Potassium (3.5-5.1) mmol/L Chloride (98-107) mmol/L BUN (9-20) mg/dL Glucose (74-99) mg/dL POC Glucose (mg/dL) 174 H 186 H (75-99) mg/dL Magnesium (1.6-2.3) mg/dL Lactate Dehydrogenase 739 H (120-246) U/L 12/11/20 12/11/20 12/11/20 Range/Units 04:52 04:52 11:57 D-Dimer 6.70 H (<0.60) mg/L FEU Sodium 126 L (137-145) mmol/L Potassium 5.2 H (3.5-5.1) mmol/L Chloride 94 L (98-107) mmol/L BUN 62 H (9-20) mg/dL Glucose 60 L (74-99) mg/dL POC Glucose (mg/dL) 192 H (75-99) mg/dL Magnesium 2.6 H (1.6-2.3) mg/dL Lactate Dehydrogenase (120-246) U/L Assessment and Plan Assessment: (1) Acute hypoxemic respiratory failure due to COVID-19 pneumonitis, status post convalescent plasma,TOCI, outside the window for Remdesevir, Current Visit: Yes Status: Acute Code(s): U07.1 - COVID-19; J96.01 - ACUTE RESPIRATORY FAILURE WITH HYPOXIA SNOMED Code(s): 343045072 (2) Essential hypertension Current Visit: Yes Status: Acute Code(s): I10 - ESSENTIAL (PRIMARY) HYPERTEN JORGE A SNOMED Code(s): 83124825 (3) Type 2 diabetes mellitus Current Visit: Yes Status: Acute Code(s): E11.9 - TYPE 2 DIABETES MELLITUS WITHOUT COMPLICATIONS SNOMED Code(s): 57407548 (4) DARWIN (acute kidney injury), prerenal secondary to #1 Current Visit: Yes Status: Acute Code(s): N17.9 - ACUTE KIDNEY FAILURE, UNSPECIFIED SNOMED Code(s): 26404597 (5) chronic kidney disease stage IIIa secondary to DKA, baseline 1.3 (6) COVID-19 Current Visit: Yes Status: Acute Code(s): U07.1 - COVID-19 SNOMED Code(s): 534852185 (7) Hyperkalemia secondary to acute renal failure, YODIT inhibitor and NSAIDs,resolved Current Visit: Yes Status: Acute Code(s): E87.5 - HYPERKALEMIA SNOMED Code(s): 35809868 (8) hyponatremia, 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 Plan: Continue on current medication regime ,monitoring and symptomatic treatment. COVID regimen. Maintain fluid restriction, scheduled for another dose of Samsca today. PT/OT. prognosis guarded given multiple complex medical issues. The impression and plan of care has been dictated as directed. : I performed a history and examination of this patient, discussed the same with the dictator. I agree with the dictator's note ,documented as a scribe. Any additional findings or plans will be noted.
[2020-12-11 17:25] LABS: Glucose,Whole Blood 162 mg/dL (75-99)
[2020-12-11 20:44] LABS: Glucose,Whole Blood 111 mg/dL (75-99)
[2020-12-11] MEDS: ATORVASTATIN 80 MG TAB PO SCH (21:23)
[2020-12-12] MEDS: LEVOTHYROXINE 100 MCG TAB PO SCH (05:57)
[2020-12-12] MEDS: ALBUTEROL HFA INHALER INHALATION SCH ×4 (07:05→19:47)
[2020-12-12] MEDS: INSULIN ASPART (NovoLOG) 100 UNIT/ML VIAL SQ SCH ×4 (07:35→21:22)
[2020-12-12 07:41] LABS: Glucose,Whole Blood 79 mg/dL (75-99)
[2020-12-12 07:48] LABS: Glucose,Whole Blood 102 mg/dL (75-99)
[2020-12-12] MEDS: ASCORBIC ACID 500 MG TAB PO SCH (08:02)
[2020-12-12] MEDS: ASPIRIN 81 MG PO SCH (08:02)
[2020-12-12] MEDS: ZINC SULFATE 220 MG CAP PO SCH (08:02)
[2020-12-12] MEDS: ENOXAPARIN 40 MG/0.4 ML SYRINGE SQ SCH ×2 (08:02→21:22)
[2020-12-12] MEDS: DEXAMETHASONE SOD PHOSPHATE 10 MG/ML 1 ML VIAL IV SCH (08:02)
[2020-12-12] MEDS: PANTOPRAZOLE 40 MG TABLET PO SCH (08:02)
[2020-12-12] MEDS: CHOLECALCIFEROL 25 MCG (1000 IU) TABLET PO SCH (08:02)
[2020-12-12] MEDS: METOPROLOL SUCCINATE (ER) 25 MG TAB.ER.24H PO SCH (08:02)
[2020-12-12] MEDS: GABAPENTIN 300 MG CAP PO SCH (08:02)
[2020-12-12] MEDS: CLOPIDOGREL 75 MG TAB PO SCH (08:02)
--- NOTE | 2020-12-12 11:11 | P.PN ---
Subjective Patient is seen in follow-up for acute kidney injury and hyponatremia. Has been voiding. Oral intake fair. Still requiring high amounts of oxygen. Renal function stable. Blood pressure stable. Sodium level 126 as of yesterday. Vital signs are stable. General: The patient appeared well nourished and normally developed. HEENT: On high flow nasal cannula. LUNGS: Breath sounds decreased. HEART: Rate and Rhythm are regular. ABDOMEN: Soft, nontender. EXTREMITITES: No edema. Objective - Vital Signs Vital signs: Vital Signs Temp 97.5 F L 12/12/20 07:53 Pulse 82 12/12/20 08:00 Resp 20 12/12/20 08:00 BP 121/71 12/12/20 07:53 Pulse Ox 96 12/12/20 10:56 Intake & Output 12/11/20 12/12/20 12/12/20 18:59 06:59 18:59 Intake Total 700 200 Output Total 468 320 8787 Balance -100 -300 -920 Weight 86.183 kg Intake: Oral 700 200 Output: Urine 601 514 8363 Other: Voiding Method Urinal Urinal Urinal # Voids 1 1 2 - Labs CBC & Chem 7: 12/09/20 04:35 12/11/20 04:52 Labs: Abnormal Lab Results - Last 24 Hours (Table) 12/11/20 12/11/20 12/11/20 Range/Units 11:57 17:23 20:44 D-Dimer (<0.60) mg/L FEU POC Glucose (mg/dL) 192 H 162 H 111 H (75-99) mg/dL 12/12/20 12/12/20 Range/Units 06:28 07:47 D-Dimer 8.80 H (<0.60) mg/L FEU POC Glucose (mg/dL) 102 H (75-99) mg/dL Assessment and Plan Plan: Assessment: 1. Acute kidney injury mostly prerenal secondary to covid 19 pneumonia and nonsteroidals. Renal function stable. No hydronephrosis noted on kidney ultrasound. 2. 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 Has been re ceiving [facility] this admission. Urine sodium less than 10 and urine osmolality 568. 3. Covid 19 pneumonia. Currently on high flow cannula. 4. Diabetes mellitus. 5. Chronic kidney disease stage IIIa secondary to diabetic kidney disease. Creatinine 1.3 in February 2020. 6. Metabolic acidosis secondary to acute kidney injury. Better. 7. Cardiomyopathy. Ejection fraction 35-40%. Plan: Encouraged oral intake, especially protein. Maintain fluid restriction. Add sodium chloride tablet. Avoid nephrotoxins. Follow-up TSH. AM labs pending.
[2020-12-12 11:53] LABS: Glucose,Whole Blood 167 mg/dL (75-99)
[2020-12-12] MEDS: SODIUM CHLORIDE TAB 1 GM TAB PO SCH ×2 (11:53→21:22)
[2020-12-12 13:15] LABS: African American GFR (CKD) 70.6 (60.0-200.0); BUN/Creat Ratio 48.33 Ratio (12.00-20.00); C Reactive Protein <0.4 mg/dL (0.0-0.8); Calcium 9.1 mg/dL (8.7-10.3); Carbon Dioxide 21.8 mmol/L (21.6-31.8); Chloride 94 mmol/L (96-109); Glucose 92 mg/dL (70-110); LDH 628 U/L (120-246); Magnesium 2.9 mg/dL (1.5-2.4); Non-African American GFR(CKD) 60.9 (60.0-200.0); Potassium 4.7 mmol/L (3.5-5.5); Sodium 127 mmol/L (135-145)
[2020-12-12] MEDS: INSULIN DETEMIR (LEVEMIR) 100 UNIT/ML SYR SQ SCH ×2 (13:23→21:22)
--- NOTE | 2020-12-12 13:32 | P.PN ---
Subjective Progress Note Date: 12/12/20 Principal diagnosis: COVID-19 pneumonia 12/09/2020 this 70-year-old male patient is being seen in follow-up regarding his morbid 19 related pneumonia. The patient remains on high flow oxygen 45 liters of FiO2 of 70%. Current pulse ox is 92%. The patient has been in the hospital for the past 15 days. The most recent blood work from today showing a white cell count of 28 and a hemoglobin of 13.3, the patient has a sodium level of 127, potassium level is at 5.2, the patient has a stable creatinine of 1.3 which is improving in terms of his acute kidney injury, his inflammatory markers were not checked recently. His pro calcitonin level 0.24. His last chest x-ray was from 12/06/2020 and the patient had stable patchy bilateral pulmonary infiltrates, unchanged compared to the films earlier. He remains on treatment with he is on 60 mg IV every 12 hours, he is also on multivitamins, Lovenox 40 mg subcu every 24 hours and the patient has received also a unit of convalescent plasma. The patient is also on Levemir insulin 30 units in the morning 27 units in the evening along with his vascular coverage. The sodium level was at 127 and the patient has shown demonstrated gradual improvement in the sodium level and the patient will be receiving tolvaptan by nephrology. On 12/10/2020 she is seen in follow-up on medical surgical floor, he is currently on full oxygen device, airflow, 45 L and FiO2 of 70%, his pulse ox is between 90-93%, he is afebrile, hemodynamically stable, feels weak, he is laying in bed, he states he hasn't been up out of bed much, but appears to be in no acute distress, he does short of breath and desaturated with exertion, however he is not in any distress. No nausea vomiting or diarrhea, today's chest x-ray shows diffuse bilateral infiltrates that are stable in appearance. Today's labs have been reviewed, d-dimer is 8.7, sodium is 129, potassium is 4.9, B UN of 64, and creatinine is 1.2, CRP was less than 0.4, LDH is still pending at this time pro calcitonin level from a few days ago was low at 0.24. Vital signs have been stable. No acute events overnight. The patient is seen today 12/11/2020 in follow-up on the regular medical floor. He is currently resting comfortably in bed. He is on the airflow high flow oxygen at 45 L and 60% FiO2 with O2 saturation 91%. However he was working with physical therapy note was only sitting up at the edge of the bed and his O2 sats dropped to 73% and it took 10-15 minutes to recover. He states he is comfortable at rest. D-dimer 6.7. Sodium 126. Potassium 5.2. Creatinine 1 .21. He remains on therapeutic Lovenox, Decadron, vitamin supplements. He was given Samsca today per nephrology. The patient is seen today 12/12/2020 in follow-up on the regular medical floor. He is currently laying flat in bed. Awake and alert in no acute distress. He is down to 45 L and 55% FiO2 via the airflow pleasant nonrebreather mask and maintaining O2 saturations in the mid 90s. He did receive convalescent plasma. D-dimer 8.80. He remains on Lovenox 40 mg subcu twice a day along with dexamethasone and vitamin supplements. Sodium 127. Potassium 4.7. Creatinine 1.2. LDH 628. C-reactive protein is less than 0.4. TSH 6.44. Objective - Vital Signs Vital signs: Vital Signs Temp 97.5 F L 12/12/20 07:53 Pulse 82 12/12/20 08:00 Resp 20 12/12/20 08:00 BP 121/71 12/12/20 07:53 Pulse Ox 96 12/12/20 10:56 Intake & Output 12/11/20 12/12/20 12/12/20 18:59 06:59 18:59 Intake Total 700 200 Output Total 232 077 7563 Balance -100 -300 -920 Weight 86.183 kg Intake: Oral 700 200 Output: Urine 917 011 0268 Other: Voiding Method Urinal Urinal Urinal # Voids 1 1 2 - Exam GENERAL EXAM: Alert, very pleasant, 70-year-old white male, appears weak, he is currently on Airvo, flow of 45 L/m, and FiO2 of 55%, and addition to a nonrebreather mask. HEAD: Normocephalic/atraumatic. EYES: Normal reaction of pupils, equal size. Conjunctiva pink, sclera white. NOSE: Clear with pink turbinates. THROAT: No erythema or exudates. NECK: No masses, no JVD, no thyroid enlargement, no adenopathy. CHEST: No chest wall deformity. Symmetrical expansion. LUNGS: Equal air entry with diffuse crackles CVS: Regular rate and rhythm, normal S1 and S2, no gallops, no murmurs, no rubs ABDOMEN: Soft, nontender. No hepatosplenomegaly, normal bowel sounds, no guarding or rigidity. EXTREMITIES: No clubbing, no edema, no cyanosis, 2+ pulses and upper and lower extremities. MUSCULOSKELETAL: Muscle strength and tone normal. SPINE: No scoliosis or deformity SKIN: No rashes CENTRAL NERVOUS SYSTEM: Alert and oriented -3. No focal deficits, tone is normal in all 4 extremities. PSYCHIATRIC: Alert and oriented -3. Appropriate affect. Intact judgment and insight. - Labs CBC & Chem 7: 12/09/20 04:35 12/12/20 06:28 Labs: Abnormal Lab Results - Last 24 Hours (Table) 12/11/20 12/11/20 12/12/20 Range/Units 17:23 20:44 06:28 D-Dimer (<0.60) mg/L FEU Sodium 127 L (135-145) mmol/L Chloride 94 L (96-109) mmol/L BUN 58.0 H (9.0-27.0) mg/dL BUN/Creatinine Ratio 48.33 H (12.00-20.00) Ratio POC Glucose (mg/dL) 162 H 111 H (75-99) mg/dL Magnesium 2.9 H (1.5-2.4) mg/dL Lactate Dehydrogenase 628 H (120-246) U/L TSH 6.440 H (0.350-5.500) uIU/mL 12/12/20 12/12/20 12/12/20 Range/Units 06:28 07:47 11:52 D-Dimer 8.80 H (<0.60) mg/L FEU Sodium (135-145) mmol/L Chloride (96-109) mmol/L BUN (9.0-27.0) mg/dL BUN/Creatinine Ratio (12.00-20.00) Ratio POC Glucose (mg/dL) 102 H 167 H (75-99) mg/dL Magnesium (1.5-2.4) mg/dL Lactate Dehydrogenase (120-246) U/L TSH (0.350-5.500) uIU/mL Assessment and Plan Assessment: 1 Acute hypoxemic respiratory failure secondary to COVID 19 pneu monitis/pneumonia, with worsening oxygenation and chest x-ray. The patient has had some improvement in oxygenation and patient is currently down to 45 L with an FiO2 of 55% along with 100% nonrebreather mask. He received convalescent plasma. 2 Acute on chronic kidney injury, associated with COVID infection. The acute kidney injury is improving and the creatinine is also improving 3 History of bladder cancer 4 Acute kidney injury associated hyperkalemia. 5 Essential hypertension. 6 Type 2 diabetes. 7 History of CAD, with previous myocardial infarction and stent placement. 8 History of hyperlipidemia. 9 History of kidney stones. 10 Hyponatremia. The sodium level is improving and the patient's sodium level is up 129 Plan: The patient was seen and evaluated by Dr. Ibrahim Able to decrease high flow oxygen at 45 L and 55% FiO2. Very minimal activity tolerance We will continue the current treatment plan D-dimer 8.80. Remains on therapeutic Lovenox Inflammatory markers improved C-reactive protein less than 0.4. We'll continue to follow
--- NOTE | 2020-12-12 14:27 | P.PN ---
Subjective Progress Note Date: 12/12/20 11/27/2020 during the night, patient became more hypoxic, requiring nonrebreather. Significant clinical improvement, maintaining O2 sats in the 90s on 5 L nasal cannula. Minimal nonproductive cough. Creatinine 1.6. 11/28/2020 Required nonrebreather briefly during the night; currently maintained on 5 L nasal cannula, O2 sats of 90-91%. Complains of worsening shortness of breath, especially with minimal exertion, nonproductive cough. Maintained on Covid regimen, including dexamethasone. Blood sugars elevated throughout the night, better controlled this morning. Denies chest pain, palpitations or shortness of breath. Labs pending. 11/29/20 S/P convalescent plasma .Continues on Covid regimen, maintaining O2 sats in the 90s on 6 L nasal cannula. Occasional nonproductive cough. Denies chest pain, palpitations. Evaluated by pulmonary, outside the window for Remdesevir. Creatinine 1.4. 12/02/2020 maintained on high flow cannula with FiO2 of 90% post nonrebreather to maintain O2 sats in the 90s. Chest x-ray reporting progression of interstitial and patchy bilateral airspace infiltrates. Afebrile, T-max 99.5. BUN 60, Creatinine 1.6 sodium 132. 12/03/2020 maintained on Covid 19 cocktail ,continues on 15 L high flow nasal cannula and nonrebreather mask, maintaining O2 sats of 90%. Nonproductive cough. Afebrile. Minimal reserve. 12/04/2020 Received Acterma yesterday. Maintained on 90% airvo and a nonrebreather mask, maintaining O2 sats in the high 80s to low 90s. Staff reports last night he ate better, was more conversant. Reports he feels more comfortable and not as weak. Afebrile. Creatinine 1.8. Hyperglycemic, blood sugars up to 271 at lunch. 12/05/2020 continue a 90% high flow airvo, maintaining O2 sats in the low 90s. Continues to feel better with less fatigue, less shortness of breath. Labs pending. Afebrile. 12/06/2020 no overnight events. Maintaining O2 sat in the low 90s, settings unchanged. Feels better today. Sodium worsening decreased to 123 yesterday, labs pending today. Urine osmolality ordered, received a dose Samsca. Afebrile. Denies chest pain, palpitations. 12/09/2020 continue on Covid cocktail. Continues on high flow oxygen, 45 L/70% FiO2 maintaining O2 sats in the high 80s to low 90s. Nonproductive cough with deep inspiration. Sodium 127, creatinine 1.35, potassium 5.2. Repeating Tolvaptan today as per nephrology. Blood sugars better controlled. Afebrile. 12/10/2020 received tolvaptan yesterday, labs pending. Chest x-ray reporting diffuse bilateral infiltrates stable. No changes overnight, maintaining on high flow nasal cannula maintaining O2 sats in the 90s, mostly low 90s. Denies chest pain, palpitations. Afebrile. 12/11/2020 currently on high flow oxygen at 45 L and 60% FiO2 with O2 saturation 91%. Reports less shortness of breath today. Less acessory muscle use noted. Creatinine 1.21. Sodium 126, Afebrile. 12/12/2020 FiO2 is decreased to 45 L and 55% FiO2(nonrebreather over HFNC ) maintaining O2 sats in the mid 80s to low 90s. Maintained on Covid cocktail. He reports he is unable to be off mask very long but is able to take bites of food and juice. Denies chest pain, palpitations. Denies increased shortness of breath. Sodium level 127. Objective - Vital Signs Vital signs: Vital Signs Temp 97.5 F L 12/12/20 07:53 Pulse 82 12/12/20 08:00 Resp 20 12/12/20 08:00 BP 121/71 12/12/20 07:53 Pulse Ox 96 12/12/20 10:56 Intake & Output 12/11/20 12/12/20 12/12/20 18:59 06:59 18:59 Intake Total 700 200 Output Total 152 363 8414 Balance -100 -300 -920 Weight 86.183 kg Intake: Oral 700 200 Output: Urine 763 554 5320 Other: Voiding Method Urinal Urinal Urinal # Voids 1 1 2 - Exam - Exam General: Sitting up in bed,appears comfortable, NAD.Vitals reviewed Lungs: normal respiratory effort, some rhonchi and less bibasilar rales CV: Regular rate and rhythm, no murmur. Peripheral pulses 2+ Abdomen: soft, nondistended, no organomegaly. Positive bowel sounds Skin: warm and dry. - Labs CBC & Chem 7: 12/09/20 04:35 12/12/20 06:28 Labs: Abnormal Lab Results - Last 24 Hours (Table) 12/11/20 12/11/20 12/12/20 Range/Units 17:23 20:44 06:28 D-Dimer (<0.60) mg/L FEU Sodium 127 L (135-145) mmol/L Chloride 94 L (96-109) mmol/L BUN 58.0 H (9.0-27.0) mg/dL BUN/Creatinine Ratio 48.33 H (12.00-20.00) Ratio POC Glucose (mg/dL) 162 H 111 H (75-99) mg/dL Magnesium 2.9 H (1.5-2.4) mg/dL Lactate Dehydrogenase 628 H (120-246) U/L TSH 6.440 H (0.350-5.500) uIU/mL 12/12/20 12/12/20 12/12/20 Range/Units 06:28 07:47 11:52 D-Dimer 8.80 H (<0.60) mg/L FEU Sodium (135-145) mmol/L Chloride (96-109) mmol/L BUN (9.0-27.0) mg/dL BUN/Creatinine Ratio (12.00-20.00) Ratio POC Glucose (mg/dL) 102 H 167 H (75-99) mg/dL Magnesium (1.5-2.4) mg/dL Lactate Dehydrogenase (120-246) U/L TSH (0.350-5.500) uIU/mL Assessment and Plan Assessment: (1) Acute hypoxemic respiratory failure due to COVID-19 pneumonitis, status post convalescent plasma,TOCI, outside the window for Remdesevir, Current Visit: Yes Status: Acute Code(s): U07.1 - COVID-19; J96.01 - ACUTE RESPIRATORY FAILURE WITH HYPOXIA SNOMED Code(s): 092811088 (2) Essential hypertension Current Visit: Yes Status: Acute Code(s): I10 - ESSENTIAL (PRIMARY) HYPERTENSION SNOMED Code(s): 20911071 (3) Type 2 diabetes mellitus Current Visit: Yes Status: Acute Code(s): E11.9 - TYPE 2 DIABETES MELLITUS WITHOUT COMPLICATIONS SNOMED Code(s): 62433704 (4) DARWIN (acute kidney injury), prerenal secondary to #1 Current Visit: Yes Status: Acute Code(s): N17.9 - ACUTE KIDNEY FAILURE, UNSPECIFIED SNOMED Code(s): 14696358 (5) chronic kidney disease stage IIIa secondary to DKA, baseline 1.3 (6) COVID-19 Current Visit: Yes Status: Acute Code(s): U07.1 - COVID-19 SNOMED Code(s): 297533368 (7) Hyperkalemia secondary to acute renal failure, YODIT inhibitor and NSAI Ds,resolved Current Visit: Yes Status: Acute Code(s): E87.5 - HYPERKALEMIA SNOMED Code(s): 87717501 (8) hyponatremia, 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 (9) CAD, cardiomyopathy, EF 35-40% (10) mild pulmonary hypertension Plan: Continue on current medication regime ,monitoring and symptomatic treatment. COVID regimen. Maintain fluid restriction. PT/OT. prognosis gua rded given multiple complex medical issues. The impression and plan of care has been dictated as directed. : I performed a history and examination of this patient, discussed the same with the dictator. I agree with the dictator's note ,documented as a scribe. Any additional findings or plans will be noted.
[2020-12-12 17:02] LABS: Glucose,Whole Blood 156 mg/dL (75-99)
[2020-12-12 20:51] LABS: Glucose,Whole Blood 139 mg/dL (75-99)
[2020-12-12] MEDS: ATORVASTATIN 80 MG TAB PO SCH (21:23)
[2020-12-13] MEDS: LEVOTHYROXINE 100 MCG TAB PO SCH (06:12)
[2020-12-13 07:51] LABS: Glucose,Whole Blood 81 mg/dL (75-99)
[2020-12-13] MEDS: INSULIN ASPART (NovoLOG) 100 UNIT/ML VIAL SQ SCH ×4 (08:19→20:33)
[2020-12-13] MEDS: DEXAMETHASONE SOD PHOSPHATE 10 MG/ML 1 ML VIAL IV SCH (08:47)
[2020-12-13] MEDS: CHOLECALCIFEROL 25 MCG (1000 IU) TABLET PO SCH (08:47)
[2020-12-13] MEDS: PANTOPRAZOLE 40 MG TABLET PO SCH (08:47)
[2020-12-13] MEDS: ASPIRIN 81 MG PO SCH (08:47)
[2020-12-13] MEDS: ZINC SULFATE 220 MG CAP PO SCH (08:47)
[2020-12-13] MEDS: ENOXAPARIN 40 MG/0.4 ML SYRINGE SQ SCH ×2 (08:47→20:33)
[2020-12-13] MEDS: CLOPIDOGREL 75 MG TAB PO SCH (08:47)
[2020-12-13] MEDS: SODIUM CHLORIDE TAB 1 GM TAB PO SCH ×2 (08:47→22:02)
[2020-12-13] MEDS: INSULIN DETEMIR (LEVEMIR) 100 UNIT/ML SYR SQ SCH (08:47)
[2020-12-13] MEDS: ASCORBIC ACID 500 MG TAB PO SCH (08:47)
[2020-12-13] MEDS: METOPROLOL SUCCINATE (ER) 25 MG TAB.ER.24H PO SCH (08:47)
[2020-12-13] MEDS: GABAPENTIN 300 MG CAP PO SCH (08:48)
[2020-12-13] MEDS: ALBUTEROL HFA INHALER INHALATION SCH ×4 (09:46→19:53)
[2020-12-13 10:25] LABS: Anion Gap 11.8 mmol/L (4.00-12.00); Calcium 8.8 mg/dL (8.7-10.3); Carbon Dioxide 21.2 mmol/L (21.6-31.8); Magnesium 2.1 mg/dL (1.5-2.4); Non-African American GFR(CKD) 75.9 (60.0-200.0); Potassium 4.6 mmol/L (3.5-5.5)
[2020-12-13] MEDS ORDERED: D5-0.45% NACL WITH KCL 20MEQ/L 1,000 ML IV SCH (11:45)
--- NOTE | 2020-12-13 11:46 | P.PN ---
Subjective Patient is seen in follow-up for acute kidney injury and hyponatremia. Has been voiding. Oral intake fair. Still requiring high amounts of oxygen. Renal function better. Creatinine 1.0 today. Blood pressure stable. Sodium level 127. Vital signs are stable. General: The patient appeared well nourished and normally developed. HEENT: On high flow nasal cannula. LUNGS: Breath sounds decreased. HEART: Rate and Rhythm are regular. ABDOMEN: Soft, nontender. EXTREMITITES: No edema. Objective - Vital Signs Vital signs: Vital Signs Temp 97.8 F 12/13/20 09:14 Pulse 93 12/13/20 09:14 Resp 22 12/13/20 09:14 BP 103/68 12/13/20 09:14 Pulse Ox 94 L 12/13/20 09:47 Intake & Output 12/12/20 12/13/20 12/13/20 18:59 06:59 18:59 Intake Total 320 200 Output Total 1123 302 Balance -803 -302 200 Intake: Oral 320 200 Output: Urine 1123 302 Other: Voiding Method Urinal Urinal # Voids 600 - Labs CBC & Chem 7: 12/09/20 04:35 12/13/20 04:56 Labs: Abnormal Lab Results - Last 24 Hours (Table) 12/12/20 12/12/20 12/12/20 Range/Units 06:28 11:52 16:57 Sodium 127 L (135-145) mmol/L Chloride 94 L (96-109) mmol/L Carbon Dioxide (21.6-31.8) mmol/L BUN 58.0 H (9.0-27.0) mg/dL BUN/Creatinine Ratio 48.33 H (12.00-20.00) Ratio Glucose (70-110) mg/dL POC Glucose (mg/dL) 167 H 156 H (75-99) mg/dL Magnesium 2.9 H (1.5-2.4) mg/dL Lactate Dehydrogenase 628 H (120-246) U/L TSH 6.440 H (0.350-5.500) uIU/mL 12/12/20 12/13/20 Range/Units 20:49 04:56 Sodium 127 L (135-145) mmol/L Chloride 94 L (96-109) mmol/L Carbon Dioxide 21.2 L (21.6-31.8) mmol/L BUN 48.0 H (9.0-27.0) mg/dL BUN/Creatinine Ratio 48.00 H (12.00-20.00) Ratio Glucose 45 L* (70-110) mg/dL POC Glucose (mg/dL) 139 H (75-99) mg/dL Magnesium (1.5-2.4) mg/dL Lactate Dehydrogenase (120-246) U/L TSH (0.350-5.500) uIU/mL Assessment and Plan Plan: Assessment: 1. Acute kidney injury mostly prerenal secondary to covid 19 pneumonia and nonsteroidals. Renal function improved. Creatinine 1.0 today. No hydronephrosis noted on kidney ultrasound. 2. 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 Has been receiving samsca this admission. Urine sodium less than 10 and urine osmolality 568. TSH normal. Sodium chloride tablets were added December 12. 3. Covid 19 pneumonia. Currently on high flow cannula. 4. Diabetes mellitus. 5. Chronic kidney disease stage IIIa secondary to diabetic kidney disease. Creatinine 1.3 in February 2020. 6. Metabolic acidosis secondary to acute kidney injury. Stable. 7. Cardiomyopathy. Ejection fraction 35-40%. Plan: Encouraged oral intake, especially protein. Maintain fluid restriction. Maintain sodium chloride tablets. Avoid nephrotoxins. Repeat electrolytes in the morning. If no improvement in sodium level, will repeat Samsca.
[2020-12-13 11:53] LABS: Glucose,Whole Blood 80 mg/dL (75-99)
--- NOTE | 2020-12-13 12:34 | P.PN ---
Subjective Progress Note Date: 12/13/20 12/13/2020, the patient became more short of breath and the patient was moved into the telemetry unit. Currently is on 60 L high flow along with an FiO2 of 80%. His current pulse ox is in the order of 95%. He is afebrile. Blood work from today is showing hyponatremia. The patient has no repeat inflammatory markers. Sodium level is at 127. BUN is 48 with a creatinine of 1.0. His inflammatory markers were essentially going down. His last chest x-ray that was done was on 12/10/2020 and it showed bilateral interstitial pulmonary infiltrates, consistent with covert. A follow-up CT angiogram will be needed to explain the acute worsening of the patient's condition. D-dimer is at 8.8 and the patient has been on anticoagulants receiving Lovenox 40 mg subcu every 12 hours. He is also on Levemir insulin 30 units daily +27 units at bedtime and a sliding scale coverage. Objective - Vital Signs Vital signs: Vital Signs Temp 97.4 F L 12/13/20 11:56 Pulse 83 12/13/20 11:56 Resp 24 12/13/20 11:56 BP 110/67 12/13/20 11:56 Pulse Ox 95 12/13/20 11:56 Intake & Output 12/12/20 12/13/20 12/13/20 18:59 06:59 18:59 Intake Total 320 200 Output Total 1123 302 Balance -803 -302 200 Intake: Oral 320 200 Output: Urine 1123 302 Other: Voiding Method Urinal Urinal # Voids 600 - Exam No acute distress, oriented 3. The patient is currently on AIRVO, at 60 L/m with an FiO2 of 80%. Saturations are in the low 90s. There is no conversational dyspnea or use of accessory muscles. HEENT examination is grossly unremarkable. Neck supple. Full range of motion. No adenopathy thyromegaly or neck vein distention. Cardiovascular examination reveals regular rhythm rate. S1-S2 normal. No S3 or S4. No discernible murmur noted. Lungs reveal bilateral and bibasilar rhonchi and crackles. No wheezes. The patient has a hard time taking a deep breath. When he does, he coughs. Abdomen soft bowel sounds are heard. No masses or tenderness. Extremities are intact. No cyanosis clubbing or edema. Skin is without rash or lesion. Neurologic examination is brief but nonfocal. - Labs CBC & Chem 7: 12/09/20 04:35 12/13/20 04:56 Labs: Abnormal Lab Results - Last 24 Hours (Table) 12/12/20 12/12/20 12/12/20 Range/Units 06:28 16:57 20:49 Sodium 127 L (135-145) mmol/L Chloride 94 L (96-109) mmol/L Carbon Dioxide (21.6-31.8) mmol/L BUN 58.0 H (9.0-27.0) mg/dL BUN/Creatinine Ratio 48.33 H (12.00-20.00) Ratio Glucose (70-110) mg/dL POC Glucose (mg/dL) 156 H 139 H (75-99) mg/dL Magnesium 2.9 H (1.5-2.4) mg/dL Lactate Dehydrogenase 628 H (120-246) U/L 12/13/20 Range/Units 04:56 Sodium 127 L (135-145) mmol/L Chloride 94 L (96-109) mmol/L Carbon Dioxide 21.2 L (21.6-31.8) mmol/L BUN 48.0 H (9.0-27.0) mg/dL BUN/Creatinine Ratio 48.00 H (12.00-20.00) Ratio Glucose 45 L* (70-110) mg/dL POC Glucose (mg/dL) (75-99) mg/dL Magnesium (1.5-2.4) mg/dL Lactate Dehydrogenase (120-246) U/L Assessment and Plan Plan: 1 Acute hypoxemic respiratory failure secondary to COVID 19 pneumo nitis/pneumonia, with worsening oxygenation and chest x-ray. The patient had some improvement in oxygenation and patient is currently down to 45 L with an FiO2 of 60%. The patient remains on Decadron 6 mg IV every 12 hours. Frequently, the patient becomes acutely short of breath and the patient was transferred to telemetry and currently is on 60 L with an FiO2 of 80%. We'll proceed with a CT angiogram to evaluate his COVID-19 pneumonia and rule out the possibility of pulmonary embolism. Note that he was taken Lovenox 40 subcu every 12 hours for an elevated d-dimer. 2 Acute on chronic kidney injury, Renal function normalized 3 History of bladder cancer 4 Acute kidney injury associated hyperkalemia. 5 Essential hypertension. 6 Type 2 diabetes. 7 History of CAD, with previous myocardial infarction and stent placement. 8 History of hyperlipidemia. 9 History of kidney stones. 10 Hyponatremia. The sodium level is improving and the patient's sodium level is up 127 Plan: Reduce the Decadron dose to once a day 6 mg IV Lovenox 40 mg subcu every 12 hours Obtain a CTA of the chest Monitor electrolytes Wean down the FiO2 as tolerated to maintain saturation above 90% We'll continue to follow.
[2020-12-13] MEDS ORDERED: SODIUM CHLORIDE 0.9% 1,000 ML IV SCH (12:45)
[2020-12-13 12:58] LABS: HCT 38.6 % (39.0-53.0); HGB 13.4 gm/dL (13.0-17.5); MCH 29.7 pg (25.0-35.0); MCHC 34.8 g/dL (31.0-37.0); MCV 85.3 fL (80.0-100.0); Mean Platelet Volume 6.6; Platelet Count 537 k/uL (150-450); RBC 4.53 m/uL (4.30-5.90); RDW 12.5 % (11.5-15.5); WBC 33.7 k/uL (3.8-10.6)
[2020-12-13] MEDS ORDERED: DEXTROSE 5%-0.9% NACL 1,000 ML IV SCH (13:00)
--- NOTE | 2020-12-13 14:02 | CT ---
CT CHEST FOR PULMONARY EMBOLISM. EXAMINATION TYPE: CT chest angio for PE DATE OF EXAM: 12/13/2020 INDICATION: SOB, Covid, PE CT DLP: 330.1 mGycm, Automated exposure control for dose reduction was used. CONTRAST: Patient injected with 100 mL of Isovue 370. COMPARISON: None TECHNIQUE: CT of the chest is performed on a spiral scan at 2 mm thick sections. Study is performed with intravenous contrast timed for evaluation for pulmonary embolism. This will limit additional po rtions of the evaluation. 3-D MIP images reconstructed by the technologist are reviewed on the compu ter in the coronal and sagittal planes. FINDINGS: No persistent filling defects are evident to suggest an acute pulmonary embolism. No mediastinal or hilar adenopathy enlarged by CT criteria is evident. The ascending aorta diameter at the level of the main pulmonary artery is 3.6 cm. The main pulmonary artery diameter at the bifur cation is 3.4 cm. Patchy infiltrates are present bilaterally. Correlate for atypical pneumonia. Some emphysematous urena ges are present. Limited CT section through the upper abdomen are unremarkable. IMPRESSIONS: 1. Clinical correlation recommended for atypical pneumonia. 2. Emphysema. 3. No acute pulmonary embolism.
--- NOTE | 2020-12-13 15:43 | P.PN ---
Subjective Progress Note Date: 12/13/20 11/27/2020 during the night, patient became more hypoxic, requiring nonrebreather. Significant clinical improvement, maintaining O2 sats in the 90s on 5 L nasal cannula. Minimal nonproductive cough. Creatinine 1.6. 11/28/2020 Required nonrebreather briefly during the night; currently maintained on 5 L nasal cannula, O2 sats of 90-91%. Complains of worsening shortness of breath, especially with minimal exertion, nonproductive cough. Maintained on Covid regimen, including dexamethasone. Blood sugars elevated throughout the night, better controlled this morning. Denies chest pain, palpitations or shortness of breath. Labs pending. 11/29/20 S/P convalescent plasma .Continues on Covid regimen, maintaining O2 sats in the 90s on 6 L nasal cannula. Occasional nonproductive cough. Denies chest pain, palpitations. Evaluated by pulmonary, outside the window for Remdesevir. Creatinine 1.4. 12/02/2020 maintained on high flow cannula with FiO2 of 90% post nonrebreather to maintain O2 sats in the 90s. Chest x-ray reporting progression of interstitial and patchy bilateral airspace infiltrates. Afebrile, T-max 99.5. BUN 60, Creatinine 1.6 sodium 132. 12/03/2020 maintained on Covid 19 cocktail ,continues on 15 L high flow nasal cannula and nonrebreather mask, maintaining O2 sats of 90%. Nonproductive cough. Afebrile. Minimal reserve. 12/04/2020 Received Acterma yesterday. Maintained on 90% airvo and a nonrebreather mask, maintaining O2 sats in the high 80s to low 90s. Staff reports last night he ate better, was more conversant. Reports he feels more comfortable and not as weak. Afebrile. Creatinine 1.8. Hyperglycemic, blood sugars up to 271 at lunch. 12/05/2020 continue a 90% high flow airvo, maintaining O2 sats in the low 90s. Continues to feel better with less fatigue, less shortness of breath. Labs pending. Afebrile. 12/06/2020 no overnight events. Maintaining O2 sat in the low 90s, settings unchanged. Feels better today. Sodium worsening decreased to 123 yesterday, labs pending today. Urine osmolality ordered, received a dose Samsca. Afebrile. Denies chest pain, palpitations. 12/09/2020 continue on Covid cocktail. Continues on high flow oxygen, 45 L/70% FiO2 maintaining O2 sats in the high 80s to low 90s. Nonproductive cough with deep inspiration. Sodium 127, creatinine 1.35, potassium 5.2. Repeating Tolvaptan today as per nephrology. Blood sugars better controlled. Afebrile. 12/10/2020 received tolvaptan yesterday, labs pending. Chest x-ray reporting diffuse bilateral infiltrates stable. No changes overnight, maintaining on high flow nasal cannula maintaining O2 sats in the 90s, mostly low 90s. Denies chest pain, palpitations. Afebrile. 12/11/2020 currently on high flow oxygen at 45 L and 60% FiO2 with O2 saturation 91%. Reports less shortness of breath today. Less acessory muscle use noted. Creatinine 1.21. Sodium 126, Afebrile. 12/12/2020 FiO2 is decreased to 45 L and 55% FiO2(nonrebreather over HFNC ) maintaining O2 sats in the mid 80s to low 90s. Maintained on Covid cocktail. He reports he is unable to be off mask very long but is able to take bites of food and juice. Denies chest pain, palpitations. Denies increased shortness of breath. Sodium level 127. 12/13/2020 worsening respiratory status, increased shortness of breath on 45 L/60% FiO2 high flow nasal cannula. Desatted to the mid 80s with increased respiratory rate up into the low 20s. Increased to 60 L high flow nasal cannula, FiO2 80%. O2 sats up to 92%. Exertional shortness of breath. CTA ordered. Poor oral intake, hypoglycemic. Afebrile. Sodium remains at 127, renal function improving , creatinine 1. Objective - Vital Signs Vital signs: Vital Signs Temp 97.4 F L 12/13/20 11:56 Pulse 83 12/13/20 11:56 Resp 24 12/13/20 11:56 BP 110/67 12/13/20 11:56 Pulse Ox 92 L 12/13/20 12:42 Intake & Output 12/12/20 12/13/20 12/13/20 18:59 06:59 18:59 Intake Total 320 200 Output Total 1123 302 Balance -803 -302 200 Intake: Oral 320 200 Output: Urine 1123 302 Other: Voiding Method Urinal Urinal # Voids 600 - Exam - Exam General: Sitting up in bed, short of breath with conversation ,Vitals reviewed Lungs: Increased respiratory effort, rhonchi and bibasilar rales CV: Regular rate and rhythm, no murmur. Peripheral pulses 2+ Abdomen: soft, nondistended, no organomegaly. Positive bowel sounds Skin: warm and dry. - Labs CBC & Chem 7: 12/13/20 12:42 12/13/20 04:56 Labs: Abnormal Lab Results - Last 24 Hours (Table) 12/12/20 12/12/20 12/13/20 Range/Units 16:57 20:49 04:56 WBC (3.8-10.6) k/uL Hct (39.0-53.0) % Plt Count (150-450) k/uL Sodium 127 L (135-145) mmol/L Chloride 94 L (96-109) mmol/L Carbon Dioxide 21.2 L (21.6-31.8) mmol/L BUN 48.0 H (9.0-27.0) mg/dL BUN/Creatinine Ratio 48.00 H (12.00-20.00) Ratio Glucose 45 L* (70-110) mg/dL POC Glucose (mg/dL) 156 H 139 H (75-99) mg/dL 12/13/20 Range/Units 12:42 WBC 33.7 H (3.8-10.6) k/uL Hct 38.6 L (39.0-53.0) % Plt Count 537 H (150-450) k/uL Sodium (135-145) mmol/L Chloride (96-109) mmol/L Carbon Dioxide (21.6-31.8) mmol/L BUN (9.0-27.0) mg/dL BUN/Creatinine Ratio (12.00-20.00) Ratio Glucose (70-110) mg/dL POC Glucose (mg/dL) (75-99) mg/dL Assessment and Plan Assessment: (1) Acute hypoxemic respiratory failure due to COVID-19 pneumonitis, status post convalescent plasma,TOCI, outside the window for Remdesevir, Current Visit: Yes Status: Acute Code(s): U07.1 - COVID-19; J96.01 - ACUTE RESPIRATORY FAILURE WITH HYPOXIA SNOMED Code(s): 341410279 (2) Essential hypertension Current Visit: Yes Status: Acute Code(s): I10 - ESSENTIAL (PRIMARY) HYPERTENSION SNOMED Code(s): 77220237 (3) Type 2 diabetes mellitus Current Visit: Yes Status: Acute Code(s): E11.9 - TYPE 2 DIABETES MELLITUS WITHOUT COMPLICATIONS SNOMED Code(s): 68231137 (4) DARWIN (acute kidney injury), prerenal secondary to #1 Current Visit: Yes Status: Acute Code(s): N17.9 - ACUTE KIDNEY FAILURE, UNSPECIFIED SNOMED Code(s): 29878213 (5) chronic kidney disease stage IIIa secondary to DKA, baseline 1.3 (6) COVID-19 Current Visit: Yes Status: Acute Code(s): U07.1 - COVID-19 SNOMED Code(s): 801814366 (7) Hyperkalemia secondary to acute renal failure, YODIT inhibitor and NSAIDs,resolved Current Visit: Yes Status: Acute Code(s): E87.5 - HYPERKALEMIA SNOMED Code(s): 59239769 (8) hyponatremia, 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 (9) CAD, cardiomyopathy, EF 35-40% (10) mild pulmonary hypertension Plan: Continue on current medication regime ,monitoring and symptomatic treatment. Hypoglycemic, Levemir discontinued, placed on D5.9 IV fluids .close monitoring of Accu-Cheks.CTA ordered .COVID regimen. Maintain fluid restriction. PT/OT. prognosis guarded given multiple complex medical issues. The impression and plan of care has been dictated as directed. : I performed a history and examination of this patient, discussed the same with the dictator. I agree with the dictator's note ,documented as a scribe. Any additional findings or plans will be noted.
[2020-12-13 16:43] LABS: Glucose,Whole Blood 250 mg/dL (75-99)
[2020-12-13 20:16] LABS: Glucose,Whole Blood 243 mg/dL (75-99)
[2020-12-13] MEDS: ATORVASTATIN 80 MG TAB PO SCH (20:33)
[2020-12-13] MEDS: SODIUM CHLORIDE 0.9% 1,000 ML IV SCH (22:02)
[2020-12-14 06:11] LABS: Glucose,Whole Blood 71 mg/dL (75-99)
[2020-12-14] MEDS: LEVOTHYROXINE 100 MCG TAB PO SCH (06:16)
[2020-12-14] MEDS: PANTOPRAZOLE 40 MG TABLET PO SCH (06:16)
[2020-12-14] MEDS: ACETAMINOPHEN TAB 325 MG TAB PO PRN (06:16)
[2020-12-14] MEDS: INSULIN ASPART (NovoLOG) 100 UNIT/ML VIAL SQ SCH ×4 (06:17→20:40)
--- NOTE | 2020-12-14 07:51 | XR ---
EXAMINATION TYPE: XR chest 1V portable DATE OF EXAM: 12/14/2020 CLINICAL HISTORY: Difficulty breathing and covid progress study. TECHNIQUE: Single AP portable upright view of the chest is obtained. COMPARISON: Chest x-ray from 4 days earlier and older studies FINDINGS: Persistent bilateral multifocal and confluent opacities and somewhat low lung volumes. Car diac silhouette size stable and within normal limits. Osseous structures are intact. IMPRESSION: Bilateral multifocal focal and confluent opacities consistent with covid-19 infection, no significant change from most recent x-ray.
[2020-12-14] MEDS: ALBUTEROL HFA INHALER INHALATION SCH ×4 (08:30→19:46)
[2020-12-14] MEDS: CLOPIDOGREL 75 MG TAB PO SCH (08:40)
[2020-12-14] MEDS: METOPROLOL SUCCINATE (ER) 25 MG TAB.ER.24H PO SCH (08:40)
[2020-12-14] MEDS: ASCORBIC ACID 500 MG TAB PO SCH (08:40)
[2020-12-14] MEDS: ASPIRIN 81 MG PO SCH (08:40)
[2020-12-14] MEDS: CHOLECALCIFEROL 25 MCG (1000 IU) TABLET PO SCH (08:40)
[2020-12-14] MEDS: DEXAMETHASONE SOD PHOSPHATE 10 MG/ML 1 ML VIAL IV SCH (08:40)
[2020-12-14] MEDS: SODIUM CHLORIDE TAB 1 GM TAB PO SCH ×2 (08:40→20:39)
[2020-12-14] MEDS: GABAPENTIN 300 MG CAP PO SCH (08:40)
[2020-12-14] MEDS: ZINC SULFATE 220 MG CAP PO SCH (08:40)
[2020-12-14] MEDS: ENOXAPARIN 40 MG/0.4 ML SYRINGE SQ SCH ×2 (08:41→20:40)
[2020-12-14] MEDS: SODIUM CHLORIDE 0.9% 1,000 ML IV SCH (09:57)
[2020-12-14 11:06] LABS: C Reactive Protein 0.7 mg/dL (<1.0); Calcium 8.2 mg/dL (8.4-10.2); Magnesium 2.1 mg/dL (1.6-2.3); Potassium 4.8 mmol/L (3.5-5.1)
[2020-12-14 11:35] LABS: Glucose,Whole Blood 186 mg/dL (75-99)
--- NOTE | 2020-12-14 11:59 | P.PN ---
Subjective Progress Note Date: 12/14/20 12/14/2020 the patient has been weaned down to 75% FiO2 with a flow of 60 L. His current pulse ox is around 92%. Doing well. His blood work today showing a sodium level of 123 which is slightly lower compared to yesterday. His creatinine is at 1.2 with a BUN of 39. D-dimer is at 3.6. LDH is high at 1246 and the CRP is at 0.7. He is still on Decadron 6 mg IV every 24 hours. He is also on Lovenox 40 mg subcu every 12 hours. He is on IV fluids with normal saline at the rate of 75 mL an hour. This was started yesterday. He is also on salt tablets. A CT angiogram of the chest was done due to his worsening in clinical condition and the CTA showed emphysema and the background in addition to patchy infiltrates present bilaterally. This is related to the COVID-19 related pneumonia. There is no evidence of any underlying pulmonary embolism. He remains on Levemir insulin 30 units in the morning and 27 units in the evening along with ascites Coverage. Objective - Vital Signs Vital signs: Vital Signs Temp 98.2 F 12/14/20 04:00 Pulse 80 12/14/20 08:00 Resp 20 12/14/20 08:00 BP 99/64 12/14/20 08:00 Pulse Ox 92 L 12/14/20 08:31 Intake & Output 12/13/20 12/14/20 12/14/20 18:59 06:59 18:59 Intake Total 680 100 Output Total 1000 400 Balance -320 -400 100 Intake: Oral 680 100 Output: Urine 1000 400 Other: Voiding Method Urinal - Exam No acute distress, oriented 3. The patient is currently on AIRVO, at 60 L/m with an FiO2 of 75%. Saturations are in the low 90s. There is no conversational dyspnea or use of accessory muscles. HEENT examination is grossly unremarkable. Neck supple. Full range of motion. No adenopathy thyromegaly or neck vein distention. Cardiovascular examination reveals regular rhythm rate. S1-S2 normal. No S3 or S4. No discernible murmur noted. Lungs reveal bilateral and bibasilar rhonchi and crackles. No wheezes. The patient has a hard time taking a deep breath. When he does, he coughs. Abdomen soft bowel sounds are heard. No masses or tenderness. Extremities are intact. No cyanosis clubbing or edema. Skin is without rash or lesion. Neurologic examination is brief but nonfocal. - Labs CBC & Chem 7: 12/13/20 12:42 12/14/20 10:06 Labs: Abnormal Lab Results - Last 24 Hours (Table) 12/13/20 12/13/20 12/13/20 Range/Units 12:42 16:41 20:15 WBC 33.7 H (3.8-10.6) k/uL Hct 38.6 L (39.0-53.0) % Plt Count 537 H (150-450) k/uL D-Dimer (<0.60) mg/L FEU Sodium (137-145) mmol/L Chloride (98-107) mmol/L BUN (9-20) mg/dL Creatinine (0.66-1.25) mg/dL Glucose (74-99) mg/dL POC Glucose (mg/dL) 250 H 243 H (75-99) mg/dL Calcium (8.4-10.2) mg/dL Lactate Dehydrogenase (313-618) U/L 12/14/20 12/14/20 12/14/20 Range/Units 06:10 10:06 10:06 WBC (3.8-10.6) k/uL Hct (39.0-53.0) % Plt Count (150-450) k/uL D-Dimer 3.60 H (<0.60) mg/L FEU Sodium 123 L (137-145) mmol/L Chloride 93 L (98-107) mmol/L BUN 39 H (9-20) mg/dL Creatinine 1.28 H (0.66-1.25) mg/dL Glucose 143 H (74-99) mg/dL POC Glucose (mg/dL) 71 L (75-99) mg/dL Calcium 8.2 L (8.4-10.2) mg/dL Lactate Dehydrogenase 1246 H (313-618) U/L 12/14/20 Range/Units 11:33 WBC (3.8-10.6) k/uL Hct (39.0-53.0) % Plt Count (150-450) k/uL D-Dimer (<0.60) mg/L FEU Sodium (137-145) mmol/L Chloride (98-107) mmol/L BUN (9-20) mg/dL Creatinine (0.66-1.25) mg/dL Glucose (74-99) mg/dL POC Glucose (mg/dL) 186 H (75-99) mg/dL Calcium (8.4-10.2) mg/dL Lactate Dehydrogenase (313-618) U/L Assessment and Plan Plan: 1 Acute hypoxemic respiratory failure secondary to COVID 19 pneumonitis/pneumonia , treaed with decadrone, convalescent plasma and Tocilizum ab and anticoagulation and O2 support. He was outside the window for Remdesivir The patient is currently down to 60 L with an FiO2 of 75%. The patient remains on Decadron 6 mg IV every 12 hours. CTA of the chest shows no evidence of any pulmonary embolism. There is background COPD and addition to Covid 19 related pulmonary infiltrates. He remains on Decadron. He remains on Lovenox. 2 Acute on chronic kidney injury, Renal function normalized 3 History of bladder cancer 4 Acute kidney injury 5 Essential hypertension. 6 Type 2 diabetes. 7 History of CAD, with previous myocardial infarction and stent placement. 8 History of hyperlipidemia. 9 History of kidney stones. 10 Hyponatremia. The sodium level is improving and the patient's sodium level is up 123 11 leukocytosis evolving with a white cell count of 33 Plan: Check pro calcitonin level Monitor the white cell count CT of the chest was reviewed Reduce the Decadron dose to once a day 6 mg IV Lovenox 40 mg subcu every 12 hours Consult nephrology regarding his hyponatremia Continue salt tablets Continuesaline and same rate Monitor electrolytes Wean down the FiO2 as tolerated to maintain saturation above 90% We'll continue to follow.
[2020-12-14] MEDS ORDERED: TOLVAPTAN 15 MG 1/2 TABLET PO ONE (15:45)
--- NOTE | 2020-12-14 16:15 | P.PN ---
Subjective Progress Note Date: 12/14/20 Principal diagnosis: Acute hypoxemic respiratory failure secondary to COVID 19 pneumonitis/pneumonia Acute on chronic kidney injury, associated with COVID infection 70-year-old male who was admitted with a diagnosis of acute hypoxemic respiratory failure secondary to COVID 19 pneumonia. The patient has a history of multiple medical problems including essential hypertension, type 2 diabetes mellitus, hyperlipidemia, coronary artery disease, previous NV with stent placement, degenerative joint disease, bladder cancer, and kidney stones. He presented to the emergency department on November 24, with one-week worth of muscle aches, fever, shortness breath, cough, nausea, and tested positive for COVID on the . The patient was outside the window for REM, but did receive CP. 11/30/2020 Patient is seen and evaluated in room at bedside; The patient is currently on 15 L high flow nasal O2. The patient does not feel any better today. Chest x-ray on November 28 showed bilateral patchy airspace disease. Patient remains on vitamin C, vitamin D, zinc sulfate along with Decadron and subcu Lovenox; patient has not shown much improvement since admission; pulmonary service on board and recommending to continue current management with patient being high risk for need to be transferred to ICU; continue to monitor closely 12/01/2020 Patient is seen and evaluated in room at bedside; Currently, the patient's both on 15 L high flow oxygen, and a nonrebreather mask with SpO2 at 95%. The patient was outside the window for REM. The patient is currently on vitamin C, vitamin D3, and zinc. He is also on Decadron and Lovenox. Patient shows worsening of chest x-ray and oxygenation. He may deteriorate further. Chest x- ray shows a worsening pattern of bilateral infiltrates. We will continue to follow the patient closely and make recommendations were appropriate. Prognosis is very guarded. 12/14/2020 Patient is seen and evaluated for COVID-19 pneumonia; patient remains on HFNC at 60 L with FiO2 of 75% maintaining SpO2 greater than 90 Vital signs remained stable with a temperature of 98.2, pulse 80, respiration 20 and blood pressure of 99/64 Lab review shows sodium of 123, BUN/creatinine of 39/1.28, d-dimer 3.60 and LDH of 1246; pulmonary on board and recommending to continue with current treatment with Decadron 6 mg IV daily and Lovenox 40 mg subcu every [address] angiogram of chest done which reveals emphysema and patchy infiltrates bilaterally; no PE found Nephrology is consulted for hypernatremia and patient is started on salt tablets ; plan to continue to monitor with further recommendations according Objective - Vital Signs Vital signs: Vital Signs Temp 98.2 F 12/14/20 04:00 Pulse 80 12/14/20 08:00 Resp 20 12/14/20 08:00 BP 99/64 12/14/20 08:00 Pulse Ox 92 L 12/14/20 08:31 Intake & Output 12/13/20 12/14/20 12/14/20 18:59 06:59 18:59 Intake Total 680 100 Output Total 1000 400 Balance -320 -400 100 Intake: Oral 680 100 Output: Urine 1000 400 Other: Voiding Method Urinal - Exam General: Sitting up in bed, NAD. Vitals reviewed Lungs: normal respiratory effort, minimal rhonchi, no wheezes/ rales CV: Regular rate and rhythm, no murmur. Peripheral pulses 2+ Abdomen: soft, nondistended, no organomegaly. Positive bowel sounds Skin: warm and dry. - Labs CBC & Chem 7: 12/13/20 12:42 12/14/20 10:06 Labs: Abnormal Lab Results - Last 24 Hours (Table) 12/13/20 12/13/20 12/13/20 Range/Units 04:56 12:42 16:41 WBC 33.7 H (3.8-10.6) k/uL Hct 38.6 L (39.0-53.0) % Plt Count 537 H (150-450) k/uL Sodium 127 L (135-145) mmol/L Chloride 94 L (96-109) mmol/L Carbon Dioxide 21.2 L (21.6-31.8) mmol/L BUN 48.0 H (9.0-27.0) mg/dL BUN/Creatinine Ratio 48.00 H (12.00-20.00) Ratio Glucose 45 L* (70-110) mg/dL POC Glucose (mg/dL) 250 H (75-99) mg/dL 12/13/20 12/14/20 Range/Units 20:15 06:10 WBC (3.8-10.6) k/uL Hct (39.0-53.0) % Plt Count (150-450) k/uL Sodium (135-145) mmol/L Chloride (96-109) mmol/L Carbon Dioxide (21.6-31.8) mmol/L BUN (9.0-27.0) mg/dL BUN/Creatinine Ratio (12.00-20.00) Ratio Glucose (70-110) mg/dL POC Glucose (mg/dL) 243 H 71 L (75-99) mg/dL Assessment and Plan Assessment: Acute hypoxic respiratory failure secondary to acute covid 19 pneumonitis. Acute on chronic kidney injury associated with underlying Covid 19 infection History of bladder cancer. Acute hyperkalemia with acute kidney injury. Chronic kidney disease, previous creatinine was 1.3 in February 2020. 9 essential hypertension. Type 2 diabetes Recommendation: Continue present supportive care measures Continue oxygen Repeat chest x-ray and check inflammatory markers Continue the Covid 19 cocktail. Will recommend convalescent plasma Patient is out of the window for REM and he presently does not qualify for actemra Prognosis is relatively guarded.
[2020-12-14 16:41] LABS: Glucose,Whole Blood 244 mg/dL (75-99)
--- NOTE | 2020-12-14 16:51 | PN ---
PROGRESS NOTE Patient is seen for followup for hyponatremia. He is currently being treated for COVID pneumonia. He has also had acute kidney injury. Serum sodium had been around 127-126. The patient has received Samsca on and off. It looks like he was started on normal saline and his sodium has dropped to 123 today. This morning patient is on BiPAP. He denies any significant complaints. PHYSICAL EXAMINATION: Blood pressure was 104/54, heart rate 70 per minute, he is afebrile. He remains on high-flow oxygen. Examination of lower extremities shows no evidence of edema. [employer] exam grossly intact. LAB: Show sodium 123, potassium 4.8, BUN 39, serum creatinine 1.28. ASSESSMENT: Hyponatremia secondary to SIADH. The patient has been receiving Samsca on and off. He was started on normal saline and sodium has dropped to 123 today. The patient needs to be maintained off normal saline. I will repeat a dose of Samsca again today. Continue with the sodium chloride tabs for now. Encourage increased oral intake. 1. Acute kidney injury ATN currently improved. 2. Comorbid pneumonia. 3. Chronic kidney disease stage 3 secondary to diabetic kidney disease creatinine 1.3 in February of 2020. 4. Cardiomyopathy EF. 5. Metabolic acidosis associated with acute kidney injury currently improved. PLAN: DC normal saline repeat Samsca and avoid any further administration of saline IV. The patient has SIADH which worsens with saline administration. MMODL / IJN: [id number] /
[2020-12-14] MEDS: ATORVASTATIN 80 MG TAB PO SCH (20:39)
[2020-12-14 20:41] LABS: Glucose,Whole Blood 194 mg/dL (75-99)
[2020-12-15 06:21] LABS: Glucose,Whole Blood 142 mg/dL (75-99)
[2020-12-15] MEDS: INSULIN ASPART (NovoLOG) 100 UNIT/ML VIAL SQ SCH ×4 (06:30→20:29)
[2020-12-15] MEDS: LEVOTHYROXINE 100 MCG TAB PO SCH (06:30)
[2020-12-15] MEDS: PANTOPRAZOLE 40 MG TABLET PO SCH (06:30)
[2020-12-15] MEDS: ALBUTEROL HFA INHALER INHALATION SCH ×4 (08:26→20:38)
[2020-12-15 08:48] LABS: C Reactive Protein 1.4 mg/dL (<1.0); Calcium 8.2 mg/dL (8.4-10.2); Potassium 5.1 mmol/L (3.5-5.1)
[2020-12-15] MEDS: ASPIRIN 81 MG PO SCH (09:15)
[2020-12-15] MEDS: CHOLECALCIFEROL 25 MCG (1000 IU) TABLET PO SCH (09:15)
[2020-12-15] MEDS: ASCORBIC ACID 500 MG TAB PO SCH (09:15)
[2020-12-15] MEDS: SODIUM CHLORIDE TAB 1 GM TAB PO SCH ×2 (09:15→20:37)
[2020-12-15] MEDS: ZINC SULFATE 220 MG CAP PO SCH (09:16)
[2020-12-15] MEDS: CLOPIDOGREL 75 MG TAB PO SCH (09:16)
[2020-12-15] MEDS: METOPROLOL SUCCINATE (ER) 25 MG TAB.ER.24H PO SCH (09:16)
[2020-12-15] MEDS: GABAPENTIN 300 MG CAP PO SCH (09:16)
[2020-12-15] MEDS: ENOXAPARIN 40 MG/0.4 ML SYRINGE SQ SCH (09:16)
[2020-12-15] MEDS: DEXAMETHASONE SOD PHOSPHATE 10 MG/ML 1 ML VIAL IV SCH (09:19)
[2020-12-15] MEDS ORDERED: TOLVAPTAN 15 MG 1/2 TABLET PO ONE (10:00)
--- NOTE | 2020-12-15 11:24 | P.PN ---
Subjective Progress Note Date: 12/15/20 Or 2020, the patient has been weaned down to high flow oxygen 6 L with an FiO2 of 75% which is essentially the same setting as yesterday. The patient's pulse ox is currently at 92%. No new complaints. In terms of his chest x-ray from yesterday, the patient had no interval worsening. He did have bilateral multifocal pulmonary infiltrates and confluent opacities consistent with COVID- 19 related pneumonia and he also had a CT angios the chest that showed no evidence of any pulmonary embolism and it was consistent with COVID-19 related pneumonia. On his blood work, his LDH level is 1471 which is higher and this CRP level is at 1.4. Sodium level is at 125 and the BUN is 34 with a creatinine of 1. His d-dimer is at 2.66. The patient remains on Decadron 63 g IV every 24 hours. He is on Lovenox and the dose should be 40 mg subcu every 24 hours. IV fluids are at KVO for now. He is taking also salt tablets. Sodium level is improving. He remains on Levemir insulin 30 units in the morning 27 units in the evening along with a lighting scale coverage. He is resting comfortably in bed. No significant worsening shortness of breath. His pulmonary status is very much limited still and the patient has been in the hospital for more than 3 weeks along with his . Objective - Vital Signs Vital signs: Vital Signs Temp 98.3 F 12/15/20 04:00 Pulse 80 12/15/20 08:00 Resp 23 12/15/20 08:00 BP 107/60 12/15/20 08:00 Pulse Ox 92 L 12/15/20 08:00 Intake & Output 12/14/20 12/15/20 12/15/20 18:59 06:59 18:59 Intake Total 1100 0 Output Total 450 Balance 1100 -450 0 Intake: IV 600 Sodium Chloride 0.9% 1, 600 000 ml @ 75 mls/hr IV . [id number] [facility] Rx#:[id number] Oral 500 0 Output: Urine 450 Other: Voiding Method Urinal - Exam No acute distress, oriented 3. The patient is currently on AIRVO, at 60 L/m with an FiO2 of 75%. Saturations are in the low 90s. There is no conversatio nal dyspnea or use of accessory muscles. HEENT examination is grossly unremarkable. Neck supple. Full range of motion. No adenopathy thyromegaly or neck vein distention. Cardiovascular examination reveals regular rhythm rate. S1-S2 normal. No S3 or S4. No discernible murmur noted. Lungs reveal bilateral and bibasilar rhonchi and crackles. No wheezes. The patient has a hard time taking a deep breath. When he does, he coughs. Abdomen soft bowel sounds are heard. No masses or tenderness. Extremities are intact. No cyanosis clubbing or edema. Skin is without rash or lesion. Neurologic examination is brief but nonfocal. - Labs CBC & Chem 7: 12/13/20 12:42 12/15/20 08:06 Labs: Abnormal Lab Results - Last 24 Hours (Table) 12/14/20 12/14/20 12/14/20 Range/Units 10:06 10:06 11:33 D-Dimer 3.60 H (<0.60) mg/L FEU Sodium (137-145) mmol/L Chloride (98-107) mmol/L BUN (9-20) mg/dL Glucose (74-99) mg/dL POC Glucose (mg/dL) 186 H (75-99) mg/dL Calcium (8.4-10.2) mg/dL Lactate Dehydrogenase (313-618) U/L C-Reactive Protein (<1.0) mg/dL Procalcitonin 0.16 H (0.02-0.09) ng/mL 12/14/20 12/14/20 12/15/20 Range/Units 16:37 20:34 06:15 D-Dimer (<0.60) mg/L FEU Sodium (137-145) mmol/L Chloride (98-107) mmol/L BUN (9-20) mg/dL Glucose (74-99) mg/dL POC Glucose (mg/dL) 244 H 194 H 142 H (75-99) mg/dL Calcium (8.4-10.2) mg/dL Lactate Dehydrogenase (313-618) U/L C-Reactive Protein (<1.0) mg/dL Procalcitonin (0.02-0.09) ng/mL 12/15/20 12/15/20 Range/Units 08:06 08:06 D-Dimer 2.66 H (<0.60) mg/L FEU Sodium 125 L (137-145) mmol/L Chloride 97 L (98-107) mmol/L BUN 34 H (9-20) mg/dL Glucose 178 H (74-99) mg/dL POC Glucose (mg/dL) (75-99) mg/dL Calcium 8.2 L (8.4-10.2) mg/dL Lactate Dehydrogenase 1471 H (313-618) U/L C-Reactive Protein 1.4 H (<1.0) mg/dL Procalcitonin (0.02-0.09) ng/mL Assessment and Plan Plan: 1 Acute hypoxemic respiratory failure secondary to COVID 19 pneumonitis/pneumonia , treaed with decadrone, convalescent plasma and Tocilizumab and anticoagulation and O2 support. He was outside the window for Remdesivir The patient is currently down to 60 L with an FiO2 of 75%. The patient remains on Decadron 6 mg IV every 12 hours. CTA of the chest shows no evidence of any pulmonary embolism. There is background COPD and addition to Covid 19 related pulmonary infiltrates. He remains on Decadron. He remains on Lovenox. No worsening in his oxygenation over the past 24-48 hours. Chest x- ray and CT angiogram from yesterday was noted. 2 Acute on chronic kidney injury, Renal function normalized 3 History of bladder cancer 4 Acute kidney injury 5 Essential hypertension. 6 Type 2 diabetes. 7 History of CAD, with previous myocardial infarction and stent placement. 8 History of hyperlipidemia. 9 History of kidney stones. 10 Hyponatremia. The sodium level is improving and the patient's sodium level is up 123 11 leukocytosis evolving with a white cell count of 33 Plan: Check pro calcitonin level was low at 0.16 Sodium level is improving Continue Decadron dose to once a day 6 mg IV Lovenox 40 mg subcu every 24 hours Consult nephrology regarding his hyponatremia, sodium level is improving and is up to 127 Continue salt tablets Receiving a dose of tollvaptan 15 MG Wean down the FiO2 as tolerated to maintain saturation above 90% We'll continue to follow.
[2020-12-15] MEDS ORDERED: bisacodyL 5 MG TABLET.DR PO PRN (11:27)
[2020-12-15 11:45] LABS: Glucose,Whole Blood 259 mg/dL (75-99)
--- NOTE | 2020-12-15 12:41 | PN ---
PROGRESS NOTE Patient is seen for followup for hyponatremia secondary to SIADH. His sodium had dropped down to 123 yesterday. It appears that the patient was recently started on normal saline. This was eventually discontinued and yesterday patient did get a dose of Samsca. His sodium is up to 125 today. He is, however, complaining of some further difficulty in breathing. He remains on high-flow oxygen with FiO2 at 75%. Blood pressure this morning 107/60, heart rate 80 per minute. Patient does not have any edema in his lower extremities. LAB: Show sodium 125, potassium 5.1, BUN 34, creatinine 1.04. ASSESSMENT: 1. Hyponatremia secondary to SIADH, improving with Samsca. Continue to avoid saline. 2. Acute kidney injury, acute tubular necrosis, now improved. 3. COVID pneumonia. 4. Chronic kidney disease stage 3. Baseline creatinine about 1.3 in February of 2020 secondary to diabetic kidney disease. 5. Cardiomyopathy, ejection fraction about 35-40% on recent echocardiogram on 12/07/2020. 6. Acute hypoxic respiratory failure secondary to COVID pneumonia. PLAN: Repeat Samsca today. Continue sodium chloride tabs. Repeat labs in a.m. Avoid saline. MMODL / IJN: [id number] /
[2020-12-15] MEDS: BENZONATATE 100 MG CAP PO PRN ×2 (12:46→20:28)
--- NOTE | 2020-12-15 16:06 | P.PN ---
Subjective Progress Note Date: 12/15/20 Principal diagnosis: Acute hypoxemic respiratory failure secondary to COVID 19 pneumonitis/pneumonia Acute on chronic kidney injury, associated with COVID infection 70-year-old male who was admitted with a diagnosis of acute hypoxemic respiratory failure secondary to COVID 19 pneumonia. The patient has a history of multiple medical problems including essential hypertension, type 2 diabetes mellitus, hyperlipidemia, coronary artery disease, previous PA with stent placement, degenerative joint disease, bladder cancer, and kidney stones. He presented to the emergency department on November 24, with one-week worth of muscle aches, fever, shortness breath, cough, nausea, and tested positive for COVID on the . The patient was outside the window for REM, but did receive CP. 11/30/2020 Patient is seen and evaluated in room at bedside; The patient is currently on 15 L high flow nasal O2. The patient does not feel any better today. Chest x-ray on November 28 showed bilateral patchy airspace disease. Patient remains on vitamin C, vitamin D, zinc sulfate along with Decadron and subcu Lovenox; patient has not shown much improvement since admission; pulmonary service on board and recommending to continue current management with patient being high risk for need to be transferred to ICU; continue to monitor closely 12/01/2020 Patient is seen and evaluated in room at bedside; Currently, the patient's both on 15 L high flow oxygen, and a nonrebreather mask with SpO2 at 95%. The patient was outside the window for REM. The patient is currently on vitamin C, vitamin D3, and zinc. He is also on Decadron and Lovenox. Patient shows worsening of chest x-ray and oxygenation. He may deteriorate further. Chest x- ray shows a worsening pattern of bilateral infiltrates. We will continue to follow the patient closely and make recommendations were appropriate. Prognosis is very guarded. 12/14/2020 Patient is seen and evaluated for COVID-19 pneumonia; patient remains on HFNC at 60 L with FiO2 of 75% maintaining SpO2 greater than 90 Vital signs remained stable with a temperature of 98.2, pulse 80, respiration 20 and blood pressure of 99/64 Lab review shows sodium of 123, BUN/creatinine of 39/1.28, d-dimer 3.60 and LDH of 1246; pulmonary on board and recommending to continue with current treatment with Decadron 6 mg IV daily and Lovenox 40 mg subcu every [address] angiogram of chest done which reveals emphysema and patchy infiltrates bilaterally; no PE found Nephrology is consulted for hypernatremia and patient is started on salt tablets ; plan to continue to monitor with further recommendations according 12/15/2020 Patient is seen on selective care; has been weaned down to high flow oxygen 6 L with an FiO2 of 75% which is essentially the same setting as yesterday. The patient's pulse ox is currently at 92%. No new complaints. Chest x-ray revealed bilateral multifocal pulmonary infiltrates and confluent opacities consistent with COVID-19 related pneumonia; CT angios the chest that showed no evidence of any pulmonary embolism and it was consistent with COVID-19 related pneumonia. Blood work review LDH level is 1471 which is higher and this CRP level is at 1.4. Sodium level is at 125 and the BUN is 34 with a creatinine of 1. His d- dimer is at 2.66. The patient remains on Decadron 63 g IV every 24 hours. He is on Lovenox and the dose should be 40 mg subcu every 24 hours. IV fluids are at KVO for now. He is taking also salt tablets. Sodium level is improving. He remains on Levemir insulin 30 units in the morning 27 units in the evening along with a lighting scale coverage. Objective - Vital Signs Vital signs: Vital Signs Temp 98.3 F 12/15/20 04:00 Pulse 80 12/15/20 08:00 Resp 23 12/15/20 08:00 BP 107/60 12/15/20 08:00 Pulse Ox 92 L 12/15/20 08:00 Intake & Output 12/14/20 12/15/20 12/15/20 18:59 06:59 18:59 Intake Total 1100 Output Total 450 Balance 1100 -450 Intake: IV 600 Sodium Chloride 0.9% 1, 600 000 ml @ 75 mls/hr IV . [id number] [facility] Rx#:[id number] Oral 500 Output: Urine 450 Other: Voiding Method Urinal - Exam General: Sitting up in bed, NAD. Vitals reviewed Lungs: normal respiratory effort, minimal rhonchi, no wheezes/ rales CV: Regular rate and rhythm, no murmur. Peripheral pulses 2+ Abdomen: soft, nondistended, no organomegaly. Positive bowel sounds Skin: warm and dry. - Labs CBC & Chem 7: 12/13/20 12:42 12/15/20 08:06 Labs: Abnormal Lab Results - Last 24 Hours (Table) 12/14/20 12/14/20 12/14/20 Range/Units 10:06 10:06 10:06 D-Dimer 3.60 H (<0.60) mg/L FEU Sodium 123 L (137-145) mmol/L Chloride 93 L (98-107) mmol/L BUN 39 H (9-20) mg/dL Creatinine 1.28 H (0.66-1.25) mg/dL Glucose 143 H (74-99) mg/dL POC Glucose (mg/dL) (75-99) mg/dL Calcium 8.2 L (8.4-10.2) mg/dL Lactate Dehydrogenase 1246 H (313-618) U/L C-Reactive Protein (<1.0) mg/dL Procalcitonin 0.16 H (0.02-0.09) ng/mL 12/14/20 12/14/20 12/14/20 Range/Units 11:33 16:37 20:34 D-Dimer (<0.60) mg/L FEU Sodium (137-145) mmol/L Chloride (98-107) mmol/L BUN (9-20) mg/dL Creatinine (0.66-1.25) mg/dL Glucose (74-99) mg/dL POC Glucose (mg/dL) 186 H 244 H 194 H (75-99) mg/dL Calcium (8.4-10.2) mg/dL Lactate Dehydrogenase (313-618) U/L C-Reactive Protein (<1.0) mg/dL Procalcitonin (0.02-0.09) ng/mL 12/15/20 12/15/20 12/15/20 Range/Units 06:15 08:06 08:06 D-Dimer 2.66 H (<0.60) mg/L FEU Sodium 125 L (137-145) mmol/L Chloride 97 L (98-107) mmol/L BUN 34 H (9-20) mg/dL Creatinine (0.66-1.25) mg/dL Glucose 178 H (74-99) mg/dL POC Glucose (mg/dL) 142 H (75-99) mg/dL Calcium 8.2 L (8.4-10.2) mg/dL Lactate Dehydrogenase 1471 H (313-618) U/L C-Reactive Protein 1.4 H (<1.0) mg/dL Procalcitonin (0.02-0.09) ng/mL Assessment and Plan Assessment: Acute hypoxic respiratory failure secondary to acute covid 19 pneumonitis. Acute on chronic kidney injury associated with underlying Covid 19 infection History of bladder cancer. Acute hyperkalemia with acute kidney injury. Chronic kidney disease, previous creatinine was 1.3 in February 2020. 9 essential hypertension. Type 2 diabetes Recommendation: Continue present supportive care measures Continue oxygen Repeat chest x-ray and check inflammatory markers Continue the Covid 19 cocktail. Will recommend convalescent plasma Patient is out of the window for REM and he presently does not qualify for actemra Prognosis is relatively guarded.
[2020-12-15 16:28] LABS: Glucose,Whole Blood 268 mg/dL (75-99)
[2020-12-15] MEDS: ATORVASTATIN 80 MG TAB PO SCH (20:28)
[2020-12-15] MEDS: MELATONIN 5 MG TABLET PO SCH (20:29)
[2020-12-15 20:49] LABS: Glucose,Whole Blood 274 mg/dL (75-99)
[2020-12-16] MEDS: LEVOTHYROXINE 100 MCG TAB PO SCH (06:30)
[2020-12-16] MEDS: PANTOPRAZOLE 40 MG TABLET PO SCH (06:30)
[2020-12-16 06:34] LABS: Glucose,Whole Blood 134 mg/dL (75-99)
[2020-12-16 06:36] LABS: Glucose,Whole Blood 151 mg/dL (75-99)
[2020-12-16] MEDS: INSULIN ASPART (NovoLOG) 100 UNIT/ML VIAL SQ SCH ×4 (06:37→20:50)
[2020-12-16] MEDS: ALBUTEROL HFA INHALER INHALATION SCH ×4 (08:27→19:39)
[2020-12-16] MEDS: METOPROLOL SUCCINATE (ER) 25 MG TAB.ER.24H PO SCH (08:35)
[2020-12-16] MEDS: ASPIRIN 81 MG PO SCH (08:35)
[2020-12-16] MEDS: ZINC SULFATE 220 MG CAP PO SCH (08:35)
[2020-12-16] MEDS: ENOXAPARIN 40 MG/0.4 ML SYRINGE SQ SCH (08:36)
[2020-12-16] MEDS: ASCORBIC ACID 500 MG TAB PO SCH (08:36)
[2020-12-16] MEDS: CHOLECALCIFEROL 25 MCG (1000 IU) TABLET PO SCH (08:36)
[2020-12-16] MEDS: DEXAMETHASONE SOD PHOSPHATE 10 MG/ML 1 ML VIAL IV SCH (08:36)
[2020-12-16] MEDS: CLOPIDOGREL 75 MG TAB PO SCH (08:36)
[2020-12-16] MEDS: SODIUM CHLORIDE TAB 1 GM TAB PO SCH ×2 (08:37→20:50)
[2020-12-16] MEDS: GABAPENTIN 300 MG CAP PO SCH (08:49)
[2020-12-16] MEDS ORDERED: guaiFENesin-Coden 100-10MG/5ML 10 ML CUP PO PRN (11:24)
[2020-12-16 11:47] LABS: Glucose,Whole Blood 245 mg/dL (75-99)
--- NOTE | 2020-12-16 15:26 | P.PN ---
Subjective Progress Note Date: 12/16/20 Principal diagnosis: Acute hypoxic respiratory failure secondary to acute covid 19 pneumonitis. This is a 70-year-old white male with history of multiple medical problems including hypertension, type 2 diabetes, dyslipidemia, coronary artery disease and previous RI, previous stent placement, degenerative joint disease, bladder cancer, nephrolithiasis, patient presented to the emergency room on 11/24/2020, mostly with 1 week history of multiple constitutional symptoms including muscle aches, fever, shortness of breath, cough, nausea, and he tested positive on the with contreras virus PCR. Chest x-ray showed evidence of bilateral opacities/infiltrates. Patient had adequate saturations on room air, it was about 94%, he was also noted to be hyperkalemic, and he had lactic acid of 2.7. Received dextrose, insulin, Kayexalate, and the patient was eventually admitted seen by nephrology on consultation, he was placed on the Covid 19 cocktail, and we were asked to see him yesterday because of his worsening shortness of breath. No follow-up chest x-ray done since admission, and I will be ordering one to be done today. Labs today clearly showed relatively normal CBC. Elevated BUN of 40 creatinine is 1.4. D-dimer was normal on admission, and I do not see any inflammatory markers on the chart. After evaluating the patient, we recommended one unit of convalescent plan is to be given. Patient obviously did not qualify for REM. And he is not at the point of requiring actemtra Patient was reevaluated today on 11/29/2020, he is basically about the same. Not much of a change in the last 24 hours. Patient is on 6 L nasal cannula, and his O2 saturation is in the low 90s. Continues to have intermittent cough, shortness of breath, basic metabolic profile is normal. His LDH is 1466, and C- reactive protein is 24. Patient remains on the Covid 19 cocktail. He received convalescent plasma. He was out of the window for REM. Patient was reevaluated today on 12/02/2020, does not seem to be improving much. Patient is now on higher FiO2, requiring airvo high flow with FiO2 of 90% and total of 60 L/m in addition to this he is also on a nonrebreather. Chest x-ray seems to be a bit worse. LDH is worse 1881 last C-reactive protein is 24. Renal functioning is also worse with a BUN of 46 creatinine 1.60 and a potassium of 5.7 being addressed by nephrology on the case. His last chest x-ray was on 12/02/1912/17/2020, I will go ahead and order a chest x-ray for the morning. Patient remains on the Covid 19 cocktail. He received convalescent plasma. Interstitia l and patchy bilateral airspace disease/infiltrates progressed from admission x- ray. Repeat basic metabolic profile was done today, potassium is down to 4.4 from 5.7 yesterday. BUN is 60 creatinine is 1.60. Reevaluated today on 12/03/2020, patient is about the same remains on nonrebreather mask and high flow cannula,He is on 90% FiO2 with flow of 15 L/m and his O2 saturation is in the low 90s. Continues to have intermittent cough, shortness of breath with any activity. Patient has been steadily worsening clinically over the last few days. Hence I would recommend actemra on this patient. Remains on the Covid 19 cocktail. And he also received convalescent plasma. Patient was reevaluated today on 12/04/2020, remains on high flow oxygen using Airvo and a nonrebreather mask. Patient is on 90% FiO2 and 50 L flow with O2 saturation in the high 80s and low 90s. Clinically however he feels a bit better today compared to how he felt yesterday. Even his lungs sounded a bit better and less crackles noted on examination. No labs were done today except blood sugar of 166 Patient was reevaluated today on 12/05/2020, remains on high flow via airvo , presently on 90% FiO2 and 50 L flow. O2 saturations are in the low 90s. Patient tells me that he feels a bit better today compared to the last couple of days. Less shortness of breath, less aches and pains, overall feels better. On examination he did sound better. And his labs were reviewed, sodium is down to 125 and his BUN is 88 creatinine is 1.8, I suspect that we are dealing with hypovolemic hyponatremia and prerenal azotemia hence the patient would benefit from more fluid/0.9 normal saline will be added. And will put his Lasix on hold today. I believe his hyponatremia is related to diuretics , placed him back on 0.9 normal saline at 75 mL per hour may even require more fluids. Reevaluated today on 12/06/2020, patient is basically about the same. Remains on high flow oxygen AIRVO, 85% and 50 L flow. He is also on a nonrebreather mask, O2 saturation remains marginal in the low 90s. Today for some reason the patient is feeling a bit better but nowhere near his baseline. Patient is generally weak. His sodium has been coming down and today is 125. This is being addressed by nephrology on the case. White count is high today at 24.08. Platelets are also high at 665. Blood sugar is 71. I reviewed his follow-up chest x-ray today no significant change, continues to show bilateral diffuse interstitial infiltrates. Reevaluated today on 12/07/2020, patient is feeling a bit better, remains on high flow oxygen 90%/60 L flow and his O2 saturation is 92%. Patient is having echocardiogram as I was examining him. Results of the echocardiogram are pending. Again the patient is feeling a bit better, less shortness of breath, no cough, no wheezing, no chest pain, no fever, no chills, he feels generally weak, and he does have shortness of breath with any activity. Yesterday's chest x-ray continued to show diffuse bilateral interstitial infiltrates. Not much of a change. Labs today showed improved sodium of 129 BUN is 77 and creatinine 1.6. Or 2020, the patient has been weaned down to high flow oxygen 6 L with an FiO2 of 75% which is essentially the same setting as yesterday. The patient's pulse ox is currently at 92%. No new complaints. In terms of his chest x-ray from yesterday, the patient had no interval worsening. He did have bilateral multifocal pulmonary infiltrates and confluent opacities consistent with COVID- 19 related pneumonia and he also had a CT angios the chest that showed no evidence of any pulmonary embolism and it was consistent with COVID-19 related pneumonia. On his blood work, his LDH level is 1471 which is higher and this CRP level is at 1.4. Sodium level is at 125 and the BUN is 34 with a creatinine of 1. His d-dimer is at 2.66. The patient remains on Decadron 63 g IV every 24 hours. He is on Lovenox and the dose should be 40 mg subcu every 24 hours. IV fluids are at KVO for now. He is taking also salt tablets. Sodium level is improving. He remains on Levemir insulin 30 units in the morning 27 units in the evening along with a lighting scale coverage. He is resting comfortably in bed. No significant worsening shortness of breath. His pulmonary status is very much limited still and the patient has been in the hospital for more than 3 weeks along with his . Patient was reevaluated today on 12/16/2020, remains on high flow oxygen, he is now on airvo and a non-rebreather mask FiO2 85% and flow at 60 L/m. His O2 saturation is marginal, however the patient seems to be comfortable, and in no distress. CT angiogram on 12/13 showed no filling defects and no evidence of pulmonary embolism. However it did show patchy infiltrates present bilaterally consistent with COVID-19 pneumonia. His sodium today is 127. Renal profile showed a BUN of 34 creatinine 1.04 C-reactive protein is 1.4 LDH is 1471. Reviewed his most recent chest x-ray continues to show bilateral interstitial infiltrates Objective - Vital Signs Vital signs: Vital Signs Temp 98.2 F 12/16/20 08:00 Pulse 83 12/16/20 12:00 Resp 20 12/16/20 13:04 BP 125/75 12/16/20 12:00 Pulse Ox 95 12/16/20 12:22 Intake & Output 12/15/20 12/16/20 12/16/20 18:59 06:59 18:59 Intake Total 150 360 360 Output Total 375 950 200 Balance -225 -590 160 Intake: Oral 150 360 360 Output: Urine 375 950 200 Other: Voiding Method Urinal # Voids 2 2 - Exam Physical Exam: Revealed 70-year-old white male in remains on high FiO2 and high flow oxygen.airvo 90% and 60 L flow Head: Atraumatic, normocephalic. HEENT:[Neck is supple.] [No neck masses.] [No thyromegaly.] [No JVD.] Chest: Symmetrical chest expansion, crackles at the bases bilaterally..] Cardiac Exam: [Normal S1 and S2, no S3 gallop, no murmur.] Abdomen: [Soft, nontender, no megaly, no rebound, no guarding, normal bowel sounds.] Extremities: [No clubbing, no edema, no cyanosis.] Neurological Exam: [No focal neurologic deficit.] Alert and oriented 3. Psychiatric: Normal mood affect and normal mental status examination. Musculoskeletal: No limitation in range of motion, no deformities. - Labs CBC & Chem 7: 12/13/20 12:42 12/16/20 09:45 Labs: Abnormal Lab Results - Last 24 Hours (Table) 12/15/20 12/15/20 12/16/20 Range/Units 16:27 20:28 06:22 Sodium (137-145) mmol/L POC Glucose (mg/dL) 268 H 274 H 134 H (75-99) mg/dL 12/16/20 12/16/20 12/16/20 Range/Units 06:34 09:45 11:45 Sodium 127 L (137-145) mmol/L POC Glucose (mg/dL) 151 H 245 H (75-99) mg/dL Assessment and Plan Assessment: Impression: Acute hypoxic respiratory failure secondary to acute covid 19 pneumonitis. With very poor marginal pulmonary status. Acute on chronic kidney injury associated with underlying Covid 19 infection, resolved. History of bladder cancer. Chronic kidney disease, previous creatinine was 1.3 in February 2020. Benign essential hypertension Type 2 diabetes Hyponatremia, possible SIADH. Improving. Recommendation: Continue high flow oxygen and titrate accordingly to maintain O2 saturation above 90%. Continue present supportive care measures Continue oxygen, titrate accordingly maintain O2 saturation above 90%. Continue to follow inflammatory markers. Continue the Covid 19 cocktail. Received 1 unit of convalescent plasma., He also received VIOLETA I. Prognosis is relatively guarded. Last pro calcitonin was low at 0.16. Prognosis remains extremely poor and guarded We'll continue to follow Time with Patient: Less than 30
--- NOTE | 2020-12-16 15:42 | P.PN ---
Subjective Progress Note Date: 12/16/20 11/27/2020 during the night, patient became more hypoxic, requiring nonrebreather. Significant clinical improvement, maintaining O2 sats in the 90s on 5 L nasal cannula. Minimal nonproductive cough. Creatinine 1.6. 11/28/2020 Required nonrebreather briefly during the night; currently maintained on 5 L nasal cannula, O2 sats of 90-91%. Complains of worsening shortness of breath, especially with minimal exertion, nonproductive cough. Maintained on Covid regimen, including dexamethasone. Blood sugars elevated throughout the night, better controlled this morning. Denies chest pain, palpitations or shortness of breath. Labs pending. 11/29/20 S/P convalescent plasma .Continues on Covid regimen, maintaining O2 sats in the 90s on 6 L nasal cannula. Occasional nonproductive cough. Denies chest pain, palpitations. Evaluated by pulmonary, outside the window for Remdesevir. Creatinine 1.4. 12/02/2020 maintained on high flow cannula with FiO2 of 90% post nonrebreather to maintain O2 sats in the 90s. Chest x-ray reporting progression of interstitial and patchy bilateral airspace infiltrates. Afebrile, T-max 99.5. BUN 60, Creatinine 1.6 sodium 132. 12/03/2020 maintained on Covid 19 cocktail ,continues on 15 L high flow nasal cannula and nonrebreather mask, maintaining O2 sats of 90%. Nonproductive cough. Afebrile. Minimal reserve. 12/04/2020 Received Acterma yesterday. Maintained on 90% airvo and a nonrebreather mask, maintaining O2 sats in the high 80s to low 90s. Staff reports last night he ate better, was more conversant. Reports he feels more comfortable and not as weak. Afebrile. Creatinine 1.8. Hyperglycemic, blood sugars up to 271 at lunch. 12/05/2020 continue a 90% high flow airvo, maintaining O2 sats in the low 90s. Continues to feel better with less fatigue, less shortness of breath. Labs pending. Afebrile. 12/06/2020 no overnight events. Maintaining O2 sat in the low 90s, settings unchanged. Feels better today. Sodium worsening decreased to 123 yesterday, labs pending today. Urine osmolality ordered, received a dose Samsca. Afebrile. Denies chest pain, palpitations. 12/09/2020 continue on Covid cocktail. Continues on high flow oxygen, 45 L/70% FiO2 maintaining O2 sats in the high 80s to low 90s. Nonproductive cough with deep inspiration. Sodium 127, creatinine 1.35, potassium 5.2. Repeating Tolvaptan today as per nephrology. Blood sugars better controlled. Afebrile. 12/10/2020 received tolvaptan yesterday, labs pending. Chest x-ray reporting diffuse bilateral infiltrates stable. No changes overnight, maintaining on high flow nasal cannula maintaining O2 sats in the 90s, mostly low 90s. Denies chest pain, palpitations. Afebrile. 12/11/2020 currently on high flow oxygen at 45 L and 60% FiO2 with O2 saturation 91%. Reports less shortness of breath today. Less acessory muscle use noted. Creatinine 1.21. Sodium 126, Afebrile. 12/12/2020 FiO2 is decreased to 45 L and 55% FiO2(nonrebreather over HFNC ) maintaining O2 sats in the mid 80s to low 90s. Maintained on Covid cocktail. He reports he is unable to be off mask very long but is able to take bites of food and juice. Denies chest pain, palpitations. Denies increased shortness of breath. Sodium level 127. 12/13/2020 worsening respiratory status, increased shortness of breath on 45 L/60% FiO2 high flow nasal cannula. Desatted to the mid 80s with increased respiratory rate up into the low 20s. Increased to 60 L high flow nasal cannula, FiO2 80%. O2 sats up to 92%. Exertional shortness of breath. CTA ordered. Poor oral intake, hypoglycemic. Afebrile. Sodium remains at 127, renal function improving , creatinine 1. 12/16/2020 continue on high flow airvo and nonrebreather maintaining O2 sats in the low 90s. Reports worsening cough, otherwise comfortable. Sodium 127. Objective - Vital Signs Vital signs: Vital Signs Temp 98.2 F 12/16/20 08:00 Pulse 83 12/16/20 12:00 Resp 20 12/16/20 13:04 BP 125/75 12/16/20 12:00 Pulse Ox 95 12/16/20 12:22 Intake & Output 12/15/20 12/16/20 12/16/20 18:59 06:59 18:59 Intake Total 150 360 360 Output Total 375 950 200 Balance -225 -590 160 Intake: Oral 150 360 360 Output: Urine 375 950 200 Other: Voiding Method Urinal # Voids 2 2 - Exam - Exam General: Sitting up in bed, on airvo/NRB. Vitals reviewed Lungs: Increased respiratory effort, rhonchi and bibasilar rales CV: Regular rate and rhythm, no murmur. Peripheral pulses 2+ Abdomen: soft, nondistended, no organomegaly. Positive bowel sounds Skin: warm and dry. - Labs CBC & Chem 7: 12/13/20 12:42 12/16/20 09:45 Labs: Abnormal Lab Results - Last 24 Hours (Table) 12/15/20 12/15/20 12/16/20 Range/Units 16:27 20:28 06:22 Sodium (137-145) mmol/L POC Glucose (mg/dL) 268 H 274 H 134 H (75-99) mg/dL 12/16/20 12/16/20 12/16/20 Range/Units 06:34 09:45 11:45 Sodium 127 L (137-145) mmol/L POC Glucose (mg/dL) 151 H 245 H (75-99) mg/dL Assessment and Plan Assessment: (1) Acute hypoxemic respiratory failure due to COVID-19 pneumonitis, status post convalescent plasma,TOCI, outside the window for Remdesevir, Current Visit: Yes Status: Acute Code(s): U07.1 - COVID-19; J96.01 - ACUTE R ESPIRATORY FAILURE WITH HYPOXIA SNOMED Code(s): 327915499 (2) Essential hypertension Current Visit: Yes Status: Acute Code(s): I10 - ESSENTIAL (PRIMARY) HYPERTENSION SNOMED Code(s): 30749039 (3) Type 2 diabetes mellitus Current Visit: Yes Status: Acute Code(s): E11.9 - TYPE 2 DIABETES MELLITUS WITHOUT COMPLICATIONS SNOMED Code(s): 82069978 (4) DARWIN (acute kidney injury), prerenal secondary to #1 Current Visit: Yes Status: Acute Code(s): N17.9 - ACUTE KIDNEY FAILURE, UNSPECIFIED SNOMED Code(s): 13316017 (5) chronic kidney disease stage IIIa secondary to DKA, baseline 1.3 (6) COVID-19 Current Visit: Yes Status: Acute Code(s): U07.1 - COVID-19 SNOMED Code(s): 595212894 (7) Hyperkalemia secondary to acute renal failure, YODIT inhibitor and NSAIDs,resolved Current Visit: Yes Status: Acute Code(s): E87.5 - HYPERKALEMIA SNOMED Code(s): 49683842 (8) hyponatremia, 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 (9) CAD, cardiomyopathy, EF 35-40% (10) mild pulmonary hypertension Plan: Continue on current medication regime ,monitoring and symptomatic treatment. COVID regimen. Maintain fluid restriction. Elevated blood sugars, hypoglycemic episodes, start low-dose Levemir tonight. Close monitoring of Accu-Cheks. prognosis guarded given multiple complex medical issues. The impression and plan of care has been dictated as directed. : I performed a history and examination of this patient, discussed the same with the dictator. I agree with the dictator's note ,documented as a scribe. Any additional findings or plans will be noted.
[2020-12-16] MEDS ORDERED: TOLVAPTAN 15 MG 1/2 TABLET PO ONE (16:00)
[2020-12-16 16:54] LABS: Glucose,Whole Blood 264 mg/dL (75-99)
--- NOTE | 2020-12-16 17:18 | PN ---
PROGRESS NOTE Patient is seen for followup for hyponatremia secondary to SIADH, receiving Samsca on a daily basis with improvement in serum sodium. This morning patient appears to be more short of breath. He is maintained on a non-rebreather. Blood pressure this morning was 125/75, heart rate 83 per minute. He is afebrile. Examination shows no evidence of edema, lower extremities. [employer] exam grossly intact. Lungs and heart are not examined. Labs show sodium 127 today. ASSESSMENT: 1. Hyponatremia secondary to syndrome of inappropriate antidiuretic hormone, receiving Samsca on a daily basis. We will repeat the dose again today. 2. COVID pneumonia; seems to be slightly worse today. 3. Acute hypoxic respiratory failure, maintained on non-rebreather. Etiology COVID pneumonia. 4. History of bladder cancer. 5. Chronic kidney disease with previous creatinine about 1.3 in February of 2020, NKF stage III. PLAN: Repeat dose of Samsca again today. MMODL / IJN: [id number] /
[2020-12-16 20:31] LABS: Glucose,Whole Blood 209 mg/dL (75-99)
[2020-12-16] MEDS: ATORVASTATIN 80 MG TAB PO SCH (20:50)
[2020-12-16] MEDS: MELATONIN 5 MG TABLET PO SCH (20:50)
[2020-12-16] MEDS: INSULIN DETEMIR (LEVEMIR) 100 UNIT/ML SYR SQ SCH (20:50)
[2020-12-16] MEDS: BENZONATATE 100 MG CAP PO PRN (21:00)
[2020-12-17 06:13] LABS: Glucose,Whole Blood 107 mg/dL (75-99)
[2020-12-17] MEDS: INSULIN ASPART (NovoLOG) 100 UNIT/ML VIAL SQ SCH ×4 (06:33→21:00)
[2020-12-17] MEDS: PANTOPRAZOLE 40 MG TABLET PO SCH (06:33)
[2020-12-17] MEDS: LEVOTHYROXINE 100 MCG TAB PO SCH (06:33)
[2020-12-17] MEDS: ALBUTEROL HFA INHALER INHALATION SCH ×4 (07:31→21:02)
[2020-12-17] MEDS: ZINC SULFATE 220 MG CAP PO SCH (08:55)
[2020-12-17] MEDS: DEXAMETHASONE SOD PHOSPHATE 10 MG/ML 1 ML VIAL IV SCH (08:55)
[2020-12-17] MEDS: METOPROLOL SUCCINATE (ER) 25 MG TAB.ER.24H PO SCH (08:55)
[2020-12-17] MEDS: CLOPIDOGREL 75 MG TAB PO SCH (08:55)
[2020-12-17] MEDS: ASCORBIC ACID 500 MG TAB PO SCH (08:55)
[2020-12-17] MEDS: ENOXAPARIN 40 MG/0.4 ML SYRINGE SQ SCH (08:56)
[2020-12-17] MEDS: GABAPENTIN 300 MG CAP PO SCH (08:56)
[2020-12-17] MEDS: CHOLECALCIFEROL 25 MCG (1000 IU) TABLET PO SCH (08:56)
[2020-12-17] MEDS: SODIUM CHLORIDE TAB 1 GM TAB PO SCH ×2 (08:56→21:00)
[2020-12-17] MEDS: ASPIRIN 81 MG PO SCH (08:56)
[2020-12-17 10:02] LABS: African American GFR (CKD) >90 (>60 ml/min/1.73 sqM); Anion Gap 2 mmol/L; Blood Urea Nitrogen 27 mg/dL (9-20); Calcium 8.2 mg/dL (8.4-10.2); Carbon Dioxide 24 mmol/L (22-30); Chloride 102 mmol/L (98-107); Glucose 216 mg/dL (74-99); Non-African American GFR(CKD) 79 (>60 ml/min/1.73 sqM); Potassium 4.4 mmol/L (3.5-5.1); Sodium 128 mmol/L (137-145)
[2020-12-17 12:12] LABS: Glucose,Whole Blood 419 mg/dL (75-99)
--- NOTE | 2020-12-17 13:59 | PN ---
PROGRESS NOTE Patient is seen for followup for hyponatremia. Serum sodium slowly continues to improve. It is up to 128. He has been receiving Samsca on a daily basis. This morning patient is more comfortable in terms of his respiratory status. He is awake, alert, oriented x3. He is not in any acute distress. PHYSICAL EXAMINATION: On examination today, blood pressure was 142/85, heart rate 80 per minute. He is afebrile. He is maintained on high-flow oxygen. No significant edema noted in his lower extremities. LABS: Labs show sodium 128, potassium 4.4, serum creatinine 0.97. ASSESSMENT: 1. Hyponatremia secondary to SIADH, receiving Samsca on a daily basis. Also, maintained on sodium chloride tabs, which I will continue for now. We need to avoid normal saline administration. 2. COVID pneumonia. 3. Acute kidney injury, acute tubular necrosis, currently improved. 4. Acute hypoxic respiratory failure secondary to acute COVID-19 pneumonia. 5. History of superficial bladder cancer. PLAN: Continue with sodium chloride tabs. Repeat labs in a.m. I will hold off on Samsca today. MMODL / IJN: [id number] /
--- NOTE | 2020-12-17 17:06 | P.PN ---
Subjective Progress Note Date: 12/17/20 Principal diagnosis: Acute hypoxic respiratory failure secondary to acute covid 19 pneumonitis. This is a 70-year-old white male with history of multiple medical problems including hypertension, type 2 diabetes, dyslipidemia, coronary artery disease and previous NH, previous stent placement, degenerative joint disease, bladder cancer, nephrolithiasis, patient presented to the emergency room on 11/24/2020, mostly with 1 week history of multiple constitutional symptoms including muscle aches, fever, shortness of breath, cough, nausea, and he tested positive on the with contreras virus PCR. Chest x-ray showed evidence of bilateral opacities/infiltrates. Patient had adequate saturations on room air, it was about 94%, he was also noted to be hyperkalemic, and he had lactic acid of 2.7. Received dextrose, insulin, Kayexalate, and the patient was eventually admitted seen by nephrology on consultation, he was placed on the Covid 19 cocktail, and we were asked to see him yesterday because of his worsening shortness of breath. No follow-up chest x-ray done since admission, and I will be ordering one to be done today. Labs today clearly showed relatively normal CBC. Elevated BUN of 40 creatinine is 1.4. D-dimer was normal on admission, and I do not see any inflammatory markers on the chart. After evaluating the patient, we recommended one unit of convalescent plan is to be given. Patient obviously did not qualify for REM. And he is not at the point of requiring actemtra Patient was reevaluated today on 11/29/2020, he is basically about the same. Not much of a change in the last 24 hours. Patient is on 6 L nasal cannula, and his O2 saturation is in the low 90s. Continues to have intermittent cough, shortness of breath, basic metabolic profile is normal. His LDH is 1466, and C- reactive protein is 24. Patient remains on the Covid 19 cocktail. He received convalescent plasma. He was out of the window for REM. Patient was reevaluated today on 12/02/2020, does not seem to be improving much. Patient is now on higher FiO2, requiring airvo high flow with FiO2 of 90% and total of 60 L/m in addition to this he is also on a nonrebreather. Chest x-ray seems to be a bit worse. LDH is worse 1881 last C-reactive protein is 24. Renal functioning is also worse with a BUN of 46 creatinine 1.60 and a potassium of 5.7 being addressed by nephrology on the case. His last chest x-ray was on 12/02/1912/17/2020, I will go ahead and order a chest x-ray for the morning. Patient remains on the Covid 19 cocktail. He received convalescent plasma. Interstitia l and patchy bilateral airspace disease/infiltrates progressed from admission x- ray. Repeat basic metabolic profile was done today, potassium is down to 4.4 from 5.7 yesterday. BUN is 60 creatinine is 1.60. Reevaluated today on 12/03/2020, patient is about the same remains on nonrebreather mask and high flow cannula,He is on 90% FiO2 with flow of 15 L/m and his O2 saturation is in the low 90s. Continues to have intermittent cough, shortness of breath with any activity. Patient has been steadily worsening clinically over the last few days. Hence I would recommend actemra on this patient. Remains on the Covid 19 cocktail. And he also received convalescent plasma. Patient was reevaluated today on 12/04/2020, remains on high flow oxygen using Airvo and a nonrebreather mask. Patient is on 90% FiO2 and 50 L flow with O2 saturation in the high 80s and low 90s. Clinically however he feels a bit better today compared to how he felt yesterday. Even his lungs sounded a bit better and less crackles noted on examination. No labs were done today except blood sugar of 166 Patient was reevaluated today on 12/05/2020, remains on high flow via airvo , presently on 90% FiO2 and 50 L flow. O2 saturations are in the low 90s. Patient tells me that he feels a bit better today compared to the last couple of days. Less shortness of breath, less aches and pains, overall feels better. On examination he did sound better. And his labs were reviewed, sodium is down to 125 and his BUN is 88 creatinine is 1.8, I suspect that we are dealing with hypovolemic hyponatremia and prerenal azotemia hence the patient would benefit from more fluid/0.9 normal saline will be added. And will put his Lasix on hold today. I believe his hyponatremia is related to diuretics , placed him back on 0.9 normal saline at 75 mL per hour may even require more fluids. Reevaluated today on 12/06/2020, patient is basically about the same. Remains on high flow oxygen AIRVO, 85% and 50 L flow. He is also on a nonrebreather mask, O2 saturation remains marginal in the low 90s. Today for some reason the patient is feeling a bit better but nowhere near his baseline. Patient is generally weak. His sodium has been coming down and today is 125. This is being addressed by nephrology on the case. White count is high today at 24.08. Platelets are also high at 665. Blood sugar is 71. I reviewed his follow-up chest x-ray today no significant change, continues to show bilateral diffuse interstitial infiltrates. Reevaluated today on 12/07/2020, patient is feeling a bit better, remains on high flow oxygen 90%/60 L flow and his O2 saturation is 92%. Patient is having echocardiogram as I was examining him. Results of the echocardiogram are pending. Again the patient is feeling a bit better, less shortness of breath, no cough, no wheezing, no chest pain, no fever, no chills, he feels generally weak, and he does have shortness of breath with any activity. Yesterday's chest x-ray continued to show diffuse bilateral interstitial infiltrates. Not much of a change. Labs today showed improved sodium of 129 BUN is 77 and creatinine 1.6. Or 2020, the patient has been weaned down to high flow oxygen 6 L with an FiO2 of 75% which is essentially the same setting as yesterday. The patient's pulse ox is currently at 92%. No new complaints. In terms of his chest x-ray from yesterday, the patient had no interval worsening. He did have bilateral multifocal pulmonary infiltrates and confluent opacities consistent with COVID- 19 related pneumonia and he also had a CT angios the chest that showed no evidence of any pulmonary embolism and it was consistent with COVID-19 related pneumonia. On his blood work, his LDH level is 1471 which is higher and this CRP level is at 1.4. Sodium level is at 125 and the BUN is 34 with a creatinine of 1. His d-dimer is at 2.66. The patient remains on Decadron 63 g IV every 24 hours. He is on Lovenox and the dose should be 40 mg subcu every 24 hours. IV fluids are at KVO for now. He is taking also salt tablets. Sodium level is improving. He remains on Levemir insulin 30 units in the morning 27 units in the evening along with a lighting scale coverage. He is resting comfortably in bed. No significant worsening shortness of breath. His pulmonary status is very much limited still and the patient has been in the hospital for more than 3 weeks along with his . Patient was reevaluated today on 12/16/2020, remains on high flow oxygen, he is now on airvo and a non-rebreather mask FiO2 85% and flow at 60 L/m. His O2 saturation is marginal, however the patient seems to be comfortable, and in no distress. CT angiogram on 12/13 showed no filling defects and no evidence of pulmonary embolism. However it did show patchy infiltrates present bilaterally consistent with COVID-19 pneumonia. His sodium today is 127. Renal profile showed a BUN of 34 creatinine 1.04 C-reactive protein is 1.4 LDH is 1471. Reviewed his most recent chest x-ray continues to show bilateral interstitial infiltrates Reevaluated today on 12/17/2020, patient is about the same, however he is oxygenating better, and his O2 saturation is improving today. His FiO2 is down to 75%, his flow is at 60 L/m, and his O2 saturation is 95%, hence I recommended cutting down the FiO2 to 70% and a baby down to 60% if his O2 saturation remains at 95% above 90% patient is denying being short of breath, he is feeling better overall compared to how he felt over the last 1 week. Electrolytes showed low sodium of 128 but improving. And his electrolytes are otherwise normal renal profile is normal. Blood sugar seems to be high, and I believe it is causing a pseudohyponatremia-type of picture. At sugar is 419 his sugar is being addressed by his admitting physician. Objective - Vital Signs Vital signs: Vital Signs Temp 98.8 F 12/17/20 04:00 Pulse 73 12/17/20 12:00 Resp 19 12/17/20 13:57 BP 108/70 12/17/20 12:00 Pulse Ox 95 12/17/20 15:31 Intake & Output 12/16/20 12/17/2021 18:59 06:59 18:59 Intake Total 660 580 120 Output Total 425 1100 1600 Balance 235 -452 -1480 Intake: Oral 660 580 120 Output: Urine 425 1100 1600 Other: Voiding Method Urinal Urinal # Voids 4 4 # Bowel Movements 1 - Exam Physical Exam: Revealed 70-year-old white male in remains on high FiO2 and high flow oxygen.airvo 75% and 60 L flow Head: Atraumatic, normocephalic. HEENT:[Neck is supple.] [No neck masses.] [No thyromegaly.] [No JVD.] Chest: Symmetrical chest expansion, crackles at the bases bilaterally..] Cardiac Exam: [Normal S1 and S2, no S3 gallop, no murmur.] Abdomen: [Soft, nontender, no megaly, no rebound, no guarding, normal bowel sounds.] Extremities: [No clubbing, no edema, no cyanosis.] Neurological Exam: [No focal neurologic deficit.] Alert and oriented 3. Psychiatric: Normal mood affect and normal mental status examination. Musculoskeletal: No limitation in range of motion, no deformities. - Labs CBC & Chem 7: 12/13/20 12:42 12/17/20 09:03 Labs: Abnormal Lab Results - Last 24 Hours (Table) 12/16/20 12/17/20 12/17/20 Range/Units 20:29 06:08 09:03 Sodium 128 L (137-145) mmol/L BUN 27 H (9-20) mg/dL Glucose 216 H (74-99) mg/dL POC Glucose (mg/dL) 209 H 107 H (75-99) mg/dL Calcium 8.2 L (8.4-10.2) mg/dL 12/17/20 Range/Units 12:11 Sodium (137-145) mmol/L BUN (9-20) mg/dL Glucose (74-99) mg/dL POC Glucose (mg/dL) 419 H (75-99) mg/dL Calcium (8.4-10.2) mg/dL Assessment and Plan Assessment: Impression: Acute hypoxic respiratory failure secondary to acute covid 19 pneumonitis. With very poor marginal pulmonary status. Acute on chronic kidney injury associated with underlying Covid 19 infection, resolved. History of bladder cancer. Chronic kidney disease, previous creatinine was 1.3 in February 2020. Benign essential hypertension Type 2 diabetes Pseudohyponatremia secondary to hyperglycemia. Recommendation: Continue high flow oxygen and titrate accordingly to maintain O2 saturation above 90%. Continue present supportive care measures Continue to follow inflammatory markers. Continue the Covid 19 cocktail. Received 1 unit of convalescent plasma., He also received VIOLETA I. Prognosis is relatively guarded. Prognosis remains extremely poor and guarded We'll continue to follow Time with Patient: Less than 30
[2020-12-17 17:11] LABS: Glucose,Whole Blood 199 mg/dL (75-99)
[2020-12-17 20:11] LABS: Glucose,Whole Blood 131 mg/dL (75-99)
[2020-12-17] MEDS: MELATONIN 5 MG TABLET PO SCH (20:59)
[2020-12-17] MEDS: ATORVASTATIN 80 MG TAB PO SCH (20:59)
[2020-12-17] MEDS: BENZONATATE 100 MG CAP PO PRN (21:00)
[2020-12-17] MEDS: INSULIN DETEMIR (LEVEMIR) 100 UNIT/ML SYR SQ SCH (21:00)
[2020-12-18 06:06] LABS: Glucose,Whole Blood 66 mg/dL (75-99)
[2020-12-18 06:28] LABS: Glucose,Whole Blood 81 mg/dL (75-99)
[2020-12-18] MEDS: INSULIN ASPART (NovoLOG) 100 UNIT/ML VIAL SQ SCH ×4 (06:43→20:34)
[2020-12-18] MEDS: LEVOTHYROXINE 100 MCG TAB PO SCH (06:56)
[2020-12-18] MEDS: PANTOPRAZOLE 40 MG TABLET PO SCH (06:56)
[2020-12-18] MEDS: DEXAMETHASONE SOD PHOSPHATE 10 MG/ML 1 ML VIAL IV SCH (08:43)
[2020-12-18] MEDS: ASCORBIC ACID 500 MG TAB PO SCH (08:43)
[2020-12-18] MEDS: METOPROLOL SUCCINATE (ER) 25 MG TAB.ER.24H PO SCH (08:43)
[2020-12-18] MEDS: GABAPENTIN 300 MG CAP PO SCH (08:43)
[2020-12-18] MEDS: ASPIRIN 81 MG PO SCH (08:43)
[2020-12-18] MEDS: CLOPIDOGREL 75 MG TAB PO SCH (08:43)
[2020-12-18] MEDS: ZINC SULFATE 220 MG CAP PO SCH (08:43)
[2020-12-18] MEDS: CHOLECALCIFEROL 25 MCG (1000 IU) TABLET PO SCH (08:43)
[2020-12-18] MEDS: SODIUM CHLORIDE TAB 1 GM TAB PO SCH ×2 (08:44→20:34)
[2020-12-18] MEDS: ENOXAPARIN 40 MG/0.4 ML SYRINGE SQ SCH (08:44)
[2020-12-18] MEDS: ALBUTEROL HFA INHALER INHALATION SCH ×4 (09:24→19:33)
[2020-12-18 10:17] LABS: African American GFR (CKD) >90 (>60 ml/min/1.73 sqM); Anion Gap 4 mmol/L; Blood Urea Nitrogen 21 mg/dL (9-20); Calcium 8.3 mg/dL (8.4-10.2); Carbon Dioxide 26 mmol/L (22-30); Chloride 96 mmol/L (98-107); Glucose 219 mg/dL (74-99); Non-African American GFR(CKD) 88 (>60 ml/min/1.73 sqM); Potassium 4.9 mmol/L (3.5-5.1); Sodium 126 mmol/L (137-145)
--- NOTE | 2020-12-18 10:17 | XR ---
EXAMINATION TYPE: XR chest 1V portable DATE OF EXAM: 12/18/2020 COMPARISON: Chest x-ray 12/14/2020 HISTORY: Chest x-ray 12/14/2020 TECHNIQUE: Single frontal view of the chest is obtained. FINDINGS: Bilateral airspace disease is again noted and is similar distribution. Patient is rotated. No evident effusion or the thorax. Cardiac mediastinal silhouette is stable. There are overlying charisse ds. IMPRESSION: Correlate for pneumonia
[2020-12-18] MEDS ORDERED: TOLVAPTAN 15 MG 1/2 TABLET PO ONE (11:26)
--- NOTE | 2020-12-18 12:04 | PN ---
PROGRESS NOTE Patient is seen for followup for hyponatremia secondary to SIADH. Patient had been receiving Samsca on a daily basis. He did not get a dose yesterday and today his sodium is at 126. He is maintained on sodium chloride tabs. PHYSICAL EXAMINATION: On examination today, patient is comfortable. He remains on increased oxygen requirements. No acute distress noted. Currently on 70% to 66% FiO2. Blood pressure this morning 138/69, heart rate 68 per minute. He is afebrile. The patient is not examined. LABS: Labs are reviewed. Labs show sodium 126, potassium 4.9, chloride 96, BUN 21, creatinine 0.85. ASSESSMENT: 1. Hyponatremia secondary to SIADH. I will repeat another dose of Samsca as sodium has dropped without the Samsca. Continue with the sodium chloride tabs. 2. Hypertension, controlled. 3. COVID pneumonia. 4. Acute hypoxic respiratory failure from COVID pneumonia. PLAN: Repeat Samsca today. Recheck labs in a.m. MMPOLINAL / NIGHATN: [id number] /
[2020-12-18 12:10] LABS: Glucose,Whole Blood 268 mg/dL (75-99)
--- NOTE | 2020-12-18 14:12 | P.PN ---
Subjective Progress Note Date: 12/17/20 11/27/2020 during the night, patient became more hypoxic, requiring nonrebreather. Significant clinical improvement, maintaining O2 sats in the 90s on 5 L nasal cannula. Minimal nonproductive cough. Creatinine 1.6. 11/28/2020 Required nonrebreather briefly during the night; currently maintained on 5 L nasal cannula, O2 sats of 90-91%. Complains of worsening shortness of breath, especially with minimal exertion, nonproductive cough. Maintained on Covid regimen, including dexamethasone. Blood sugars elevated throughout the night, better controlled this morning. Denies chest pain, palpitations or shortness of breath. Labs pending. 11/29/20 S/P convalescent plasma .Continues on Covid regimen, maintaining O2 sats in the 90s on 6 L nasal cannula. Occasional nonproductive cough. Denies chest pain, palpitations. Evaluated by pulmonary, outside the window for Remdesevir. Creatinine 1.4. 12/02/2020 maintained on high flow cannula with FiO2 of 90% post nonrebreather to maintain O2 sats in the 90s. Chest x-ray reporting progression of interstitial and patchy bilateral airspace infiltrates. Afebrile, T-max 99.5. BUN 60, Creatinine 1.6 sodium 132. 12/03/2020 maintained on Covid 19 cocktail ,continues on 15 L high flow nasal cannula and nonrebreather mask, maintaining O2 sats of 90%. Nonproductive cough. Afebrile. Minimal reserve. 12/04/2020 Received Acterma yesterday. Maintained on 90% airvo and a nonrebreather mask, maintaining O2 sats in the high 80s to low 90s. Staff reports last night he ate better, was more conversant. Reports he feels more comfortable and not as weak. Afebrile. Creatinine 1.8. Hyperglycemic, blood sugars up to 271 at lunch. 12/05/2020 continue a 90% high flow airvo, maintaining O2 sats in the low 90s. Continues to feel better with less fatigue, less shortness of breath. Labs pending. Afebrile. 12/06/2020 no overnight events. Maintaining O2 sat in the low 90s, settings unchanged. Feels better today. Sodium worsening decreased to 123 yesterday, labs pending today. Urine osmolality ordered, received a dose Samsca. Afebrile. Denies chest pain, palpitations. 12/09/2020 continue on Covid cocktail. Continues on high flow oxygen, 45 L/70% FiO2 maintaining O2 sats in the high 80s to low 90s. Nonproductive cough with deep inspiration. Sodium 127, creatinine 1.35, potassium 5.2. Repeating Tolvaptan today as per nephrology. Blood sugars better controlled. Afebrile. 12/10/2020 received tolvaptan yesterday, labs pending. Chest x-ray reporting diffuse bilateral infiltrates stable. No changes overnight, maintaining on high flow nasal cannula maintaining O2 sats in the 90s, mostly low 90s. Denies chest pain, palpitations. Afebrile. 12/11/2020 currently on high flow oxygen at 45 L and 60% FiO2 with O2 saturation 91%. Reports less shortness of breath today. Less acessory muscle use noted. Creatinine 1.21. Sodium 126, Afebrile. 12/12/2020 FiO2 is decreased to 45 L and 55% FiO2(nonrebreather over HFNC ) maintaining O2 sats in the mid 80s to low 90s. Maintained on Covid cocktail. He reports he is unable to be off mask very long but is able to take bites of food and juice. Denies chest pain, palpitations. Denies increased shortness of breath. Sodium level 127. 12/13/2020 worsening respiratory status, increased shortness of breath on 45 L/60% FiO2 high flow nasal cannula. Desatted to the mid 80s with increased respiratory rate up into the low 20s. Increased to 60 L high flow nasal cannula, FiO2 80%. O2 sats up to 92%. Exertional shortness of breath. CTA ordered. Poor oral intake, hypoglycemic. Afebrile. Sodium remains at 127, renal function improving , creatinine 1. 12/16/2020 continue on high flow airvo and nonrebreather maintaining O2 sats in the low 90s. Reports worsening cough, otherwise comfortable. Sodium 127. 12/17/2020 FiO2 decreased to 75%, maintaining O2 sats in the mid 90s. Reports less cough. Blood sugars ranging from 107 to low 200s. Consuming 75% of breakfast, tolerated well with no nausea vomiting or diarrhea. Maintained on oral sodium chloride and Samsca ,Sodium 128. Objective - Vital Signs Vital signs: Vital Signs Temp 98.8 F 12/17/20 04:00 Pulse 73 12/17/20 16:00 Resp 20 12/17/20 16:00 BP 108/70 12/17/20 16:00 Pulse Ox 98 12/17/20 16:00 Intake & Output 12/16/20 12/17/20 12/17/20 18:59 06:59 18:59 Intake Total 660 580 120 Output Total 425 1100 1600 Balance 235 -842 -1480 Intake: Oral 660 580 120 Output: Urine 425 1100 1600 Other: Voiding Method Urinal Urinal # Voids 4 4 # Bowel Movements 1 - Exam - Exam General: Alert and oriented 3, Sitting up in bed, on high flow nasal cannula, Vitals reviewed Lungs: Increased respiratory effort, rhonchi and bibasilar rales CV: Regular rate and rhythm, no murmur. Peripheral pulses 2+, no edema Abdomen: soft, nondistended, no organomegaly. Positive bowel sounds Skin: warm and dry. - Labs CBC & Chem 7: 12/13/20 12:42 12/18/20 09:18 Labs: Abnormal Lab Results - Last 24 Hours (Table) 12/16/20 12/17/20 12/17/20 Range/Units 20:29 06:08 09:03 Sodium 128 L (137-145) mmol/L BUN 27 H (9-20) mg/dL Glucose 216 H (74-99) mg/dL POC Glucose (mg/dL) 209 H 107 H (75-99) mg/dL Calcium 8.2 L (8.4-10.2) mg/dL 12/17/20 12/17/20 Range/Units 12:11 17:09 Sodium (137-145) mmol/L BUN (9-20) mg/dL Glucose (74-99) mg/dL POC Glucose (mg/dL) 419 H 199 H (75-99) mg/dL Calcium (8.4-10.2) mg/dL Assessment and Plan Assessment: (1) Acute hypoxemic respiratory failure due to COVID-19 pneumonitis, status post convalescent plasma,TOCI, outside the window for Remdesevir, Current Visit: Yes Status: Acute Code(s): U07.1 - COVID-19; J96.01 - ACUTE RESPIRATORY FAILURE WITH HYPOXIA SNOMED Code(s): 336878665 (2) Essential hypertension Current Visit: Yes Status: Acute Code(s): I10 - ESSENTIAL (PRIMARY) HYPERTENSION SNOMED Code(s): 60943646 (3) Type 2 diabetes mellitus Current Visit: Yes Status: Acute Code(s): E11.9 - TYPE 2 DIABETES MELLITUS WITHOUT COMPLICATIONS SNOMED Code(s): 03366984 (4) DARWIN (acute kidney injury), ATN,secondary to #1, improving Current Visit: Yes Status: Acute Code(s): N17.9 - ACUTE KIDNEY FAILURE, UNSPECIFIED SNOMED Code(s): 65074232 (5) chronic kidney disease stage IIIa secondary to DKA, baseline 1.3 (6) COVID-19 Current Visit: Yes Status: Acute Code(s): U07.1 - COVID-19 SNOMED Code(s): 681736069 (7) Hyperkalemia secondary to acute renal failure, YODIT inhibitor and NSAIDs,resolved Current Visit: Yes Status: Acute Code(s): E87.5 - HYPERKALEMIA SNOMED Code(s): 94293009 (8) hyponatremia, 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 (9) CAD, cardiomyopathy, EF 35-40% (10) mild pulmonary hypertension Plan: Continue on current medication regime ,monitoring and symptomatic treatment. Titrate O2 to sat greater than 90% as per pulmonary. COVID regimen. Maintain fluid restriction. Close monitoring of Accu-Cheks. Close monitoring of electrolytes, renal function with repeat labs ordered for a.m. prognosis guarded given multiple complex medical issues. The impression and plan of care has been dictated as directed. : I performed a history and examination of this patient, discussed the same with the dictator. I agree with the dictator's note ,documented as a scribe. Any additional findings or plans will be noted.
--- NOTE | 2020-12-18 14:28 | P.PN ---
Subjective Progress Note Date: 12/18/20 11/27/2020 during the night, patient became more hypoxic, requiring nonrebreather. Significant clinical improvement, maintaining O2 sats in the 90s on 5 L nasal cannula. Minimal nonproductive cough. Creatinine 1.6. 11/28/2020 Required nonrebreather briefly during the night; currently maintained on 5 L nasal cannula, O2 sats of 90-91%. Complains of worsening shortness of breath, especially with minimal exertion, nonproductive cough. Maintained on Covid regimen, including dexamethasone. Blood sugars elevated throughout the night, better controlled this morning. Denies chest pain, palpitations or shortness of breath. Labs pending. 11/29/20 S/P convalescent plasma .Continues on Covid regimen, maintaining O2 sats in the 90s on 6 L nasal cannula. Occasional nonproductive cough. Denies chest pain, palpitations. Evaluated by pulmonary, outside the window for Remdesevir. Creatinine 1.4. 12/02/2020 maintained on high flow cannula with FiO2 of 90% post nonrebreather to maintain O2 sats in the 90s. Chest x-ray reporting progression of interstitial and patchy bilateral airspace infiltrates. Afebrile, T-max 99.5. BUN 60, Creatinine 1.6 sodium 132. 12/03/2020 maintained on Covid 19 cocktail ,continues on 15 L high flow nasal cannula and nonrebreather mask, maintaining O2 sats of 90%. Nonproductive cough. Afebrile. Minimal reserve. 12/04/2020 Received Acterma yesterday. Maintained on 90% airvo and a nonrebreather mask, maintaining O2 sats in the high 80s to low 90s. Staff reports last night he ate better, was more conversant. Reports he feels more comfortable and not as weak. Afebrile. Creatinine 1.8. Hyperglycemic, blood sugars up to 271 at lunch. 12/05/2020 continue a 90% high flow airvo, maintaining O2 sats in the low 90s. Continues to feel better with less fatigue, less shortness of breath. Labs pending. Afebrile. 12/06/2020 no overnight events. Maintaining O2 sat in the low 90s, settings unchanged. Feels better today. Sodium worsening decreased to 123 yesterday, labs pending today. Urine osmolality ordered, received a dose Samsca. Afebrile. Denies chest pain, palpitations. 12/09/2020 continue on Covid cocktail. Continues on high flow oxygen, 45 L/70% FiO2 maintaining O2 sats in the high 80s to low 90s. Nonproductive cough with deep inspiration. Sodium 127, creatinine 1.35, potassium 5.2. Repeating Tolvaptan today as per nephrology. Blood sugars better controlled. Afebrile. 12/10/2020 received tolvaptan yesterday, labs pending. Chest x-ray reporting diffuse bilateral infiltrates stable. No changes overnight, maintaining on high flow nasal cannula maintaining O2 sats in the 90s, mostly low 90s. Denies chest pain, palpitations. Afebrile. 12/11/2020 currently on high flow oxygen at 45 L and 60% FiO2 with O2 saturation 91%. Reports less shortness of breath today. Less acessory muscle use noted. Creatinine 1.21. Sodium 126, Afebrile. 12/12/2020 FiO2 is decreased to 45 L and 55% FiO2(nonrebreather over HFNC ) maintaining O2 sats in the mid 80s to low 90s. Maintained on Covid cocktail. He reports he is unable to be off mask very long but is able to take bites of food and juice. Denies chest pain, palpitations. Denies increased shortness of breath. Sodium level 127. 12/13/2020 worsening respiratory status, increased shortness of breath on 45 L/60% FiO2 high flow nasal cannula. Desatted to the mid 80s with increased respiratory rate up into the low 20s. Increased to 60 L high flow nasal cannula, FiO2 80%. O2 sats up to 92%. Exertional shortness of breath. CTA ordered. Poor oral intake, hypoglycemic. Afebrile. Sodium remains at 127, renal function improving , creatinine 1. 12/16/2020 continue on high flow airvo and nonrebreather maintaining O2 sats in the low 90s. Reports worsening cough, otherwise comfortable. Sodium 127. 12/17/2020 FiO2 decreased to 75%, maintaining O2 sats in the mid 90s. Reports less cough. Blood sugars ranging from 107 to low 200s. Consuming 75% of breakfast, tolerated well with no nausea vomiting or diarrhea. Maintained on oral sodium chloride and Samsca ,Sodium 128. 12/18/2020 sodium down to 126, did not receive Samsca yesterday. Renal function continues improving, BUN 21, creatinine 0.85. Reports he ate pancakes this morning, breakfast intake recorded at 25%. Patient has been refusing HS snacks. 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 Patient yesterday had isolated high sugar 400 at noon. High flow nasal cannula decreased to 70%, maintaining O2 sats in the low 90s. Chest x-ray reporting similar to prior exam. Objective - Vital Signs Vital signs: Vital Signs Temp 97.6 F 12/18/20 04:00 Pulse 82 12/18/20 12:00 Resp 20 12/18/20 12:00 BP 109/61 12/18/20 12:00 Pulse Ox 93 L 12/18/20 12:21 Intake & Output 12/17/20 12/18/20 12/18/20 18:59 06:59 18:59 Intake Total 120 120 125 Output Total 1600 575 Balance -1480 -455 125 Intake: Oral 120 120 125 Output: Urine 1600 575 Other: Voiding Method Urinal Urinal Urinal # Voids 4 150 # Bowel Movements 1 - Exam - Exam General: Alert and oriented 3, Sitting up in bed, on high flow nasal cannula, weak appearing, Vitals reviewed Lungs: Increased respiratory effort, rhonchi and bibasilar rales CV: Regular rate and rhythm, no murmur. Peripheral pulses 2+, no edema Abdomen: soft, nondistended, no organomegaly. Positive bowel sounds Skin: warm and dry. - Labs CBC & Chem 7: 12/13/20 12:42 12/18/20 09:18 Labs: Abnormal Lab Results - Last 24 Hours (Table) 12/17/20 12/17/20 12/18/20 Range/Units 17:09 20:08 06:03 Sodium (137-145) mmol/L Chloride (98-107) mmol/L BUN (9-20) mg/dL Glucose (74-99) mg/dL POC Glucose (mg/dL) 199 H 131 H 66 L (75-99) mg/dL Calcium (8.4-10.2) mg/dL 12/18/20 12/18/20 Range/Units 09:18 11:57 Sodium 126 L (137-145) mmol/L Chloride 96 L (98-107) mmol/L BUN 21 H (9-20) mg/dL Glucose 219 H (74-99) mg/dL POC Glucose (mg/dL) 268 H (75-99) mg/dL Calcium 8.3 L (8.4-10.2) mg/dL Assessment and Plan Assessment: (1) Acute hypoxemic respiratory failure due to COVID-19 pneumonitis, status post convalescent plasma,TOCI, outside the window for Remdesevir, Current Visit: Yes Status: Acute Code(s): U07.1 - COVID-19; J96.01 - ACUTE RESPIRATORY FAILURE WITH HYPOXIA SNOMED Code(s): 446668626 (2) Essential hypertension Current Visit: Yes Status: Acute Code(s): I10 - ESSENTIAL (PRIMARY) HYPERTENSION SNOMED Code(s): 74529491 (3) Type 2 diabetes mellitus Current Visit: Yes Status: Acute Code(s): E11.9 - TYPE 2 DIABETES MELLITUS WITHOUT COMPLICATIONS SNOMED Code(s): 62076740 (4) DARWIN (acute kidney injury), ATN,secondary to #1, improving Current Visit: Yes Status: Acute Code(s): N17.9 - ACUTE KIDNEY FAILURE, UNSP ECIFIED SNOMED Code(s): 71538845 (5) chronic kidney disease stage IIIa secondary to DKA, baseline 1.3 (6) COVID-19 Current Visit: Yes Status: Acute Code(s): U07.1 - COVID-19 SNOMED Code(s): 456748053 (7) Hyperkalemia secondary to acute renal failure, YODIT inhibitor and NSAIDs,resolved Current Visit: Yes Status: Acute Code(s): E87.5 - HYPERKALEMIA SNOMED Code(s): 07438916 (8) hyponatremia, 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 (9) CAD, cardiomyopathy, EF 35-40% (10) mild pulmonary hypertension Plan: Continue on current medication regime ,monitoring and symptomatic treatment. Diet intake fluctuates.Adjust administration time of Levemir to AM. Close monitoring of Accu-Cheks.Titrate O2 to sat greater than 90% as per pulmonary. COVID regimen. Maintain fluid restriction. Samsca as per nephrology.Close monitoring of electrolytes, renal function with repeat labs ordered for a.m. prognosis guarded given multiple complex medical issues. The impression and plan of care has been dictated as directed. : I performed a history and examination of this patient, discussed the same with the dictator. I agree with the dictator's note ,documented as a scribe. Any additional findings or plans will be noted.
[2020-12-18 17:15] LABS: Glucose,Whole Blood 229 mg/dL (75-99)
--- NOTE | 2020-12-18 17:17 | P.PN ---
Subjective Progress Note Date: 12/18/20 Principal diagnosis: Acute hypoxic respiratory failure secondary to acute covid 19 pneumonitis. This is a 70-year-old white male with history of multiple medical problems including hypertension, type 2 diabetes, dyslipidemia, coronary artery disease and previous TN, previous stent placement, degenerative joint disease, bladder cancer, nephrolithiasis, patient presented to the emergency room on 11/24/2020, mostly with 1 week history of multiple constitutional symptoms including muscle aches, fever, shortness of breath, cough, nausea, and he tested positive on the with contreras virus PCR. Chest x-ray showed evidence of bilateral opacities/infiltrates. Patient had adequate saturations on room air, it was about 94%, he was also noted to be hyperkalemic, and he had lactic acid of 2.7. Received dextrose, insulin, Kayexalate, and the patient was eventually admitted seen by nephrology on consultation, he was placed on the Covid 19 cocktail, and we were asked to see him yesterday because of his worsening shortness of breath. No follow-up chest x-ray done since admission, and I will be ordering one to be done today. Labs today clearly showed relatively normal CBC. Elevated BUN of 40 creatinine is 1.4. D-dimer was normal on admission, and I do not see any inflammatory markers on the chart. After evaluating the patient, we recommended one unit of convalescent plan is to be given. Patient obviously did not qualify for REM. And he is not at the point of requiring actemtra Patient was reevaluated today on 11/29/2020, he is basically about the same. Not much of a change in the last 24 hours. Patient is on 6 L nasal cannula, and his O2 saturation is in the low 90s. Continues to have intermittent cough, shortness of breath, basic metabolic profile is normal. His LDH is 1466, and C- reactive protein is 24. Patient remains on the Covid 19 cocktail. He received convalescent plasma. He was out of the window for REM. Patient was reevaluated today on 12/02/2020, does not seem to be improving much. Patient is now on higher FiO2, requiring airvo high flow with FiO2 of 90% and total of 60 L/m in addition to this he is also on a nonrebreather. Chest x-ray seems to be a bit worse. LDH is worse 1881 last C-reactive protein is 24. Renal functioning is also worse with a BUN of 46 creatinine 1.60 and a potassium of 5.7 being addressed by nephrology on the case. His last chest x-ray was on 12/02/1912/17/2020, I will go ahead and order a chest x-ray for the morning. Patient remains on the Covid 19 cocktail. He received convalescent plasma. Interstitia l and patchy bilateral airspace disease/infiltrates progressed from admission x- ray. Repeat basic metabolic profile was done today, potassium is down to 4.4 from 5.7 yesterday. BUN is 60 creatinine is 1.60. Reevaluated today on 12/03/2020, patient is about the same remains on nonrebreather mask and high flow cannula,He is on 90% FiO2 with flow of 15 L/m and his O2 saturation is in the low 90s. Continues to have intermittent cough, shortness of breath with any activity. Patient has been steadily worsening clinically over the last few days. Hence I would recommend actemra on this patient. Remains on the Covid 19 cocktail. And he also received convalescent plasma. Patient was reevaluated today on 12/04/2020, remains on high flow oxygen using Airvo and a nonrebreather mask. Patient is on 90% FiO2 and 50 L flow with O2 saturation in the high 80s and low 90s. Clinically however he feels a bit better today compared to how he felt yesterday. Even his lungs sounded a bit better and less crackles noted on examination. No labs were done today except blood sugar of 166 Patient was reevaluated today on 12/05/2020, remains on high flow via airvo , presently on 90% FiO2 and 50 L flow. O2 saturations are in the low 90s. Patient tells me that he feels a bit better today compared to the last couple of days. Less shortness of breath, less aches and pains, overall feels better. On examination he did sound better. And his labs were reviewed, sodium is down to 125 and his BUN is 88 creatinine is 1.8, I suspect that we are dealing with hypovolemic hyponatremia and prerenal azotemia hence the patient would benefit from more fluid/0.9 normal saline will be added. And will put his Lasix on hold today. I believe his hyponatremia is related to diuretics , placed him back on 0.9 normal saline at 75 mL per hour may even require more fluids. Reevaluated today on 12/06/2020, patient is basically about the same. Remains on high flow oxygen AIRVO, 85% and 50 L flow. He is also on a nonrebreather mask, O2 saturation remains marginal in the low 90s. Today for some reason the patient is feeling a bit better but nowhere near his baseline. Patient is generally weak. His sodium has been coming down and today is 125. This is being addressed by nephrology on the case. White count is high today at 24.08. Platelets are also high at 665. Blood sugar is 71. I reviewed his follow-up chest x-ray today no significant change, continues to show bilateral diffuse interstitial infiltrates. Reevaluated today on 12/07/2020, patient is feeling a bit better, remains on high flow oxygen 90%/60 L flow and his O2 saturation is 92%. Patient is having echocardiogram as I was examining him. Results of the echocardiogram are pending. Again the patient is feeling a bit better, less shortness of breath, no cough, no wheezing, no chest pain, no fever, no chills, he feels generally weak, and he does have shortness of breath with any activity. Yesterday's chest x-ray continued to show diffuse bilateral interstitial infiltrates. Not much of a change. Labs today showed improved sodium of 129 BUN is 77 and creatinine 1.6. Or 2020, the patient has been weaned down to high flow oxygen 6 L with an FiO2 of 75% which is essentially the same setting as yesterday. The patient's pulse ox is currently at 92%. No new complaints. In terms of his chest x-ray from yesterday, the patient had no interval worsening. He did have bilateral multifocal pulmonary infiltrates and confluent opacities consistent with COVID- 19 related pneumonia and he also had a CT angios the chest that showed no evidence of any pulmonary embolism and it was consistent with COVID-19 related pneumonia. On his blood work, his LDH level is 1471 which is higher and this CRP level is at 1.4. Sodium level is at 125 and the BUN is 34 with a creatinine of 1. His d-dimer is at 2.66. The patient remains on Decadron 63 g IV every 24 hours. He is on Lovenox and the dose should be 40 mg subcu every 24 hours. IV fluids are at KVO for now. He is taking also salt tablets. Sodium level is improving. He remains on Levemir insulin 30 units in the morning 27 units in the evening along with a lighting scale coverage. He is resting comfortably in bed. No significant worsening shortness of breath. His pulmonary status is very much limited still and the patient has been in the hospital for more than 3 weeks along with his . Patient was reevaluated today on 12/16/2020, remains on high flow oxygen, he is now on airvo and a non-rebreather mask FiO2 85% and flow at 60 L/m. His O2 saturation is marginal, however the patient seems to be comfortable, and in no distress. CT angiogram on 12/13 showed no filling defects and no evidence of pulmonary embolism. However it did show patchy infiltrates present bilaterally consistent with COVID-19 pneumonia. His sodium today is 127. Renal profile showed a BUN of 34 creatinine 1.04 C-reactive protein is 1.4 LDH is 1471. Reviewed his most recent chest x-ray continues to show bilateral interstitial infiltrates Reevaluated today on 12/17/2020, patient is about the same, however he is oxygenating better, and his O2 saturation is improving today. His FiO2 is down to 75%, his flow is at 60 L/m, and his O2 saturation is 95%, hence I recommended cutting down the FiO2 to 70% and a baby down to 60% if his O2 saturation remains at 95% above 90% patient is denying being short of breath, he is feeling better overall compared to how he felt over the last 1 week. Electrolytes showed low sodium of 128 but improving. And his electrolytes are otherwise normal renal profile is normal. Blood sugar seems to be high, and I believe it is causing a pseudohyponatremia-type of picture. At sugar is 419 his sugar is being addressed by his admitting physician. Patient was reevaluated today on 12/18/2020, patient remains on high flow oxygen, however it has been titrated down, and the patient is feeling better. He is now on 65% FiO2, and 60 L flow patient does not seem to be in any distress. Obviously the patient is improving, but he is improving extremely slowly. Sodium remains low at 126 electrolytes are normal otherwise. Renal profile is normal. Blood sugar is 268. D-dimer is coming down the left d-dimer was 2.66. LDH is 1471 C-reactive protein is 1.4. Pro-calcitonin is 0.16 chest x-ray today continues to show bilateraldisease, I believe there is some improvement. Objective - Vital Signs Vital signs: Vital Signs Temp 97.6 F 12/18/20 04:00 Pulse 82 12/18/20 12:00 Resp 20 12/18/20 12:00 BP 109/61 12/18/20 12:00 Pulse Ox 93 L 12/18/20 12:21 Intake & Output 12/17/20 12/18/20 12/18/20 18:59 06:59 18:59 Intake Total 120 120 125 Output Total 1600 575 Balance -1480 -455 125 Intake: Oral 120 120 125 Output: Urine 1600 575 Other: Voiding Method Urinal Urinal Urinal # Voids 4 150 # Bowel Movements 1 - Exam Physical Exam: Revealed 70-year-old white male in remains on high FiO2 and high flow oxygen.airvo 65% and 60 L flow Head: Atraumatic, normocephalic. HEENT:[Neck is supple.] [No neck masses.] [No thyromegaly.] [No JVD.] Chest: Symmetrical chest expansion, crackles at the bases bilaterally..] Cardiac Exam: [Normal S1 and S2, no S3 gallop, no murmur.] Abdomen: [Soft, nontender, no megaly, no rebound, no guarding, normal bowel sounds.] Extremities: [No clubbing, no edema, no cyanosis.] Neurological Exam: [No focal neurologic deficit.] Alert and oriented 3. Psychiatric: Normal mood affect and normal mental status examination. Musculoskeletal: No limitation in range of motion, no deformities. - Labs CBC & Chem 7: 12/13/20 12:42 12/18/20 09:18 Labs: Abnormal Lab Results - Last 24 Hours (Table) 12/17/20 12/18/20 12/18/20 Range/Units 20:08 06:03 09:18 Sodium 126 L (137-145) mmol/L Chloride 96 L (98-107) mmol/L BUN 21 H (9-20) mg/dL Glucose 219 H (74-99) mg/dL POC Glucose (mg/dL) 131 H 66 L (75-99) mg/dL Calcium 8.3 L (8.4-10.2) mg/dL 12/18/20 Range/Units 11:57 Sodium (137-145) mmol/L Chloride (98-107) mmol/L BUN (9-20) mg/dL Glucose (74-99) mg/dL POC Glucose (mg/dL) 268 H (75-99) mg/dL Calcium (8.4-10.2) mg/dL Assessment and Plan Assessment: Impression: Acute hypoxic respiratory failure secondary to acute covid 19 pneumonitis. Improving but slowly. Acute on chronic kidney injury associated with underlying Covid 19 infection, resolved. History of bladder cancer. Chronic kidney disease, previous creatinine was 1.3 in February 2020. Benign essential hypertension Type 2 diabetes Pseudohyponatremia secondary to hyperglycemia. Recommendation: Continue high flow oxygen and titrate accordingly to maintain O2 saturation above 90%. Continue present supportive care measures Continue to follow inflammatory markers. Continue the Covid 19 cocktail. Received 1 unit of convalescent plasma., He also received VIOLETA I. Prognosis remains guarded. Time with Patient: Less than 30
[2020-12-18] MEDS: INSULIN DETEMIR (LEVEMIR) 100 UNIT/ML SYR SQ SCH (18:40)
[2020-12-18 20:15] LABS: Glucose,Whole Blood 256 mg/dL (75-99)
[2020-12-18] MEDS: MELATONIN 5 MG TABLET PO SCH (20:34)
[2020-12-18] MEDS: ATORVASTATIN 80 MG TAB PO SCH (20:34)
[2020-12-19 06:14] LABS: Glucose,Whole Blood 116 mg/dL (75-99)
[2020-12-19] MEDS: INSULIN ASPART (NovoLOG) 100 UNIT/ML VIAL SQ SCH ×4 (06:16→21:32)
[2020-12-19] MEDS: LEVOTHYROXINE 100 MCG TAB PO SCH (06:36)
[2020-12-19] MEDS: PANTOPRAZOLE 40 MG TABLET PO SCH (06:36)
[2020-12-19] MEDS: INSULIN DETEMIR (LEVEMIR) 100 UNIT/ML SYR SQ SCH (06:36)
[2020-12-19] MEDS: ALBUTEROL HFA INHALER INHALATION SCH ×4 (08:06→19:38)
[2020-12-19] MEDS: DEXAMETHASONE SOD PHOSPHATE 10 MG/ML 1 ML VIAL IV SCH (10:01)
[2020-12-19] MEDS: METOPROLOL SUCCINATE (ER) 25 MG TAB.ER.24H PO SCH (10:02)
[2020-12-19] MEDS: ASCORBIC ACID 500 MG TAB PO SCH (10:02)
[2020-12-19] MEDS: GABAPENTIN 300 MG CAP PO SCH (10:02)
[2020-12-19] MEDS: ENOXAPARIN 40 MG/0.4 ML SYRINGE SQ SCH (10:02)
[2020-12-19] MEDS: ZINC SULFATE 220 MG CAP PO SCH (10:02)
[2020-12-19] MEDS: CHOLECALCIFEROL 25 MCG (1000 IU) TABLET PO SCH (10:02)
[2020-12-19] MEDS: CLOPIDOGREL 75 MG TAB PO SCH (10:02)
[2020-12-19] MEDS: ASPIRIN 81 MG PO SCH (10:02)
[2020-12-19] MEDS: SODIUM CHLORIDE TAB 1 GM TAB PO SCH ×2 (10:03→21:32)
[2020-12-19 11:52] LABS: Glucose,Whole Blood 204 mg/dL (75-99)
[2020-12-19] MEDS ORDERED: TOLVAPTAN 15 MG 1/2 TABLET PO ONE (12:45)
--- NOTE | 2020-12-19 17:09 | P.PN ---
Subjective Progress Note Date: 12/19/20 Principal diagnosis: Acute hypoxic respiratory failure secondary to acute covid 19 pneumonitis. This is a 70-year-old white male with history of multiple medical problems including hypertension, type 2 diabetes, dyslipidemia, coronary artery disease and previous CO, previous stent placement, degenerative joint disease, bladder cancer, nephrolithiasis, patient presented to the emergency room on 11/24/2020, mostly with 1 week history of multiple constitutional symptoms including muscle aches, fever, shortness of breath, cough, nausea, and he tested positive on the with contreras virus PCR. Chest x-ray showed evidence of bilateral opacities/infiltrates. Patient had adequate saturations on room air, it was about 94%, he was also noted to be hyperkalemic, and he had lactic acid of 2.7. Received dextrose, insulin, Kayexalate, and the patient was eventually admitted seen by nephrology on consultation, he was placed on the Covid 19 cocktail, and we were asked to see him yesterday because of his worsening shortness of breath. No follow-up chest x-ray done since admission, and I will be ordering one to be done today. Labs today clearly showed relatively normal CBC. Elevated BUN of 40 creatinine is 1.4. D-dimer was normal on admission, and I do not see any inflammatory markers on the chart. After evaluating the patient, we recommended one unit of convalescent plan is to be given. Patient obviously did not qualify for REM. And he is not at the point of requiring actemtra Patient was reevaluated today on 11/29/2020, he is basically about the same. Not much of a change in the last 24 hours. Patient is on 6 L nasal cannula, and his O2 saturation is in the low 90s. Continues to have intermittent cough, shortness of breath, basic metabolic profile is normal. His LDH is 1466, and C- reactive protein is 24. Patient remains on the Covid 19 cocktail. He received convalescent plasma. He was out of the window for REM. Patient was reevaluated today on 12/02/2020, does not seem to be improving much. Patient is now on higher FiO2, requiring airvo high flow with FiO2 of 90% and total of 60 L/m in addition to this he is also on a nonrebreather. Chest x-ray seems to be a bit worse. LDH is worse 1881 last C-reactive protein is 24. Renal functioning is also worse with a BUN of 46 creatinine 1.60 and a potassium of 5.7 being addressed by nephrology on the case. His last chest x-ray was on 12/02/1912/17/2020, I will go ahead and order a chest x-ray for the morning. Patient remains on the Covid 19 cocktail. He received convalescent plasma. Interstitia l and patchy bilateral airspace disease/infiltrates progressed from admission x- ray. Repeat basic metabolic profile was done today, potassium is down to 4.4 from 5.7 yesterday. BUN is 60 creatinine is 1.60. Reevaluated today on 12/03/2020, patient is about the same remains on nonrebreather mask and high flow cannula,He is on 90% FiO2 with flow of 15 L/m and his O2 saturation is in the low 90s. Continues to have intermittent cough, shortness of breath with any activity. Patient has been steadily worsening clinically over the last few days. Hence I would recommend actemra on this patient. Remains on the Covid 19 cocktail. And he also received convalescent plasma. Patient was reevaluated today on 12/04/2020, remains on high flow oxygen using Airvo and a nonrebreather mask. Patient is on 90% FiO2 and 50 L flow with O2 saturation in the high 80s and low 90s. Clinically however he feels a bit better today compared to how he felt yesterday. Even his lungs sounded a bit better and less crackles noted on examination. No labs were done today except blood sugar of 166 Patient was reevaluated today on 12/05/2020, remains on high flow via airvo , presently on 90% FiO2 and 50 L flow. O2 saturations are in the low 90s. Patient tells me that he feels a bit better today compared to the last couple of days. Less shortness of breath, less aches and pains, overall feels better. On examination he did sound better. And his labs were reviewed, sodium is down to 125 and his BUN is 88 creatinine is 1.8, I suspect that we are dealing with hypovolemic hyponatremia and prerenal azotemia hence the patient would benefit from more fluid/0.9 normal saline will be added. And will put his Lasix on hold today. I believe his hyponatremia is related to diuretics , placed him back on 0.9 normal saline at 75 mL per hour may even require more fluids. Reevaluated today on 12/06/2020, patient is basically about the same. Remains on high flow oxygen AIRVO, 85% and 50 L flow. He is also on a nonrebreather mask, O2 saturation remains marginal in the low 90s. Today for some reason the patient is feeling a bit better but nowhere near his baseline. Patient is generally weak. His sodium has been coming down and today is 125. This is being addressed by nephrology on the case. White count is high today at 24.08. Platelets are also high at 665. Blood sugar is 71. I reviewed his follow-up chest x-ray today no significant change, continues to show bilateral diffuse interstitial infiltrates. Reevaluated today on 12/07/2020, patient is feeling a bit better, remains on high flow oxygen 90%/60 L flow and his O2 saturation is 92%. Patient is having echocardiogram as I was examining him. Results of the echocardiogram are pending. Again the patient is feeling a bit better, less shortness of breath, no cough, no wheezing, no chest pain, no fever, no chills, he feels generally weak, and he does have shortness of breath with any activity. Yesterday's chest x-ray continued to show diffuse bilateral interstitial infiltrates. Not much of a change. Labs today showed improved sodium of 129 BUN is 77 and creatinine 1.6. Or 2020, the patient has been weaned down to high flow oxygen 6 L with an FiO2 of 75% which is essentially the same setting as yesterday. The patient's pulse ox is currently at 92%. No new complaints. In terms of his chest x-ray from yesterday, the patient had no interval worsening. He did have bilateral multifocal pulmonary infiltrates and confluent opacities consistent with COVID- 19 related pneumonia and he also had a CT angios the chest that showed no evidence of any pulmonary embolism and it was consistent with COVID-19 related pneumonia. On his blood work, his LDH level is 1471 which is higher and this CRP level is at 1.4. Sodium level is at 125 and the BUN is 34 with a creatinine of 1. His d-dimer is at 2.66. The patient remains on Decadron 63 g IV every 24 hours. He is on Lovenox and the dose should be 40 mg subcu every 24 hours. IV fluids are at KVO for now. He is taking also salt tablets. Sodium level is improving. He remains on Levemir insulin 30 units in the morning 27 units in the evening along with a lighting scale coverage. He is resting comfortably in bed. No significant worsening shortness of breath. His pulmonary status is very much limited still and the patient has been in the hospital for more than 3 weeks along with his . Patient was reevaluated today on 12/16/2020, remains on high flow oxygen, he is now on airvo and a non-rebreather mask FiO2 85% and flow at 60 L/m. His O2 saturation is marginal, however the patient seems to be comfortable, and in no distress. CT angiogram on 12/13 showed no filling defects and no evidence of pulmonary embolism. However it did show patchy infiltrates present bilaterally consistent with COVID-19 pneumonia. His sodium today is 127. Renal profile showed a BUN of 34 creatinine 1.04 C-reactive protein is 1.4 LDH is 1471. Reviewed his most recent chest x-ray continues to show bilateral interstitial infiltrates Reevaluated today on 12/17/2020, patient is about the same, however he is oxygenating better, and his O2 saturation is improving today. His FiO2 is down to 75%, his flow is at 60 L/m, and his O2 saturation is 95%, hence I recommended cutting down the FiO2 to 70% and a baby down to 60% if his O2 saturation remains at 95% above 90% patient is denying being short of breath, he is feeling better overall compared to how he felt over the last 1 week. Electrolytes showed low sodium of 128 but improving. And his electrolytes are otherwise normal renal profile is normal. Blood sugar seems to be high, and I believe it is causing a pseudohyponatremia-type of picture. At sugar is 419 his sugar is being addressed by his admitting physician. Patient was reevaluated today on 12/18/2020, patient remains on high flow oxygen, however it has been titrated down, and the patient is feeling better. He is now on 65% FiO2, and 60 L flow patient does not seem to be in any distress. Obviously the patient is improving, but he is improving extremely slowly. Sodium remains low at 126 electrolytes are normal otherwise. Renal profile is normal. Blood sugar is 268. D-dimer is coming down the left d-dimer was 2.66. LDH is 1471 C-reactive protein is 1.4. Pro-calcitonin is 0.16 chest x-ray today continues to show bilateraldisease, I believe there is some improvement. Reevaluated today on 12/19/2020, patient is basically about the same, remains on 65% FiO2 and 60 L flow. Complaining of generalized weakness, fatigue, and shortness of breath upon any activity. His sodium is up to 129 today. No other labs were noted on the chart today. Objective - Vital Signs Vital signs: Vital Signs Temp 97.4 F L 12/19/20 08:15 Pulse 79 12/19/20 16:00 Resp 18 12/19/20 16:00 BP 137/67 12/19/20 16:00 Pulse Ox 93 L 12/19/20 16:00 Intake & Output 12/18/20 12/19/20 12/19/20 18:59 06:59 18:59 Intake Total 125 240 Output Total 200 800 400 Balance -75 -800 -160 Intake: Oral 125 240 Output: Urine 200 800 Stool 400 Other: Voiding Method Urinal Urinal # Bowel Movements 1 - Exam Physical Exam: Revealed 70-year-old white male in remains on high FiO2 and high flow oxygen.airvo 65% and 60 L flow Head: Atraumatic, normocephalic. HEENT:[Neck is supple.] [No neck masses.] [No thyromegaly.] [No JVD.] Chest: Symmetrical chest expansion, crackles at the bases bilaterally..] Cardiac Exam: [Normal S1 and S2, no S3 gallop, no murmur.] Abdomen: [Soft, nontender, no megaly, no rebound, no guarding, normal bowel sounds.] Extremities: [No clubbing, no edema, no cyanosis.] Neurological Exam: [No focal neurologic deficit.] Alert and oriented 3. Psychiatric: Normal mood affect and normal mental status examination. Musculoskeletal: No limitation in range of motion, no deformities. - Labs CBC & Chem 7: 12/13/20 12:42 12/19/20 11:25 Labs: Abnormal Lab Results - Last 24 Hours (Table) 12/18/20 12/18/20 12/19/20 Range/Units 16:56 20:14 06:12 Sodium (137-145) mmol/L POC Glucose (mg/dL) 229 H 256 H 116 H (75-99) mg/dL 12/19/20 12/19/20 Range/Units 11:25 11:44 Sodium 129 L (137-145) mmol/L POC Glucose (mg/dL) 204 H (75-99) mg/dL Assessment and Plan Assessment: Impression: Acute hypoxic respiratory failure secondary to acute covid 19 pneumonitis. Minimal improvement if any. Acute on chronic kidney injury associated with underlying Covid 19 infection, resolved. History of bladder cancer. Chronic kidney disease, previous creatinine was 1.3 in February 2020. Benign essential hypertension Type 2 diabetes Pseudohyponatremia secondary to hyperglycemia. Weakness secondary to above and secondary to COVID-19 infection. Recommendation: Continue high flow oxygen and titrate accordingly to maintain O2 saturation abov e 90%. Continue present supportive care measures Continue to follow inflammatory markers. Continue the Covid 19 cocktail. Received 1 unit of convalescent plasma., He also received VIOLETA I. Prognosis remains guarded. Time with Patient: Less than 30
[2020-12-19 17:32] LABS: Glucose,Whole Blood 207 mg/dL (75-99)
--- NOTE | 2020-12-19 17:42 | PN ---
PROGRESS NOTE Patient is seen for followup for hyponatremia. The patient has been receiving a dose of Samsca on a daily basis for the hyponatremia secondary to SIADH. He is being treated for COVID pneumonia and continues to have high oxygen requirements. This morning patient appears slightly better. PHYSICAL EXAMINATION: On examination today, blood pressure was 111/63, heart rate 78 per minute. He is afebrile. Patient is maintained on high-flow oxygen. FiO2 about 65% on AIRVO. Examination lower extremities shows no evidence of edema. [employer] exam grossly intact. LAB: Show sodium of 126 yesterday and it was up to 129 today. ASSESSMENT AND PLAN: 1. Repeat Samsca. Continue with sodium chloride tabs and repeat sodium level in a.m. 2. Acute hypoxic respiratory failure secondary to COVID pneumonia. 3. Acute kidney injury on initial admission. Currently resolved. 4. Covid pneumonia, maintained on steroids. PLAN: Repeat a dose of tolvaptan today. Repeat labs in a.m. Continue to avoid saline administration. MMODL / IJN: [id number] /
[2020-12-19 20:33] LABS: Glucose,Whole Blood 222 mg/dL (75-99)
[2020-12-19] MEDS: ATORVASTATIN 80 MG TAB PO SCH (21:32)
[2020-12-19] MEDS: MELATONIN 5 MG TABLET PO SCH (21:32)
[2020-12-20 05:50] LABS: Glucose,Whole Blood 128 mg/dL (75-99)
[2020-12-20] MEDS: INSULIN ASPART (NovoLOG) 100 UNIT/ML VIAL SQ SCH ×4 (06:05→20:45)
[2020-12-20] MEDS: INSULIN DETEMIR (LEVEMIR) 100 UNIT/ML SYR SQ SCH (06:40)
[2020-12-20] MEDS: PANTOPRAZOLE 40 MG TABLET PO SCH (06:40)
[2020-12-20] MEDS: LEVOTHYROXINE 100 MCG TAB PO SCH (06:40)
[2020-12-20] MEDS: ALBUTEROL HFA INHALER INHALATION SCH ×4 (08:53→20:13)
[2020-12-20] MEDS: DEXAMETHASONE SOD PHOSPHATE 10 MG/ML 1 ML VIAL IV SCH (09:07)
[2020-12-20] MEDS: CLOPIDOGREL 75 MG TAB PO SCH (09:07)
[2020-12-20] MEDS: CHOLECALCIFEROL 25 MCG (1000 IU) TABLET PO SCH (09:07)
[2020-12-20] MEDS: ASCORBIC ACID 500 MG TAB PO SCH (09:07)
[2020-12-20] MEDS: ZINC SULFATE 220 MG CAP PO SCH (09:07)
[2020-12-20] MEDS: METOPROLOL SUCCINATE (ER) 25 MG TAB.ER.24H PO SCH (09:07)
[2020-12-20] MEDS: GABAPENTIN 300 MG CAP PO SCH (09:07)
[2020-12-20] MEDS: ASPIRIN 81 MG PO SCH (09:08)
[2020-12-20] MEDS: SODIUM CHLORIDE TAB 1 GM TAB PO SCH ×2 (09:08→21:30)
[2020-12-20] MEDS: ENOXAPARIN 40 MG/0.4 ML SYRINGE SQ SCH (09:08)
[2020-12-20 11:18] LABS: African American GFR (CKD) >90 (>60 ml/min/1.73 sqM); Anion Gap 3 mmol/L; Blood Urea Nitrogen 23 mg/dL (9-20); Calcium 8.6 mg/dL (8.4-10.2); Carbon Dioxide 27 mmol/L (22-30); Chloride 99 mmol/L (98-107); Glucose 149 mg/dL (74-99); Non-African American GFR(CKD) 82 (>60 ml/min/1.73 sqM); Potassium 4.3 mmol/L (3.5-5.1); Sodium 129 mmol/L (137-145)
[2020-12-20 12:13] LABS: Glucose,Whole Blood 241 mg/dL (75-99)
[2020-12-20] MEDS ORDERED: INSULIN DETEMIR (LEVEMIR) 100 UNIT/ML SYR SQ ONE (13:50)
--- NOTE | 2020-12-20 13:56 | P.PN ---
Subjective Progress Note Date: 12/20/20 11/27/2020 during the night, patient became more hypoxic, requiring nonrebreather. Significant clinical improvement, maintaining O2 sats in the 90s on 5 L nasal cannula. Minimal nonproductive cough. Creatinine 1.6. 11/28/2020 Required nonrebreather briefly during the night; currently maintained on 5 L nasal cannula, O2 sats of 90-91%. Complains of worsening shortness of breath, especially with minimal exertion, nonproductive cough. Maintained on Covid regimen, including dexamethasone. Blood sugars elevated throughout the night, better controlled this morning. Denies chest pain, palpitations or shortness of breath. Labs pending. 11/29/20 S/P convalescent plasma .Continues on Covid regimen, maintaining O2 sats in the 90s on 6 L nasal cannula. Occasional nonproductive cough. Denies chest pain, palpitations. Evaluated by pulmonary, outside the window for Remdesevir. Creatinine 1.4. 12/02/2020 maintained on high flow cannula with FiO2 of 90% post nonrebreather to maintain O2 sats in the 90s. Chest x-ray reporting progression of interstitial and patchy bilateral airspace infiltrates. Afebrile, T-max 99.5. BUN 60, Creatinine 1.6 sodium 132. 12/03/2020 maintained on Covid 19 cocktail ,continues on 15 L high flow nasal cannula and nonrebreather mask, maintaining O2 sats of 90%. Nonproductive cough. Afebrile. Minimal reserve. 12/04/2020 Received Acterma yesterday. Maintained on 90% airvo and a nonrebreather mask, maintaining O2 sats in the high 80s to low 90s. Staff reports last night he ate better, was more conversant. Reports he feels more comfortable and not as weak. Afebrile. Creatinine 1.8. Hyperglycemic, blood sugars up to 271 at lunch. 12/05/2020 continue a 90% high flow airvo, maintaining O2 sats in the low 90s. Continues to feel better with less fatigue, less shortness of breath. Labs pending. Afebrile. 12/06/2020 no overnight events. Maintaining O2 sat in the low 90s, settings unchanged. Feels better today. Sodium worsening decreased to 123 yesterday, labs pending today. Urine osmolality ordered, received a dose Samsca. Afebrile. Denies chest pain, palpitations. 12/09/2020 continue on Covid cocktail. Continues on high flow oxygen, 45 L/70% FiO2 maintaining O2 sats in the high 80s to low 90s. Nonproductive cough with deep inspiration. Sodium 127, creatinine 1.35, potassium 5.2. Repeating Tolvaptan today as per nephrology. Blood sugars better controlled. Afebrile. 12/10/2020 received tolvaptan yesterday, labs pending. Chest x-ray reporting diffuse bilateral infiltrates stable. No changes overnight, maintaining on high flow nasal cannula maintaining O2 sats in the 90s, mostly low 90s. Denies chest pain, palpitations. Afebrile. 12/11/2020 currently on high flow oxygen at 45 L and 60% FiO2 with O2 saturation 91%. Reports less shortness of breath today. Less acessory muscle use noted. Creatinine 1.21. Sodium 126, Afebrile. 12/12/2020 FiO2 is decreased to 45 L and 55% FiO2(nonrebreather over HFNC ) maintaining O2 sats in the mid 80s to low 90s. Maintained on Covid cocktail. He reports he is unable to be off mask very long but is able to take bites of food and juice. Denies chest pain, palpitations. Denies increased shortness of breath. Sodium level 127. 12/13/2020 worsening respiratory status, increased shortness of breath on 45 L/60% FiO2 high flow nasal cannula. Desatted to the mid 80s with increased respiratory rate up into the low 20s. Increased to 60 L high flow nasal cannula, FiO2 80%. O2 sats up to 92%. Exertional shortness of breath. CTA ordered. Poor oral intake, hypoglycemic. Afebrile. Sodium remains at 127, renal function improving , creatinine 1. 12/16/2020 continue on high flow airvo and nonrebreather maintaining O2 sats in the low 90s. Reports worsening cough, otherwise comfortable. Sodium 127. 12/17/2020 FiO2 decreased to 75%, maintaining O2 sats in the mid 90s. Reports less cough. Blood sugars ranging from 107 to low 200s. Consuming 75% of breakfast, tolerated well with no nausea vomiting or diarrhea. Maintained on oral sodium chloride and Samsca ,Sodium 128. 12/18/2020 sodium down to 126, did not receive Samsca yesterday. Renal function continues improving, BUN 21, creatinine 0.85. Reports he ate pancakes this morning, breakfast intake recorded at 25%. Patient has been refusing HS snacks. During the [employer] charcoal burner, hypoglycemic, blood sugar recorded at 66, received OJ,wilbert crackers, currently up to 268. Patient yesterday had isolated high sugar 400 at noon. High flow nasal cannula decreased to 70%, maintaining O2 sats in the low 90s. Chest x-ray reporting similar to prior exam. 12/19/2020 Feels better, FiO2 decreased to 67% maintaining O2 sat of 94%. Consuming 25% of breakfast, positive bowel movement. Sodium 129 on Samsca. Objective - Vital Signs Vital signs: Vital Signs Temp 97.4 F L 12/19/20 08:15 Pulse 87 12/19/20 12:15 Resp 19 12/19/20 12:15 BP 118/61 12/19/20 12:15 Pulse Ox 90 L 12/19/20 12:15 Intake & Output 12/18/20 12/19/20 12/19/20 18:59 06:59 18:59 Intake Total 125 240 Output Total 200 800 400 Balance -75 -800 -160 Intake: Oral 125 240 Output: Urine 200 800 Stool 400 Other: Voiding Method Urinal Urinal # Bowel Movements 1 - Exam - Exam General: Alert and oriented 3, Sitting up in bed, on high flow nasal cannula, weak appearing, Vitals reviewed Lungs: Increased respiratory effort, bibasilar rales CV: Regular rate and rhythm, no murmur. Peripheral pulses 2+, no edema Abdomen: soft, nondistended, no organomegaly. Positive bowel sounds Skin: warm and dry. - Labs CBC & Chem 7: 12/13/20 12:42 12/20/20 10:15 Labs: Abnormal Lab Results - Last 24 Hours (Table) 12/18/20 12/18/20 12/19/20 Range/Units 16:56 20:14 06:12 Sodium (137-145) mmol/L POC Glucose (mg/dL) 229 H 256 H 116 H (75-99) mg/dL 12/19/20 12/19/20 Range/Units 11:25 11:44 Sodium 129 L (137-145) mmol/L POC Glucose (mg/dL) 204 H (75-99) mg/dL Assessment and Plan Assessment: (1) Acute hypoxemic respiratory failure due to COVID-19 pneumonitis, status post convalescent plasma,TOCI, outside the window for Remdesevir, Current Visit: Yes Status: Acute Code(s): U07.1 - COVID-19; J96.01 - ACUTE RESPIRATORY FAILURE WITH HYPOXIA SNOMED Code(s): 930238834 (2) Essential hypertension Current Visit: Yes Status: Acute Code(s): I10 - ESSENTIAL (PRIMARY) HYPERTENSION SNOMED Code(s): 97188813 (3) Type 2 diabetes mellitus Current Visit: Yes Status: Acute Code(s): E11.9 - TYPE 2 DIABETES MELLITUS WITHOUT COMPLICATIONS SNOMED Code(s): 36178732 (4) DARWIN (acute kidney injury), ATN,secondary to #1, improving Current Visit: Yes Status: Acute Code(s): N17.9 - ACUTE KIDNEY FAILURE, UNSPECIFIED SNOMED Code(s): 27305441 (5) chronic kidney disease stage IIIa secondary to DKA, baseline 1.3 (6) COVID-19 Current Visit: Yes Status: Acute Code(s): U07.1 - COVID-19 SNOMED Code(s): 032009803 (7) Hyperkalemia secondary to acute renal failure, YODIT inhibitor and NSAIDs,resolved Current Visit: Yes Status: Acute Code(s): E87.5 - HYPERKALEMIA SNOMED Code (s): 27250876 (8) hyponatremia, 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 (9) CAD, cardiomyopathy, EF 35-40% (10) mild pulmonary hypertension Plan: Continue on current medication regime ,monitoring and symptomatic treatment. Titrate O2 to sat greater than 90% as per pulmonary. COVID regimen. Fluid restriction/Samsca as per nephrology.Close monitoring of electrolytes, renal function with repeat labs ordered for a.m. prognosis guarded given multiple complex medical issues. The impression and plan of care has been dictated as directed. : I performed a history and examination of this patient, discussed the same with the dictator. I agree with the dictator's note ,documented as a scribe. Any additional findings or plans will be noted.
--- NOTE | 2020-12-20 14:04 | P.PN ---
Subjective Progress Note Date: 12/20/20 11/27/2020 during the night, patient became more hypoxic, requiring nonrebreather. Significant clinical improvement, maintaining O2 sats in the 90s on 5 L nasal cannula. Minimal nonproductive cough. Creatinine 1.6. 11/28/2020 Required nonrebreather briefly during the night; currently maintained on 5 L nasal cannula, O2 sats of 90-91%. Complains of worsening shortness of breath, especially with minimal exertion, nonproductive cough. Maintained on Covid regimen, including dexamethasone. Blood sugars elevated throughout the night, better controlled this morning. Denies chest pain, palpitations or shortness of breath. Labs pending. 11/29/20 S/P convalescent plasma .Continues on Covid regimen, maintaining O2 sats in the 90s on 6 L nasal cannula. Occasional nonproductive cough. Denies chest pain, palpitations. Evaluated by pulmonary, outside the window for Remdesevir. Creatinine 1.4. 12/02/2020 maintained on high flow cannula with FiO2 of 90% post nonrebreather to maintain O2 sats in the 90s. Chest x-ray reporting progression of interstitial and patchy bilateral airspace infiltrates. Afebrile, T-max 99.5. BUN 60, Creatinine 1.6 sodium 132. 12/03/2020 maintained on Covid 19 cocktail ,continues on 15 L high flow nasal cannula and nonrebreather mask, maintaining O2 sats of 90%. Nonproductive cough. Afebrile. Minimal reserve. 12/04/2020 Received Acterma yesterday. Maintained on 90% airvo and a nonrebreather mask, maintaining O2 sats in the high 80s to low 90s. Staff reports last night he ate better, was more conversant. Reports he feels more comfortable and not as weak. Afebrile. Creatinine 1.8. Hyperglycemic, blood sugars up to 271 at lunch. 12/05/2020 continue a 90% high flow airvo, maintaining O2 sats in the low 90s. Continues to feel better with less fatigue, less shortness of breath. Labs pending. Afebrile. 12/06/2020 no overnight events. Maintaining O2 sat in the low 90s, settings unchanged. Feels better today. Sodium worsening decreased to 123 yesterday, labs pending today. Urine osmolality ordered, received a dose Samsca. Afebrile. Denies chest pain, palpitations. 12/09/2020 continue on Covid cocktail. Continues on high flow oxygen, 45 L/70% FiO2 maintaining O2 sats in the high 80s to low 90s. Nonproductive cough with deep inspiration. Sodium 127, creatinine 1.35, potassium 5.2. Repeating Tolvaptan today as per nephrology. Blood sugars better controlled. Afebrile. 12/10/2020 received tolvaptan yesterday, labs pending. Chest x-ray reporting diffuse bilateral infiltrates stable. No changes overnight, maintaining on high flow nasal cannula maintaining O2 sats in the 90s, mostly low 90s. Denies chest pain, palpitations. Afebrile. 12/11/2020 currently on high flow oxygen at 45 L and 60% FiO2 with O2 saturation 91%. Reports less shortness of breath today. Less acessory muscle use noted. Creatinine 1.21. Sodium 126, Afebrile. 12/12/2020 FiO2 is decreased to 45 L and 55% FiO2(nonrebreather over HFNC ) maintaining O2 sats in the mid 80s to low 90s. Maintained on Covid cocktail. He reports he is unable to be off mask very long but is able to take bites of food and juice. Denies chest pain, palpitations. Denies increased shortness of breath. Sodium level 127. 12/13/2020 worsening respiratory status, increased shortness of breath on 45 L/60% FiO2 high flow nasal cannula. Desatted to the mid 80s with increased respiratory rate up into the low 20s. Increased to 60 L high flow nasal cannula, FiO2 80%. O2 sats up to 92%. Exertional shortness of breath. CTA ordered. Poor oral intake, hypoglycemic. Afebrile. Sodium remains at 127, renal function improving , creatinine 1. 12/16/2020 continue on high flow airvo and nonrebreather maintaining O2 sats in the low 90s. Reports worsening cough, otherwise comfortable. Sodium 127. 12/17/2020 FiO2 decreased to 75%, maintaining O2 sats in the mid 90s. Reports less cough. Blood sugars ranging from 107 to low 200s. Consuming 75% of breakfast, tolerated well with no nausea vomiting or diarrhea. Maintained on oral sodium chloride and Samsca ,Sodium 128. 12/18/2020 sodium down to 126, did not receive Samsca yesterday. Renal function continues improving, BUN 21, creatinine 0.85. Reports he ate pancakes this morning, breakfast intake recorded at 25%. Patient has been refusing HS snacks. 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 Patient yesterday had isolated high sugar 400 at noon. High flow nasal cannula decreased to 70%, maintaining O2 sats in the low 90s. Chest x-ray reporting similar to prior exam. 12/19/2020 Feels better, FiO2 decreased to 67% maintaining O2 sat of 94%. Consuming 25% of breakfast, positive bowel movement. Sodium 129 on Samsca. 12/20/2020 FiO2 decreased to 64%, maintaining O2 sats in the high 80s. Reports coughing less. Sodium remains at 129, BUN 23, creatinine 0.94. Complains of generalized weakness. Denies chest pain, palpitations. Objective - Vital Signs Vital signs: Vital Signs Temp 97.0 F L 12/20/20 12:00 Pulse 72 12/20/20 13:18 Resp 24 12/20/20 13:18 BP 98/62 12/20/20 12:00 Pulse Ox 88 L 12/20/20 12:22 Intake & Output 12/19/20 12/20/20 12/20/20 18:59 06:59 18:59 Intake Total 480 80 440 Output Total 400 1300 850 Balance 80 -1220 -410 Intake: Oral 480 80 440 Output: Urine 900 650 Stool 400 400 200 Other: Voiding Method Urinal Urinal - Exam - Exam General: Alert and oriented 3, Sitting up in bed, HFNC, weak, Vitals reviewed Lungs: Increased respiratory effort, bibasilar rales CV: Regular rate and rhythm, no murmur. Peripheral pulses 2+, no edema Abdomen: soft, nondistended, no organomegaly. Positive bowel sounds Skin: warm and dry. - Labs CBC & Chem 7: 12/13/20 12:42 12/20/20 10:15 Labs: Abnormal Lab Results - Last 24 Hours (Table) 12/19/20 12/19/20 12/20/20 Range/Units 17:24 20:31 05:49 Sodium (137-145) mmol/L BUN (9-20) mg/dL Glucose (74-99) mg/dL POC Glucose (mg/dL) 207 H 222 H 128 H (75-99) mg/dL 12/20/20 12/20/20 Range/Units 10:15 12:07 Sodium 129 L (137-145) mmol/L BUN 23 H (9-20) mg/dL Glucose 149 H (74-99) mg/dL POC Glucose (mg/dL) 241 H (75-99) mg/dL Assessment and Plan Assessment: (1) Acute hypoxemic respiratory failure due to COVID-19 pneumonitis, status post convalescent plasma,TOCI, outside the window for Remdesevir, Current Visit: Yes Status: Acute Code(s): U07.1 - COVID-19; J96.01 - ACUTE RESPIRATORY FAILURE WITH HYPOXIA SNOMED Code(s): 523994969 (2) Essential hypertension Current Visit: Yes Status: Acute Code(s): I10 - ESSENTIAL (PRIMARY) HYPERTENSION SNOMED Code(s): 12461660 (3) Type 2 diabetes mellitus Current Visit: Yes Status: Acute Code(s): E11.9 - TYPE 2 DIABETES MELLITUS WITHOUT COMPLICATIONS SNOMED Code(s): 08538805 (4) DARWIN (acute kidney injury), ATN,secondary to #1, improving Current Visit: Yes Status: Acute Code(s): N17.9 - ACUTE KIDNEY FAILURE, UNSPECIFIED SNOMED Code(s): 49856859 (5) chronic kidney disease stage IIIa secondary to DKA, baseline 1.3 (6) COVID-19 Current Visit: Yes Status: Acute Code(s): U07.1 - COVID-19 SNOMED Code(s): 976892020 (7) Hyperkalemia secondary to acute renal failure, YODIT inhibitor and NS AIDs,resolved Current Visit: Yes Status: Acute Code(s): E87.5 - HYPERKALEMIA SNOMED Code(s): 70717999 (8) hyponatremia, 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 (9) CAD, cardiomyopathy, EF 35-40% (10) mild pulmonary hypertension Plan: Continue on current medication regime ,monitoring and symptomatic treatment. O2 titration in progress as per pulmonary. COVID regimen. Fluid restriction/Samsca as per nephrology.blood sugars in the 200s, Levemir increased . Close monitoring of Accu-Cheks .Close monitoring of electrolytes, renal function with repeat labs ordered for a.m. prognosis guarded given multiple complex medical issues. The impression and plan of care has been dictated as directed. : I performed a history and examination of this patient, discussed the same with the dictator. I agree with the dictator's note ,documented as a scribe. Any additional findings or plans will be noted.
[2020-12-20 17:22] LABS: Glucose,Whole Blood 234 mg/dL (75-99)
--- NOTE | 2020-12-20 17:27 | P.PN ---
Subjective Progress Note Date: 12/20/20 Principal diagnosis: Acute hypoxic respiratory failure secondary to acute covid 19 pneumonitis. This is a 70-year-old white male with history of multiple medical problems including hypertension, type 2 diabetes, dyslipidemia, coronary artery disease and previous ID, previous stent placement, degenerative joint disease, bladder cancer, nephrolithiasis, patient presented to the emergency room on 11/24/2020, mostly with 1 week history of multiple constitutional symptoms including muscle aches, fever, shortness of breath, cough, nausea, and he tested positive on the with contreras virus PCR. Chest x-ray showed evidence of bilateral opacities/infiltrates. Patient had adequate saturations on room air, it was about 94%, he was also noted to be hyperkalemic, and he had lactic acid of 2.7. Received dextrose, insulin, Kayexalate, and the patient was eventually admitted seen by nephrology on consultation, he was placed on the Covid 19 cocktail, and we were asked to see him yesterday because of his worsening shortness of breath. No follow-up chest x-ray done since admission, and I will be ordering one to be done today. Labs today clearly showed relatively normal CBC. Elevated BUN of 40 creatinine is 1.4. D-dimer was normal on admission, and I do not see any inflammatory markers on the chart. After evaluating the patient, we recommended one unit of convalescent plan is to be given. Patient obviously did not qualify for REM. And he is not at the point of requiring actemtra Patient was reevaluated today on 11/29/2020, he is basically about the same. Not much of a change in the last 24 hours. Patient is on 6 L nasal cannula, and his O2 saturation is in the low 90s. Continues to have intermittent cough, shortness of breath, basic metabolic profile is normal. His LDH is 1466, and C- reactive protein is 24. Patient remains on the Covid 19 cocktail. He received convalescent plasma. He was out of the window for REM. Patient was reevaluated today on 12/02/2020, does not seem to be improving much. Patient is now on higher FiO2, requiring airvo high flow with FiO2 of 90% and total of 60 L/m in addition to this he is also on a nonrebreather. Chest x-ray seems to be a bit worse. LDH is worse 1881 last C-reactive protein is 24. Renal functioning is also worse with a BUN of 46 creatinine 1.60 and a potassium of 5.7 being addressed by nephrology on the case. His last chest x-ray was on 12/02/1912/17/2020, I will go ahead and order a chest x-ray for the morning. Patient remains on the Covid 19 cocktail. He received convalescent plasma. Interstitia l and patchy bilateral airspace disease/infiltrates progressed from admission x- ray. Repeat basic metabolic profile was done today, potassium is down to 4.4 from 5.7 yesterday. BUN is 60 creatinine is 1.60. Reevaluated today on 12/03/2020, patient is about the same remains on nonrebreather mask and high flow cannula,He is on 90% FiO2 with flow of 15 L/m and his O2 saturation is in the low 90s. Continues to have intermittent cough, shortness of breath with any activity. Patient has been steadily worsening clinically over the last few days. Hence I would recommend actemra on this patient. Remains on the Covid 19 cocktail. And he also received convalescent plasma. Patient was reevaluated today on 12/04/2020, remains on high flow oxygen using Airvo and a nonrebreather mask. Patient is on 90% FiO2 and 50 L flow with O2 saturation in the high 80s and low 90s. Clinically however he feels a bit better today compared to how he felt yesterday. Even his lungs sounded a bit better and less crackles noted on examination. No labs were done today except blood sugar of 166 Patient was reevaluated today on 12/05/2020, remains on high flow via airvo , presently on 90% FiO2 and 50 L flow. O2 saturations are in the low 90s. Patient tells me that he feels a bit better today compared to the last couple of days. Less shortness of breath, less aches and pains, overall feels better. On examination he did sound better. And his labs were reviewed, sodium is down to 125 and his BUN is 88 creatinine is 1.8, I suspect that we are dealing with hypovolemic hyponatremia and prerenal azotemia hence the patient would benefit from more fluid/0.9 normal saline will be added. And will put his Lasix on hold today. I believe his hyponatremia is related to diuretics , placed him back on 0.9 normal saline at 75 mL per hour may even require more fluids. Reevaluated today on 12/06/2020, patient is basically about the same. Remains on high flow oxygen AIRVO, 85% and 50 L flow. He is also on a nonrebreather mask, O2 saturation remains marginal in the low 90s. Today for some reason the patient is feeling a bit better but nowhere near his baseline. Patient is generally weak. His sodium has been coming down and today is 125. This is being addressed by nephrology on the case. White count is high today at 24.08. Platelets are also high at 665. Blood sugar is 71. I reviewed his follow-up chest x-ray today no significant change, continues to show bilateral diffuse interstitial infiltrates. Reevaluated today on 12/07/2020, patient is feeling a bit better, remains on high flow oxygen 90%/60 L flow and his O2 saturation is 92%. Patient is having echocardiogram as I was examining him. Results of the echocardiogram are pending. Again the patient is feeling a bit better, less shortness of breath, no cough, no wheezing, no chest pain, no fever, no chills, he feels generally weak, and he does have shortness of breath with any activity. Yesterday's chest x-ray continued to show diffuse bilateral interstitial infiltrates. Not much of a change. Labs today showed improved sodium of 129 BUN is 77 and creatinine 1.6. Or 2020, the patient has been weaned down to high flow oxygen 6 L with an FiO2 of 75% which is essentially the same setting as yesterday. The patient's pulse ox is currently at 92%. No new complaints. In terms of his chest x-ray from yesterday, the patient had no interval worsening. He did have bilateral multifocal pulmonary infiltrates and confluent opacities consistent with COVID- 19 related pneumonia and he also had a CT angios the chest that showed no evidence of any pulmonary embolism and it was consistent with COVID-19 related pneumonia. On his blood work, his LDH level is 1471 which is higher and this CRP level is at 1.4. Sodium level is at 125 and the BUN is 34 with a creatinine of 1. His d-dimer is at 2.66. The patient remains on Decadron 63 g IV every 24 hours. He is on Lovenox and the dose should be 40 mg subcu every 24 hours. IV fluids are at KVO for now. He is taking also salt tablets. Sodium level is improving. He remains on Levemir insulin 30 units in the morning 27 units in the evening along with a lighting scale coverage. He is resting comfortably in bed. No significant worsening shortness of breath. His pulmonary status is very much limited still and the patient has been in the hospital for more than 3 weeks along with his . Patient was reevaluated today on 12/16/2020, remains on high flow oxygen, he is now on airvo and a non-rebreather mask FiO2 85% and flow at 60 L/m. His O2 saturation is marginal, however the patient seems to be comfortable, and in no distress. CT angiogram on 12/13 showed no filling defects and no evidence of pulmonary embolism. However it did show patchy infiltrates present bilaterally consistent with COVID-19 pneumonia. His sodium today is 127. Renal profile showed a BUN of 34 creatinine 1.04 C-reactive protein is 1.4 LDH is 1471. Reviewed his most recent chest x-ray continues to show bilateral interstitial infiltrates Reevaluated today on 12/17/2020, patient is about the same, however he is oxygenating better, and his O2 saturation is improving today. His FiO2 is down to 75%, his flow is at 60 L/m, and his O2 saturation is 95%, hence I recommended cutting down the FiO2 to 70% and a baby down to 60% if his O2 saturation remains at 95% above 90% patient is denying being short of breath, he is feeling better overall compared to how he felt over the last 1 week. Electrolytes showed low sodium of 128 but improving. And his electrolytes are otherwise normal renal profile is normal. Blood sugar seems to be high, and I believe it is causing a pseudohyponatremia-type of picture. At sugar is 419 his sugar is being addressed by his admitting physician. Patient was reevaluated today on 12/18/2020, patient remains on high flow oxygen, however it has been titrated down, and the patient is feeling better. He is now on 65% FiO2, and 60 L flow patient does not seem to be in any distress. Obviously the patient is improving, but he is improving extremely slowly. Sodium remains low at 126 electrolytes are normal otherwise. Renal profile is normal. Blood sugar is 268. D-dimer is coming down the left d-dimer was 2.66. LDH is 1471 C-reactive protein is 1.4. Pro-calcitonin is 0.16 chest x-ray today continues to show bilateraldisease, I believe there is some improvement. Reevaluated today on 12/19/2020, patient is basically about the same, remains on 65% FiO2 and 60 L flow. Complaining of generalized weakness, fatigue, and shortness of breath upon any activity. His sodium is up to 129 today. No other labs were noted on the chart today. Patient was reevaluated today on 12/20/2020, surprisingly the patient is feeling better for the first time since admission. Remains on high flow oxygen. His FiO2 is down to 60%, he is on 50 L flow and his O2 saturation is 94%. Patient is becoming more active, less fatigue, less weakness according to the patient. Sodium remains low at 129. Basic metabolic profile is normal renal profile is normal blood sugar is 234 Objective - Vital Signs Vital signs: Vital Signs Temp 97.9 F 12/20/20 16:00 Pulse 78 12/20/20 16:00 Resp 22 12/20/20 16:00 BP 116/78 12/20/20 16:00 Pulse Ox 94 L 12/20/20 16:50 Intake & Output 12/19/20 12/20/20 12/20/20 18:59 06:59 18:59 Intake Total 480 80 640 Output Total 400 1300 850 Balance 80 -1220 -210 Intake: Oral 480 80 640 Output: Urine 900 650 Stool 400 400 200 Other: Voiding Method Urinal Urinal - Exam Physical Exam: Revealed 70-year-old white male in remains on high FiO2 and high flow oxygen.airvo 60% and 50 L flow Head: Atraumatic, normocephalic. HEENT:[Neck is supple.] [No neck masses.] [No thyromegaly.] [No JVD.] Chest: Symmetrical chest expansion, crackles at the bases bilaterally..] Cardiac Exam: [Normal S1 and S2, no S3 gallop, no murmur.] Abdomen: [Soft, nontender, no megaly, no rebound, no guarding, normal bowel sounds.] Extremities: [No clubbing, no edema, no cyanosis.] Neurological Exam: [No focal neurologic deficit.] Alert and oriented 3. Psychiatric: Normal mood affect and normal mental status examination. Musculoskeletal: No limitation in range of motion, no deformities. - Labs CBC & Chem 7: 12/13/20 12:42 12/20/20 10:15 Labs: Abnormal Lab Results - Last 24 Hours (Table) 12/19/20 12/19/20 12/20/20 Range/Units 17:24 20:31 05:49 Sodium (137-145) mmol/L BUN (9-20) mg/dL Glucose (74-99) mg/dL POC Glucose (mg/dL) 207 H 222 H 128 H (75-99) mg/dL 12/20/20 12/20/20 12/20/20 Range/Units 10:15 12:07 17:09 Sodium 129 L (137-145) mmol/L BUN 23 H (9-20) mg/dL Glucose 149 H (74-99) mg/dL POC Glucose (mg/dL) 241 H 234 H (75-99) mg/dL Assessment and Plan Assessment: Impression: Acute hypoxic respiratory failure secondary to acute covid 19 pneumonitis. Slow improvement noted. Acute on chronic kidney injury associated with underlying Covid 19 infection, resolved. History of bladder cancer. Chronic kidney disease, previous creatinine was 1.3 in February 2020. Benign essential hypertension Type 2 diabetes Pseudohyponatremia secondary to hyperglycemia. Weakness secondary to above and secondary to COVID-19 infection. Recommendation: Continue high flow oxygen and titrate accordingly to maintain O2 saturation above 90%. Continue to titrate daily Continue present supportive care measures Continue to follow inflammatory markers. Continue the Covid 19 cocktail. Received 1 unit of convalescent plasma., He also received VIOLETA I. Prognosis remains guarded. Time with Patient: Less than 30
[2020-12-20 19:56] LABS: Glucose,Whole Blood 283 mg/dL (75-99)
--- NOTE | 2020-12-20 19:59 | PN ---
PROGRESS NOTE Patient is seen for followup for hyponatremia secondary to SIADH, currently maintained on oral sodium chloride tabs and receiving Samsca almost on a daily basis. Patient did not receive Samsca yesterday and his sodium has stayed at 129. Patient has underlying COVID pneumonia and acute respiratory failure, currently maintained on high-flow oxygen with AIRVO, FiO2 at about 60%. This morning patient appears slightly more comfortable than yesterday. He is awake, not in any acute distress. Blood pressure this morning was 98/62, heart rate 72 per minute. He is afebrile. Examination shows no evidence of edema, lower extremities. Heart and lungs are not examined. PRIVATE ADVISOR exam grossly intact. Labs show sodium 129, potassium 4.3, chloride 99, BUN 23, creatinine 0.94. ASSESSMENT: 1. Hyponatremia secondary to syndrome of inappropriate antidiuretic hormone, maintained on Samsca almost on a daily basis. Patient did not get Samsca yesterday and today his sodium is staying at 129. We will continue to evaluate on a daily basis. Continue with the sodium chloride tabs for now. 2. Acute kidney injury on initial admission, currently resolved. 3. COVID pneumonia with acute hypoxic respiratory failure requiring large amounts of oxygen. PLAN: Repeat sodium in a.m. Will give a dose of tolvaptan if the sodium is lower. MMODL / IJN: [id number] /
[2020-12-20] MEDS: ATORVASTATIN 80 MG TAB PO SCH (20:45)
[2020-12-20] MEDS: MELATONIN 5 MG TABLET PO SCH (20:45)
[2020-12-21 05:48] LABS: Glucose,Whole Blood 83 mg/dL (75-99)
[2020-12-21] MEDS: INSULIN ASPART (NovoLOG) 100 UNIT/ML VIAL SQ SCH ×4 (06:36→20:21)
[2020-12-21] MEDS: INSULIN DETEMIR (LEVEMIR) 100 UNIT/ML SYR SQ SCH (07:03)
[2020-12-21] MEDS: PANTOPRAZOLE 40 MG TABLET PO SCH (07:03)
[2020-12-21] MEDS: LEVOTHYROXINE 100 MCG TAB PO SCH (07:03)
[2020-12-21] MEDS: ALBUTEROL HFA INHALER INHALATION SCH ×4 (07:43→20:29)
[2020-12-21] MEDS: METOPROLOL SUCCINATE (ER) 25 MG TAB.ER.24H PO SCH (08:50)
[2020-12-21] MEDS: DEXAMETHASONE SOD PHOSPHATE 10 MG/ML 1 ML VIAL IV SCH (08:50)
[2020-12-21] MEDS: GABAPENTIN 300 MG CAP PO SCH (08:50)
[2020-12-21] MEDS: ASPIRIN 81 MG PO SCH (08:50)
[2020-12-21] MEDS: ZINC SULFATE 220 MG CAP PO SCH (08:50)
[2020-12-21] MEDS: SODIUM CHLORIDE TAB 1 GM TAB PO SCH ×2 (08:50→20:20)
[2020-12-21] MEDS: ASCORBIC ACID 500 MG TAB PO SCH (08:50)
[2020-12-21] MEDS: CLOPIDOGREL 75 MG TAB PO SCH (08:51)
[2020-12-21] MEDS: CHOLECALCIFEROL 25 MCG (1000 IU) TABLET PO SCH (08:51)
[2020-12-21] MEDS: ENOXAPARIN 40 MG/0.4 ML SYRINGE SQ SCH (08:51)
[2020-12-21 09:14] LABS: Basophils % (A) 0 %; Eosinophils # (A) 0.8 k/uL (0-0.7); Eosinophils % (A) 6 %; HCT 34.4 % (39.0-53.0); HGB 11.1 gm/dL (13.0-17.5); Lymphocytes # (A) 1.1 k/uL (1.0-4.8); Lymphocytes % (A) 9 %; MCH 28.3 pg (25.0-35.0); MCHC 32.2 g/dL (31.0-37.0); MCV 87.7 fL (80.0-100.0); Mean Platelet Volume 6.9; Monocytes # (A) 0.5 k/uL (0-1.0); Monocytes % (A) 4 %; Neutrophils # (A) 10.5 k/uL (1.3-7.7); Neutrophils % (A) 80 %; Platelet Count 368 k/uL (150-450); RBC 3.92 m/uL (4.30-5.90); RDW 14.1 % (11.5-15.5)
[2020-12-21 09:23] LABS: African American GFR (CKD) >90 (>60 ml/min/1.73 sqM); Anion Gap 5 mmol/L; Blood Urea Nitrogen 24 mg/dL (9-20); Calcium 8.6 mg/dL (8.4-10.2); Carbon Dioxide 26 mmol/L (22-30); Chloride 99 mmol/L (98-107); Glucose 184 mg/dL (74-99); Non-African American GFR(CKD) 84 (>60 ml/min/1.73 sqM); Potassium 4.1 mmol/L (3.5-5.1); Sodium 130 mmol/L (137-145)
[2020-12-21 12:05] LABS: Glucose,Whole Blood 137 mg/dL (75-99)
--- NOTE | 2020-12-21 15:00 | P.PN ---
Subjective Progress Note Date: 12/21/20 Principal diagnosis: This is a 70-year-old male followed up with: Pneumonia, acute kidney injury and hyponatremia renal function is improved creatinine 0.9 at baseline. Sodium rem ains with low, at 1:30 is on sodium chloride tablets. Sodium is slowly going up from 126 to 1:30 Patient was seen from the room door because of COVID He is comfortable on nasal cannula oxygen Denies any cough but is mildly short of breath No nausea vomiting No diarrhea No chest pain. Objective - Vital Signs Vital signs: Vital Signs Temp 97.3 F L 12/21/20 08:00 Pulse 77 12/21/20 12:00 Resp 18 12/21/20 12:00 BP 132/67 12/21/20 12:00 Pulse Ox 91 L 12/21/20 12:00 Intake & Output 12/20/20 12/21/20 12/21/20 18:59 06:59 18:59 Intake Total 880 125 Output Total 1250 750 100 Balance -370 -750 25 Intake: Oral 880 125 Output: Urine 1050 350 100 Stool 200 400 Other: Voiding Method Urinal Urinal Urinal # Voids 1 Patient was seen from the door because of the pandemic Seems comfortable. Is able to speak very well and is awake and alert - Labs CBC & Chem 7: 12/21/20 08:33 12/21/20 08:33 Labs: Abnormal Lab Results - Last 24 Hours (Table) 12/20/20 12/20/20 12/21/20 Range/Units 17:09 19:52 08:33 WBC 13.0 H (3.8-10.6) k/uL RBC 3.92 L (4.30-5.90) m/uL Hgb 11.1 L (13.0-17.5) gm/dL Hct 34.4 L (39.0-53.0) % Neutrophils # 10.5 H (1.3-7.7) k/uL Eosinophils # 0.8 H (0-0.7) k/uL Sodium (137-145) mmol/L BUN (9-20) mg/dL Glucose (74-99) mg/dL POC Glucose (mg/dL) 234 H 283 H (75-99) mg/dL 12/21/20 12/21/20 Range/Units 08:33 11:58 WBC (3.8-10.6) k/uL RBC (4.30-5.90) m/uL Hgb (13.0-17.5) gm/dL Hct (39.0-53.0) % Neutrophils # (1.3-7.7) k/uL Eosinophils # (0-0.7) k/uL Sodium 130 L (137-145) mmol/L BUN 24 H (9-20) mg/dL Glucose 184 H (74-99) mg/dL POC Glucose (mg/dL) 137 H (75-99) mg/dL Assessment and Plan Assessment: Impression 1. Acute kidney injury, secondary to COVID resolved. More recently is 0.9, peak was 1.8 on 12/05/2020 2. Hyponatremia secondary to acute kidney injury, on sodium chloride improving 3. COVID Recommendation We will continue to follow because of the the sodium
[2020-12-21 16:46] LABS: Glucose,Whole Blood 314 mg/dL (75-99)
--- NOTE | 2020-12-21 17:21 | P.PN ---
Subjective Progress Note Date: 12/21/20 Principal diagnosis: Acute hypoxic respiratory failure secondary to acute covid 19 pneumonitis. This is a 70-year-old white male with history of multiple medical problems including hypertension, type 2 diabetes, dyslipidemia, coronary artery disease and previous [place], previous stent placement, degenerative joint disease, bladder cancer, nephrolithiasis, patient presented to the emergency room on 11/24/2020, mostly with 1 week history of multiple constitutional symptoms including muscle aches, fever, shortness of breath, cough, nausea, and he tested positive on the with contreras virus PCR. Chest x-ray showed evidence of bilateral opacities/infiltrates. Patient had adequate saturations on room air, it was about 94%, he was also noted to be hyperkalemic, and he had lactic acid of 2.7. Received dextrose, insulin, Kayexalate, and the patient was eventually admitted seen by nephrology on consultation, he was placed on the Covid 19 cocktail, and we were asked to see him yesterday because of his worsening shortness of breath. No follow-up chest x-ray done since admission, and I will be ordering one to be done today. Labs today clearly showed relatively normal CBC. Elevated BUN of 40 creatinine is 1.4. D-dimer was normal on admission, and I do not see any inflammatory markers on the chart. After evaluating the patient, we recommended one unit of convalescent plan is to be given. Patient obviously did not qualify for REM. And he is not at the point of requiring actemtra Patient was reevaluated today on 11/29/2020, he is basically about the same. Not much of a change in the last 24 hours. Patient is on 6 L nasal cannula, and his O2 saturation is in the low 90s. Continues to have intermittent cough, shortness of breath, basic metabolic profile is normal. His LDH is 1466, and C- reactive protein is 24. Patient remains on the Covid 19 cocktail. He received convalescent plasma. He was out of the window for REM. Patient was reevaluated today on 12/02/2020, does not seem to be improving much. Patient is now on higher FiO2, requiring airvo high flow with FiO2 of 90% and total of 60 L/m in addition to this he is also on a nonrebreather. Chest x-ray seems to be a bit worse. LDH is worse 1881 last C-reactive protein is 24. Renal functioning is also worse with a BUN of 46 creatinine 1.60 and a potassium of 5.7 being addressed by nephrology on the case. His last chest x-ray was on 12/02/1912/17/2020, I will go ahead and order a chest x-ray for the morning. Patient remains on the Covid 19 cocktail. He received convalescent plasma. Interstitia l and patchy bilateral airspace disease/infiltrates progressed from admission x- ray. Repeat basic metabolic profile was done today, potassium is down to 4.4 from 5.7 yesterday. BUN is 60 creatinine is 1.60. Reevaluated today on 12/03/2020, patient is about the same remains on nonrebreather mask and high flow cannula,He is on 90% FiO2 with flow of 15 L/m and his O2 saturation is in the low 90s. Continues to have intermittent cough, shortness of breath with any activity. Patient has been steadily worsening clinically over the last few days. Hence I would recommend actemra on this patient. Remains on the Covid 19 cocktail. And he also received convalescent plasma. Patient was reevaluated today on 12/04/2020, remains on high flow oxygen using Airvo and a nonrebreather mask. Patient is on 90% FiO2 and 50 L flow with O2 saturation in the high 80s and low 90s. Clinically however he feels a bit better today compared to how he felt yesterday. Even his lungs sounded a bit better and less crackles noted on examination. No labs were done today except blood sugar of 166 Patient was reevaluated today on 12/05/2020, remains on high flow via airvo , presently on 90% FiO2 and 50 L flow. O2 saturations are in the low 90s. Patient tells me that he feels a bit better today compared to the last couple of days. Less shortness of breath, less aches and pains, overall feels better. On examination he did sound better. And his labs were reviewed, sodium is down to 125 and his BUN is 88 creatinine is 1.8, I suspect that we are dealing with hypovolemic hyponatremia and prerenal azotemia hence the patient would benefit from more fluid/0.9 normal saline will be added. And will put his Lasix on hold today. I believe his hyponatremia is related to diuretics , placed him back on 0.9 normal saline at 75 mL per hour may even require more fluids. Reevaluated today on 12/06/2020, patient is basically about the same. Remains on high flow oxygen AIRVO, 85% and 50 L flow. He is also on a nonrebreather mask, O2 saturation remains marginal in the low 90s. Today for some reason the patient is feeling a bit better but nowhere near his baseline. Patient is generally weak. His sodium has been coming down and today is 125. This is being addressed by nephrology on the case. White count is high today at 24.08. Platelets are also high at 665. Blood sugar is 71. I reviewed his follow-up chest x-ray today no significant change, continues to show bilateral diffuse interstitial infiltrates. Reevaluated today on 12/07/2020, patient is feeling a bit better, remains on high flow oxygen 90%/60 L flow and his O2 saturation is 92%. Patient is having echocardiogram as I was examining him. Results of the echocardiogram are pending. Again the patient is feeling a bit better, less shortness of breath, no cough, no wheezing, no chest pain, no fever, no chills, he feels generally weak, and he does have shortness of breath with any activity. Yesterday's chest x-ray continued to show diffuse bilateral interstitial infiltrates. Not much of a change. Labs today showed improved sodium of 129 BUN is 77 and creatinine 1.6. Or 2020, the patient has been weaned down to high flow oxygen 6 L with an FiO2 of 75% which is essentially the same setting as yesterday. The patient's pulse ox is currently at 92%. No new complaints. In terms of his chest x-ray from yesterday, the patient had no interval worsening. He did have bilateral multifocal pulmonary infiltrates and confluent opacities consistent with COVID- 19 related pneumonia and he also had a CT angios the chest that showed no evidence of any pulmonary embolism and it was consistent with COVID-19 related pneumonia. On his blood work, his LDH level is 1471 which is higher and this CRP level is at 1.4. Sodium level is at 125 and the BUN is 34 with a creatinine of 1. His d-dimer is at 2.66. The patient remains on Decadron 63 g IV every 24 hours. He is on Lovenox and the dose should be 40 mg subcu every 24 hours. IV fluids are at KVO for now. He is taking also salt tablets. Sodium level is improving. He remains on Levemir insulin 30 units in the morning 27 units in the evening along with a lighting scale coverage. He is resting comfortably in bed. No significant worsening shortness of breath. His pulmonary status is very much limited still and the patient has been in the hospital for more than 3 weeks along with his . Patient was reevaluated today on 12/16/2020, remains on high flow oxygen, he is now on airvo and a non-rebreather mask FiO2 85% and flow at 60 L/m. His O2 saturation is marginal, however the patient seems to be comfortable, and in no distress. CT angiogram on 12/13 showed no filling defects and no evidence of pulmonary embolism. However it did show patchy infiltrates present bilaterally consistent with COVID-19 pneumonia. His sodium today is 127. Renal profile showed a BUN of 34 creatinine 1.04 C-reactive protein is 1.4 LDH is 1471. Reviewed his most recent chest x-ray continues to show bilateral interstitial infiltrates Reevaluated today on 12/17/2020, patient is about the same, however he is oxygenating better, and his O2 saturation is improving today. His FiO2 is down to 75%, his flow is at 60 L/m, and his O2 saturation is 95%, hence I recommended cutting down the FiO2 to 70% and a baby down to 60% if his O2 saturation remains at 95% above 90% patient is denying being short of breath, he is feeling better overall compared to how he felt over the last 1 week. Electrolytes showed low sodium of 128 but improving. And his electrolytes are otherwise normal renal profile is normal. Blood sugar seems to be high, and I believe it is causing a pseudohyponatremia-type of picture. At sugar is 419 his sugar is being addressed by his admitting physician. Patient was reevaluated today on 12/18/2020, patient remains on high flow oxygen, however it has been titrated down, and the patient is feeling better. He is now on 65% FiO2, and 60 L flow patient does not seem to be in any distress. Obviously the patient is improving, but he is improving extremely slowly. Sodium remains low at 126 electrolytes are normal otherwise. Renal profile is normal. Blood sugar is 268. D-dimer is coming down the left d-dimer was 2.66. LDH is 1471 C-reactive protein is 1.4. Pro-calcitonin is 0.16 chest x-ray today continues to show bilateraldisease, I believe there is some improvement. Reevaluated today on 12/19/2020, patient is basically about the same, remains on 65% FiO2 and 60 L flow. Complaining of generalized weakness, fatigue, and shortness of breath upon any activity. His sodium is up to 129 today. No other labs were noted on the chart today. Patient was reevaluated today on 12/20/2020, surprisingly the patient is feeling better for the first time since admission. Remains on high flow oxygen. His FiO2 is down to 60%, he is on 50 L flow and his O2 saturation is 94%. Patient is becoming more active, less fatigue, less weakness according to the patient. Sodium remains low at 129. Basic metabolic profile is normal renal profile is normal blood sugar is 234 Reevaluated today on 12/21/2020, patient is steadily improving but very slowly. He is feeling better today, and his FiO2 was titrated down to 55%, and flow is at 50 liters. O2 saturation is 95%, clinically and that's more importantly that the patient is feeling better. ABC is relatively normal lites are normal renal profile is normal sodium is up to 130. Sugar is 184. No inflammatory markers noted today. Objective - Vital Signs Vital signs: Vital Signs Temp 97.4 F L 12/21/20 16:00 Pulse 65 12/21/20 16:00 Resp 18 12/21/20 16:00 BP 113/65 12/21/20 16:00 Pulse Ox 95 12/21/20 16:00 Intake & Output 12/20/20 12/21/20 12/21/20 18:59 06:59 18:59 Intake Total 880 125 Output Total 1250 750 100 Balance -370 -750 25 Intake: Oral 880 125 Output: Urine 1050 350 100 Stool 200 400 Other: Voiding Method Urinal Urinal Urinal # Voids 1 - Exam Physical Exam: Revealed 70-year-old white male in remains on high FiO2 and high flow oxygen.airvo 55% and 50 L flow Head: Atraumatic, normocephalic. HEENT:[Neck is supple.] [No neck masses.] [No thyromegaly.] [No JVD.] Chest: Symmetrical chest expansion, crackles at the bases bilaterally..] Cardiac Exam: [Normal S1 and S2, no S3 gallop, no murmur.] Abdomen: [Soft, nontender, no megaly, no rebound, no guarding, normal bowel sounds.] Extremities: [No clubbing, no edema, no cyanosis.] Neurological Exam: [No focal neurologic deficit.] Alert and oriented 3. Psychiatric: Normal mood affect and normal mental status examination. Musculoskeletal: No limitation in range of motion, no deformities. - Labs CBC & Chem 7: 12/21/20 08:33 12/21/20 08:33 Labs: Abnormal Lab Results - Last 24 Hours (Table) 12/20/20 12/20/20 12/21/20 Range/Units 17:09 19:52 08:33 WBC 13.0 H (3.8-10.6) k/uL RBC 3.92 L (4.30-5.90) m/uL Hgb 11.1 L (13.0-17.5) gm/dL Hct 34.4 L (39.0-53.0) % Neutrophils # 10.5 H (1.3-7.7) k/uL Eosinophils # 0.8 H (0-0.7) k/uL Sodium (137-145) mmol/L BUN (9-20) mg/dL Glucose (74-99) mg/dL POC Glucose (mg/dL) 234 H 283 H (75-99) mg/dL 12/21/20 12/21/20 12/21/20 Range/Units 08:33 11:58 16:26 WBC (3.8-10.6) k/uL RBC (4.30-5.90) m/uL Hgb (13.0-17.5) gm/dL Hct (39.0-53.0) % Neutrophils # (1.3-7.7) k/uL Eosinophils # (0-0.7) k/uL Sodium 130 L (137-145) mmol/L BUN 24 H (9-20) mg/dL Glucose 184 H (74-99) mg/dL POC Glucose (mg/dL) 137 H 314 H (75-99) mg/dL Assessment and Plan Assessment: Impression: Acute hypoxic respiratory failure secondary to acute covid 19 pneumonitis. Slow improvement noted. Acute on chronic kidney injury associated with underlying Covid 19 infection, resolved. History of bladder cancer. Chronic kidney disease, previous creatinine was 1.3 in February 2020. Benign essential hypertension Type 2 diabetes Pseudohyponatremia, improving Weakness secondary to above and secondary to COVID-19 infection. Recommendation: Continue high flow oxygen and titrate accordingly to maintain O2 saturation above 90%. Continue to titrate daily Continue present supportive care measures Continue to follow inflammatory markers. Continue the Covid 19 cocktail. Received 1 unit of convalescent plasma., He also received VIOLETA I. Prognosis remains guarded. Time with Patient: Less than 30
[2020-12-21 19:41] LABS: Glucose,Whole Blood 201 mg/dL (75-99)
[2020-12-21] MEDS: ATORVASTATIN 80 MG TAB PO SCH (20:21)
[2020-12-21] MEDS: MELATONIN 5 MG TABLET PO SCH (20:21)
--- NOTE | 2020-12-21 23:42 | P.PN ---
Subjective Progress Note Date: 12/21/20 Principal diagnosis: Acute hypoxic respiratory failure secondary to acute covid [address] Lamb over the weekend. Mr. Miller is a 70-year-old male with a past medical history of hypertension, diabetes mellitus, dyslipidemia, coronary artery disease, [place], bladder cancer, nephrolithiasis admitted on 11/24/2020 for difficulty in breathing and myalgias. Patient was tested positive for coronavirus PCR and his chest x-ray showed evidence of bilateral opacities. Patient did not not qualify for REM, he received steroids, convalescent plasma and Tocilizumab. He has been in the hospital for almost 4 weeks. On 12/21/2020 -patient was seen and examined at the bedside. He appears to be weak and tired but no acute distress. He is continued on high flow oxygen FiO2 60%, 50 L flow and saturating in low 90s. He denies having any chest pain or palpitations. No abdominal pain nausea vomiting or diarrhea. No dysuria or hematuria. On reviewing his vitals T-max 97.8, heart rate 65, respiratory rate 18, blood pressure 113/65. Reviewing his labs white count of 13, hemoglobin 11.1, platelets 368. Sodium 130, potassium 4.1, chloride 99, bicarb 26, BUN 24, creatinine 0.92. Active Medications Acetaminophen (Acetaminophen Tab 325 Mg Tab) 650 mg PO Q4HR PRN PRN Reason: Fever and/ or Pain Last Admin: 12/14/20 06:16 Dose: 650 mg Documented by: Albuterol Sulfate (Albuterol Hfa Inhaler) 2 puff INHALATION RT-QID [facility] Last Admin: 12/21/20 20:29 Dose: 2 puff Documented by: Alprazolam (Alprazolam 0.25 Mg Tab) 0.25 mg PO BID PRN PRN Reason: Anxiety Ascorbic Acid (Ascorbic Acid 500 Mg Tab) 500 mg PO DAILY [facility] Last Admin: 12/21/20 08:50 Dose: 500 mg Documented by: Aspirin (Aspirin 81 Mg) 81 mg PO DAILY [facility] Last Admin: 12/21/20 08:50 Dose: 81 mg Documented by: Atorvastatin Calcium (Atorvastatin 80 Mg Tab) 80 mg PO HS [facility] Last Admin: 12/21/20 20:21 Dose: 80 mg Documented by: Benzonatate (Benzonatate 100 Mg Cap) 100 mg PO TID PRN PRN Reason: Cough Last Admin: 12/17/20 21:00 Dose: 100 mg Documented by: Bisacodyl (Bisacodyl 5 Mg Tablet.Dr) 5 mg PO DAILY PRN PRN Reason: Constipation Last Admin: 12/15/20 12:46 Dose: 5 mg Documented by: Cholecalciferol (Cholecalciferol 25 Mcg (1000 Iu) Tablet) 50 mcg PO DAILY [facility] Last Admin: 12/21/20 08:51 Dose: 50 mcg Documented by: Clopidogrel Bisulfate (Clopidogrel 75 Mg Tab) 75 mg PO DAILY [facility] Last Admin: 12/21/20 08:51 Dose: 75 mg Documented by: Dexamethasone Sodium Phosphate (Dexamethasone Sod Phosphate 10 Mg/Ml 1 Ml Vial) 6 mg IV DAILY [facility] Last Admin: 12/21/20 08:50 Dose: 6 mg Documented by: Enoxaparin Sodium (Enoxaparin 40 Mg/0.4 Ml Syringe) 40 mg SQ DAILY [facility] Last Admin: 12/21/20 08:51 Dose: 40 mg Documented by: Gabapentin (Gabapentin 300 Mg Cap) 600 mg PO DAILY [facility] Last Admin: 12/21/20 08:50 Dose: 600 mg Documented by: Guaifenesin/Codeine Phosphate (Guaifenesin-Coden 100-10mg/5ml 10 Ml Cup) 10 ml PO Q6H PRN PRN Reason: Cough Insulin Aspart (Insulin Aspart (Novolog) 100 Unit/Ml Vial) 0 unit SQ [facility]; Protocol Last Admin: 12/21/20 20:21 Dose: 6 unit Documented by: Insulin Detemir (Insulin Detemir (Levemir) 100 Unit/Ml Syr) 15 unit SQ DAILY@0700 [facility] Last Admin: 12/21/20 07:03 Dose: 15 unit Documented by: Levothyroxine Sodium (Levothyroxine 100 Mcg Tab) 100 mcg PO DAILY@0630 [facility] Last Admin: 12/21/20 07:03 Dose: 100 mcg Documented by: Melatonin (Melatonin 5 Mg Tablet) 5 mg PO [facility] Last Admin: 12/21/20 20:21 Dose: 5 mg Documented by: Metoprolol Succinate (Metoprolol Succinate (Er) 25 Mg Tab.Er.24h) 25 mg PO DAILY [facility] Last Admin: 12/21/20 08:50 Dose: 25 mg Documented by: Morphine Sulfate (Morphine Sulfate 4 Mg/Ml Syringe) 4 mg IVP Q6HR PRN PRN Reason: Pain Last Admin: 12/07/20 21:22 Dose: 4 mg Documented by: Naloxone HCl (Naloxone 0.4 Mg/Ml 1 Ml Vial) 0.2 mg IV Q2M PRN PRN Reason: Opioid Reversal Pantoprazole Sodium (Pantoprazole 40 Mg Tablet) 40 mg PO DAILY@0730 [facility] Last Admin: 12/21/20 07:03 Dose: 40 mg Documented by: Sodium Chloride (Sodium Chloride Tab 1 Gm Tab) 1 gm PO BID [facility] Last Admin: 12/21/20 20:20 Dose: 1 gm Documented by: Zinc Sulfate (Zinc Sulfate 220 Mg Cap) 220 mg PO DAILY [facility] Last Admin: 12/21/20 08:50 Dose: 220 mg Documented by: Objective - Vital Signs Vital signs: Vital Signs Temp 97.3 F L 12/21/20 08:00 Pulse 77 12/21/20 12:00 Resp 18 12/21/20 12:00 BP 132/67 12/21/20 12:00 Pulse Ox 91 L 12/21/20 12:00 Intake & Output 12/20/20 12/21/20 12/21/20 18:59 06:59 18:59 Intake Total 880 125 Output Total 1250 750 100 Balance -370 -750 25 Intake: Oral 880 125 Output: Urine 1050 350 100 Stool 200 400 Other: Voiding Method Urinal Urinal Urinal # Voids 1 - Exam GENERAL - No acute distress, oriented 3. The patient is currently on AIRVO, at 60 L/m with an FiO2 of 55%. Saturations are in the low 90s. There is no conversational dyspnea or use of accessory muscles. HEENT examination is grossly unremarkable. Neck supple. Full range of motion. No adenopathy thyromegaly or neck vein distention. Cardiovascular examination reveals regular rhythm rate. S1-S2 normal. No S3 or S4. No discernible murmur noted. Lungs reveal bilateral and bibasilar rhonchi and crackles. No wheezes. Abdomen soft bowel sounds are heard. No masses or tenderness. Extremities are intact. No cyanosis clubbing or edema. Skin is without rash or lesion. Neurologic examination is brief but nonfocal. - Labs CBC & Chem 7: 12/21/20 08:33 12/21/20 08:33 Labs: Abnormal Lab Results - Last 24 Hours (Table) 12/20/20 12/20/20 12/21/20 Range/Units 17:09 19:52 08:33 WBC 13.0 H (3.8-10.6) k/uL RBC 3.92 L (4.30-5.90) m/uL Hgb 11.1 L (13.0-17.5) gm/dL Hct 34.4 L (39.0-53.0) % Neutrophils # 10.5 H (1.3-7.7) k/uL Eosinophils # 0.8 H (0-0.7) k/uL Sodium (137-145) mmol/L BUN (9-20) mg/dL Glucose (74-99) mg/dL POC Glucose (mg/dL) 234 H 283 H (75-99) mg/dL 12/21/20 12/21/20 Range/Units 08:33 11:58 WBC (3.8-10.6) k/uL RBC (4.30-5.90) m/uL Hgb (13.0-17.5) gm/dL Hct (39.0-53.0) % Neutrophils # (1.3-7.7) k/uL Eosinophils # (0-0.7) k/uL Sodium 130 L (137-145) mmol/L BUN 24 H (9-20) mg/dL Glucose 184 H (74-99) mg/dL POC Glucose (mg/dL) 137 H (75-99) mg/dL Assessment and Plan Assessment: ASSESSMENT Acute hypoxic respiratory failure secondary to COVID-19 pneumonia Acute on chronic kidney injury History of bladder cancer Essential hypertension Type 2 diabetes mellitus History of CAD status post stent placement Nephrolithiasis history Hyperlipidemia Hyponatremia Leukocytosis PLAN: Patient admits COVID-19 pneumonia and still on high flow oxygen. Slow recovery. He received convalescent plasma, Tocilizumab. Continue with Decadro n, Lovenox, Protonix, vitamin C, vitamin D supplements. Overall poor gnosis remains guarded. Pulmonary and nephrology following the patient closely. Further recommendations to see the patient.
[2020-12-22 06:25] LABS: Glucose,Whole Blood 133 mg/dL (75-99)
[2020-12-22] MEDS: INSULIN ASPART (NovoLOG) 100 UNIT/ML VIAL SQ SCH ×4 (06:26→20:53)
[2020-12-22] MEDS: INSULIN DETEMIR (LEVEMIR) 100 UNIT/ML SYR SQ SCH (06:54)
[2020-12-22] MEDS: PANTOPRAZOLE 40 MG TABLET PO SCH (06:55)
[2020-12-22] MEDS: LEVOTHYROXINE 100 MCG TAB PO SCH (06:55)
[2020-12-22] MEDS: ALBUTEROL HFA INHALER INHALATION SCH ×4 (08:36→20:00)
[2020-12-22] MEDS: DEXAMETHASONE SOD PHOSPHATE 10 MG/ML 1 ML VIAL IV SCH (08:59)
[2020-12-22] MEDS: ENOXAPARIN 40 MG/0.4 ML SYRINGE SQ SCH (08:59)
[2020-12-22] MEDS: METOPROLOL SUCCINATE (ER) 25 MG TAB.ER.24H PO SCH (09:00)
[2020-12-22] MEDS: GABAPENTIN 300 MG CAP PO SCH (09:00)
[2020-12-22] MEDS: CHOLECALCIFEROL 25 MCG (1000 IU) TABLET PO SCH (09:00)
[2020-12-22] MEDS: CLOPIDOGREL 75 MG TAB PO SCH (09:00)
[2020-12-22] MEDS: ASPIRIN 81 MG PO SCH (09:00)
[2020-12-22] MEDS: ZINC SULFATE 220 MG CAP PO SCH (09:00)
[2020-12-22] MEDS: ASCORBIC ACID 500 MG TAB PO SCH (09:00)
[2020-12-22] MEDS: SODIUM CHLORIDE TAB 1 GM TAB PO SCH ×2 (09:00→20:54)
[2020-12-22] MEDS: ALPRAZolam 0.25 MG TAB PO PRN (09:04)
[2020-12-22 09:39] LABS: African American GFR (CKD) >90 (>60 ml/min/1.73 sqM); Anion Gap 10 mmol/L; Blood Urea Nitrogen 27 mg/dL (9-20); C Reactive Protein 0.8 mg/dL (<1.0); Calcium 8.7 mg/dL (8.4-10.2); Carbon Dioxide 17 mmol/L (22-30); Chloride 103 mmol/L (98-107); Glucose 168 mg/dL (74-99); Non-African American GFR(CKD) >90 (>60 ml/min/1.73 sqM); Sodium 130 mmol/L (137-145)
[2020-12-22 09:44] LABS: Basophils # (A) 0.1 k/uL (0-0.2); Basophils % (A) 0 %; Eosinophils # (A) 0.8 k/uL (0-0.7); Eosinophils % (A) 5 %; HCT 34.6 % (39.0-53.0); HGB 11.9 gm/dL (13.0-17.5); Lymphocytes # (A) 1.2 k/uL (1.0-4.8); Lymphocytes % (A) 8 %; MCH 31.1 pg (25.0-35.0); MCHC 34.4 g/dL (31.0-37.0); MCV 90.6 fL (80.0-100.0); Mean Platelet Volume 6.8; Monocytes % (A) 6 %; Neutrophils # (A) 12.6 k/uL (1.3-7.7); Neutrophils % (A) 79 %; Platelet Count 370 k/uL (150-450); RBC 3.83 m/uL (4.30-5.90); RDW 14.5 % (11.5-15.5); WBC 15.9 k/uL (3.8-10.6)
[2020-12-22 09:59] LABS: LDH 2132 U/L (313-618); Potassium 4.7 mmol/L (3.5-5.1)
[2020-12-22 10:54] LABS: Crenated RBC Present; Poikilocytosis (M) Present
[2020-12-22 11:56] LABS: Glucose,Whole Blood 188 mg/dL (75-99)
--- NOTE | 2020-12-22 12:03 | P.PN ---
Subjective Progress Note Date: 12/22/20 Principal diagnosis: This is a 70-year-old male followed up with: Covid Pneumonia, acute kidney injury and hyponatremia renal function is improved creatinine 0.9 at baseline. Sodium remains with low, at 1:30 is on sodium chloride tablets. Sodium is slowly going up from 126 to 1:30. This morning though is bicarb dropped down acutely from 26 yesterday to 17 with gap up from 5-10. He did have some loose stools Patient was seen from the room door because of COVID He is comfortable on nasal cannula oxygen Denies any cough but is mildly short of breath No nausea vomiting No chest pain. Objective - Vital Signs Vital signs: Vital Signs Temp 97.4 F L 12/21/20 16:00 Pulse 86 12/22/20 08:00 Resp 19 12/22/20 08:00 BP 105/57 12/22/20 08:00 Pulse Ox 93 L 12/22/20 08:00 Intake & Output 12/21/20 12/22/20 12/22/20 18:59 06:59 18:59 Intake Total 125 240 Output Total 100 320 Balance 25 -320 240 Intake: Oral 125 240 Output: Urine 100 120 Stool 200 Other: Voiding Method Urinal Urinal Urinal # Voids 0 # Bowel Movements 0 Patient was not examined but seen from the doorway - Labs CBC & Chem 7: 12/22/20 08:31 12/22/20 08:31 Labs: Abnormal Lab Results - Last 24 Hours (Table) 12/21/20 12/21/20 12/21/20 Range/Units 11:58 16:26 19:40 WBC (3.8-10.6) k/uL RBC (4.30-5.90) m/uL Hgb (13.0-17.5) gm/dL Hct (39.0-53.0) % Neutrophils # (1.3-7.7) k/uL Eosinophils # (0-0.7) k/uL Sodium (137-145) mmol/L Carbon Dioxide (22-30) mmol/L BUN (9-20) mg/dL Glucose (74-99) mg/dL POC Glucose (mg/dL) 137 H 314 H 201 H (75-99) mg/dL Lactate Dehydrogenase (313-618) U/L 12/22/20 12/22/2021 Range/Units 06:25 08:31 08:31 WBC 15.9 H (3.8-10.6) k/uL RBC 3.83 L (4.30-5.90) m/uL Hgb 11.9 L (13.0-17.5) gm/dL Hct 34.6 L (39.0-53.0) % Neutrophils # 12.6 H (1.3-7.7) k/uL Eosinophils # 0.8 H (0-0.7) k/uL Sodium 130 L (137-145) mmol/L Carbon Dioxide 17 L (22-30) mmol/L BUN 27 H (9-20) mg/dL Glucose 168 H (74-99) mg/dL POC Glucose (mg/dL) 133 H (75-99) mg/dL Lactate Dehydrogenase 2132 H (313-618) U/L 12/22/20 Range/Units 11:39 WBC (3.8-10.6) k/uL RBC (4.30-5.90) m/uL Hgb (13.0-17.5) gm/dL Hct (39.0-53.0) % Neutrophils # (1.3-7.7) k/uL Eosinophils # (0-0.7) k/uL Sodium (137-145) mmol/L Carbon Dioxide (22-30) mmol/L BUN (9-20) mg/dL Glucose (74-99) mg/dL POC Glucose (mg/dL) 188 H (75-99) mg/dL Lactate Dehydrogenase (313-618) U/L Assessment and Plan Assessment: Impression 1. Acute kidney injury, secondary to COVID resolved. Creatinine is down to 0.76, peak was 1.8 on 12/05/2020 2. Hyponatremia secondary to acute kidney injury, on sodium chloride improving, stable at 1:30 this morning 3. COVID 4. New onset of gap and non-gap acidosis, bicarb is down to 17 from 26 and gap is up from 5-10. Most likely explanation of loose stools. Recommendation 1. Start him on sodium bicarb 650 4 times a day. 2. Redo labs tomorrow to make sure there is no error. Patient denies any abdominal pain or any other evidence to suggest lactic acidosis such as sepsis or bowel ischemia
[2020-12-22] MEDS: SODIUM BICARBONATE TAB 650 MG TAB PO SCH ×2 (12:42→20:53)
--- NOTE | 2020-12-22 16:23 | P.PN ---
Subjective Progress Note Date: 12/22/20 Principal diagnosis: Acute hypoxic respiratory failure secondary to acute covid 19 pneumonitis. This is a 70-year-old white male with history of multiple medical problems including hypertension, type 2 diabetes, dyslipidemia, coronary artery disease and previous ND, previous stent placement, degenerative joint disease, bladder cancer, nephrolithiasis, patient presented to the emergency room on 11/24/2020, mostly with 1 week history of multiple constitutional symptoms including muscle aches, fever, shortness of breath, cough, nausea, and he tested positive on the with contreras virus PCR. Chest x-ray showed evidence of bilateral opacities/infiltrates. Patient had adequate saturations on room air, it was about 94%, he was also noted to be hyperkalemic, and he had lactic acid of 2.7. Received dextrose, insulin, Kayexalate, and the patient was eventually admitted seen by nephrology on consultation, he was placed on the Covid 19 cocktail, and we were asked to see him yesterday because of his worsening shortness of breath. No follow-up chest x-ray done since admission, and I will be ordering one to be done today. Labs today clearly showed relatively normal CBC. Elevated BUN of 40 creatinine is 1.4. D-dimer was normal on admission, and I do not see any inflammatory markers on the chart. After evaluating the patient, we recommended one unit of convalescent plan is to be given. Patient obviously did not qualify for REM. And he is not at the point of requiring actemtra Patient was reevaluated today on 11/29/2020, he is basically about the same. Not much of a change in the last 24 hours. Patient is on 6 L nasal cannula, and his O2 saturation is in the low 90s. Continues to have intermittent cough, shortness of breath, basic metabolic profile is normal. His LDH is 1466, and C- reactive protein is 24. Patient remains on the Covid 19 cocktail. He received convalescent plasma. He was out of the window for REM. Patient was reevaluated today on 12/02/2020, does not seem to be improving much. Patient is now on higher FiO2, requiring airvo high flow with FiO2 of 90% and total of 60 L/m in addition to this he is also on a nonrebreather. Chest x-ray seems to be a bit worse. LDH is worse 1881 last C-reactive protein is 24. Renal functioning is also worse with a BUN of 46 creatinine 1.60 and a potassium of 5.7 being addressed by nephrology on the case. His last chest x-ray was on 12/02/1912/17/2020, I will go ahead and order a chest x-ray for the morning. Patient remains on the Covid 19 cocktail. He received convalescent plasma. Interstitia l and patchy bilateral airspace disease/infiltrates progressed from admission x- ray. Repeat basic metabolic profile was done today, potassium is down to 4.4 from 5.7 yesterday. BUN is 60 creatinine is 1.60. Reevaluated today on 12/03/2020, patient is about the same remains on nonrebreather mask and high flow cannula,He is on 90% FiO2 with flow of 15 L/m and his O2 saturation is in the low 90s. Continues to have intermittent cough, shortness of breath with any activity. Patient has been steadily worsening clinically over the last few days. Hence I would recommend actemra on this patient. Remains on the Covid 19 cocktail. And he also received convalescent plasma. Patient was reevaluated today on 12/04/2020, remains on high flow oxygen using Airvo and a nonrebreather mask. Patient is on 90% FiO2 and 50 L flow with O2 saturation in the high 80s and low 90s. Clinically however he feels a bit better today compared to how he felt yesterday. Even his lungs sounded a bit better and less crackles noted on examination. No labs were done today except blood sugar of 166 Patient was reevaluated today on 12/05/2020, remains on high flow via airvo , presently on 90% FiO2 and 50 L flow. O2 saturations are in the low 90s. Patient tells me that he feels a bit better today compared to the last couple of days. Less shortness of breath, less aches and pains, overall feels better. On examination he did sound better. And his labs were reviewed, sodium is down to 125 and his BUN is 88 creatinine is 1.8, I suspect that we are dealing with hypovolemic hyponatremia and prerenal azotemia hence the patient would benefit from more fluid/0.9 normal saline will be added. And will put his Lasix on hold today. I believe his hyponatremia is related to diuretics , placed him back on 0.9 normal saline at 75 mL per hour may even require more fluids. Reevaluated today on 12/06/2020, patient is basically about the same. Remains on high flow oxygen AIRVO, 85% and 50 L flow. He is also on a nonrebreather mask, O2 saturation remains marginal in the low 90s. Today for some reason the patient is feeling a bit better but nowhere near his baseline. Patient is generally weak. His sodium has been coming down and today is 125. This is being addressed by nephrology on the case. White count is high today at 24.08. Platelets are also high at 665. Blood sugar is 71. I reviewed his follow-up chest x-ray today no significant change, continues to show bilateral diffuse interstitial infiltrates. Reevaluated today on 12/07/2020, patient is feeling a bit better, remains on high flow oxygen 90%/60 L flow and his O2 saturation is 92%. Patient is having echocardiogram as I was examining him. Results of the echocardiogram are pending. Again the patient is feeling a bit better, less shortness of breath, no cough, no wheezing, no chest pain, no fever, no chills, he feels generally weak, and he does have shortness of breath with any activity. Yesterday's chest x-ray continued to show diffuse bilateral interstitial infiltrates. Not much of a change. Labs today showed improved sodium of 129 BUN is 77 and creatinine 1.6. Or 2020, the patient has been weaned down to high flow oxygen 6 L with an FiO2 of 75% which is essentially the same setting as yesterday. The patient's pulse ox is currently at 92%. No new complaints. In terms of his chest x-ray from yesterday, the patient had no interval worsening. He did have bilateral multifocal pulmonary infiltrates and confluent opacities consistent with COVID- 19 related pneumonia and he also had a CT angios the chest that showed no evidence of any pulmonary embolism and it was consistent with COVID-19 related pneumonia. On his blood work, his LDH level is 1471 which is higher and this CRP level is at 1.4. Sodium level is at 125 and the BUN is 34 with a creatinine of 1. His d-dimer is at 2.66. The patient remains on Decadron 63 g IV every 24 hours. He is on Lovenox and the dose should be 40 mg subcu every 24 hours. IV fluids are at KVO for now. He is taking also salt tablets. Sodium level is improving. He remains on Levemir insulin 30 units in the morning 27 units in the evening along with a lighting scale coverage. He is resting comfortably in bed. No significant worsening shortness of breath. His pulmonary status is very much limited still and the patient has been in the hospital for more than 3 weeks along with his . Patient was reevaluated today on 12/16/2020, remains on high flow oxygen, he is now on airvo and a non-rebreather mask FiO2 85% and flow at 60 L/m. His O2 saturation is marginal, however the patient seems to be comfortable, and in no distress. CT angiogram on 12/13 showed no filling defects and no evidence of pulmonary embolism. However it did show patchy infiltrates present bilaterally consistent with COVID-19 pneumonia. His sodium today is 127. Renal profile showed a BUN of 34 creatinine 1.04 C-reactive protein is 1.4 LDH is 1471. Reviewed his most recent chest x-ray continues to show bilateral interstitial infiltrates Reevaluated today on 12/17/2020, patient is about the same, however he is oxygenating better, and his O2 saturation is improving today. His FiO2 is down to 75%, his flow is at 60 L/m, and his O2 saturation is 95%, hence I recommended cutting down the FiO2 to 70% and a baby down to 60% if his O2 saturation remains at 95% above 90% patient is denying being short of breath, he is feeling better overall compared to how he felt over the last 1 week. Electrolytes showed low sodium of 128 but improving. And his electrolytes are otherwise normal renal profile is normal. Blood sugar seems to be high, and I believe it is causing a pseudohyponatremia-type of picture. At sugar is 419 his sugar is being addressed by his admitting physician. Patient was reevaluated today on 12/18/2020, patient remains on high flow oxygen, however it has been titrated down, and the patient is feeling better. He is now on 65% FiO2, and 60 L flow patient does not seem to be in any distress. Obviously the patient is improving, but he is improving extremely slowly. Sodium remains low at 126 electrolytes are normal otherwise. Renal profile is normal. Blood sugar is 268. D-dimer is coming down the left d-dimer was 2.66. LDH is 1471 C-reactive protein is 1.4. Pro-calcitonin is 0.16 chest x-ray today continues to show bilateraldisease, I believe there is some improvement. Reevaluated today on 12/19/2020, patient is basically about the same, remains on 65% FiO2 and 60 L flow. Complaining of generalized weakness, fatigue, and shortness of breath upon any activity. His sodium is up to 129 today. No other labs were noted on the chart today. Patient was reevaluated today on 12/20/2020, surprisingly the patient is feeling better for the first time since admission. Remains on high flow oxygen. His FiO2 is down to 60%, he is on 50 L flow and his O2 saturation is 94%. Patient is becoming more active, less fatigue, less weakness according to the patient. Sodium remains low at 129. Basic metabolic profile is normal renal profile is normal blood sugar is 234 Reevaluated today on 12/21/2020, patient is steadily improving but very slowly. He is feeling better today, and his FiO2 was titrated down to 55%, and flow is at 50 liters. O2 saturation is 95%, clinically and that's more importantly that the patient is feeling better. ABC is relatively normal lites are normal renal profile is normal sodium is up to 130. Sugar is 184. No inflammatory markers noted today. Patient was reevaluated today on 12/22/2020, patient is steadily improving, he is down to 55% FiO2 and 50 L flow on airvo. He has persistent generalized weakness, but he feels better compared to how he felt over the last 2 weeks. His WBC count today is 15.9 hemoglobin is 11.9 electrolytes are normal sodium is improving up to 130. LDH is rising again up to 2132 today. C-reactive protein remains low at 0.8. Overall there has been some improvement over the last 2 weeks, but the improvement has been extremely slow. Objective - Vital Signs Vital signs: Vital Signs Temp 97.4 F L 12/21/20 16:00 Pulse 84 12/22/20 12:00 Resp 18 12/22/20 12:00 BP 123/68 12/22/20 12:00 Pulse Ox 92 L 12/22/20 12:00 Intake & Output 12/21/20 12/22/20 12/22/20 18:59 06:59 18:59 Intake Total 125 240 Output Total 100 320 100 Balance 25 -320 140 Intake: Oral 125 240 Output: Urine 100 120 100 Stool 200 Other: Voiding Method Urinal Urinal Urinal # Voids 0 # Bowel Movements 0 - Exam Physical Exam: Revealed 70-year-old white male , on high FiO2 and high flow oxygen.airvo 55% and 50 L flow unchanged in the last 2 days. O2 saturation is 92%. Head: Atraumatic, normocephalic. HEENT:[Neck is supple.] [No neck masses.] [No thyromegaly.] [No JVD.] Chest: Symmetrical chest expansion, crackles at the bases bilaterally..] Cardiac Exam: [Normal S1 and S2, no S3 gallop, no murmur.] Abdomen: [Soft, nontender, no megaly, no rebound, no guarding, normal bowel sounds.] Extremities: [No clubbing, no edema, no cyanosis.] Neurological Exam: [No focal neurologic deficit.] Alert and oriented 3. Psychiatric: Normal mood affect and normal mental status examination. Musculoskeletal: No limitation in range of motion, no deformities. - Labs CBC & Chem 7: 12/22/20 08:31 12/22/20 08:31 Labs: Abnormal Lab Results - Last 24 Hours (Table) 12/21/20 12/21/20 12/22/20 Range/Units 16:26 19:40 06:25 WBC (3.8-10.6) k/uL RBC (4.30-5.90) m/uL Hgb (13.0-17.5) gm/dL Hct (39.0-53.0) % Neutrophils # (1.3-7.7) k/uL Eosinophils # (0-0.7) k/uL Sodium (137-145) mmol/L Carbon Dioxide (22-30) mmol/L BUN (9-20) mg/dL Glucose (74-99) mg/dL POC Glucose (mg/dL) 314 H 201 H 133 H (75-99) mg/dL Lactate Dehydrogenase (313-618) U/L 12/22/20 12/22/20 12/22/20 Range/Units 08:31 08:31 11:39 WBC 15.9 H (3.8-10.6) k/uL RBC 3.83 L (4.30-5.90) m/uL Hgb 11.9 L (13.0-17.5) gm/dL Hct 34.6 L (39.0-53.0) % Neutrophils # 12.6 H (1.3-7.7) k/uL Eosinophils # 0.8 H (0-0.7) k/uL Sodium 130 L (137-145) mmol/L Carbon Dioxide 17 L (22-30) mmol/L BUN 27 H (9-20) mg/dL Glucose 168 H (74-99) mg/dL POC Glucose (mg/dL) 188 H (75-99) mg/dL Lactate Dehydrogenase 2132 H (313-618) U/L Assessment and Plan Assessment: Impression: Acute hypoxic respiratory failure secondary to acute covid 19 pneumonitis. Slow improvement noted. Acute on chronic kidney injury associated with underlying Covid 19 infection, resolved. History of bladder cancer. Benign essential hypertension Type 2 diabetes Weakness secondary to above and secondary to COVID-19 infection. Recommendation: Continue high flow oxygen and titrate accordingly to maintain O2 saturation above 90%. Continue to titrate daily Continue present supportive care measures Continue to follow inflammatory markers. Continue the Covid 19 cocktail. Received 1 unit of convalescent plasma., He also received TOCI Patient will eventually require long-term rehab. Not quite ready for any discharge planning at this point.. Prognosis remains guarded. Time with Patient: Less than 30
[2020-12-22 16:56] LABS: Glucose,Whole Blood 330 mg/dL (75-99)
[2020-12-22 19:51] LABS: Glucose,Whole Blood 213 mg/dL (75-99)
[2020-12-22] MEDS: ATORVASTATIN 80 MG TAB PO SCH (20:53)
[2020-12-22] MEDS: MELATONIN 5 MG TABLET PO SCH (20:54)
[2020-12-23] MEDS: SODIUM BICARBONATE TAB 650 MG TAB PO SCH ×3 (00:25→22:12)
--- NOTE | 2020-12-23 00:28 | P.PN ---
Subjective Progress Note Date: 12/22/20 Principal diagnosis: Acute hypoxic respiratory failure secondary to acute covid [address] Lamb over the weekend. Mr. Miller is a 70-year-old male with a past medical history of hypertension, diabetes mellitus, dyslipidemia, coronary artery disease, [place], bladder cancer, nephrolithiasis admitted on 11/24/2020 for difficulty in breathing and myalgias. Patient was tested positive for coronavirus PCR and his chest x-ray showed evidence of bilateral opacities. Patient did not not qualify for REM, he received steroids, convalescent plasma and Tocilizumab. He has been in the hospital for almost 4 weeks. On 12/21/2020 -patient was seen and examined at the bedside. He appears to be weak and tired but no acute distress. He is continued on high flow oxygen FiO2 60%, 50 L flow and saturating in low 90s. He denies having any chest pain or palpitations. No abdominal pain nausea vomiting or diarrhea. No dysuria or hematuria. On reviewing his vitals T-max 97.8, heart rate 65, respiratory rate 18, blood pressure 113/65. Reviewing his labs white count of 13, hemoglobin 11.1, platelets 368. Sodium 130, potassium 4.1, chloride 99, bicarb 26, BUN 24, creatinine 0.92. On 12/22/2020 -patient was seen and examined at the bedside. His difficulty in breathing is slowly improving, currently is on able 55% FiO2, 50 L of oxygen and saturating around 91%. He denies having any chest pain or palpitations. Temperature of 97.9, heart rate 86, respiratory rate 18, blood pressure 119 x 60. On reviewing the labs white count of 15.9, hemoglobin 9.9, platelets 370. Sodium 130, potassium 4.7, chloride 103, bicarb 17, BUN 27, creatinine 076. Patient's medications have been reviewed. Objective - Vital Signs Vital signs: Vital Signs Temp 97.4 F L 12/21/20 16:00 Pulse 84 12/22/20 12:00 Resp 18 12/22/20 12:00 BP 123/68 12/22/20 12:00 Pulse Ox 92 L 12/22/20 12:00 Intake & Output 12/21/20 12/22/20 12/22/20 18:59 06:59 18:59 Intake Total 125 240 Output Total 100 320 100 Balance 25 -320 140 Intake: Oral 125 240 Output: Urine 100 120 100 Stool 200 Other: Voiding Method Urinal Urinal Urinal # Voids 0 # Bowel Movements 0 - Exam GENERAL - No acute distress, oriented 3. The patient is currently on AIRVO, at 50 L/m with an FiO2 of 55%. Saturations are in the low 90s. HEENT examination is grossly unremarkable. Neck supple. Full range of motion. No adenopathy thyromegaly or neck vein distention. Cardiovascular examination reveals regular rhythm rate. S1-S2 normal. No S3 or S4. Lungs reveal bilateral and bibasilar rhonchi and crackles. No wheezes. Abdomen soft bowel sounds are heard. No masses or tenderness. Extremities are intact. No cyanosis clubbing or edema. Skin is without rash or lesion. Neurologic examination is brief but nonfocal. - Labs CBC & Chem 7: 12/23/20 10:40 12/27/20 07:49 Labs: Abnormal Lab Results - Last 24 Hours (Table) 12/21/20 12/21/20 12/22/20 Range/Units 16:26 19:40 06:25 WBC (3.8-10.6) k/uL RBC (4.30-5.90) m/uL Hgb (13.0-17.5) gm/dL Hct (39.0-53.0) % Neutrophils # (1.3-7.7) k/uL Eosinophils # (0-0.7) k/uL Sodium (137-145) mmol/L Carbon Dioxide (22-30) mmol/L BUN (9-20) mg/dL Glucose (74-99) mg/dL POC Glucose (mg/dL) 314 H 201 H 133 H (75-99) mg/dL Lactate Dehydrogenase (313-618) U/L 12/22/20 12/22/20 12/22/20 Range/Units 08:31 08:31 11:39 WBC 15.9 H (3.8-10.6) k/uL RBC 3.83 L (4.30-5.90) m/uL Hgb 11.9 L (13.0-17.5) gm/dL Hct 34.6 L (39.0-53.0) % Neutrophils # 12.6 H (1.3-7.7) k/uL Eosinophils # 0.8 H (0-0.7) k/uL Sodium 130 L (137-145) mmol/L Carbon Dioxide 17 L (22-30) mmol/L BUN 27 H (9-20) mg/dL Glucose 168 H (74-99) mg/dL POC Glucose (mg/dL) 188 H (75-99) mg/dL Lactate Dehydrogenase 2132 H (313-618) U/L Assessment and Plan Assessment: ASSESSMENT Acute hypoxic respiratory failure secondary to COVID-19 pneumonia Acute on chronic kidney injury History of bladder cancer Essential hypertension Type 2 diabetes mellitus History of CAD status post stent placement Nephrolithiasis history Hyperlipidemia Hyponatremia Leukocytosis PLAN: Patient admits COVID-19 pneumonia and still on high flow oxygen. Slow recovery and improving steadily . He received convalescent plasma, Tocilizumab. Continue with Decadron, Lovenox, Protonix, vitamin C, vitamin D supplements. Overall poor gnosis remains guarded. Pulmonary and nephrology following the patient closely. Will follow Inflammatory markers. Further recommendations to see the patient.
[2020-12-23 06:19] LABS: Glucose,Whole Blood 80 mg/dL (75-99)
[2020-12-23] MEDS: INSULIN ASPART (NovoLOG) 100 UNIT/ML VIAL SQ SCH ×4 (06:23→22:12)
[2020-12-23] MEDS: LEVOTHYROXINE 100 MCG TAB PO SCH (06:41)
[2020-12-23] MEDS: PANTOPRAZOLE 40 MG TABLET PO SCH (06:41)
[2020-12-23] MEDS: INSULIN DETEMIR (LEVEMIR) 100 UNIT/ML SYR SQ SCH (06:41)
[2020-12-23] MEDS: ALBUTEROL HFA INHALER INHALATION SCH ×4 (08:40→19:14)
[2020-12-23] MEDS: GABAPENTIN 300 MG CAP PO SCH (09:26)
[2020-12-23] MEDS: ZINC SULFATE 220 MG CAP PO SCH (09:26)
[2020-12-23] MEDS: CHOLECALCIFEROL 25 MCG (1000 IU) TABLET PO SCH (09:27)
[2020-12-23] MEDS: SODIUM CHLORIDE TAB 1 GM TAB PO SCH ×2 (09:27→22:12)
[2020-12-23] MEDS: METOPROLOL SUCCINATE (ER) 25 MG TAB.ER.24H PO SCH (09:27)
[2020-12-23] MEDS: CLOPIDOGREL 75 MG TAB PO SCH (09:27)
[2020-12-23] MEDS: ASCORBIC ACID 500 MG TAB PO SCH (09:27)
[2020-12-23] MEDS: ASPIRIN 81 MG PO SCH (09:27)
[2020-12-23] MEDS: ENOXAPARIN 40 MG/0.4 ML SYRINGE SQ SCH (09:28)
[2020-12-23] MEDS: DEXAMETHASONE SOD PHOSPHATE 10 MG/ML 1 ML VIAL IV SCH (09:52)
[2020-12-23 11:05] LABS: HCT 31.8 % (39.0-53.0); HGB 10.9 gm/dL (13.0-17.5); MCH 30.3 pg (25.0-35.0); MCHC 34.2 g/dL (31.0-37.0); MCV 88.5 fL (80.0-100.0); Mean Platelet Volume 6.7; Platelet Count 310 k/uL (150-450); RDW 14.2 % (11.5-15.5); WBC 13.7 k/uL (3.8-10.6)
[2020-12-23 11:10] LABS: Potassium 4.4 mmol/L (3.5-5.1)
[2020-12-23 11:11] LABS: African American GFR (CKD) >90 (>60 ml/min/1.73 sqM); Anion Gap 3 mmol/L; Blood Urea Nitrogen 27 mg/dL (9-20); Calcium 8.3 mg/dL (8.4-10.2); Carbon Dioxide 27 mmol/L (22-30); Chloride 102 mmol/L (98-107); Glucose 206 mg/dL (74-99); Non-African American GFR(CKD) >90 (>60 ml/min/1.73 sqM); Sodium 132 mmol/L (137-145)
--- NOTE | 2020-12-23 11:40 | P.PN ---
Subjective Progress Note Date: 12/23/20 11/27/2020 during the night, patient became more hypoxic, requiring nonrebreather. Significant clinical improvement, maintaining O2 sats in the 90s on 5 L nasal cannula. Minimal nonproductive cough. Creatinine 1.6. 11/28/2020 Required nonrebreather briefly during the night; currently maintained on 5 L nasal cannula, O2 sats of 90-91%. Complains of worsening shortness of breath, especially with minimal exertion, nonproductive cough. Maintained on Covid regimen, including dexamethasone. Blood sugars elevated throughout the night, better controlled this morning. Denies chest pain, palpitations or shortness of breath. Labs pending. 11/29/20 S/P convalescent plasma .Continues on Covid regimen, maintaining O2 sats in the 90s on 6 L nasal cannula. Occasional nonproductive cough. Denies chest pain, palpitations. Evaluated by pulmonary, outside the window for Remdesevir. Creatinine 1.4. 12/02/2020 maintained on high flow cannula with FiO2 of 90% post nonrebreather to maintain O2 sats in the 90s. Chest x-ray reporting progression of interstitial and patchy bilateral airspace infiltrates. Afebrile, T-max 99.5. BUN 60, Creatinine 1.6 sodium 132. 12/03/2020 maintained on Covid 19 cocktail ,continues on 15 L high flow nasal cannula and nonrebreather mask, maintaining O2 sats of 90%. Nonproductive cough. Afebrile. Minimal reserve. 12/04/2020 Received Acterma yesterday. Maintained on 90% airvo and a nonrebreather mask, maintaining O2 sats in the high 80s to low 90s. Staff reports last night he ate better, was more conversant. Reports he feels more comfortable and not as weak. Afebrile. Creatinine 1.8. Hyperglycemic, blood sugars up to 271 at lunch. 12/05/2020 continue a 90% high flow airvo, maintaining O2 sats in the low 90s. Continues to feel better with less fatigue, less shortness of breath. Labs pending. Afebrile. 12/06/2020 no overnight events. Maintaining O2 sat in the low 90s, settings unchanged. Feels better today. Sodium worsening decreased to 123 yesterday, labs pending today. Urine osmolality ordered, received a dose Samsca. Afebrile. Denies chest pain, palpitations. 12/09/2020 continue on Covid cocktail. Continues on high flow oxygen, 45 L/70% FiO2 maintaining O2 sats in the high 80s to low 90s. Nonproductive cough with deep inspiration. Sodium 127, creatinine 1.35, potassium 5.2. Repeating Tolvaptan today as per nephrology. Blood sugars better controlled. Afebrile. 12/10/2020 received tolvaptan yesterday, labs pending. Chest x-ray reporting diffuse bilateral infiltrates stable. No changes overnight, maintaining on high flow nasal cannula maintaining O2 sats in the 90s, mostly low 90s. Denies chest pain, palpitations. Afebrile. 12/11/2020 currently on high flow oxygen at 45 L and 60% FiO2 with O2 saturation 91%. Reports less shortness of breath today. Less acessory muscle use noted. Creatinine 1.21. Sodium 126, Afebrile. 12/12/2020 FiO2 is decreased to 45 L and 55% FiO2(nonrebreather over HFNC ) maintaining O2 sats in the mid 80s to low 90s. Maintained on Covid cocktail. He reports he is unable to be off mask very long but is able to take bites of food and juice. Denies chest pain, palpitations. Denies increased shortness of breath. Sodium level 127. 12/13/2020 worsening respiratory status, increased shortness of breath on 45 L/60% FiO2 high flow nasal cannula. Desatted to the mid 80s with increased respiratory rate up into the low 20s. Increased to 60 L high flow nasal cannula, FiO2 80%. O2 sats up to 92%. Exertional shortness of breath. CTA ordered. Poor oral intake, hypoglycemic. Afebrile. Sodium remains at 127, renal function improving , creatinine 1. 12/16/2020 continue on high flow airvo and nonrebreather maintaining O2 sats in the low 90s. Reports worsening cough, otherwise comfortable. Sodium 127. 12/17/2020 FiO2 decreased to 75%, maintaining O2 sats in the mid 90s. Reports less cough. Blood sugars ranging from 107 to low 200s. Consuming 75% of breakfast, tolerated well with no nausea vomiting or diarrhea. Maintained on oral sodium chloride and Samsca ,Sodium 128. 12/18/2020 sodium down to 126, did not receive Samsca yesterday. Renal function continues improving, BUN 21, creatinine 0.85. Reports he ate pancakes this morning, breakfast intake recorded at 25%. Patient has been refusing HS snacks. 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 Patient yesterday had isolated high sugar 400 at noon. High flow nasal cannula decreased to 70%, maintaining O2 sats in the low 90s. Chest x-ray reporting similar to prior exam. 12/19/2020 Feels better, FiO2 decreased to 67% maintaining O2 sat of 94%. Consuming 25% of breakfast, positive bowel movement. Sodium 129 on Samsca. 12/20/2020 FiO2 decreased to 64%, maintaining O2 sats in the high 80s. Reports coughing less. Sodium remains at 129, BUN 23, creatinine 0.94. Complains of generalized weakness. Denies chest pain, palpitations. 12/24/2019 FiO2 55%, maintaining O2 sats in the high 80s to low 90s. LDH had increased up to 2132 yesterday. Sodium 1:30 yesterday. Labs pending. Afebrile. Objective - Vital Signs Vital signs: Vital Signs Temp 97.8 F 12/23/20 04:00 Pulse 88 12/23/20 08:00 Resp 20 12/23/20 08:00 BP 100/58 12/23/20 08:00 Pulse Ox 89 L 12/23/20 08:39 Intake & Output 12/22/20 12/23/20 12/23/20 18:59 06:59 18:59 Intake Total 240 Output Total 100 450 Balance 140 -450 Intake: Oral 240 Output: Urine 100 250 Stool 200 Other: Voiding Method Urinal Urinal - Exam - Exam General: Alert and oriented 3, Sitting up in bed, weak, Vitals reviewed Lungs: Increased respiratory effort, bibasilar rales CV: Regular rate and rhythm, no murmur. Peripheral pulses 2+, no edema Abdomen: soft, nondistended, no organomegaly. Positive bowel sounds Skin: warm and dry. - Labs CBC & Chem 7: 12/23/20 10:40 12/23/20 10:40 Labs: Abnormal Lab Results - Last 24 Hours (Table) 12/22/20 12/22/20 12/22/20 Range/Units 11:39 16:54 19:49 WBC (3.8-10.6) k/uL RBC (4.30-5.90) m/uL Hgb (13.0-17.5) gm/dL Hct (39.0-53.0) % Sodium (137-145) mmol/L BUN (9-20) mg/dL Glucose (74-99) mg/dL POC Glucose (mg/dL) 188 H 330 H 213 H (75-99) mg/dL Calcium (8.4-10.2) mg/dL 12/23/20 12/23/20 Range/Units 10:40 10:40 WBC 13.7 H (3.8-10.6) k/uL RBC 3.60 L (4.30-5.90) m/uL Hgb 10.9 L (13.0-17.5) gm/dL Hct 31.8 L (39.0-53.0) % Sodium 132 L (137-145) mmol/L BUN 27 H (9-20) mg/dL Glucose 206 H (74-99) mg/dL POC Glucose (mg/dL) (75-99) mg/dL Calcium 8.3 L (8.4-10.2) mg/dL Assessment and Plan Assessment: (1) Acute hypoxemic respiratory failure due to COVID-19 pneumonitis, status post convalescent plasma,TOCI, outside the window for Remdesevir, Current Visit: Yes Status: Acute Code(s): U07.1 - COVID-19; J96.01 - ACUTE RESPIRATORY FAILURE WITH HYPOXIA SNOMED Code(s): 760296239 (2) Essential hypertension Current Visit: Yes Status: Acute Code(s): I10 - ESSENTIAL (PRIMARY) HYPERTENSION SNOMED Code(s): 12985181 (3) Type 2 diabetes mellitus Current Visit: Yes Status: Acute Code(s): E11.9 - TYPE 2 DIABETES MELLITUS WITHOUT COMPLICATIONS SNOMED Code(s): 70355100 (4) DARWIN (acute kidney injury), ATN,secondary to #1, resolved Current Visit: Yes Status: Acute Code(s): N17.9 - ACUTE KIDNEY FAILURE, UNSPECIFIED SNOMED Code(s): 40535651 (5) chronic kidney disease stage IIIa secondary to DKA, baseline 1.3 (6) COVID-19 Current Visit: Yes Status: Acute Code(s): U07.1 - COVID-19 SNOMED Code(s): 069053870 (7) Hyperkalemia secondary to acute renal failure, YODIT inhibitor and NSAIDs,resolved Current Visit: Yes Status: Acute Code(s): E87.5 - HYPERKALEMIA SNOMED Code(s): 03754359 (8) hyponatremia, 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 (9) CAD, cardiomyopathy, EF 35-40% (10) mild pulmonary hypertension (11) weakness, medical debility secondary to prolonged hospitalization secondary to COVID-19 Plan: Continue on current medication regime ,monitoring and symptomatic treatment. O2 titration as per establish parameters. COVID regimen, oral sodium bicarb. Labs pending. Prognosis guarded given multiple complex medical issues. The impression and plan of care has been dictated as directed. : I performed a history and examination of this patient, discussed the same with the dictator. I agree with the dictator's note ,documented as a scribe. Any additional findings or plans will be noted.
[2020-12-23 11:56] LABS: Glucose,Whole Blood 221 mg/dL (75-99)
--- NOTE | 2020-12-23 12:29 | P.PN ---
Subjective Patient is seen in follow-up for acute kidney injury and hyponatremia. Renal function back to baseline. Has been voiding. Oral intake fair. Still requiring high amounts of oxygen. Blood pressure stable. Sodium level 132. Vital signs are stable. General: The patient appeared well nourished and normally developed. HEENT: On high flow nasal cannula. LUNGS: Breath sounds decreased. HEART: Rate and Rhythm are regular. ABDOMEN: Soft, nontender. EXTREMITITES: No edema. Objective - Vital Signs Vital signs: Vital Signs Temp 97.8 F 12/23/20 04:00 Pulse 88 12/23/20 08:00 Resp 20 12/23/20 08:00 BP 100/58 12/23/20 08:00 Pulse Ox 93 L 12/23/20 11:52 Intake & Output 12/22/20 12/23/20 12/23/20 18:59 06:59 18:59 Intake Total 240 Output Total 100 450 Balance 140 -450 Intake: Oral 240 Output: Urine 100 250 Stool 200 Other: Voiding Method Urinal Urinal - Labs CBC & Chem 7: 12/23/20 10:40 12/23/20 10:40 Labs: Abnormal Lab Results - Last 24 Hours (Table) 12/22/20 12/22/20 12/23/20 Range/Units 16:54 19:49 10:40 WBC 13.7 H (3.8-10.6) k/uL RBC 3.60 L (4.30-5.90) m/uL Hgb 10.9 L (13.0-17.5) gm/dL Hct 31.8 L (39.0-53.0) % Sodium (137-145) mmol/L BUN (9-20) mg/dL Glucose (74-99) mg/dL POC Glucose (mg/dL) 330 H 213 H (75-99) mg/dL Calcium (8.4-10.2) mg/dL 12/23/20 12/23/20 Range/Units 10:40 11:44 WBC (3.8-10.6) k/uL RBC (4.30-5.90) m/uL Hgb (13.0-17.5) gm/dL Hct (39.0-53.0) % Sodium 132 L (137-145) mmol/L BUN 27 H (9-20) mg/dL Glucose 206 H (74-99) mg/dL POC Glucose (mg/dL) 221 H (75-99) mg/dL Calcium 8.3 L (8.4-10.2) mg/dL Assessment and Plan Plan: Assessment: 1. Acute kidney injury mostly prerenal secondary to covid 19 pneumonia and nonsteroidals. Renal function improved. Creatinine 0.78. No hydronephrosis noted on kidney ultrasound. 2. 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 Has been receiving samsca this admission. Urine sodium less than 10 and urine osmolality 568. TSH normal. Sodium chloride tablets were added December 12. 3. Covid 19 pneumonia. Currently on high flow cannula. 4. Diabetes mellitus. 5. Chronic kidney disease stage IIIa secondary to diabetic kidney disease. Creatinine 1.3 in February 2020. 6. Metabolic acidosis secondary to acute kidney injury. Maintained on oral bicarb. 7. Cardiomyopathy. Ejection fraction 35-40%. Plan: Encouraged oral intake, especially protein. Maintain fluid restriction. Maintain sodium chloride tablets. Avoid nephrotoxins. Repeat electrolytes in the morning. Decrease dose of bicarb to 650 mg twice daily.
--- NOTE | 2020-12-23 16:34 | P.PN ---
Subjective Progress Note Date: 12/23/20 Principal diagnosis: Shortness of breath. This is a 70-year-old white male with history of multiple medical problems including hypertension, type 2 diabetes, dyslipidemia, coronary artery disease and previous VT, previous stent placement, degenerative joint disease, bladder cancer, nephrolithiasis, patient presented to the emergency room on 11/24/2020, mostly with 1 week history of multiple constitutional symptoms including muscle aches, fever, shortness of breath, cough, nausea, and he tested positive on the with contreras virus PCR. Chest x-ray showed evidence of bilateral opacities/infiltrates. Patient had adequate saturations on room air, it was about 94%, he was also noted to be hyperkalemic, and he had lactic acid of 2.7. Received dextrose, insulin, Kayexalate, and the patient was eventually admitted seen by nephrology on consultation, he was placed on the Covid 19 cocktail, and we were asked to see him yesterday because of his worsening shortness of breath. No follow-up chest x-ray done since admission, and I will be ordering one to be done today. Labs today clearly showed relatively normal CBC. Elevated BUN of 40 creatinine is 1.4. D-dimer was normal on admission, and I do not see any inflammatory markers on the chart. After evaluating the patient, we recommended one unit of convalescent plan is to be given. Patient obviously did not qualify for REM. And he is not at the point of requiring actemtra Patient was reevaluated today on 11/29/2020, he is basically about the same. Not much of a change in the last 24 hours. Patient is on 6 L nasal cannula, and his O2 saturation is in the low 90s. Continues to have intermittent cough, shor tness of breath, basic metabolic profile is normal. His LDH is 1466, and C- reactive protein is 24. Patient remains on the Covid 19 cocktail. He received convalescent plasma. He was out of the window for REM. Progress note dated 11/30/2020. 70-year-old male who was admitted with a diagnosis of acute hypoxemic respiratory failure secondary to COVID 19 pneumonia. The patient has a history of multiple medical problems including essential hypertension, type 2 diabetes mellitus, hyperlipidemia, coronary artery disease, previous VT with stent placement, degenerative joint disease, bladder cancer, and kidney stones. He presented to the emergency department on November 24, with one-week worth of muscle aches, fever, shortness breath, cough, nausea, and tested positive for COVID on the . The patient was outside the window for REM, but did receive CP. No new labs today. The patient is currently on 15 L high flow nasal O2. The patient does not feel any better today. Chest x-ray on November 28 showed bilateral patchy airspace disease. Progress note dated 12/01/2020. 70-year-old male was admitted with diagnosis of acute hypoxemic respiratory failure secondary to COVID 19 pneumonia. Currently, the patient is on both a nonrebreather mask, 15 L high flow nasal cannula. Saturations are 95%. The patient isn't receiving any IV fluids. The patient is lying on his left side. Yesterday I told him to move about in bed, right side down, left side down, supine, and even prone if possible. I did order a follow-up chest x-ray. White count 11.4, hemoglobin 0.8, hematocrit 34.2, and platelet count normal. Sodium 133, potassium 5.7, chlorides 101, CO2 25, anion gap 7, BUN 46, creatinine 1.60. LDH is 1882. Chest x-ray shows a pattern of bilateral patchy infiltrates, slightly worse than the prior chest x-ray. Progress note dated 12/08/2020. 70-year-old male, admitted with a diagnosis of acute hypoxemic respiratory failure secondary to COVID 19 pneumonia. Currently, the patient is on AIRVO, with settings of 15 L/m 81%. He's not receiving any IV fluids. He does feel like he is getting better. I saw him last on December 01. Both he and his are in the hospital with the same infection. He is not receiving any IV fluids. His biggest complaint is shortness of breath with any activity. He also has a nonproductive, dry cough, which is painful at times. He denies any fever or chills. He denies any chest pain or chest discomfort. Lab data includes a sodium 123, potassium 4.9, chloride 91, CO2 21, anion gap 11, BUN 63, and creatinine 1.33. Patient was reevaluated today on 12/20/2020, surprisingly the patient is feeling better for the first time since admission. Remains on high flow oxygen. His FiO2 is down to 60%, he is on 50 L flow and his O2 saturation is 94%. Patient is becoming more active, less fatigue, less weakness according to the patient. Sodium remains low at 129. Basic metabolic profile is normal renal profile is normal blood sugar is 234 Reevaluated today on 12/21/2020, patient is steadily improving but very slowly. He is feeling better today, and his FiO2 was titrated down to 55%, and flow is at 50 liters. O2 saturation is 95%, clinically and that's more importantly that the patient is feeling better. ABC is relatively normal lites are normal renal profile is normal sodium is up to 130. Sugar is 184. No inflammatory markers noted today. Patient was reevaluated today on 12/22/2020, patient is steadily improving, he is down to 55% FiO2 and 50 L flow on airvo. He has persistent generalized weakness, but he feels better compared to how he felt over the last 2 weeks. His WBC count today is 15.9 hemoglobin is 11.9 electrolytes are normal sodium is improving up to 130. LDH is rising again up to 2132 today. C-reactive protein remains low at 0.8. Overall there has been some improvement over the last 2 weeks, but the improvement has been extremely slow. Progress note dated 12/23/2020. Currently, the patient is again reevaluated. He is actually the same room as his , that his room 368. The patient's currently on AIRVO, at 50 L/m, and an FiO2 of 50%. He's not receiving any IVs. He feels like he is slowly improving. Lab data today includes a white count 13.7, hemoglobin 10.9, hematocrit 31.8, and platelet count 310,000. Sodium 132, potassium 4.4, chlorides 102, CO2 27, anion gap 3, BUN 27, and creatinine 0.78. No recent chest x-rays to review. Objective - Vital Signs Vital signs: Vital Signs Temp 97.8 F 12/23/20 04:00 Pulse 80 12/23/20 15:58 Resp 20 12/23/20 15:58 BP 113/56 12/23/20 15:58 Pulse Ox 86 L 12/23/20 15:58 Intake & Output 12/22/20 12/23/20 12/23/20 18:59 06:59 18:59 Intake Total 240 200 Output Total 100 450 Balance 140 -450 200 Intake: Oral 240 200 Output: Urine 100 250 Stool 200 Other: Voiding Method Urinal Urinal - Exam No acute distress, oriented 3. The patient is currently on AIRVO, at 50 L/m with an FiO2 of 50%. Saturations are in the low 90s. There is no conversational dyspnea or use of accessory muscles. HEENT examination is grossly unremarkable. Neck supple. Full range of motion. No adenopathy thyromegaly or neck vein distention. Cardiovascular examination reveals regular rhythm rate. S1-S2 normal. No S3 or S4. No discernible murmur noted. Heart rate 80 bpm. Lungs reveal bilateral and bibasilar rhonchi and crackles. No wheezes. Breath sounds are equal bilaterally but diminished throughout. Abdomen soft bowel sounds are heard. No masses or tenderness. Extremities are intact. No cyanosis clubbing or edema. Skin is without rash or lesion. Neurologic examination is brief but nonfocal. - Labs CBC & Chem 7: 12/23/20 10:40 12/23/20 10:40 Labs: Abnormal Lab Results - Last 24 Hours (Table) 12/22/20 12/22/20 12/23/20 Range/Units 16:54 19:49 10:40 WBC 13.7 H (3.8-10.6) k/uL RBC 3.60 L (4.30-5.90) m/uL Hgb 10.9 L (13.0-17.5) gm/dL Hct 31.8 L (39.0-53.0) % Sodium (137-145) mmol/L BUN (9-20) mg/dL Glucose (74-99) mg/dL POC Glucose (mg/dL) 330 H 213 H (75-99) mg/dL Calcium (8.4-10.2) mg/dL 12/23/20 12/23/20 Range/Units 10:40 11:44 WBC (3.8-10.6) k/uL RBC (4.30-5.90) m/uL Hgb (13.0-17.5) gm/dL Hct (39.0-53.0) % Sodium 132 L (137-145) mmol/L BUN 27 H (9-20) mg/dL Glucose 206 H (74-99) mg/dL POC Glucose (mg/dL) 221 H (75-99) mg/dL Calcium 8.3 L (8.4-10.2) mg/dL Assessment and Plan Assessment: Acute hypoxemic respiratory failure secondary to COVID 19 pneumonitis/pneumonia, with worsening oxygenation and chest x-ray. Acute on chronic kidney injury, associated with COVID infection. History of bladder cancer Acute kidney injury associated hyperkalemia. Essential hypertension. Type 2 diabetes. History of CAD, with previous myocardial infarction and stent placement. History of hyperlipidemia. History of kidney stones. Hyponatremia. Plan: Plan dated 11/30/2020. Currently, the patient is not feeling much improvement. He is on 15 L high flow oxygen. The patient did receive CP. He was outside the window for REM. He is currently on vitamin C, vitamin D3, and zinc. In addition, he is on Decadron, and Lovenox. Additional recommendations and suggestions are forthcoming. We will continue to follow the patient closely. Patient may eventually be transferred to the intensive care unit. Other options would include BiPAP and/or AIRVO. We will continue to watch this patient carefully, and make recommendations were appropriate. Plan dated 12/01/2020. Currently, the patient's both on 15 L high flow oxygen, and a nonrebreather mask. Saturations are 95%. The patient was outside the window for REM. The patient is currently on vitamin C, vitamin D3, and zinc. He is also on Decadron and Lovenox. We'll have to watch this patient carefully. He may deteriorate further. Chest x-ray shows a worsening pattern of bilateral infiltrates. We will continue to follow the patient closely and make recommendations were appropriate. Prognosis is very guarded. Plan dated 12/08/2020. Currently, he is on AIRVO, 50 L/m, 81%. When I saw him last on December 01, patient was using 15 L high flow nasal O2, as well as a nonrebreather mask. Current saturations are in the low 90s. The patient was outside the window for REM the patient did receive vitamin C, vitamin D3, zinc, as well as Decadron and Lovenox. The patient feels like he is showing some improvement. We'll continue to follow. Prognosis is guarded. Additional recommendations and suggestions are forthcoming. Plan dated 12/23/2020. The patient remains on AIRVO, with settings of 15 L/m, and 50%. I saw him last December 08. Please see the note above. The patient was outside the window for REM, but did receive vitamin C, vitamin D3, zinc, Decadron, and Lovenox. Currently, the patient's doing reasonably well. He is laying in the same room next to his . He did receive convalescent plasma. He also received TOCI. We will continue to follow. Prognosis is guarded. Additional recommendations and suggestions are forthcoming. Time with Patient: Less than 30
[2020-12-23 17:00] LABS: Glucose,Whole Blood 116 mg/dL (75-99)
[2020-12-23 20:11] LABS: Glucose,Whole Blood 190 mg/dL (75-99)
[2020-12-23] MEDS: MELATONIN 5 MG TABLET PO SCH (22:12)
[2020-12-23] MEDS: ATORVASTATIN 80 MG TAB PO SCH (22:12)
[2020-12-24] MEDS: INSULIN DETEMIR (LEVEMIR) 100 UNIT/ML SYR SQ SCH (06:41)
[2020-12-24] MEDS: INSULIN ASPART (NovoLOG) 100 UNIT/ML VIAL SQ SCH ×4 (06:41→20:34)
[2020-12-24] MEDS: PANTOPRAZOLE 40 MG TABLET PO SCH (06:41)
[2020-12-24] MEDS: LEVOTHYROXINE 100 MCG TAB PO SCH (06:41)
[2020-12-24 08:17] LABS: Glucose,Whole Blood 83 mg/dL (75-99)
[2020-12-24] MEDS: ALBUTEROL HFA INHALER INHALATION SCH ×4 (08:42→20:06)
[2020-12-24] MEDS: ASPIRIN 81 MG PO SCH (09:23)
[2020-12-24] MEDS: GABAPENTIN 300 MG CAP PO SCH (09:23)
[2020-12-24] MEDS: DEXAMETHASONE SOD PHOSPHATE 10 MG/ML 1 ML VIAL IV SCH (09:23)
[2020-12-24] MEDS: ENOXAPARIN 40 MG/0.4 ML SYRINGE SQ SCH (09:23)
[2020-12-24] MEDS: CHOLECALCIFEROL 25 MCG (1000 IU) TABLET PO SCH (09:23)
[2020-12-24] MEDS: ASCORBIC ACID 500 MG TAB PO SCH (09:24)
[2020-12-24] MEDS: SODIUM BICARBONATE TAB 650 MG TAB PO SCH (09:24)
[2020-12-24] MEDS: SODIUM CHLORIDE TAB 1 GM TAB PO SCH ×2 (09:24→20:34)
[2020-12-24] MEDS: METOPROLOL SUCCINATE (ER) 25 MG TAB.ER.24H PO SCH (09:24)
[2020-12-24] MEDS: CLOPIDOGREL 75 MG TAB PO SCH (09:24)
[2020-12-24] MEDS: ZINC SULFATE 220 MG CAP PO SCH (09:25)
[2020-12-24 10:36] LABS: African American GFR (CKD) >90 (>60 ml/min/1.73 sqM); Anion Gap 2 mmol/L; Blood Urea Nitrogen 25 mg/dL (9-20); Calcium 8.2 mg/dL (8.4-10.2); Carbon Dioxide 28 mmol/L (22-30); Chloride 102 mmol/L (98-107); Magnesium 1.7 mg/dL (1.6-2.3); Non-African American GFR(CKD) >90 (>60 ml/min/1.73 sqM); Potassium 4.2 mmol/L (3.5-5.1); Sodium 132 mmol/L (137-145)
[2020-12-24 10:54] LABS: Glucose 45 mg/dL (74-99)
[2020-12-24 11:01] LABS: Glucose,Whole Blood 46 mg/dL (75-99)
--- NOTE | 2020-12-24 11:25 | P.PN ---
Subjective Patient is seen in follow-up for acute kidney injury and hyponatremia. Renal function back to baseline. Has been voiding. Oral intake fair. Still requiring high amounts of oxygen. Blood pressure stable. Sodium level stable at 132. No changes overnight. Vital signs are stable. General: The patient appeared well nourished and normally developed. HEENT: On high flow nasal cannula. LUNGS: Breath sounds decreased. HEART: Rate and Rhythm are regular. ABDOMEN: Soft, nontender. EXTREMITITES: No edema. Objective - Vital Signs Vital signs: Vital Signs Temp 96.3 F L 12/24/20 08:00 Pulse 87 12/24/20 08:00 Resp 20 12/24/20 08:00 BP 109/62 12/24/20 08:00 Pulse Ox 88 L 12/24/20 08:42 Intake & Output 12/23/20 12/24/20 12/24/20 18:59 06:59 18:59 Intake Total 200 Output Total 200 700 Balance 0 -700 Intake: Oral 200 Output: Urine 200 300 Stool 400 Other: Voiding Method Urinal Urinal # Voids 1 - Labs CBC & Chem 7: 12/23/20 10:40 12/24/20 09:29 Labs: Abnormal Lab Results - Last 24 Hours (Table) 12/23/20 12/23/20 12/23/20 Range/Units 11:44 16:46 20:10 Sodium (137-145) mmol/L BUN (9-20) mg/dL Glucose (74-99) mg/dL POC Glucose (mg/dL) 221 H 116 H 190 H (75-99) mg/dL Calcium (8.4-10.2) mg/dL 12/24/20 12/24/20 Range/Units 09:29 10:59 Sodium 132 L (137-145) mmol/L BUN 25 H (9-20) mg/dL Glucose 45 L* (74-99) mg/dL POC Glucose (mg/dL) 46 L (75-99) mg/dL Calcium 8.2 L (8.4-10.2) mg/dL Assessment and Plan Plan: Assessment: 1. Acute kidney injury mostly prerenal secondary to covid 19 pneumonia and nonsteroidals. Renal function improved. Creatinine 0.78. No hydronephrosis noted on kidney ultrasound. 2. 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 Has been receiving samsca this admission. Urine sodium less than 10 and urine osmolality 568. TSH normal. Sodium chloride tablets were added December 12. 3. Covid 19 pneumonia. Currently on high flow cannula. 4. Diabetes mellitus. 5. Chronic kidney disease stage IIIa secondary to diabetic kidney disease. Creatinine 1.3 in February 2020. 6. Metabolic acidosis secondary to acute kidney injury. Maintained on oral bicarb. 7. Cardiomyopathy. Ejection fraction 35-40%. Plan: Encouraged oral intake, especially protein. Maintain fluid restriction. Maintain sodium chloride tablets. Avoid nephrotoxins. Repeat electrolytes in the morning. Decrease dose of bicarb to 650 mg once daily.
[2020-12-24 11:30] LABS: Glucose,Whole Blood 72 mg/dL (75-99)
[2020-12-24 12:20] LABS: Glucose,Whole Blood 185 mg/dL (75-99)
--- NOTE | 2020-12-24 12:54 | P.PN ---
Subjective Progress Note Date: 12/24/20 Principal diagnosis: Shortness of breath. This is a 70-year-old white male with history of multiple medical problems including hypertension, type 2 diabetes, dyslipidemia, coronary artery disease and previous RI, previous stent placement, degenerative joint disease, bladder cancer, nephrolithiasis, patient presented to the emergency room on 11/24/2020, mostly with 1 week history of multiple constitutional symptoms including muscle aches, fever, shortness of breath, cough, nausea, and he tested positive on the with contreras virus PCR. Chest x-ray showed evidence of bilateral opacities/infiltrates. Patient had adequate saturations on room air, it was about 94%, he was also noted to be hyperkalemic, and he had lactic acid of 2.7. Received dextrose, insulin, Kayexalate, and the patient was eventually admitted seen by nephrology on consultation, he was placed on the Covid 19 cocktail, and we were asked to see him yesterday because of his worsening shortness of breath. No follow-up chest x-ray done since admission, and I will be ordering one to be done today. Labs today clearly showed relatively normal CBC. Elevated BUN of 40 creatinine is 1.4. D-dimer was normal on admission, and I do not see any inflammatory markers on the chart. After evaluating the patient, we recommended one unit of convalescent plan is to be given. Patient obviously did not qualify for REM. And he is not at the point of requiring actemtra Patient was reevaluated today on 11/29/2020, he is basically about the same. Not much of a change in the last 24 hours. Patient is on 6 L nasal cannula, and his O2 saturation is in the low 90s. Continues to have intermittent cough, shor tness of breath, basic metabolic profile is normal. His LDH is 1466, and C- reactive protein is 24. Patient remains on the Covid 19 cocktail. He received convalescent plasma. He was out of the window for REM. Progress note dated 11/30/2020. 70-year-old male who was admitted with a diagnosis of acute hypoxemic respiratory failure secondary to COVID 19 pneumonia. The patient has a history of multiple medical problems including essential hypertension, type 2 diabetes mellitus, hyperlipidemia, coronary artery disease, previous RI with stent placement, degenerative joint disease, bladder cancer, and kidney stones. He presented to the emergency department on November 24, with one-week worth of muscle aches, fever, shortness breath, cough, nausea, and tested positive for COVID on the . The patient was outside the window for REM, but did receive CP. No new labs today. The patient is currently on 15 L high flow nasal O2. The patient does not feel any better today. Chest x-ray on November 28 showed bilateral patchy airspace disease. Progress note dated 12/01/2020. 70-year-old male was admitted with diagnosis of acute hypoxemic respiratory failure secondary to COVID 19 pneumonia. Currently, the patient is on both a nonrebreather mask, 15 L high flow nasal cannula. Saturations are 95%. The patient isn't receiving any IV fluids. The patient is lying on his left side. Yesterday I told him to move about in bed, right side down, left side down, supine, and even prone if possible. I did order a follow-up chest x-ray. White count 11.4, hemoglobin 0.8, hematocrit 34.2, and platelet count normal. Sodium 133, potassium 5.7, chlorides 101, CO2 25, anion gap 7, BUN 46, creatinine 1.60. LDH is 1882. Chest x-ray shows a pattern of bilateral patchy infiltrates, slightly worse than the prior chest x-ray. Progress note dated 12/08/2020. 70-year-old male, admitted with a diagnosis of acute hypoxemic respiratory failure secondary to COVID 19 pneumonia. Currently, the patient is on AIRVO, with settings of 15 L/m 81%. He's not receiving any IV fluids. He does feel like he is getting better. I saw him last on December 01. Both he and his are in the hospital with the same infection. He is not receiving any IV fluids. His biggest complaint is shortness of breath with any activity. He also has a nonproductive, dry cough, which is painful at times. He denies any fever or chills. He denies any chest pain or chest discomfort. Lab data includes a sodium 123, potassium 4.9, chloride 91, CO2 21, anion gap 11, BUN 63, and creatinine 1.33. Patient was reevaluated today on 12/20/2020, surprisingly the patient is feeling better for the first time since admission. Remains on high flow oxygen. His FiO2 is down to 60%, he is on 50 L flow and his O2 saturation is 94%. Patient is becoming more active, less fatigue, less weakness according to the patient. Sodium remains low at 129. Basic metabolic profile is normal renal profile is normal blood sugar is 234 Reevaluated today on 12/21/2020, patient is steadily improving but very slowly. He is feeling better today, and his FiO2 was titrated down to 55%, and flow is at 50 liters. O2 saturation is 95%, clinically and that's more importantly that the patient is feeling better. ABC is relatively normal lites are normal renal profile is normal sodium is up to 130. Sugar is 184. No inflammatory markers noted today. Patient was reevaluated today on 12/22/2020, patient is steadily improving, he is down to 55% FiO2 and 50 L flow on airvo. He has persistent generalized weakness, but he feels better compared to how he felt over the last 2 weeks. His WBC count today is 15.9 hemoglobin is 11.9 electrolytes are normal sodium is improving up to 130. LDH is rising again up to 2132 today. C-reactive protein remains low at 0.8. Overall there has been some improvement over the last 2 weeks, but the improvement has been extremely slow. Progress note dated 12/23/2020. Currently, the patient is again reevaluated. He is actually the same room as his , that his room 368. The patient's currently on AIRVO, at 50 L/m, and an FiO2 of 50%. He's not receiving any IVs. He feels like he is slowly improving. Lab data today includes a white count 13.7, hemoglobin 10.9, hematocrit 31.8, and platelet count 310,000. Sodium 132, potassium 4.4, chlorides 102, CO2 27, anion gap 3, BUN 27, and creatinine 0.78. No recent chest x-rays to review. Progress note dated 12/24/2020. 70-year-old male, who is again reevaluated. Currently, he is in room 368, along with his . He is currently on AIRVO, with settings at 50 L/m and FiO2 of 50%. Currently, he is not receiving any IV fluids. The patient is doing about the same today as he did yesterday although, his saturations were lower, after having had something to eat. He appears to be doing much better than his . He certainly much more alert. Lab data from today includes a sodium 132, potassium 4.2, chlorides 102, CO2 28, anion gap 2, BUN 25, and creatinine 0.73. Glucose is 45. Calcium 8.2. Most recent chest x-ray was done back on December 18. He remains on Decadron, Lovenox, albuterol inhaler, and appropriate vitamins. Objective - Vital Signs Vital signs: Vital Signs Temp 96.3 F L 12/24/20 08:00 Pulse 93 12/24/20 11:31 Resp 18 12/24/20 11:31 BP 143/63 12/24/20 11:31 Pulse Ox 91 L 12/24/20 12:34 Intake & Output 12/23/20 12/24/20 12/24/20 18:59 06:59 18:59 Intake Total 200 Output Total 200 700 Balance 0 -700 Intake: Oral 200 Output: Urine 200 300 Stool 400 Other: Voiding Method Urinal Urinal # Voids 1 - Exam No acute distress, oriented 3. The patient is currently on AIRVO, at 50 L/m with an FiO2 of 50%. Saturation is 91%. There is no conversational dyspnea or use of accessory muscles. HEENT examination is grossly unremarkable. Neck supple. Full range of motion. No adenopathy thyromegaly or neck vein d istention. Cardiovascular examination reveals regular rhythm rate. S1-S2 normal. No S3 or S4. No discernible murmur noted. Heart rate 93 bpm. Lungs reveal bilateral and bibasilar rhonchi and crackles. No wheezes. Breath sounds are equal bilaterally but diminished throughout. Breath sounds are unchanged. Abdomen soft bowel sounds are heard. No masses or tenderness. Extremities are intact. No cyanosis clubbing or edema. Skin is without rash or lesion. Neurologic examination is brief but nonfocal. - Labs CBC & Chem 7: 12/23/20 10:40 12/24/20 09:29 Labs: Abnormal Lab Results - Last 24 Hours (Table) 12/23/20 12/23/20 12/24/20 Range/Units 16:46 20:10 09:29 Sodium 132 L (137-145) mmol/L BUN 25 H (9-20) mg/dL Glucose 45 L* (74-99) mg/dL POC Glucose (mg/dL) 116 H 190 H (75-99) mg/dL Calcium 8.2 L (8.4-10.2) mg/dL 12/24/20 12/24/20 12/24/20 Range/Units 10:59 11:18 12:15 Sodium (137-145) mmol/L BUN (9-20) mg/dL Glucose (74-99) mg/dL POC Glucose (mg/dL) 46 L 72 L 185 H (75-99) mg/dL Calcium (8.4-10.2) mg/dL Assessment and Plan Assessment: Acute hypoxemic respiratory failure secondary to COVID 19 pneumonitis/pneumonia, with worsening oxygenation and chest x-ray. Acute on chronic kidney injury, associated with COVID infection. History of bladder cancer Acute kidney injury associated hyperkalemia. Essential hypertension. Type 2 diabetes. History of CAD, with previous myocardial infarction and stent placement. History of hyperlipidemia. History of kidney stones. Hyponatremia, mild. Plan: Plan dated 11/30/2020. Currently, the patient is not feeling much improvement. He is on 15 L high flow oxygen. The patient did receive CP. He was outside the window for REM. He is currently on vitamin C, vitamin D3, and zinc. In addition, he is on Decadron, and Lovenox. Additional recommendations and suggestions are forthcoming. We will continue to follow the patient closely. Patient may eventually be transferred to the intensive care unit. Other options would include BiPAP and/or AIRVO. We will continue to watch this patient carefully, and make recommendations were appropriate. Plan dated 12/01/2020. Currently, the patient's both on 15 L high flow oxygen, and a nonrebreather mask. Saturations are 95%. The patient was outside the window for REM. The patient is currently on vitamin C, vitamin D3, and zinc. He is also on Decadron and Lovenox. We'll have to watch this patient carefully. He may deteriorate further. Chest x-ray shows a worsening pattern of bilateral infiltrates. We will continue to follow the patient closely and make recommendations were appropriate. Prognosis is very guarded. Plan dated 12/08/2020. Currently, he is on AIRVO, 50 L/m, 81%. When I saw him last on [place] 4, patient was using 15 L high flow nasal O2, as well as a nonrebreather mask. Current saturations are in the low 90s. The patient was outside the window for REM the patient did receive vitamin C, vitamin D3, zinc, as well as Decadron and Lovenox. The patient feels like he is showing some improvement. We'll continue to follow. Prognosis is guarded. Additional recommendations and suggestions are forthcoming. Plan dated 12/23/2020. The patient remains on AIRVO, with settings of 15 L/m, and 50%. I saw him last December 08. Please see the note above. The patient was outside the window for REM, but did receive vitamin C, vitamin D3, zinc, Decadron, and Lovenox. Currently, the patient's doing reasonably well. He is laying in the same room next to his . He did receive convalescent plasma. He also received TOCI. We will continue to follow. Prognosis is guarded. Additional recommendations and suggestions are forthcoming. Plan dated 12/24/2020. The patient remains on AIRVO, at 50 L/m, 50% FiO2. The patient is about the same today as he was yesterday. The patient was outside the window for REM, but did receive vitamin C, vitamin D3, zinc, Decadron, and Lovenox. The patient also receive convalescent plasma, and TOCI. We will continue to follow the rik ent and make recommendations where appropriate. Overall, the patient is doing about the same yesterday as he is doing today. Prognosis is guarded. He remains in the same room along with his . Time with Patient: Less than 30
--- NOTE | 2020-12-24 14:45 | P.PN ---
Subjective Progress Note Date: 12/24/20 11/27/2020 during the night, patient became more hypoxic, requiring nonrebreather. Significant clinical improvement, maintaining O2 sats in the 90s on 5 L nasal cannula. Minimal nonproductive cough. Creatinine 1.6. 11/28/2020 Required nonrebreather briefly during the night; currently maintained on 5 L nasal cannula, O2 sats of 90-91%. Complains of worsening shortness of breath, especially with minimal exertion, nonproductive cough. Maintained on Covid regimen, including dexamethasone. Blood sugars elevated throughout the night, better controlled this morning. Denies chest pain, palpitations or shortness of breath. Labs pending. 11/29/20 S/P convalescent plasma .Continues on Covid regimen, maintaining O2 sats in the 90s on 6 L nasal cannula. Occasional nonproductive cough. Denies chest pain, palpitations. Evaluated by pulmonary, outside the window for Remdesevir. Creatinine 1.4. 12/02/2020 maintained on high flow cannula with FiO2 of 90% post nonrebreather to maintain O2 sats in the 90s. Chest x-ray reporting progression of interstitial and patchy bilateral airspace infiltrates. Afebrile, T-max 99.5. BUN 60, Creatinine 1.6 sodium 132. 12/03/2020 maintained on Covid 19 cocktail ,continues on 15 L high flow nasal cannula and nonrebreather mask, maintaining O2 sats of 90%. Nonproductive cough. Afebrile. Minimal reserve. 12/04/2020 Received Acterma yesterday. Maintained on 90% airvo and a nonrebreather mask, maintaining O2 sats in the high 80s to low 90s. Staff reports last night he ate better, was more conversant. Reports he feels more comfortable and not as weak. Afebrile. Creatinine 1.8. Hyperglycemic, blood sugars up to 271 at lunch. 12/05/2020 continue a 90% high flow airvo, maintaining O2 sats in the low 90s. Continues to feel better with less fatigue, less shortness of breath. Labs pending. Afebrile. 12/06/2020 no overnight events. Maintaining O2 sat in the low 90s, settings unchanged. Feels better today. Sodium worsening decreased to 123 yesterday, labs pending today. Urine osmolality ordered, received a dose Samsca. Afebrile. Denies chest pain, palpitations. 12/09/2020 continue on Covid cocktail. Continues on high flow oxygen, 45 L/70% FiO2 maintaining O2 sats in the high 80s to low 90s. Nonproductive cough with deep inspiration. Sodium 127, creatinine 1.35, potassium 5.2. Repeating Tolvaptan today as per nephrology. Blood sugars better controlled. Afebrile. 12/10/2020 received tolvaptan yesterday, labs pending. Chest x-ray reporting diffuse bilateral infiltrates stable. No changes overnight, maintaining on high flow nasal cannula maintaining O2 sats in the 90s, mostly low 90s. Denies chest pain, palpitations. Afebrile. 12/11/2020 currently on high flow oxygen at 45 L and 60% FiO2 with O2 saturation 91%. Reports less shortness of breath today. Less acessory muscle use noted. Creatinine 1.21. Sodium 126, Afebrile. 12/12/2020 FiO2 is decreased to 45 L and 55% FiO2(nonrebreather over HFNC ) maintaining O2 sats in the mid 80s to low 90s. Maintained on Covid cocktail. He reports he is unable to be off mask very long but is able to take bites of food and juice. Denies chest pain, palpitations. Denies increased shortness of breath. Sodium level 127. 12/13/2020 worsening respiratory status, increased shortness of breath on 45 L/60% FiO2 high flow nasal cannula. Desatted to the mid 80s with increased respiratory rate up into the low 20s. Increased to 60 L high flow nasal cannula, FiO2 80%. O2 sats up to 92%. Exertional shortness of breath. CTA ordered. Poor oral intake, hypoglycemic. Afebrile. Sodium remains at 127, renal function improving , creatinine 1. 12/16/2020 continue on high flow airvo and nonrebreather maintaining O2 sats in the low 90s. Reports worsening cough, otherwise comfortable. Sodium 127. 12/17/2020 FiO2 decreased to 75%, maintaining O2 sats in the mid 90s. Reports less cough. Blood sugars ranging from 107 to low 200s. Consuming 75% of breakfast, tolerated well with no nausea vomiting or diarrhea. Maintained on oral sodium chloride and Samsca ,Sodium 128. 12/18/2020 sodium down to 126, did not receive Samsca yesterday. Renal function continues improving, BUN 21, creatinine 0.85. Reports he ate pancakes this morning, breakfast intake recorded at 25%. Patient has been refusing HS snacks. During the emery grinder, hypoglycemic, blood sugar recorded at 66, received OJ,wilbert crackers, currently up to 268. Patient yesterday had isolated high sugar 400 at noon. High flow nasal cannula decreased to 70%, maintaining O2 sats in the low 90s. Chest x-ray reporting similar to prior exam. 12/19/2020 Feels better, FiO2 decreased to 67% maintaining O2 sat of 94%. Consuming 25% of breakfast, positive bowel movement. Sodium 129 on Samsca. 12/20/2020 FiO2 decreased to 64%, maintaining O2 sats in the high 80s. Reports coughing less. Sodium remains at 129, BUN 23, creatinine 0.94. Complains of generalized weakness. Denies chest pain, palpitations. 12/23/2020 FiO2 55%, maintaining O2 sats in the high 80s to low 90s. LDH had increased up to 2132 yesterday. Sodium 130 yesterday. Labs pending. Afebrile. 12/24/2020 FiO2 down to 50% maintaining O2 sats of mid 80s to low 90s. Poor diet intake, hypoglycemic this morning. Renal function at baseline. Denies chest pain, palpitations or increased shortness of breath. Continues on Covid cocktail. Objective - Vital Signs Vital signs: Vital Signs Temp 96.3 F L 12/24/20 08:00 Pulse 93 12/24/20 11:31 Resp 18 12/24/20 11:31 BP 143/63 12/24/20 11:31 Pulse Ox 91 L 12/24/20 12:34 Intake & Output 12/23/20 12/24/20 12/24/20 18:59 06:59 18:59 Intake Total 200 180 Output Total 200 700 200 Balance 0 -700 -20 Intake: Oral 200 180 Output: Urine 200 300 200 Stool 400 Other: Voiding Method Urinal Urinal # Voids 1 # Bowel Movements 1 - Exam - Exam General: Alert and oriented 3, Sitting up in bed, Vitals reviewed Lungs: Increased respiratory effort, bibasilar rales CV: Regular rate and rhythm, no murmur. Peripheral pulses 2+, no edema Abdomen: soft, nondistended, no organomegaly. Positive bowel sounds Skin: warm and dry. - Labs CBC & Chem 7: 12/23/20 10:40 12/24/20 09:29 Labs: Abnormal Lab Results - Last 24 Hours (Table) 12/23/20 12/23/20 12/24/20 Range/Units 16:46 20:10 09:29 Sodium 132 L (137-145) mmol/L BUN 25 H (9-20) mg/dL Glucose 45 L* (74-99) mg/dL POC Glucose (mg/dL) 116 H 190 H (75-99) mg/dL Calcium 8.2 L (8.4-10.2) mg/dL 12/24/20 12/24/20 12/24/20 Range/Units 10:59 11:18 12:15 Sodium (137-145) mmol/L BUN (9-20) mg/dL Glucose (74-99) mg/dL POC Glucose (mg/dL) 46 L 72 L 185 H (75-99) mg/dL Calcium (8.4-10.2) mg/dL Assessment and Plan Assessment: (1) Acute hypoxemic respiratory failure due to COVID-19 pneumonitis, status post convalescent plasma,TOCI, outside the window for Remdesevir, Current Visit: Yes Status: Acute Code(s): U07.1 - COVID-19; J96.01 - ACUTE RESPIRATORY FAILURE WITH HYPOXIA SNOMED Code(s): 657617456 (2) Essential hypertension Current Visit: Yes Status: Acute Code(s): I10 - ESSENTIAL (PRIMARY) HYPERTENSION SNOMED Code(s): 72177816 (3) Type 2 diabetes mellitus Current Visit: Yes Status: Acute Code(s): E11.9 - TYPE 2 DIABETES MELLITUS WITHOUT COMPLICATIONS SNOMED Code(s): 01240279 (4) DARWIN (acute kidney injury), ATN,secondary to #1, resolved Current Visit: Yes Status: Acute Code(s): N17.9 - ACUTE KIDNEY FAILURE, UNSPECIFIED SNOMED Code(s): 86366441 (5) chronic kidney disease stage IIIa secondary to DKA, baseline 1.3 (6) COVID-19 Current Visit: Yes Status: Acute Code(s): U07.1 - COVID-19 SNOMED Code(s): 849868170 (7) Hyperkalemia secondary to acute renal failure, YODIT inhibitor and NSAIDs,resolved Current Visit: Yes Status: Acute Code(s): E87.5 - HYPERKALEMIA SNOMED Code(s): 63587616 (8) hyponatremia, 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 (9) CAD, cardiomyopathy, EF 35-40% (10) mild pulmonary hypertension (11) weakness, medical debility secondary to prolonged hospitalization secondary to COVID-19 Plan: Continue on current medication regime ,monitoring and symptomatic treatment. O2 titration as per parameters. COVID regimen. Prognosis guarded given multiple complex medical issues. The impression and plan of care has been dictated as directed. : I performed a history and examination of this patient, discussed the same with the dictator. I agree with the dictator's note ,documented as a scribe. Any additional findings or plans will be noted.
--- NOTE | 2020-12-24 15:40 | XR ---
EXAMINATION TYPE: XR chest 1V portable DATE OF EXAM: 12/24/2020 HISTORY: Covid pneumonia COMPARISON: 12/18/2020 TECHNIQUE: Single view of the chest is submitted. FINDINGS: Demonstrated are scattered senescent parenchymal change. Patchy infiltrates are seen throughout both lung ogden with minimal improvement suggested within the periphery of the right lung. The heart is stable. Hilar and mediastinal structures are within normal limits. Degenerative changes are seen of the dorsal spine. IMPRESSION: 1. Patchy infiltrates are seen throughout both lung ogden with minimal improvement suggested within the periphery of the right lung.
[2020-12-24 16:49] LABS: Glucose,Whole Blood 167 mg/dL (75-99)
[2020-12-24 20:13] LABS: Glucose,Whole Blood 231 mg/dL (75-99)
[2020-12-24] MEDS: ATORVASTATIN 80 MG TAB PO SCH (20:34)
[2020-12-24] MEDS: MELATONIN 5 MG TABLET PO SCH (20:34)
[2020-12-25 06:22] LABS: Glucose,Whole Blood 203 mg/dL (75-99)
[2020-12-25] MEDS: INSULIN DETEMIR (LEVEMIR) 100 UNIT/ML SYR SQ SCH (06:45)
[2020-12-25] MEDS: INSULIN ASPART (NovoLOG) 100 UNIT/ML VIAL SQ SCH ×4 (06:45→21:11)
[2020-12-25] MEDS: LEVOTHYROXINE 100 MCG TAB PO SCH (06:45)
[2020-12-25] MEDS: PANTOPRAZOLE 40 MG TABLET PO SCH (06:45)
[2020-12-25] MEDS: ALBUTEROL HFA INHALER INHALATION SCH ×4 (07:25→19:42)
[2020-12-25] MEDS: ENOXAPARIN 40 MG/0.4 ML SYRINGE SQ SCH (09:21)
[2020-12-25] MEDS: ASCORBIC ACID 500 MG TAB PO SCH (09:22)
[2020-12-25] MEDS: GABAPENTIN 300 MG CAP PO SCH (09:22)
[2020-12-25] MEDS: SODIUM CHLORIDE TAB 1 GM TAB PO SCH ×2 (09:22→21:11)
[2020-12-25] MEDS: SODIUM BICARBONATE TAB 650 MG TAB PO SCH (09:22)
[2020-12-25] MEDS: ASPIRIN 81 MG PO SCH (09:22)
[2020-12-25] MEDS: CLOPIDOGREL 75 MG TAB PO SCH (09:23)
[2020-12-25] MEDS: DEXAMETHASONE SOD PHOSPHATE 10 MG/ML 1 ML VIAL IV SCH (09:23)
[2020-12-25] MEDS: ZINC SULFATE 220 MG CAP PO SCH (09:23)
[2020-12-25] MEDS: CHOLECALCIFEROL 25 MCG (1000 IU) TABLET PO SCH (09:23)
[2020-12-25] MEDS: METOPROLOL SUCCINATE (ER) 25 MG TAB.ER.24H PO SCH (09:23)
--- NOTE | 2020-12-25 11:36 | P.PN ---
Subjective Patient is seen in follow-up for acute kidney injury and hyponatremia. Renal function back to baseline. Has been voiding. Oral intake fair. Still requiring high amounts of oxygen. Blood pressure stable. Sodium level stable at 132 as of yesterday. No changes overnight. Vital signs are stable. General: The patient appeared well nourished and normally developed. HEENT: On high flow nasal cannula. LUNGS: Breath sounds decreased. HEART: Rate and Rhythm are regular. ABDOMEN: Soft, nontender. EXTREMITITES: No edema. Objective - Vital Signs Vital signs: Vital Signs Temp 97.5 F L 12/25/20 08:00 Pulse 101 H 12/25/20 08:00 Resp 20 12/25/20 08:00 BP 128/63 12/25/20 08:00 Pulse Ox 89 L 12/25/20 08:00 Intake & Output 12/24/20 12/25/20 12/25/20 18:59 06:59 18:59 Intake Total 180 120 Output Total 200 350 200 Balance -20 -230 -200 Intake: Oral 180 120 Output: Urine 200 350 200 Other: Voiding Method Urinal Urinal # Bowel Movements 1 1 - Labs CBC & Chem 7: 12/23/20 10:40 12/24/20 09:29 Labs: Abnormal Lab Results - Last 24 Hours (Table) 12/24/20 12/24/20 12/24/20 Range/Units 12:15 16:46 20:12 POC Glucose (mg/dL) 185 H 167 H 231 H (75-99) mg/dL 12/25/20 Range/Units 06:20 POC Glucose (mg/dL) 203 H (75-99) mg/dL Assessment and Plan Plan: Assessment: 1. Acute kidney injury mostly prerenal secondary to covid 19 pneumonia and nonsteroidals. Renal function improved. Creatinine 0.73 as of yesterday. No hydronephrosis noted on kidney ultrasound. 2. 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 Has been receiving samsca this admission. Urine sodium less than 10 and urine osmolality 568. TSH normal. Sodium chloride tablets were added December 12. 3. Covid 19 pneumonia. Currently on high flow cannula. 4. Diabetes mellitus. 5. Chronic kidney disease stage IIIa secondary to diabetic kidney disease. Creatinine 1.3 in February 2020. 6. Metabolic acidosis secondary to acute kidney injury. Maintained on oral bicarb. 7. Cardiomyopathy. Ejection fraction 35-40%. Plan: Encouraged oral intake, especially protein. Maintain fluid restriction. Maintain sodium chloride tablets. Avoid nephrotoxins. Repeat electrolytes in the morning. No changes from nephrology standpoint today.
[2020-12-25 11:49] LABS: Glucose,Whole Blood 109 mg/dL (75-99)
--- NOTE | 2020-12-25 12:25 | P.PN ---
Subjective Progress Note Date: 12/25/20 11/27/2020 during the night, patient became more hypoxic, requiring nonrebreather. Significant clinical improvement, maintaining O2 sats in the 90s on 5 L nasal cannula. Minimal nonproductive cough. Creatinine 1.6. 11/28/2020 Required nonrebreather briefly during the night; currently maintained on 5 L nasal cannula, O2 sats of 90-91%. Complains of worsening shortness of breath, especially with minimal exertion, nonproductive cough. Maintained on Covid regimen, including dexamethasone. Blood sugars elevated throughout the night, better controlled this morning. Denies chest pain, palpitations or shortness of breath. Labs pending. 11/29/20 S/P convalescent plasma .Continues on Covid regimen, maintaining O2 sats in the 90s on 6 L nasal cannula. Occasional nonproductive cough. Denies chest pain, palpitations. Evaluated by pulmonary, outside the window for Remdesevir. Creatinine 1.4. 12/02/2020 maintained on high flow cannula with FiO2 of 90% post nonrebreather to maintain O2 sats in the 90s. Chest x-ray reporting progression of interstitial and patchy bilateral airspace infiltrates. Afebrile, T-max 99.5. BUN 60, Creatinine 1.6 sodium 132. 12/03/2020 maintained on Covid 19 cocktail ,continues on 15 L high flow nasal cannula and nonrebreather mask, maintaining O2 sats of 90%. Nonproductive cough. Afebrile. Minimal reserve. 12/04/2020 Received Acterma yesterday. Maintained on 90% airvo and a nonrebreather mask, maintaining O2 sats in the high 80s to low 90s. Staff reports last night he ate better, was more conversant. Reports he feels more comfortable and not as weak. Afebrile. Creatinine 1.8. Hyperglycemic, blood sugars up to 271 at lunch. 12/05/2020 continue a 90% high flow airvo, maintaining O2 sats in the low 90s. Continues to feel better with less fatigue, less shortness of breath. Labs pending. Afebrile. 12/06/2020 no overnight events. Maintaining O2 sat in the low 90s, settings unchanged. Feels better today. Sodium worsening decreased to 123 yesterday, labs pending today. Urine osmolality ordered, received a dose Samsca. Afebrile. Denies chest pain, palpitations. 12/09/2020 continue on Covid cocktail. Continues on high flow oxygen, 45 L/70% FiO2 maintaining O2 sats in the high 80s to low 90s. Nonproductive cough with deep inspiration. Sodium 127, creatinine 1.35, potassium 5.2. Repeating Tolvaptan today as per nephrology. Blood sugars better controlled. Afebrile. 12/10/2020 received tolvaptan yesterday, labs pending. Chest x-ray reporting diffuse bilateral infiltrates stable. No changes overnight, maintaining on high flow nasal cannula maintaining O2 sats in the 90s, mostly low 90s. Denies chest pain, palpitations. Afebrile. 12/11/2020 currently on high flow oxygen at 45 L and 60% FiO2 with O2 saturation 91%. Reports less shortness of breath today. Less acessory muscle use noted. Creatinine 1.21. Sodium 126, Afebrile. 12/12/2020 FiO2 is decreased to 45 L and 55% FiO2(nonrebreather over HFNC ) maintaining O2 sats in the mid 80s to low 90s. Maintained on Covid cocktail. He reports he is unable to be off mask very long but is able to take bites of food and juice. Denies chest pain, palpitations. Denies increased shortness of breath. Sodium level 127. 12/13/2020 worsening respiratory status, increased shortness of breath on 45 L/60% FiO2 high flow nasal cannula. Desatted to the mid 80s with increased respiratory rate up into the low 20s. Increased to 60 L high flow nasal cannula, FiO2 80%. O2 sats up to 92%. Exertional shortness of breath. CTA ordered. Poor oral intake, hypoglycemic. Afebrile. Sodium remains at 127, renal function improving , creatinine 1. 12/16/2020 continue on high flow airvo and nonrebreather maintaining O2 sats in the low 90s. Reports worsening cough, otherwise comfortable. Sodium 127. 12/17/2020 FiO2 decreased to 75%, maintaining O2 sats in the mid 90s. Reports less cough. Blood sugars ranging from 107 to low 200s. Consuming 75% of breakfast, tolerated well with no nausea vomiting or diarrhea. Maintained on oral sodium chloride and Samsca ,Sodium 128. 12/18/2020 sodium down to 126, did not receive Samsca yesterday. Renal function continues improving, BUN 21, creatinine 0.85. Reports he ate pancakes this morning, breakfast intake recorded at 25%. Patient has been refusing HS snacks. During the early breastfeeding care specialist, hypoglycemic, blood sugar recorded at 66, received OJ,wilbert crackers, currently up to 268. Patient yesterday had isolated high sugar 400 at noon. High flow nasal cannula decreased to 70%, maintaining O2 sats in the low 90s. Chest x-ray reporting similar to prior exam. 12/19/2020 Feels better, FiO2 decreased to 67% maintaining O2 sat of 94%. Consuming 25% of breakfast, positive bowel movement. Sodium 129 on Samsca. 12/20/2020 FiO2 decreased to 64%, maintaining O2 sats in the high 80s. Reports coughing less. Sodium remains at 129, BUN 23, creatinine 0.94. Complains of generalized weakness. Denies chest pain, palpitations. 12/23/2020 FiO2 55%, maintaining O2 sats in the high 80s to low 90s. LDH had increased up to 2132 yesterday. Sodium 130 yesterday. Labs pending. Afebrile. 12/24/2020 FiO2 down to 50% maintaining O2 sats of mid 80s to low 90s. Poor diet intake, hypoglycemic this morning. Renal function at baseline. Denies chest pain, palpitations or increased shortness of breath. Continues on Covid cocktail. 12/25/2020 FiO2 weaned down further to 46% maintaining O2 sats in the high 80s. Patient feeling significantly distressed this morning, anxious, depressed regarding his required transfer to ICU and intubated yesterday. Reports increased shortness of breath this morning. Patient reports he's been eating 50% of what his family has been bringing in/poor intake documented of hospital meals. Denies chest pain, palpitations. Afebrile. Objective - Vital Signs Vital signs: Vital Signs Temp 97.5 F L 12/25/20 08:00 Pulse 101 H 12/25/20 08:00 Resp 20 12/25/20 08:00 BP 128/63 12/25/20 08:00 Pulse Ox 89 L 12/25/20 08:00 Intake & Output 12/24/20 12/25/20 12/25/20 18:59 06:59 18:59 Intake Total 180 120 Output Total 200 350 200 Balance -20 -230 -200 Intake: Oral 180 120 Output: Urine 200 350 200 Other: Voiding Method Urinal Urinal # Bowel Movements 1 1 - Exam - Exam General: Alert and oriented 3, Sitting up in bed, Vitals reviewed Lungs: Increased respiratory effort, bilateral bases diminished CV: Regular rate and rhythm, no murmur. Peripheral pulses 2+, no edema Abdomen: soft, nondistended, no organomegaly. Positive bowel sounds Skin: warm and dry. - Labs CBC & Chem 7: 12/23/20 10:40 12/24/20 09:29 Labs: Abnormal Lab Results - Last 24 Hours (Table) 12/24/20 12/24/20 12/24/20 Range/Units 12:15 16:46 20:12 POC Glucose (mg/dL) 185 H 167 H 231 H (75-99) mg/dL 12/25/20 12/25/20 Range/Units 06:20 11:46 POC Glucose (mg/dL) 203 H 109 H (75-99) mg/dL Assessment and Plan Assessment: (1) Acute hypoxemic respiratory failure due to COVID-19 pneumonitis, status post convalescent plasma,TOCI, outside the window for Remdesevir, Current Visit: Yes Status: Acute Code(s): U07.1 - COVID-19; J96.01 - ACUTE RESPIRATORY FAILURE WITH HYPOXIA SNOMED Code(s): 134283064 (2) Essential hypertension Current Visit: Yes Status: Acute Code(s): I10 - ESSENTIAL (PRIMARY) HYPERTENSION SNOMED Code(s): 04455555 (3) Type 2 diabetes mellitus Current Visit: Yes Status: Acute Code(s): E11.9 - TYPE 2 DIABETES MELLITUS WITHOUT COMPLICATIONS SNOMED Code(s): 00182573 (4) DARWIN (acute kidney injury), ATN,secondary to #1, resolved Current Visit: Yes Status: Acute Code(s): N17.9 - ACUTE KIDNEY FAILURE, UNSPECIFIED SNOMED Code(s): 28582260 (5) chronic kidney disease stage IIIa secondary to DKA, baseline 1.3 (6) COVID-19 Current Visit: Yes Status: Acute Code(s): U07.1 - COVID-19 SNOMED Code(s): 587385552 (7) Hyperkalemia secondary to acute renal failure, YODIT inhibitor and NSAIDs,resolved Current Visit: Yes Status: Acute Code(s): E87.5 - HYPERKALEMIA SNOMED Code(s): 74078219 (8) hyponatremia, 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 (9) CAD, cardiomyopathy, EF 35-40% (10) mild pulmonary hypertension (11) weakness, medical debility secondary to prolonged hospitalization secondary to COVID-19. Plan: Continue on current medication regime ,monitoring and symptomatic t reatment. Continue O2 titration as per parameters. COVID regimen/fluid restriction. Maintain supportive care. Prognosis guarded given multiple complex medical issues. The impression and plan of care has been dictated as directed. : I performed a history and examination of this patient, discussed the same with the dictator. I agree with the dictator's note ,documented as a scribe. Any additional findings or plans will be noted.
--- NOTE | 2020-12-25 15:46 | P.PN ---
Subjective Progress Note Date: 12/25/20 Principal diagnosis: Shortness of breath. This is a 70-year-old white male with history of multiple medical problems including hypertension, type 2 diabetes, dyslipidemia, coronary artery disease and previous PA, previous stent placement, degenerative joint disease, bladder cancer, nephrolithiasis, patient presented to the emergency room on 11/24/2020, mostly with 1 week history of multiple constitutional symptoms including muscle aches, fever, shortness of breath, cough, nausea, and he tested positive on the with contreras virus PCR. Chest x-ray showed evidence of bilateral opacities/infiltrates. Patient had adequate saturations on room air, it was about 94%, he was also noted to be hyperkalemic, and he had lactic acid of 2.7. Received dextrose, insulin, Kayexalate, and the patient was eventually admitted seen by nephrology on consultation, he was placed on the Covid 19 cocktail, and we were asked to see him yesterday because of his worsening shortness of breath. No follow-up chest x-ray done since admission, and I will be ordering one to be done today. Labs today clearly showed relatively normal CBC. Elevated BUN of 40 creatinine is 1.4. D-dimer was normal on admission, and I do not see any inflammatory markers on the chart. After evaluating the patient, we recommended one unit of convalescent plan is to be given. Patient obviously did not qualify for REM. And he is not at the point of requiring actemtra Patient was reevaluated today on 11/29/2020, he is basically about the same. Not much of a change in the last 24 hours. Patient is on 6 L nasal cannula, and his O2 saturation is in the low 90s. Continues to have intermittent cough, shor tness of breath, basic metabolic profile is normal. His LDH is 1466, and C- reactive protein is 24. Patient remains on the Covid 19 cocktail. He received convalescent plasma. He was out of the window for REM. Progress note dated 11/30/2020. 70-year-old male who was admitted with a diagnosis of acute hypoxemic respiratory failure secondary to COVID 19 pneumonia. The patient has a history of multiple medical problems including essential hypertension, type 2 diabetes mellitus, hyperlipidemia, coronary artery disease, previous PA with stent placement, degenerative joint disease, bladder cancer, and kidney stones. He presented to the emergency department on November 24, with one-week worth of muscle aches, fever, shortness breath, cough, nausea, and tested positive for COVID on the . The patient was outside the window for REM, but did receive CP. No new labs today. The patient is currently on 15 L high flow nasal O2. The patient does not feel any better today. Chest x-ray on November 28 showed bilateral patchy airspace disease. Progress note dated 12/01/2020. 70-year-old male was admitted with diagnosis of acute hypoxemic respiratory failure secondary to COVID 19 pneumonia. Currently, the patient is on both a nonrebreather mask, 15 L high flow nasal cannula. Saturations are 95%. The patient isn't receiving any IV fluids. The patient is lying on his left side. Yesterday I told him to move about in bed, right side down, left side down, supine, and even prone if possible. I did order a follow-up chest x-ray. White count 11.4, hemoglobin 0.8, hematocrit 34.2, and platelet count normal. Sodium 133, potassium 5.7, chlorides 101, CO2 25, anion gap 7, BUN 46, creatinine 1.60. LDH is 1882. Chest x-ray shows a pattern of bilateral patchy infiltrates, slightly worse than the prior chest x-ray. Progress note dated 12/08/2020. 70-year-old male, admitted with a diagnosis of acute hypoxemic respiratory failure secondary to COVID 19 pneumonia. Currently, the patient is on AIRVO, with settings of 15 L/m 81%. He's not receiving any IV fluids. He does feel like he is getting better. I saw him last on December 01. Both he and his are in the hospital with the same infection. He is not receiving any IV fluids. His biggest complaint is shortness of breath with any activity. He also has a nonproductive, dry cough, which is painful at times. He denies any fever or chills. He denies any chest pain or chest discomfort. Lab data includes a sodium 123, potassium 4.9, chloride 91, CO2 21, anion gap 11, BUN 63, and creatinine 1.33. Patient was reevaluated today on 12/20/2020, surprisingly the patient is feeling better for the first time since admission. Remains on high flow oxygen. His FiO2 is down to 60%, he is on 50 L flow and his O2 saturation is 94%. Patient is becoming more active, less fatigue, less weakness according to the patient. Sodium remains low at 129. Basic metabolic profile is normal renal profile is normal blood sugar is 234 Reevaluated today on 12/21/2020, patient is steadily improving but very slowly. He is feeling better today, and his FiO2 was titrated down to 55%, and flow is at 50 liters. O2 saturation is 95%, clinically and that's more importantly that the patient is feeling better. ABC is relatively normal lites are normal renal profile is normal sodium is up to 130. Sugar is 184. No inflammatory markers noted today. Patient was reevaluated today on 12/22/2020, patient is steadily improving, he is down to 55% FiO2 and 50 L flow on airvo. He has persistent generalized weakness, but he feels better compared to how he felt over the last 2 weeks. His WBC count today is 15.9 hemoglobin is 11.9 electrolytes are normal sodium is improving up to 130. LDH is rising again up to 2132 today. C-reactive protein remains low at 0.8. Overall there has been some improvement over the last 2 weeks, but the improvement has been extremely slow. Progress note dated 12/23/2020. Currently, the patient is again reevaluated. He is actually the same room as his , that his room 368. The patient's currently on AIRVO, at 50 L/m, and an FiO2 of 50%. He's not receiving any IVs. He feels like he is slowly improving. Lab data today includes a white count 13.7, hemoglobin 10.9, hematocrit 31.8, and platelet count 310,000. Sodium 132, potassium 4.4, chlorides 102, CO2 27, anion gap 3, BUN 27, and creatinine 0.78. No recent chest x-rays to review. Progress note dated 12/24/2020. 70-year-old male, who is again reevaluated. Currently, he is in room 368, along with his . He is currently on AIRVO, with settings at 50 L/m and FiO2 of 50%. Currently, he is not receiving any IV fluids. The patient is doing about the same today as he did yesterday although, his saturations were lower, after having had something to eat. He appears to be doing much better than his . He certainly much more alert. Lab data from today includes a sodium 132, potassium 4.2, chlorides 102, CO2 28, anion gap 2, BUN 25, and creatinine 0.73. Glucose is 45. Calcium 8.2. Most recent chest x-ray was done back on December 18. He remains on Decadron, Lovenox, albuterol inhaler, and appropriate vitamins. Progress note dated 12/25/2020. 70-year-old male, with a diagnosis of acute hypoxemic respiratory failure, secondary to Covid 19 pneumonia. Yesterday, his was transported to the intensive care where she required intubation and mechanical ventilation. He is currently on AIRVO at an FiO2 of about 50%. He's not receiving any IV fluids. The patient states that he's doing so-so. There are no new labs today to report. Chest x-ray from yesterday shows patchy bilateral infiltrates, with minimal improvement. The patient does not appear to be very motivated to get better. Objective - Vital Signs Vital signs: Vital Signs Temp 98.3 F 12/25/20 12:00 Pulse 88 12/25/20 12:00 Resp 20 12/25/20 14:00 BP 121/60 12/25/20 12:00 Pulse Ox 89 L 12/25/20 12:00 Intake & Output 12/24/20 12/25/20 12/25/20 18:59 06:59 18:59 Intake Total 180 120 Output Total 200 350 200 Balance -20 -230 -200 Weight 86.183 kg Intake: Oral 180 120 Output: Urine 200 350 200 Other: Voiding Method Urinal Urinal # Bowel Movements 1 1 - Exam No acute distress, oriented 3. The patient is currently on AIRVO, at 50 L/m with an FiO2 of 50%. Saturation is 89%. There is no conversational dyspnea or use of accessory muscles. HEENT examination is grossly unremarkable. Neck supple. Full range of motion. No adenopathy thyromegaly or neck vein distention. Cardiovascular examination reveals regular rhythm rate. S1-S2 normal. No S3 or S4. No discernible murmur noted. Heart rate 88 bpm. Lungs reveal bilateral and bibasilar rhonchi and crackles. No wheezes. Breath sounds are equal bilaterally but diminished throughout. Exam is essentially unchanged. Abdomen soft bowel sounds are heard. No masses or tenderness. Extremities are intact. No cyanosis clubbing or edema. Skin is without rash or lesion. Neurologic examination is brief but nonfocal. - Labs CBC & Chem 7: 12/23/20 10:40 12/24/20 09:29 Labs: Abnormal Lab Results - Last 24 Hours (Table) 12/24/20 12/24/20 12/25/20 Range/Units 16:46 20:12 06:20 POC Glucose (mg/dL) 167 H 231 H 203 H (75-99) mg/dL 12/25/20 Range/Units 11:46 POC Glucose (mg/dL) 109 H (75-99) mg/dL Assessment and Plan Assessment: Acute hypoxemic respiratory failure secondary to COVID 19 pneumonitis/pneumonia, with worsening oxygenation and chest x-ray. Acute on chronic kidney injury, associated with COVID infection. History of bladder cancer Acute kidney injury associated hyperkalemia. Essential hypertension. Type 2 diabetes. History of CAD, with previous myocardial infarction and stent placement. History of hyperlipidemia. History of kidney stones. Hyponatremia, mild. Plan: Plan dated 11/30/2020. Currently, the patient is not feeling much improvement. He is on 15 L high flow oxygen. The patient did receive CP. He was outside the window for REM. He is currently on vitamin C, vitamin D3, and zinc. In addition, he is on Decadron, and Lovenox. Additional recommendations and suggestions are forthcoming. We will continue to follow the patient closely. Patient may eventually be transferred to the intensive care unit. Other options would include BiPAP and/or AIRVO. We will continue to watch this patient carefully, and make recommendations were appropriate. Plan dated 12/01/2020. Currently, the patient's both on 15 L high flow oxygen, and a nonrebreather mask. Saturations are 95%. The patient was outside the window for REM. The patient is currently on vitamin C, vitamin D3, and zinc. He is also on Decadron and Lovenox. We'll have to watch this patient carefully. He may deteriorate further. Chest x-ray shows a worsening pattern of bilateral infiltrates. We will continue to follow the patient closely and make recommendations were appropriate. Prognosis is very guarded. Plan dated 12/08/2020. Currently, he is on AIRVO, 50 L/m, 81%. When I saw him last on December 01, patient was using 15 L high flow nasal O2, as well as a nonrebreather mask. Current saturations are in the low 90s. The patient was outside the window for REM the patient did receive vitamin C, vitamin D3, zinc, as well as Decadron and Lovenox. The patient feels like he is showing some improvement. We'll continue to follow. Prognosis is guarded. Additional recommendations and suggestions are forthcoming. Plan dated 12/23/2020. The patient remains on AIRVO, with settings of 15 L/m, and 50%. I saw him last December 08. Please see the note above. The patient was outside the window for REM, but did receive vitamin C, vitamin D3, zinc, Decadron, and Lovenox. Currently, the patient's doing reasonably well. He is laying in the same room next to his . He did receive convalescent plasma. He also received TOCI. We will continue to follow. Prognosis is guarded. Additional recommendations and suggestions are forthcoming. Plan dated 12/24/2020. The patient remains on AIRVO, at 50 L/m, 50% FiO2. The patient is about the same today as he was yesterday. The patient was outside the window for REM, but did receive vitamin C, vitamin D3, zinc, Decadron, and Lovenox. The patient also receive convalescent plasma, and TOCI. We will continue to follow the patient and make recommendations where appropriate. Overall, the patient is doing about the same yesterday as he is doing today. Prognosis is guarded. He remains in the same room along with his . Plan dated 12/25/2020. Currently, the patient remains on AIRVO, with similar settings as was yesterday. He is on 15 L/m, and 50% FiO2. He's not receiving any IV fluids. The patient did receive convalescent plasma, and TOCI. The patient has also received vitamin C, vitamin D3, zinc, Decadron, and Lovenox. He was outside the window for REM. I did give him an update today about his is currently in the ICU on the ventilator. He seems very depressed about that, and I question what his motivation is to get better. We will continue to follow the patient and make recommendations. Prognosis is poor. Time with Patient: Less than 30
[2020-12-25 17:09] LABS: Glucose,Whole Blood 235 mg/dL (75-99)
[2020-12-25 20:12] LABS: Glucose,Whole Blood 233 mg/dL (75-99)
[2020-12-25] MEDS: MELATONIN 5 MG TABLET PO SCH (21:11)
[2020-12-25] MEDS: ATORVASTATIN 80 MG TAB PO SCH (21:11)
[2020-12-26 06:09] LABS: Glucose,Whole Blood 134 mg/dL (75-99)
[2020-12-26] MEDS: PANTOPRAZOLE 40 MG TABLET PO SCH (06:23)
[2020-12-26] MEDS: INSULIN DETEMIR (LEVEMIR) 100 UNIT/ML SYR SQ SCH (06:23)
[2020-12-26] MEDS: LEVOTHYROXINE 100 MCG TAB PO SCH (06:23)
[2020-12-26] MEDS: INSULIN ASPART (NovoLOG) 100 UNIT/ML VIAL SQ SCH ×4 (06:23→20:14)
[2020-12-26] MEDS: ALBUTEROL HFA INHALER INHALATION SCH ×4 (08:04→19:14)
[2020-12-26] MEDS: METOPROLOL SUCCINATE (ER) 25 MG TAB.ER.24H PO SCH (09:17)
[2020-12-26] MEDS: SODIUM CHLORIDE TAB 1 GM TAB PO SCH ×2 (09:17→20:12)
[2020-12-26] MEDS: CHOLECALCIFEROL 25 MCG (1000 IU) TABLET PO SCH (09:17)
[2020-12-26] MEDS: ASPIRIN 81 MG PO SCH (09:17)
[2020-12-26] MEDS: DEXAMETHASONE SOD PHOSPHATE 10 MG/ML 1 ML VIAL IV SCH (09:17)
[2020-12-26] MEDS: ZINC SULFATE 220 MG CAP PO SCH (09:17)
[2020-12-26] MEDS: GABAPENTIN 300 MG CAP PO SCH (09:17)
[2020-12-26] MEDS: SODIUM BICARBONATE TAB 650 MG TAB PO SCH (09:17)
[2020-12-26] MEDS: CLOPIDOGREL 75 MG TAB PO SCH (09:17)
[2020-12-26] MEDS: ENOXAPARIN 40 MG/0.4 ML SYRINGE SQ SCH (09:17)
[2020-12-26] MEDS: ASCORBIC ACID 500 MG TAB PO SCH (09:17)
[2020-12-26 10:02] LABS: African American GFR (CKD) >90 (>60 ml/min/1.73 sqM); Anion Gap 5 mmol/L; Blood Urea Nitrogen 26 mg/dL (9-20); Calcium 8.3 mg/dL (8.4-10.2); Carbon Dioxide 25 mmol/L (22-30); Chloride 101 mmol/L (98-107); Glucose 307 mg/dL (74-99); Magnesium 1.6 mg/dL (1.6-2.3); Non-African American GFR(CKD) >90 (>60 ml/min/1.73 sqM); Potassium 4.4 mmol/L (3.5-5.1); Sodium 131 mmol/L (137-145)
--- NOTE | 2020-12-26 11:48 | P.PN ---
Subjective Patient is seen in follow-up for acute kidney injury and hyponatremia. Renal function back to baseline. Has been voiding. Oral intake fair. Still requiring high amounts of oxygen. Blood pressure stable. Sodium level stable at 131. No changes overnight. Vital signs are stable. General: The patient appeared well nourished and normally developed. HEENT: On high flow nasal cannula. LUNGS: Breath sounds decreased. HEART: Rate and Rhythm are regular. ABDOMEN: Soft, nontender. EXTREMITITES: No edema. Objective - Vital Signs Vital signs: Vital Signs Temp 98.6 F 12/25/20 20:00 Pulse 88 12/26/20 04:00 Resp 18 12/26/20 04:00 BP 133/63 12/26/20 04:00 Pulse Ox 92 L 12/26/20 08:05 Intake & Output 12/25/20 12/26/20 12/26/20 18:59 06:59 18:59 Intake Total 125 80 0 Output Total 200 300 Balance -75 -220 0 Weight 86.183 kg Intake: Oral 125 80 0 Output: Urine 200 300 Other: Voiding Method Urinal # Bowel Movements 1 - Labs CBC & Chem 7: 12/23/20 10:40 12/26/20 09:21 Labs: Abnormal Lab Results - Last 24 Hours (Table) 12/25/20 12/25/20 12/25/20 Range/Units 11:46 16:59 20:11 Sodium (137-145) mmol/L BUN (9-20) mg/dL Glucose (74-99) mg/dL POC Glucose (mg/dL) 109 H 235 H 233 H (75-99) mg/dL Calcium (8.4-10.2) mg/dL 12/26/20 12/26/20 Range/Units 06:08 09:21 Sodium 131 L (137-145) mmol/L BUN 26 H (9-20) mg/dL Glucose 307 H (74-99) mg/dL POC Glucose (mg/dL) 134 H (75-99) mg/dL Calcium 8.3 L (8.4-10.2) mg/dL Assessment and Plan Plan: Assessment: 1. Acute kidney injury mostly prerenal secondary to covid 19 pneumonia and nonsteroidals. Renal function improved. Creatinine 0.73. No hydronephrosis noted on kidney ultrasound. 2. 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 Has been receiving samsca this admission. Urine sodium less than 10 and urine osmolality 568. TSH normal. Sodium chloride tablets were added December 12. 3. Covid 19 pneumonia. Currently on high flow cannula. 4. Diabetes mellitus. 5. Chronic kidney disease stage IIIa secondary to diabetic kidney disease. Creatinine 1.3 in February 2020. 6. Metabolic acidosis secondary to acute kidney injury. Maintained on oral bicarb. 7. Cardiomyopathy. Ejection fraction 35-40%. 8. Mild hypomagnesemia from poor intake. Plan: Encouraged oral intake, especially protein. Maintain fluid restriction. Maintain sodium chloride tablets. Avoid nephrotoxins. Repeat electrolytes in the morning. Replace magnesium.
[2020-12-26 11:59] LABS: Glucose,Whole Blood 315 mg/dL (75-99)
[2020-12-26] MEDS ORDERED: INSULIN ASPART (NovoLOG) 100 UNIT/ML VIAL SQ ONE (12:39)
[2020-12-26] MEDS: MAGNESIUM SULFATE-D5W PMX 1 GM in DEXTROSE/WATER 1 100ML.BAG IVPB SCH ×2 (12:58→17:38)
--- NOTE | 2020-12-26 15:00 | P.PN ---
Subjective Progress Note Date: 12/26/20 Principal diagnosis: Shortness of breath. This is a 70-year-old white male with history of multiple medical problems including hypertension, type 2 diabetes, dyslipidemia, coronary artery disease and previous UT, previous stent placement, degenerative joint disease, bladder cancer, nephrolithiasis, patient presented to the emergency room on 11/24/2020, mostly with 1 week history of multiple constitutional symptoms including muscle aches, fever, shortness of breath, cough, nausea, and he tested positive on the with contreras virus PCR. Chest x-ray showed evidence of bilateral opacities/infiltrates. Patient had adequate saturations on room air, it was about 94%, he was also noted to be hyperkalemic, and he had lactic acid of 2.7. Received dextrose, insulin, Kayexalate, and the patient was eventually admitted seen by nephrology on consultation, he was placed on the Covid 19 cocktail, and we were asked to see him yesterday because of his worsening shortness of breath. No follow-up chest x-ray done since admission, and I will be ordering one to be done today. Labs today clearly showed relatively normal CBC. Elevated BUN of 40 creatinine is 1.4. D-dimer was normal on admission, and I do not see any inflammatory markers on the chart. After evaluating the patient, we recommended one unit of convalescent plan is to be given. Patient obviously did not qualify for REM. And he is not at the point of requiring actemtra Patient was reevaluated today on 11/29/2020, he is basically about the same. Not much of a change in the last 24 hours. Patient is on 6 L nasal cannula, and his O2 saturation is in the low 90s. Continues to have intermittent cough, shor tness of breath, basic metabolic profile is normal. His LDH is 1466, and C- reactive protein is 24. Patient remains on the Covid 19 cocktail. He received convalescent plasma. He was out of the window for REM. Progress note dated 11/30/2020. 70-year-old male who was admitted with a diagnosis of acute hypoxemic respiratory failure secondary to COVID 19 pneumonia. The patient has a history of multiple medical problems including essential hypertension, type 2 diabetes mellitus, hyperlipidemia, coronary artery disease, previous UT with stent placement, degenerative joint disease, bladder cancer, and kidney stones. He presented to the emergency department on November 24, with one-week worth of muscle aches, fever, shortness breath, cough, nausea, and tested positive for COVID on the . The patient was outside the window for REM, but did receive CP. No new labs today. The patient is currently on 15 L high flow nasal O2. The patient does not feel any better today. Chest x-ray on November 28 showed bilateral patchy airspace disease. Progress note dated 12/01/2020. 70-year-old male was admitted with diagnosis of acute hypoxemic respiratory failure secondary to COVID 19 pneumonia. Currently, the patient is on both a nonrebreather mask, 15 L high flow nasal cannula. Saturations are 95%. The patient isn't receiving any IV fluids. The patient is lying on his left side. Yesterday I told him to move about in bed, right side down, left side down, supine, and even prone if possible. I did order a follow-up chest x-ray. White count 11.4, hemoglobin 0.8, hematocrit 34.2, and platelet count normal. Sodium 133, potassium 5.7, chlorides 101, CO2 25, anion gap 7, BUN 46, creatinine 1.60. LDH is 1882. Chest x-ray shows a pattern of bilateral patchy infiltrates, slightly worse than the prior chest x-ray. Progress note dated 12/08/2020. 70-year-old male, admitted with a diagnosis of acute hypoxemic respiratory failure secondary to COVID 19 pneumonia. Currently, the patient is on AIRVO, with settings of 15 L/m 81%. He's not receiving any IV fluids. He does feel like he is getting better. I saw him last on December 01. Both he and his are in the hospital with the same infection. He is not receiving any IV fluids. His biggest complaint is shortness of breath with any activity. He also has a nonproductive, dry cough, which is painful at times. He denies any fever or chills. He denies any chest pain or chest discomfort. Lab data includes a sodium 123, potassium 4.9, chloride 91, CO2 21, anion gap 11, BUN 63, and creatinine 1.33. Patient was reevaluated today on 12/20/2020, surprisingly the patient is feeling better for the first time since admission. Remains on high flow oxygen. His FiO2 is down to 60%, he is on 50 L flow and his O2 saturation is 94%. Patient is becoming more active, less fatigue, less weakness according to the patient. Sodium remains low at 129. Basic metabolic profile is normal renal profile is normal blood sugar is 234 Reevaluated today on 12/21/2020, patient is steadily improving but very slowly. He is feeling better today, and his FiO2 was titrated down to 55%, and flow is at 50 liters. O2 saturation is 95%, clinically and that's more importantly that the patient is feeling better. ABC is relatively normal lites are normal renal profile is normal sodium is up to 130. Sugar is 184. No inflammatory markers noted today. Patient was reevaluated today on 12/22/2020, patient is steadily improving, he is down to 55% FiO2 and 50 L flow on airvo. He has persistent generalized weakness, but he feels better compared to how he felt over the last 2 weeks. His WBC count today is 15.9 hemoglobin is 11.9 electrolytes are normal sodium is improving up to 130. LDH is rising again up to 2132 today. C-reactive protein remains low at 0.8. Overall there has been some improvement over the last 2 weeks, but the improvement has been extremely slow. Progress note dated 12/23/2020. Currently, the patient is again reevaluated. He is actually the same room as his , that his room 368. The patient's currently on AIRVO, at 50 L/m, and an FiO2 of 50%. He's not receiving any IVs. He feels like he is slowly improving. Lab data today includes a white count 13.7, hemoglobin 10.9, hematocrit 31.8, and platelet count 310,000. Sodium 132, potassium 4.4, chlorides 102, CO2 27, anion gap 3, BUN 27, and creatinine 0.78. No recent chest x-rays to review. Progress note dated 12/24/2020. 70-year-old male, who is again reevaluated. Currently, he is in room 368, along with his . He is currently on AIRVO, with settings at 50 L/m and FiO2 of 50%. Currently, he is not receiving any IV fluids. The patient is doing about the same today as he did yesterday although, his saturations were lower, after having had something to eat. He appears to be doing much better than his . He certainly much more alert. Lab data from today includes a sodium 132, potassium 4.2, chlorides 102, CO2 28, anion gap 2, BUN 25, and creatinine 0.73. Glucose is 45. Calcium 8.2. Most recent chest x-ray was done back on December 18. He remains on Decadron, Lovenox, albuterol inhaler, and appropriate vitamins. Progress note dated 12/25/2020. 70-year-old male, with a diagnosis of acute hypoxemic respiratory failure, secondary to Covid 19 pneumonia. Yesterday, his was transported to the intensive care where she required intubation and mechanical ventilation. He is currently on AIRVO at an FiO2 of about 50%. He's not receiving any IV fluids. The patient states that he's doing so-so. There are no new labs today to report. Chest x-ray from yesterday shows patchy bilateral infiltrates, with minimal improvement. The patient does not appear to be very motivated to get better. Progress note dated 12/26/2020. 70-year-old male, with a diagnosis of acute hypoxemic respiratory failure secondary to COVID 19 pneumonia. Currently, he is on AIRVO, at 45, and FiO2 of 60%. He's not receiving any IV fluids. In addition to AIRVO, the patient is getting a nonrebreather mask as well. The patient feels a bit more short of breath today than he did yesterday. He denies any coughing, or phlegm production. There is no fever or chills. He denies any chest pain or chest discomfort. Currently labs today include a sodium 131, potassium 4.4, chlorides 101, CO2 25, anion gap 5, BUN 26, and creatinine 0.73. Calcium 8.3. Chest x- ray from the shows patchy bilateral infiltrates. Objective - Vital Signs Vital signs: Vital Signs Temp 98.6 F 12/25/20 20:00 Pulse 88 12/26/20 04:00 Resp 18 12/26/20 04:00 BP 133/63 12/26/20 04:00 Pulse Ox 90 L 12/26/20 11:59 Intake & Output 12/25/20 12/26/20 12/26/20 18:59 06:59 18:59 Intake Total 125 80 118 Output Total 200 300 Balance -75 -220 118 Weight 86.183 kg Intake: Oral 125 80 118 Output: Urine 200 300 Other: Voiding Method Urinal # Bowel Movements 1 - Exam No acute distress, oriented 3. The patient is currently on AIRVO, at 45 L/m with an FiO2 of 60%. Saturation is 90%. There is no conversational dyspnea or use of accessory muscles. HEENT examination is grossly unremarkable. Neck supple. Full range of motion. No adenopathy thyromegaly or neck vein distention. Cardiovascular examination reveals regular rhythm rate. S1-S2 normal. No S3 or S4. No discernible murmur noted. Heart rate 87 bpm. Lungs reveal bilateral and bibasilar rhonchi and crackles. No wheezes. Breath sounds are equal bilaterally but diminished throughout. Abdomen soft bowel sounds are heard. No masses or tenderness. Extremities are intact. No cyanosis clubbing or edema. Skin is without rash or lesion. Neurologic examination is brief but nonfocal. - Labs CBC & Chem 7: 12/23/20 10:40 12/26/20 09:21 Labs: Abnormal Lab Results - Last 24 Hours (Table) 12/25/20 12/25/20 12/26/20 Range/Units 16:59 20:11 06:08 Sodium (137-145) mmol/L BUN (9-20) mg/dL Glucose (74-99) mg/dL POC Glucose (mg/dL) 235 H 233 H 134 H (75-99) mg/dL Calcium (8.4-10.2) mg/dL 12/26/20 12/26/20 Range/Units 09:21 11:57 Sodium 131 L (137-145) mmol/L BUN 26 H (9-20) mg/dL Glucose 307 H (74-99) mg/dL POC Glucose (mg/dL) 315 H (75-99) mg/dL Calcium 8.3 L (8.4-10.2) mg/dL Assessment and Plan Assessment: Acute hypoxemic respiratory failure secondary to COVID 19 pneumonitis/pneumonia, with worsening oxygenation and chest x-ray. Acute on chronic kidney injury, associated with COVID infection. History of bladder cancer Acute kidney injury associated hyperkalemia. Essential hypertension. Type 2 diabetes. History of CAD, with previous myocardial infarction and stent placement. History of hyperlipidemia. History of kidney stones. Hyponatremia, mild. Plan: Plan dated 11/30/2020. Currently, the patient is not feeling much improvement. He is on 15 L high flow oxygen. The patient did receive CP. He was outside the window for REM. He is currently on vitamin C, vitamin D3, and zinc. In addition, he is on Decadron, and Lovenox. Additional recommendations and suggestions are forthcoming. We will continue to follow the patient closely. Patient may eventually be transferred to the intensive care unit. Other options would include BiPAP and/or AIRVO. We will continue to watch this patient carefully, and make recommendations were appropriate. Plan dated 12/01/2020. Currently, the patient's both on 15 L high flow oxygen, and a nonrebreather mask. Saturations are 95%. The patient was outside the window for REM. The patient is currently on vitamin C, vitamin D3, and zinc. He is also on Decadron and Lovenox. We'll have to watch this patient carefully. He may deteriorate further. Chest x-ray shows a worsening pattern of bilateral infiltrates. We will continue to follow the patient closely and make recommendations were appropriate. Prognosis is very guarded. Plan dated 12/08/2020. Currently, he is on AIRVO, 50 L/m, 81%. When I saw him last on December 01, patient was using 15 L high flow nasal O2, as well as a nonrebreather mask. Current saturations are in the low 90s. The patient was outside the window for REM the patient did receive vitamin C, vitamin D3, zinc, as well as Decadron and Lovenox. The patient feels like he is showing some improvement. We'll continue to follow. Prognosis is guarded. Additional recommendations and suggestions are forthcoming. Plan dated 12/23/2020. The patient remains on AIRVO, with settings of 15 L/m, and 50%. I saw him last December 08. Please see the note above. The patient was outside the window for REM, but did receive vitamin C, vitamin D3, zinc, Decadron, and Lovenox. Currently, the patient's doing reasonably well. He is laying in the same room next to his . He did receive convalescent plasma. He also received TOCI. We will continue to follow. Prognosis is guarded. Additional recommendations and suggestions are forthcoming. Plan dated 12/24/2020. The patient remains on AIRVO, at 50 L/m, 50% FiO2. The patient is about the same today as he was yesterday. The patient was outside the window for REM, but did receive vitamin C, vitamin D3, zinc, Decadron, and Lovenox. The patient also receive convalescent plasma, and TOCI. We will continue to follow the patient and make recommendations where appropriate. Overall, the patient is doing about the same yesterday as he is doing today. Prognosis is guarded. He remains in the same room along with his . Plan dated 12/25/2020. Currently, the patient remains on AIRVO, with similar settings as was yesterday. He is on 15 L/m, and 50% FiO2. He's not receiving any IV fluids. The patient did receive convalescent plasma, and TOCI. The patient has also received vitamin C, vitamin D3, zinc, Decadron, and Lovenox. He was outside the window for REM. I did give him an update today about his is currently in the ICU on the ventilator. He seems very depressed about that, and I question what his motivation is to get better. We will continue to follow the patient and make recommendations. Prognosis is poor. Plan dated 12/26/2020. The patient will get another chest x-ray tomorrow. The patient remains on AIRVO. Unfortunately, his was transferred up to the intensive care unit and was intubated for the same diagnosis. The patient is not receiving any IV fluids. The patient did receive convalescent plasma, and TOCI. He remains on vitamin C, vitamin D3, zinc, Decadron and Lovenox. He was outside the window for REM. Additional recommendations and suggestions are forthcoming. Prognosis is guarded. Time with Patient: Less than 30
--- NOTE | 2020-12-26 15:35 | P.PN ---
Subjective Patient is admitted for Covid 19 pneumonia presently on AIRVO, at 45, and FiO2 of 60%. Patient has prolonged hospitalization without any significant improvement. Patient is also using nonrebreather. Patient's sodium is bit low at 131. No chest x-ray available from today chest x-ray from 2069 showing patchy infiltrates. Constitutional: Denied any fatigue denied any fever. Cardio vascular: denied any chest pain, palpitations Gastrointestinal denied any nausea vomiting Pulmonary: As mentioned in HPI Neurologic denied any new focal deficits All inpatient medications were reviewed and appropriate changes in these medications as dictated in the interval history and assessment and plan. Objective - Vital Signs Vital signs: Vital Signs Temp 98.6 F 12/25/20 20:00 Pulse 88 12/26/20 04:00 Resp 18 12/26/20 04:00 BP 133/63 12/26/20 04:00 Pulse Ox 90 L 12/26/20 11:59 Intake & Output 12/25/20 12/26/20 12/26/20 18:59 06:59 18:59 Intake Total 125 80 118 Output Total 200 300 Balance -75 -220 118 Weight 86.183 kg Intake: Oral 125 80 118 Output: Urine 200 300 Other: Voiding Method Urinal # Bowel Movements 1 - Exam PHYSICAL EXAMINATION: GENERAL: The patient is alert and oriented x3, not in any acute distress. Well developed, well nourished. HEENT: Pupils are round and equally reacting to light. EOMI. No scleral icterus. No conjunctival pallor. Normocephalic, atraumatic. No pharyngeal erythema. No thyromegaly. CARDIOVASCULAR: S1 and S2 present. No murmurs, rubs, or gallops. PULMONARY: Bilateral rhonchi and bibasilar crackles were appreciated ABDOMEN: Soft, nontender, nondistended, normoactive bowel sounds. No palpable organomegaly. MUSCULOSKELETAL: No joint swelling or deformity. EXTREMITIES: No cyanosis, clubbing, or pedal edema. NEUROLOGICAL: Gross neurological examination did not reveal any focal deficits. SKIN: No rashes. - Labs CBC & Chem 7: 12/23/20 10:40 12/26/20 09:21 Labs: Abnormal Lab Results - Last 24 Hours (Table) 12/25/20 12/25/20 12/26/20 Range/Units 16:59 20:11 06:08 Sodium (137-145) mmol/L BUN (9-20) mg/dL Glucose (74-99) mg/dL POC Glucose (mg/dL) 235 H 233 H 134 H (75-99) mg/dL Calcium (8.4-10.2) mg/dL 12/26/20 12/26/20 Range/Units 09:21 11:57 Sodium 131 L (137-145) mmol/L BUN 26 H (9-20) mg/dL Glucose 307 H (74-99) mg/dL POC Glucose (mg/dL) 315 H (75-99) mg/dL Calcium 8.3 L (8.4-10.2) mg/dL Assessment and Plan Plan: 7 acute hypoxic respiratory failure secondary to COVID-19 pneumonia patient the risk still on systemic steroids vitamin C vitamin D syncope Lovenox no significant improvement for prolonged period of time remains on high flow oxygen via Airvo. -Acute renal failure: Secondary to sepsis which resolved. Patient's creatinine normalized. 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 Sodium tablets patient's sodium is 131 fairly stable at this level this level -Congestive heart failure chronic systolic dysfunction with EF of around 35-40% patient is not in acute exacerbation at this time -Hypomagnesemia magnesium was replaced and this is secondary to poor by mouth intake -DVT prophylaxis with Lovenox
[2020-12-26 16:52] LABS: Glucose,Whole Blood 227 mg/dL (75-99)
[2020-12-26 20:06] LABS: Glucose,Whole Blood 220 mg/dL (75-99)
[2020-12-26] MEDS: MELATONIN 5 MG TABLET PO SCH (20:12)
[2020-12-26] MEDS: ATORVASTATIN 80 MG TAB PO SCH (20:12)
[2020-12-27 06:16] LABS: Glucose,Whole Blood 87 mg/dL (75-99)
[2020-12-27] MEDS: INSULIN ASPART (NovoLOG) 100 UNIT/ML VIAL SQ SCH ×4 (06:16→21:25)
[2020-12-27] MEDS: PANTOPRAZOLE 40 MG TABLET PO SCH (06:21)
[2020-12-27] MEDS: LEVOTHYROXINE 100 MCG TAB PO SCH (06:21)
[2020-12-27] MEDS: ALBUTEROL HFA INHALER INHALATION SCH ×4 (07:32→19:44)
[2020-12-27] MEDS: CLOPIDOGREL 75 MG TAB PO SCH (08:35)
[2020-12-27] MEDS: SODIUM CHLORIDE TAB 1 GM TAB PO SCH ×2 (08:35→21:25)
[2020-12-27] MEDS: SODIUM BICARBONATE TAB 650 MG TAB PO SCH (08:35)
[2020-12-27] MEDS: ZINC SULFATE 220 MG CAP PO SCH (08:35)
[2020-12-27] MEDS: METOPROLOL SUCCINATE (ER) 25 MG TAB.ER.24H PO SCH (08:35)
[2020-12-27] MEDS: ASCORBIC ACID 500 MG TAB PO SCH (08:35)
[2020-12-27] MEDS: ASPIRIN 81 MG PO SCH (08:35)
[2020-12-27] MEDS: ENOXAPARIN 40 MG/0.4 ML SYRINGE SQ SCH (08:36)
[2020-12-27] MEDS: CHOLECALCIFEROL 25 MCG (1000 IU) TABLET PO SCH (08:36)
[2020-12-27] MEDS: GABAPENTIN 300 MG CAP PO SCH (08:36)
[2020-12-27] MEDS: DEXAMETHASONE SOD PHOSPHATE 10 MG/ML 1 ML VIAL IV SCH (08:36)
[2020-12-27] MEDS: INSULIN DETEMIR (LEVEMIR) 100 UNIT/ML SYR SQ SCH (08:40)
[2020-12-27 08:55] LABS: African American GFR (CKD) >90 (>60 ml/min/1.73 sqM); Anion Gap 4 mmol/L; Blood Urea Nitrogen 20 mg/dL (9-20); Calcium 8.2 mg/dL (8.4-10.2); Carbon Dioxide 27 mmol/L (22-30); Chloride 101 mmol/L (98-107); Glucose 111 mg/dL (74-99); Non-African American GFR(CKD) >90 (>60 ml/min/1.73 sqM); Potassium 4.5 mmol/L (3.5-5.1); Sodium 132 mmol/L (137-145)
--- NOTE | 2020-12-27 10:49 | XR ---
EXAMINATION TYPE: XR chest 1V portable DATE OF EXAM: 12/27/2020 COMPARISON: Chest x-ray 12/24/2020 HISTORY: Covid pneumonia TECHNIQUE: Single frontal view of the chest is obtained. FINDINGS: Findings similar to prior exam. Trachea is deviated to the right. IMPRESSION: Findings consistent with patient's history Covid pneumonia.
[2020-12-27 12:06] LABS: Glucose,Whole Blood 207 mg/dL (75-99)
--- NOTE | 2020-12-27 13:20 | P.PN ---
Subjective Patient is seen in follow-up for acute kidney injury and hyponatremia. Renal function back to baseline. Has been voiding. Oral intake fair. Still requiring high amounts of oxygen. Blood pressure stable. Sodium level stable at 132. No changes overnight. Vital signs are stable. General: The patient appeared well nourished and normally developed. HEENT: On high flow nasal cannula. LUNGS: Breath sounds decreased. HEART: Rate and Rhythm are regular. ABDOMEN: Soft, nontender. EXTREMITITES: No edema. Objective - Vital Signs Vital signs: Vital Signs Temp 97.7 F 12/27/20 08:00 Pulse 94 12/27/20 08:00 Resp 24 12/27/20 08:00 BP 134/64 12/27/20 08:00 Pulse Ox 86 L 12/27/20 08:00 Intake & Output 12/26/20 12/27/20 12/27/20 18:59 06:59 18:59 Intake Total 358 80 Output Total 200 275 401 Balance 158 -195 -401 Weight 86.183 kg Intake: IV 80 0.9 80 Oral 358 Output: Urine 275 200 Stool 200 201 Other: Voiding Method Urinal Urinal Urinal # Voids 1 - Labs CBC & Chem 7: 12/23/20 10:40 12/27/20 07:49 Labs: Abnormal Lab Results - Last 24 Hours (Table) 12/26/20 12/26/20 12/27/20 Range/Units 16:48 20:04 07:49 Sodium 132 L (137-145) mmol/L Glucose 111 H (74-99) mg/dL POC Glucose (mg/dL) 227 H 220 H (75-99) mg/dL Calcium 8.2 L (8.4-10.2) mg/dL 12/27/20 Range/Units 12:05 Sodium (137-145) mmol/L Glucose (74-99) mg/dL POC Glucose (mg/dL) 207 H (75-99) mg/dL Calcium (8.4-10.2) mg/dL Assessment and Plan Plan: Assessment: 1. Acute kidney injury mostly prerenal secondary to covid 19 pneumonia and nonsteroidals. Renal function improved. Creatinine 0.73. No hydronephrosis noted on kidney ultrasound. 2. 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 Has been receiving samsca this admission. Urine sodium less than 10 and urine osmolality 568. TSH normal. Sodium chloride tablets were added December 12. 3. Covid 19 pneumonia. Currently on high flow cannula. 4. Diabetes mellitus. 5. Chronic kidney disease stage IIIa secondary to diabetic kidney disease. Creatinine 1.3 in February 2020. 6. Metabolic acidosis secondary to acute kidney injury. Maintained on oral bicarb. 7. Cardiomyopathy. Ejection fraction 35-40%. 8. Mild hypomagnesemia from poor intake. Replaced. Better. Plan: Encouraged oral intake, especially protein. Maintain fluid restriction. Maintain sodium chloride tablets. Avoid nephrotoxins. Repeat electrolytes in the morning. No changes from nephrology standpoint.
--- NOTE | 2020-12-27 14:41 | P.PN ---
Subjective Progress Note Date: 12/27/20 Principal diagnosis: Shortness of breath. This is a 70-year-old white male with history of multiple medical problems including hypertension, type 2 diabetes, dyslipidemia, coronary artery disease and previous TN, previous stent placement, degenerative joint disease, bladder cancer, nephrolithiasis, patient presented to the emergency room on 11/24/2020, mostly with 1 week history of multiple constitutional symptoms including muscle aches, fever, shortness of breath, cough, nausea, and he tested positive on the with contreras virus PCR. Chest x-ray showed evidence of bilateral opacities/infiltrates. Patient had adequate saturations on room air, it was about 94%, he was also noted to be hyperkalemic, and he had lactic acid of 2.7. Received dextrose, insulin, Kayexalate, and the patient was eventually admitted seen by nephrology on consultation, he was placed on the Covid 19 cocktail, and we were asked to see him yesterday because of his worsening shortness of breath. No follow-up chest x-ray done since admission, and I will be ordering one to be done today. Labs today clearly showed relatively normal CBC. Elevated BUN of 40 creatinine is 1.4. D-dimer was normal on admission, and I do not see any inflammatory markers on the chart. After evaluating the patient, we recommended one unit of convalescent plan is to be given. Patient obviously did not qualify for REM. And he is not at the point of requiring actemtra Patient was reevaluated today on 11/29/2020, he is basically about the same. Not much of a change in the last 24 hours. Patient is on 6 L nasal cannula, and his O2 saturation is in the low 90s. Continues to have intermittent cough, shor tness of breath, basic metabolic profile is normal. His LDH is 1466, and C- reactive protein is 24. Patient remains on the Covid 19 cocktail. He received convalescent plasma. He was out of the window for REM. Progress note dated 11/30/2020. 70-year-old male who was admitted with a diagnosis of acute hypoxemic respiratory failure secondary to COVID 19 pneumonia. The patient has a history of multiple medical problems including essential hypertension, type 2 diabetes mellitus, hyperlipidemia, coronary artery disease, previous TN with stent placement, degenerative joint disease, bladder cancer, and kidney stones. He presented to the emergency department on November 24, with one-week worth of muscle aches, fever, shortness breath, cough, nausea, and tested positive for COVID on the . The patient was outside the window for REM, but did receive CP. No new labs today. The patient is currently on 15 L high flow nasal O2. The patient does not feel any better today. Chest x-ray on November 28 showed bilateral patchy airspace disease. Progress note dated 12/01/2020. 70-year-old male was admitted with diagnosis of acute hypoxemic respiratory failure secondary to COVID 19 pneumonia. Currently, the patient is on both a nonrebreather mask, 15 L high flow nasal cannula. Saturations are 95%. The patient isn't receiving any IV fluids. The patient is lying on his left side. Yesterday I told him to move about in bed, right side down, left side down, supine, and even prone if possible. I did order a follow-up chest x-ray. White count 11.4, hemoglobin 0.8, hematocrit 34.2, and platelet count normal. Sodium 133, potassium 5.7, chlorides 101, CO2 25, anion gap 7, BUN 46, creatinine 1.60. LDH is 1882. Chest x-ray shows a pattern of bilateral patchy infiltrates, slightly worse than the prior chest x-ray. Progress note dated 12/08/2020. 70-year-old male, admitted with a diagnosis of acute hypoxemic respiratory failure secondary to COVID 19 pneumonia. Currently, the patient is on AIRVO, with settings of 15 L/m 81%. He's not receiving any IV fluids. He does feel like he is getting better. I saw him last on December 01. Both he and his are in the hospital with the same infection. He is not receiving any IV fluids. His biggest complaint is shortness of breath with any activity. He also has a nonproductive, dry cough, which is painful at times. He denies any fever or chills. He denies any chest pain or chest discomfort. Lab data includes a sodium 123, potassium 4.9, chloride 91, CO2 21, anion gap 11, BUN 63, and creatinine 1.33. Patient was reevaluated today on 12/20/2020, surprisingly the patient is feeling better for the first time since admission. Remains on high flow oxygen. His FiO2 is down to 60%, he is on 50 L flow and his O2 saturation is 94%. Patient is becoming more active, less fatigue, less weakness according to the patient. Sodium remains low at 129. Basic metabolic profile is normal renal profile is normal blood sugar is 234 Reevaluated today on 12/21/2020, patient is steadily improving but very slowly. He is feeling better today, and his FiO2 was titrated down to 55%, and flow is at 50 liters. O2 saturation is 95%, clinically and that's more importantly that the patient is feeling better. ABC is relatively normal lites are normal renal profile is normal sodium is up to 130. Sugar is 184. No inflammatory markers noted today. Patient was reevaluated today on 12/22/2020, patient is steadily improving, he is down to 55% FiO2 and 50 L flow on airvo. He has persistent generalized weakness, but he feels better compared to how he felt over the last 2 weeks. His WBC count today is 15.9 hemoglobin is 11.9 electrolytes are normal sodium is improving up to 130. LDH is rising again up to 2132 today. C-reactive protein remains low at 0.8. Overall there has been some improvement over the last 2 weeks, but the improvement has been extremely slow. Progress note dated 12/23/2020. Currently, the patient is again reevaluated. He is actually the same room as his , that his room 368. The patient's currently on AIRVO, at 50 L/m, and an FiO2 of 50%. He's not receiving any IVs. He feels like he is slowly improving. Lab data today includes a white count 13.7, hemoglobin 10.9, hematocrit 31.8, and platelet count 310,000. Sodium 132, potassium 4.4, chlorides 102, CO2 27, anion gap 3, BUN 27, and creatinine 0.78. No recent chest x-rays to review. Progress note dated 12/24/2020. 70-year-old male, who is again reevaluated. Currently, he is in room 368, along with his . He is currently on AIRVO, with settings at 50 L/m and FiO2 of 50%. Currently, he is not receiving any IV fluids. The patient is doing about the same today as he did yesterday although, his saturations were lower, after having had something to eat. He appears to be doing much better than his . He certainly much more alert. Lab data from today includes a sodium 132, potassium 4.2, chlorides 102, CO2 28, anion gap 2, BUN 25, and creatinine 0.73. Glucose is 45. Calcium 8.2. Most recent chest x-ray was done back on December 18. He remains on Decadron, Lovenox, albuterol inhaler, and appropriate vitamins. Progress note dated 12/25/2020. 70-year-old male, with a diagnosis of acute hypoxemic respiratory failure, secondary to Covid 19 pneumonia. Yesterday, his was transported to the intensive care where she required intubation and mechanical ventilation. He is currently on AIRVO at an FiO2 of about 50%. He's not receiving any IV fluids. The patient states that he's doing so-so. There are no new labs today to report. Chest x-ray from yesterday shows patchy bilateral infiltrates, with minimal improvement. The patient does not appear to be very motivated to get better. Progress note dated 12/26/2020. 70-year-old male, with a diagnosis of acute hypoxemic respiratory failure secondary to COVID 19 pneumonia. Currently, he is on AIRVO, at 45, and FiO2 of 60%. He's not receiving any IV fluids. In addition to AIRVO, the patient is getting a nonrebreather mask as well. The patient feels a bit more short of breath today than he did yesterday. He denies any coughing, or phlegm production. There is no fever or chills. He denies any chest pain or chest discomfort. Currently labs today include a sodium 131, potassium 4.4, chlorides 101, CO2 25, anion gap 5, BUN 26, and creatinine 0.73. Calcium 8.3. Chest x- ray from the shows patchy bilateral infiltrates. Progress note dated 12/27/2020. 70-year-old male, with a history of acute hypoxemic respiratory failure secondary to coronavirus pneumonia. He remains on AIRVO, with settings of 45 L/m and 60%. The patient had a chest x-ray December 27 which showed bilateral infiltrates. He's also on saline at 10 mL an hour. His was transferred to the intensive care unit, is currently on a ventilator in the ICU. We asked the patient whether or not he would want intubation and mechanical ventilation should come to that and he said no. Hence, we made him DO NOT RESUSCITATE/DO NOT INTUBATE. Sodium 132, potassium 4.5, chlorides 101, CO2 27, anion gap 4, BUN and creatinine were 20 and 0.79. Chest x-ray is essentially unchanged, and consistent with a diagnosis of coronavirus pneumonia. Objective - Vital Signs Vital signs: Vital Signs Temp 97.7 F 12/27/20 08:00 Pulse 88 12/27/20 12:00 Resp 22 12/27/20 12:00 BP 154/65 12/27/20 12:00 Pulse Ox 95 12/27/20 12:00 Intake & Output 12/26/20 12/27/20 12/27/20 18:59 06:59 18:59 Intake Total 358 80 Output Total 200 275 401 Balance 158 -195 -401 Weight 86.183 kg Intake: IV 80 0.9 80 Oral 358 Output: Urine 275 200 Stool 200 201 Other: Voiding Method Urinal Urinal Urinal # Voids 1 - Exam No acute distress, oriented 3. The patient is currently on AIRVO, at 45 L/m with an FiO2 of 60%. Saturation is 95%. There is no conversational dyspnea or use of accessory muscles. HEENT examination is grossly unremarkable. Neck supple. Full range of motion. No adenopathy thyromegaly or neck vein distention. Cardiovascular examination reveals regular rhythm rate. S1-S2 normal. No S3 or S4. No discernible murmur noted. Heart rate 88 bpm. Lungs reveal bilateral and bibasilar rhonchi and crackles. No wheezes. Breath sounds are equal bilaterally but diminished throughout. Abdomen soft bowel sounds are heard. No masses or tenderness. Extremities are intact. No cyanosis clubbing or edema. Skin is without rash or lesion. Neurologic examination is brief but nonfocal. - Labs CBC & Chem 7: 12/23/20 10:40 12/27/20 07:49 Labs: Abnormal Lab Results - Last 24 Hours (Table) 12/26/20 12/26/20 12/27/20 Range/Units 16:48 20:04 07:49 Sodium 132 L (137-145) mmol/L Glucose 111 H (74-99) mg/dL POC Glucose (mg/dL) 227 H 220 H (75-99) mg/dL Calcium 8.2 L (8.4-10.2) mg/dL 12/27/20 Range/Units 12:05 Sodium (137-145) mmol/L Glucose (74-99) mg/dL POC Glucose (mg/dL) 207 H (75-99) mg/dL Calcium (8.4-10.2) mg/dL Assessment and Plan Assessment: Acute hypoxemic respiratory failure secondary to COVID 19 pneumonitis/pneumonia. Acute on chronic kidney injury, associated with COVID infection. History of bladder cancer Acute kidney injury associated hyperkalemia. Essential hypertension. Type 2 diabetes. History of CAD, with previous myocardial infarction and stent placement. History of hyperlipidemia. History of kidney stones. Hyponatremia, mild. Plan: Plan dated 11/30/2020. Currently, the patient is not feeling much improvement. He is on 15 L high flow oxygen. The patient did receive CP. He was outside the window for REM. He is currently on vitamin C, vitamin D3, and zinc. In addition, he is on Decadron, and Lovenox. Additional recommendations and suggestions are forthcoming. We will continue to follow the patient closely. Patient may eventually be transferred to the intensive care unit. Other options would include BiPAP and/or AIRVO. We will continue to watch this patient carefully, and make recommendations were appropriate. Plan dated 12/01/2020. Currently, the patient's both on 15 L high flow oxygen, and a nonrebreather mask. Saturations are 95%. The patient was outside the window for REM. The patient is currently on vitamin C, vitamin D3, and zinc. He is also on Decadron and Lovenox. We'll have to watch this patient carefully. He may deteriorate further. Chest x-ray shows a worsening pattern of bilateral infiltrates. We will continue to follow the patient closely and make recommendations were appropriate. Prognosis is very guarded. Plan dated 12/08/2020. Currently, he is on AIRVO, 50 L/m, 81%. When I saw him last on December 01, patient was using 15 L high flow nasal O2, as well as a nonrebreather mask. Current saturations are in the low 90s. The patient was outside the window for REM the patient did receive vitamin C, vitamin D3, zinc, as well as Decadron and Lovenox. The patient feels like he is showing some improvement. We'll continue to follow. Prognosis is guarded. Additional recommendations and suggestions are forthcoming. Plan dated 12/23/2020. The patient remains on AIRVO, with settings of 15 L/m, and 50%. I saw him last December 08. Please see the note above. The patient was outside the window for REM, but did receive vitamin C, vitamin D3, zinc, Decadron, and Lovenox. Currently, the patient's doing reasonably well. He is laying in the same room next to his . He did receive convalescent plasma. He also received TOCI. We will continue to follow. Prognosis is guarded. Additional recommendations and suggestions are forthcoming. Plan dated 12/24/2020. The patient remains on AIRVO, at 50 L/m, 50% FiO2. The patient is about the same today as he was yesterday. The patient was outside the window for REM, but did receive vitamin C, vitamin D3, zinc, Decadron, and Lovenox. The patient also receive convalescent plasma, and TOCI. We will continue to follow the patient and make recommendations where appropriate. Overall, the patient is doing about the same yesterday as he is doing today. Prognosis is guarded. He remains in the same room along with his . Plan dated 12/25/2020. Currently, the patient remains on AIRVO, with similar settings as was yesterday. He is on 15 L/m, and 50% FiO2. He's not receiving any IV fluids. The patient did receive convalescent plasma, and TOCI. The patient has also received vitamin C, vitamin D3, zinc, Decadron, and Lovenox. He was outside the window for REM. I did give him an update today about his is currently in the ICU on the ventilator. He seems very depressed about that, and I question what his motivation is to get better. We will continue to follow the patient and make recommendations. Prognosis is poor. Plan dated 12/26/2020. The patient will get another chest x-ray tomorrow. The patient remains on AIRVO. Unfortunately, his was transferred up to the intensive care unit and was intubated for the same diagnosis. The patient is not receiving any IV fluids. The patient did receive convalescent plasma, and TOCI. He remains on vitamin C, vitamin D3, zinc, Decadron and Lovenox. He was outside the window for REM. Additional recommendations and suggestions are forthcoming. Prognosis is guarded. Plan dated 12/27/2020. Currently, the patient's doing about the same today as he was yesterday. His chest x-ray is unchanged. His laboratory data is reviewed. His medications are reviewed. The patient did receive convalescent plasma, and TOCI. Other medications include vitamin C, vitamin D3, zinc, Decadron and Lovenox. Additional recommendations and suggestions are forthcoming. We did have a conversation about whether or not he would want life support/mechanical ventilation. He states he would not want it. We will continue to follow make recommendations were appropriate. Time with Patient: Less than 30
[2020-12-27 17:36] LABS: Glucose,Whole Blood 342 mg/dL (75-99)
[2020-12-27 18:36] LABS: Glucose,Whole Blood 444 mg/dL (75-99)
[2020-12-27] MEDS ORDERED: INSULIN DETEMIR (LEVEMIR) 100 UNIT/ML SYR SQ ONE (19:02)
[2020-12-27 20:55] LABS: Glucose,Whole Blood 463 mg/dL (75-99)
[2020-12-27] MEDS: ATORVASTATIN 80 MG TAB PO SCH (21:25)
[2020-12-27] MEDS: MELATONIN 5 MG TABLET PO SCH (21:25)
[2020-12-28 03:48] LABS: Glucose,Whole Blood 164 mg/dL (75-99)
[2020-12-28] MEDS: ALPRAZolam 0.25 MG TAB PO PRN (03:50)
--- NOTE | 2020-12-28 04:19 | XR ---
EXAM: XR Chest, 1 View CLINICAL HISTORY: increasing shortness of breathe TECHNIQUE: Frontal view of the chest. COMPARISON: 12/27/2020 FINDINGS: Lungs: Hypoventilatory lungs. Persistent diffuse bilateral alveolar and interstitial opacities. Pleural space: Small right pneumothorax comprising approximately 25% of the right lung volume. Possible small right pleural effusion. Heart: No significant abnormality. No cardiomegaly. Mediastinum: No significant abnormality. Bones/joints: No acute osseous abnormality. Tubes, lines and devices: Telemetry leads overlie the patient. IMPRESSION: Small right pneumothorax comprising approximately 25% of the right lung volume. Possible small right pleural effusion. Persistent diffuse bilateral alveolar and interstitial opacities. <MYCVCSECTION> Communications: 12/28/20 04:39 Verify Receipt with Nurse Verified receipt with bakery clerk Brandon and given to REBEL Gagnon on 12/28 04:39 (-04:00)
--- NOTE | 2020-12-28 05:01 | ED ---
Medical Decision Making - Medical Decision Making This is a procedure note. I was called up to see the patient from the emergency department, after it was reported that the patient had developed right-sided pneumothorax. I reviewed the chest x-ray and discussed the case with the house physician. I discussed the indications, risks and benefits with the patient who did give verbal consent at the bedside with witnesses present. The Pleur-evac chest tube was inserted without complication by myself. Chest x-ray is ordered. Patient tolerated procedure well with no complications. - Lab Data Result diagrams: 12/23/20 10:40 12/27/20 07:49 Lab Results 11/24/20 11/24/20 11/24/20 Range/Units 18:52 18:52 18:52 WBC 5.8 (3.8-10.6) k/uL RBC 4.14 L (4.30-5.90) m/uL Hgb 12.0 L (13.0-17.5) gm/dL Hct 36.1 L (39.0-53.0) % MCV 87.1 (80.0-100.0) fL MCH 28.9 (25.0-35.0) pg MCHC 33.2 (31.0-37.0) g/dL RDW 12.9 (11.5-15.5) % Plt Count 288 (150-450) k/uL MPV 6.5 Neutrophils % 79 % Lymphocytes % 16 % Monocytes % 4 % Eosinophils % 0 % Basophils % 0 % Neutrophils # 4.5 (1.3-7.7) k/uL Lymphocytes # 0.9 L (1.0-4.8) k/uL Monocytes # 0.2 (0-1.0) k/uL Eosinophils # 0.0 (0-0.7) k/uL Basophils # 0.0 (0-0.2) k/uL PT 9.9 (9.0-12.0) sec INR 0.9 (<1.2) APTT 25.0 (22.0-30.0) sec D-Dimer (<0.60) mg/L FEU Sodium 133 L (137-145) mmol/L Potassium 6.3 H* (3.5-5.1) mmol/L Chloride 100 (98-107) mmol/L Carbon Dioxide 22 (22-30) mmol/L Anion Gap 11 mmol/L BUN 26 H (9-20) mg/dL Creatinine 1.55 H (0.66-1.25) mg/dL Est GFR (CKD-EPI)AfAm 52 (>60 ml/min/1.73 sqM) Est GFR (CKD-EPI)NonAf 45 (>60 ml/min/1.73 sqM) Glucose 199 H (74-99) mg/dL Lactic Ac Sepsis Rflx Plasma Lactic Acid Thompson (0.7-2.0) mmol/L Calcium 8.8 (8.4-10.2) mg/dL Total Bilirubin 0.5 (0.2-1.3) mg/dL AST 57 (17-59) U/L ALT 37 (4-49) U/L Alkaline Phosphatase 94 (38-126) U/L Troponin I (0.000-0.034) ng/mL Total Protein 7.1 (6.3-8.2) g/dL Albumin 4.0 (3.5-5.0) g/dL 11/24/20 11/24/20 11/24/20 Range/Units 18:52 18:52 18:52 WBC (3.8-10.6) k/uL RBC (4.30-5.90) m/uL Hgb (13.0-17.5) gm/dL Hct (39.0-53.0) % MCV (80.0-100.0) fL MCH (25.0-35.0) pg MCHC (31.0-37.0) g/dL RDW (11.5-15.5) % Plt Count (150-450) k/uL MPV Neutrophils % % Lymphocytes % % Monocytes % % Eosinophils % % Basophils % % Neutrophils # (1.3-7.7) k/uL Lymphocytes # (1.0-4.8) k/uL Monocytes # (0-1.0) k/uL Eosinophils # (0-0.7) k/uL Basophils # (0-0.2) k/uL PT (9.0-12.0) sec INR (<1.2) APTT (22.0-30.0) sec D-Dimer 0.32 (<0.60) mg/L FEU Sodium (137-145) mmol/L Potassium (3.5-5.1) mmol/L Chloride (98-107) mmol/L Carbon Dioxide (22-30) mmol/L Anion Gap mmol/L BUN (9-20) mg/dL Creatinine (0.66-1.25) mg/dL Est GFR (CKD-EPI)AfAm (>60 ml/min/1.73 sqM) Est GFR (CKD-EPI)NonAf (>60 ml/min/1.73 sqM) Glucose (74-99) mg/dL Lactic Ac Sepsis Rflx Plasma Lactic Acid Thompson 2.7 H* (0.7-2.0) mmol/L Calcium (8.4-10.2) mg/dL Total Bilirubin (0.2-1.3) mg/dL AST (17-59) U/L ALT (4-49) U/L Alkaline Phosphatase (38-126) U/L Troponin I <0.012 (0.000-0.034) ng/mL Total Protein (6.3-8.2) g/dL Albumin (3.5-5.0) g/dL 11/24/20 11/24/20 11/24/20 Range/Units 19:25 20:48 21:44 WBC (3.8-10.6) k/uL RBC (4.30-5.90) m/uL Hgb (13.0-17.5) gm/dL Hct (39.0-53.0) % MCV (80.0-100.0) fL MCH (25.0-35.0) pg MCHC (31.0-37.0) g/dL RDW (11.5-15.5) % Plt Count (150-450) k/uL MPV Neutrophils % % Lymphocytes % % Monocytes % % Eosinophils % % Basophils % % Neutrophils # (1.3-7.7) k/uL Lymphocytes # (1.0-4.8) k/uL Monocytes # (0-1.0) k/uL Eosinophils # (0-0.7) k/uL Basophils # (0-0.2) k/uL PT (9.0-12.0) sec INR (<1.2) APTT (22.0-30.0) sec D-Dimer (<0.60) mg/L FEU Sodium (137-145) mmol/L Potassium 6.3 H* (3.5-5.1) mmol/L Chloride (98-107) mmol/L Carbon Dioxide (22-30) mmol/L Anion Gap mmol/L BUN (9-20) mg/dL Creatinine (0.66-1.25) mg/dL Est GFR (CKD-EPI)AfAm (>60 ml/min/1.73 sqM) Est GFR (CKD-EPI)NonAf (>60 ml/min/1.73 sqM) Glucose (74-99) mg/dL Lactic Ac Sepsis Rflx Y Plasma Lactic Acid Thompson 1.1 (0.7-2.0) mmol/L Calcium (8.4-10.2) mg/dL Total Bilirubin (0.2-1.3) mg/dL AST (17-59) U/L ALT (4-49) U/L Alkaline Phosphatase (38-126) U/L Troponin I (0.000-0.034) ng/mL Total Protein (6.3-8.2) g/dL Albumin (3.5-5.0) g/dL Disposition Clinical Impression: DARWIN (acute kidney injury), Hyperkalemia, COVID-19 Disposition: ADMITTED IP TO THIS [facility] Condition: Stable Procedures - Chest Tube Insertion Consent Obtained: verbal consent Side of Procedure: right Indication: Pneumothorax Placed on monitor/pulse oximetry: Yes Site Prep: Chloroprep Local Anesthesia: Lidocaine 1% Insertion Site: Other (Anterior approach) Scalpel: #15 Open into Pleural Space Using: Trocar Tube Size (Korean): Other (Pleur-evac) Returns: Air Sutured in Place: No (Self adhesive dressing) Attached to Suction: Yes Patient Tolerated Procedure: well, no complications
--- NOTE | 2020-12-28 05:10 | XR ---
EXAM: XR Chest, 1 View CLINICAL HISTORY: thoravent placement TECHNIQUE: Frontal view of the chest. COMPARISON: 12/28/2020 0357 FINDINGS: Lungs: Hypoventilatory lungs. Diffuse bilateral alveolar and interstitial opacities. Pleural space: Slight interval increase in size of a right pneumothorax, now comprising approximately 30% of the right lung volume. Heart: No significant abnormality. No cardiomegaly. Mediastinum: No significant abnormality. Bones/joints: No acute osseous abnormality. Tubes, lines and devices: Right pleural catheter tip projects over the apex of the right hemithorax. IMPRESSION: 1. Right pleural catheter tip projects over the apex of the right hemithorax. 2. Slight interval increase in size of a right pneumothorax, now comprising approximately 30% of the right lung volume. <MYCVCSECTION> Communications: 12/28/20 05:15 Verify Receipt with Nurse Verified receipt with Nurse Chelsi Roche on 12/28 05:16 (-04:00)
--- NOTE | 2020-12-28 05:21 | P.EN ---
A team note RN activated A team due to worsening hypoxemia and increase work of breathing, patient on airvo and non rebreather mask, he is a DNI. patient evaluated , easily arousable , cant talk due to SOB, tachycardia 130s tachypnic, denies any chest pain , but very uncomfortable with breathing. hypoxemia 73%, decrease breath sounds right lung, and rhonchi over left side of the chest. abd soft. CXR done, showed, acute right sided pneumothorax about 25 % of right lung volume . emergent insertion of thoravent done by ER physician , ICU attending notified. thoravent (pleur-evac) inserted successfully , placement confirmed with CXR showing interval worsening of pneumothorax to 30% of right lung volume. thoravent connected to wall suctioning at -20 close monitor of vital signs , and periodic clinical evaluation repeat CXR in AM once fully expands , will switch to water seal . assessment acute worsening of hypoxic respiratory failure , secondary to spontaneous right pneumothorax s/p thoravent (pleur-evac) insertion continue with wall suctioning at -20 repeat CXR in AM close monitoring of vital signs and over all clinical condition 65 minutes were spent in critical care time in the care of this patient
[2020-12-28] MEDS: LEVOTHYROXINE 100 MCG TAB PO SCH (05:37)
[2020-12-28] MEDS ORDERED: MORPHINE SULFATE 4 MG/ML SYRINGE IVP STA (06:15)
[2020-12-28] MEDS ORDERED: MORPHINE SULFATE 2 MG/ML SYRINGE IVP STA (06:15)
[2020-12-28 06:41] LABS: Glucose,Whole Blood 159 mg/dL (75-99)
[2020-12-28] MEDS: INSULIN ASPART (NovoLOG) 100 UNIT/ML VIAL SQ SCH (06:53)
[2020-12-28 08:14] LABS: Glucose,Whole Blood 211 mg/dL (75-99)
--- NOTE | 2020-12-28 08:22 | XR ---
EXAMINATION TYPE: XR chest 1V portable DATE OF EXAM: 12/28/2020 COMPARISON: 12/28/2020 HISTORY: Thoracic vent placement. Right-sided pneumothorax follow-up. TECHNIQUE: Single frontal view of the chest is obtained. FINDINGS: The thoracic vent catheter tip is in the right apex. There is a large right pneumothorax s lightly smaller in size than on the prior study IMPRESSION: Right thoracic vent with large right pneumothorax possibly slightly smaller in size and on the prior study. Diffuse interstitial opacity in both lungs unchanged.. There is diffuse interstitial opacity in both lungs unchanged compared to the prior study. Heart size is normal. The osseous structures are intact.
[2020-12-28] MEDS: ALBUTEROL HFA INHALER INHALATION SCH ×3 (08:31→15:48)
[2020-12-28] MEDS: INSULIN DETEMIR (LEVEMIR) 100 UNIT/ML SYR SQ SCH (09:17)
[2020-12-28] MEDS: DEXAMETHASONE SOD PHOSPHATE 10 MG/ML 1 ML VIAL IV SCH (09:17)
[2020-12-28] MEDS: ENOXAPARIN 40 MG/0.4 ML SYRINGE SQ SCH (09:17)
[2020-12-28] MEDS ORDERED: ONDANSETRON 4 MG/2 ML VIAL IVP PRN (10:23)
[2020-12-28] MEDS ORDERED: LORazepam 2 MG/ML INJ IV PRN (10:23)
--- NOTE | 2020-12-28 10:49 | P.PN ---
Subjective Progress Note Date: 12/28/20 Principal diagnosis: Shortness of breath. This is a 70-year-old white male with history of multiple medical problems including hypertension, type 2 diabetes, dyslipidemia, coronary artery disease and previous NM, previous stent placement, degenerative joint disease, bladder cancer, nephrolithiasis, patient presented to the emergency room on 11/24/2020, mostly with 1 week history of multiple constitutional symptoms including muscle aches, fever, shortness of breath, cough, nausea, and he tested positive on the with contreras virus PCR. Chest x-ray showed evidence of bilateral opacities/infiltrates. Patient had adequate saturations on room air, it was about 94%, he was also noted to be hyperkalemic, and he had lactic acid of 2.7. Received dextrose, insulin, Kayexalate, and the patient was eventually admitted seen by nephrology on consultation, he was placed on the Covid 19 cocktail, and we were asked to see him yesterday because of his worsening shortness of breath. No follow-up chest x-ray done since admission, and I will be ordering one to be done today. Labs today clearly showed relatively normal CBC. Elevated BUN of 40 creatinine is 1.4. D-dimer was normal on admission, and I do not see any inflammatory markers on the chart. After evaluating the patient, we recommended one unit of convalescent plan is to be given. Patient obviously did not qualify for REM. And he is not at the point of requiring actemtra Patient was reevaluated today on 11/29/2020, he is basically about the same. Not much of a change in the last 24 hours. Patient is on 6 L nasal cannula, and his O2 saturation is in the low 90s. Continues to have intermittent cough, shor tness of breath, basic metabolic profile is normal. His LDH is 1466, and C- reactive protein is 24. Patient remains on the Covid 19 cocktail. He received convalescent plasma. He was out of the window for REM. Progress note dated 11/30/2020. 70-year-old male who was admitted with a diagnosis of acute hypoxemic respiratory failure secondary to COVID 19 pneumonia. The patient has a history of multiple medical problems including essential hypertension, type 2 diabetes mellitus, hyperlipidemia, coronary artery disease, previous NM with stent placement, degenerative joint disease, bladder cancer, and kidney stones. He presented to the emergency department on November 24, with one-week worth of muscle aches, fever, shortness breath, cough, nausea, and tested positive for COVID on the . The patient was outside the window for REM, but did receive CP. No new labs today. The patient is currently on 15 L high flow nasal O2. The patient does not feel any better today. Chest x-ray on November 28 showed bilateral patchy airspace disease. Progress note dated 12/01/2020. 70-year-old male was admitted with diagnosis of acute hypoxemic respiratory failure secondary to COVID 19 pneumonia. Currently, the patient is on both a nonrebreather mask, 15 L high flow nasal cannula. Saturations are 95%. The patient isn't receiving any IV fluids. The patient is lying on his left side. Yesterday I told him to move about in bed, right side down, left side down, supine, and even prone if possible. I did order a follow-up chest x-ray. White count 11.4, hemoglobin 0.8, hematocrit 34.2, and platelet count normal. Sodium 133, potassium 5.7, chlorides 101, CO2 25, anion gap 7, BUN 46, creatinine 1.60. LDH is 1882. Chest x-ray shows a pattern of bilateral patchy infiltrates, slightly worse than the prior chest x-ray. Progress note dated 12/08/2020. 70-year-old male, admitted with a diagnosis of acute hypoxemic respiratory failure secondary to COVID 19 pneumonia. Currently, the patient is on AIRVO, with settings of 15 L/m 81%. He's not receiving any IV fluids. He does feel like he is getting better. I saw him last on December 01. Both he and his are in the hospital with the same infection. He is not receiving any IV fluids. His biggest complaint is shortness of breath with any activity. He also has a nonproductive, dry cough, which is painful at times. He denies any fever or chills. He denies any chest pain or chest discomfort. Lab data includes a sodium 123, potassium 4.9, chloride 91, CO2 21, anion gap 11, BUN 63, and creatinine 1.33. Patient was reevaluated today on 12/20/2020, surprisingly the patient is feeling better for the first time since admission. Remains on high flow oxygen. His FiO2 is down to 60%, he is on 50 L flow and his O2 saturation is 94%. Patient is becoming more active, less fatigue, less weakness according to the patient. Sodium remains low at 129. Basic metabolic profile is normal renal profile is normal blood sugar is 234 Reevaluated today on 12/21/2020, patient is steadily improving but very slowly. He is feeling better today, and his FiO2 was titrated down to 55%, and flow is at 50 liters. O2 saturation is 95%, clinically and that's more importantly that the patient is feeling better. ABC is relatively normal lites are normal renal profile is normal sodium is up to 130. Sugar is 184. No inflammatory markers noted today. Patient was reevaluated today on 12/22/2020, patient is steadily improving, he is down to 55% FiO2 and 50 L flow on airvo. He has persistent generalized weakness, but he feels better compared to how he felt over the last 2 weeks. His WBC count today is 15.9 hemoglobin is 11.9 electrolytes are normal sodium is improving up to 130. LDH is rising again up to 2132 today. C-reactive protein remains low at 0.8. Overall there has been some improvement over the last 2 weeks, but the improvement has been extremely slow. Progress note dated 12/23/2020. Currently, the patient is again reevaluated. He is actually the same room as his , that his room 368. The patient's currently on AIRVO, at 50 L/m, and an FiO2 of 50%. He's not receiving any IVs. He feels like he is slowly improving. Lab data today includes a white count 13.7, hemoglobin 10.9, hematocrit 31.8, and platelet count 310,000. Sodium 132, potassium 4.4, chlorides 102, CO2 27, anion gap 3, BUN 27, and creatinine 0.78. No recent chest x-rays to review. Progress note dated 12/24/2020. 70-year-old male, who is again reevaluated. Currently, he is in room 368, along with his . He is currently on AIRVO, with settings at 50 L/m and FiO2 of 50%. Currently, he is not receiving any IV fluids. The patient is doing about the same today as he did yesterday although, his saturations were lower, after having had something to eat. He appears to be doing much better than his . He certainly much more alert. Lab data from today includes a sodium 132, potassium 4.2, chlorides 102, CO2 28, anion gap 2, BUN 25, and creatinine 0.73. Glucose is 45. Calcium 8.2. Most recent chest x-ray was done back on December 18. He remains on Decadron, Lovenox, albuterol inhaler, and appropriate vitamins. Progress note dated 12/25/2020. 70-year-old male, with a diagnosis of acute hypoxemic respiratory failure, secondary to Covid 19 pneumonia. Yesterday, his was transported to the intensive care where she required intubation and mechanical ventilation. He is currently on AIRVO at an FiO2 of about 50%. He's not receiving any IV fluids. The patient states that he's doing so-so. There are no new labs today to report. Chest x-ray from yesterday shows patchy bilateral infiltrates, with minimal improvement. The patient does not appear to be very motivated to get better. Progress note dated 12/26/2020. 70-year-old male, with a diagnosis of acute hypoxemic respiratory failure secondary to COVID 19 pneumonia. Currently, he is on AIRVO, at 45, and FiO2 of 60%. He's not receiving any IV fluids. In addition to AIRVO, the patient is getting a nonrebreather mask as well. The patient feels a bit more short of breath today than he did yesterday. He denies any coughing, or phlegm production. There is no fever or chills. He denies any chest pain or chest discomfort. Currently labs today include a sodium 131, potassium 4.4, chlorides 101, CO2 25, anion gap 5, BUN 26, and creatinine 0.73. Calcium 8.3. Chest x- ray from the shows patchy bilateral infiltrates. Progress note dated 12/27/2020. 70-year-old male, with a history of acute hypoxemic respiratory failure secondary to coronavirus pneumonia. He remains on AIRVO, with settings of 45 L/m and 60%. The patient had a chest x-ray December 27 which showed bilateral infiltrates. He's also on saline at 10 mL an hour. His was transferred to the intensive care unit, is currently on a ventilator in the ICU. We asked the patient whether or not he would want intubation and mechanical ventilation should come to that and he said no. Hence, we made him DO NOT RESUSCITATE/DO NOT INTUBATE. Sodium 132, potassium 4.5, chlorides 101, CO2 27, anion gap 4, BUN and creatinine were 20 and 0.79. Chest x-ray is essentially unchanged, and consistent with a diagnosis of coronavirus pneumonia. Progress note dated 12/28/2020. 70-year-old male is been in the hospital now for 34 days. The patient was admitted with a diagnosis of hypoxemic respiratory failure secondary to COVID 19 pneumonia. Unfortunately, the patient took a turn for the worse last night, developing a right-sided pneumothorax. The ER physician attempted placement of a Thora-vent catheter, but unfortunately, it did not seem to help. Today, while the family was in the room, we had a long discussion about what he would want for himself, and also his whose up in the intensive care unit on the ventilator. In the room was myself and Jerilyn Garcia, his nurse, as well as his daughter Ritika, a son, and grandkids. The patient was clear about the fact that he did not want anything more done for himself, and actually, did make himself a DO NOT RESUSCITATE yesterday. In addition, he verbalized the fact that his , martell, would not want anything more done at this point either. The family was in agreement, and this was witnessed by myself, Dr. Pillai, and Jerilyn, his nurse. No new labs today. His chest x-rays are reviewed. Objective - Vital Signs Vital signs: Vital Signs Temp 99.0 F 12/28/20 04:00 Pulse 127 H 12/28/20 04:00 Resp 40 H 12/28/20 04:00 BP 115/76 12/28/20 04:00 Pulse Ox 83 L 12/28/20 08:31 Intake & Output 12/27/20 12/28/20 12/28/20 18:59 06:59 18:59 Intake Total 120 100 Output Total 402 702 Balance -282 -602 Weight 86.183 kg 85.5 kg Intake: Oral 120 100 Output: Urine 200 700 Stool 202 2 Other: Voiding Method Urinal Urinal # Voids 1 - Exam No acute distress, oriented 3. The patient is currently on AIRVO, at 60L/m with an FiO2 of 90%. Saturation is 85%. HEENT examination is grossly unremarkable. Neck supple. Full range of motion. No adenopathy thyromegaly or neck vein distention. Cardiovascular examination reveals regular rhythm rate. S1-S2 normal. No S3 or S4. No discernible murmur noted. Heart rate 107 bpm. Lungs reveal bilateral and bibasilar rhonchi and crackles. No wheezes. Breath sounds are equal bilaterally but diminished throughout.Thora-vent noted in the right upper chest area. Abdomen soft bowel sounds are heard. No masses or tenderness. Extremities are intact. No cyanosis clubbing or edema. Skin is without rash or lesion. Neurologic examination is brief but nonfocal. - Labs CBC & Chem 7: 12/23/20 10:40 12/27/20 07:49 Labs: Abnormal Lab Results - Last 24 Hours (Table) 12/27/20 12/27/20 12/27/20 Range/Units 12:05 17:35 18:34 POC Glucose (mg/dL) 207 H 342 H 444 H (75-99) mg/dL 12/27/20 12/28/20 12/28/20 Range/Units 20:54 03:45 06:27 POC Glucose (mg/dL) 463 H 164 H 159 H (75-99) mg/dL 12/28/20 Range/Units 08:12 POC Glucose (mg/dL) 211 H (75-99) mg/dL Assessment and Plan Assessment: Acute hypoxemic respiratory failure secondary to COVID 19 pneumonitis/pneumonia. Status post right-sided pneumothorax, with subsequent Thora-vent placement. Acute on chronic kidney injury, associated with COVID infection. History of bladder cancer Acute kidney injury associated hyperkalemia. Essential hypertension. Type 2 diabetes. History of CAD, with previous myocardial infarction and stent placement. History of hyperlipidemia. History of kidney stones. Hyponatremia, mild. Plan: Plan dated 11/30/2020. Currently, the patient is not feeling much improvement. He is on 15 L high flow oxygen. The patient did receive CP. He was outside the window for REM. He is currently on vitamin C, vitamin D3, and zinc. In addition, he is on Decadron, and Lovenox. Additional recommendations and suggestions are forthcoming. We will continue to follow the patient closely. Patient may eventually be transferred to the intensive care unit. Other options would include BiPAP and/or AIRVO. We will continue to watch this patient carefully, and make recommendations were appropriate. Plan dated 12/01/2020. Currently, the patient's both on 15 L high flow oxygen, and a nonrebreather mask. Saturations are 95%. The patient was outside the window for REM. The patient is currently on vitamin C, vitamin D3, and zinc. He is also on Decadron and Lovenox. We'll have to watch this patient carefully. He may deteriorate further. Chest x-ray shows a worsening pattern of bilateral infiltrates. We will continue to follow the patient closely and make recommendations were appropriate. Prognosis is very guarded. Plan dated 12/08/2020. Currently, he is on AIRVO, 50 L/m, 81%. When I saw him last on December 01, patient was using 15 L high flow nasal O2, as well as a nonrebreather mask. Current saturations are in the low 90s. The patient was outside the window for REM the patient did receive vitamin C, vitamin D3, zinc, as well as Decadron and Lovenox. The patient feels like he is showing some improvement. We'll continue to follow. Prognosis is guarded. Additional recommendations and suggestions are forthcoming. Plan dated 12/23/2020. The patient remains on AIRVO, with settings of 15 L/m, and 50%. I saw him last December 08. Please see the note above. The patient was outside the window for REM, but did receive vitamin C, vitamin D3, zinc, Decadron, and Lovenox. Currently, the patient's doing reasonably well. He is laying in the same room next to his . He did receive convalescent plasma. He also received TOCI. We will continue to follow. Prognosis is guarded. Additional recommendations and suggestions are forthcoming. Plan dated 12/24/2020. The patient remains on AIRVO, at 50 L/m, 50% FiO2. The patient is about the same today as he was yesterday. The patient was outside the window for REM, but did receive vitamin C, vitamin D3, zinc, Decadron, and Lovenox. The patient also receive convalescent plasma, and TOCI. We will continue to follow the patient and make recommendations where appropriate. Overall, the patient is doing about the same yesterday as he is doing today. Prognosis is guarded. He remains in the same room along with his . Plan dated 12/25/2020. Currently, the patient remains on AIRVO, with similar settings as was yesterday. He is on 15 L/m, and 50% FiO2. He's not receiving any IV fluids. The patient did receive convalescent plasma, and TOCI. The patient has also received vitamin C, vitamin D3, zinc, Decadron, and Lovenox. He was outside the window for REM. I did give him an update today about his is currently in the ICU on the ventilator. He seems very depressed about that, and I question what his motivation is to get better. We will continue to follow the patient and make recommendations. Prognosis is poor. Plan dated 12/26/2020. The patient will get another chest x-ray tomorrow. The patient remains on AIRVO. Unfortunately, his was transferred up to the intensive care unit and was intubated for the same diagnosis. The patient is not receiving any IV fluids. The patient did receive convalescent plasma, and TOCI. He remains on vitamin C, vitamin D3, zinc, Decadron and Lovenox. He was outside the window for REM. Additional recommendations and suggestions are forthcoming. Prognosis is guarded. Plan dated 12/27/2020. Currently, the patient's doing about the same today as he was yesterday. His chest x-ray is unchanged. His laboratory data is reviewed. His medications are reviewed. The patient did receive convalescent plasma, and TOCI. Other medications include vitamin C, vitamin D3, zinc, Decadron and Lovenox. Additional recommendations and suggestions are forthcoming. We did have a conversation about whether or not he would want life support/mechanical ventilation. He states he would not want it. We will continue to follow make recommendations were appropriate. Plan dated 12/28/2020. The patient's chest x-ray reveals a right-sided pneumothorax. Actually, the pneumothorax is no better after the placement of the Thora-vent, then before. Currently, the patient is on AIRVO, at 60 L/m and 90% FiO2. Saturations are in the mid 80s. He's mildly tachypnea. We did have an opportunity to speak to the patient with the family in the room about additional measures. The patient yesterday made himself a DO NOT RESUSCITATE. Today, the patient states that he would just like to be made comfortable. We will implement comfort measure orders. In addition, the patient made it clear that his , who is currently in the ICU, was been in the hospital now for 35 days, would not want anything more done at this point. This is all witnessed by myself, our nurse practitioner Khalida, and his nurse Jerilyn. In addition, also in the room witnessing all of this was his daughter Ritika, his son, and multiple grandkids. Time with Patient: Less than 30
--- NOTE | 2020-12-28 10:50 | P.PN ---
Subjective Progress Note Date: 12/27/20 Principal diagnosis: Acute hypoxemic respiratory failure secondary to COVID 19 pneumonitis/pneumonia Acute on chronic kidney injury, associated with COVID infection 70-year-old male who was admitted with a diagnosis of acute hypoxemic respiratory failure secondary to COVID 19 pneumonia. The patient has a history of multiple medical problems including essential hypertension, type 2 diabetes mellitus, hyperlipidemia, coronary artery disease, previous [place] with stent placement, degenerative joint disease, bladder cancer, and kidney stones. He presented to the emergency department on November 24, with one-week worth of muscle aches, fever, shortness breath, cough, nausea, and tested positive for COVID on the . The patient was outside the window for REM, but did receive CP. 11/30/2020 Patient is seen and evaluated in room at bedside; The patient is currently on 15 L high flow nasal O2. The patient does not feel any better today. Chest x-ray on November 28 showed bilateral patchy airspace disease. Patient remains on vitamin C, vitamin D, zinc sulfate along with Decadron and subcu Lovenox; patient has not shown much improvement since admission; pulmonary service on board and recommending to continue current management with patient being high risk for need to be transferred to ICU; continue to monitor closely 12/01/2020 Patient is seen and evaluated in room at bedside; Currently, the patient's both on 15 L high flow oxygen, and a nonrebreather mask with SpO2 at 95%. The patient was outside the window for REM. The patient is currently on vitamin C, vitamin D3, and zinc. He is also on Decadron and Lovenox. Patient shows worsening of chest x-ray and oxygenation. He may deteriorate further. Chest x- ray shows a worsening pattern of bilateral infiltrates. We will continue to follow the patient closely and make recommendations were appropriate. Prognosis is very guarded. 12/14/2020 Patient is seen and evaluated for COVID-19 pneumonia; patient remains on HFNC at 60 L with FiO2 of 75% maintaining SpO2 greater than 90 Vital signs remained stable with a temperature of 98.2, pulse 80, respiration 20 and blood pressure of 99/64 Lab review shows sodium of 123, BUN/creatinine of 39/1.28, d-dimer 3.60 and LDH of 1246; pulmonary on board and recommending to continue with current treatment with Decadron 6 mg IV daily and Lovenox 40 mg subcu every [address] angiogram of chest done which reveals emphysema and patchy infiltrates bilaterally; no PE found Nephrology is consulted for hypernatremia and patient is started on salt tablets ; plan to continue to monitor with further recommendations according 12/15/2020 Patient is seen on selective care; has been weaned down to high flow oxygen 6 L with an FiO2 of 75% which is essentially the same setting as yesterday. The patient's pulse ox is currently at 92%. No new complaints. Chest x-ray revealed bilateral multifocal pulmonary infiltrates and confluent opacities consistent with COVID-19 related pneumonia; CT angios the chest that showed no evidence of any pulmonary embolism and it was consistent with COVID-19 related pneumonia. Blood work review LDH level is 1471 which is higher and this CRP level is at 1.4. Sodium level is at 125 and the BUN is 34 with a creatinine of 1. His d- dimer is at 2.66. The patient remains on Decadron 63 g IV every 24 hours. He is on Lovenox and the dose should be 40 mg subcu every 24 hours. IV fluids are at KVO for now. He is taking also salt tablets. Sodium level is improving. He remains on Levemir insulin 30 units in the morning 27 units in the evening along with a lighting scale coverage. 12/27/2020. Patient is seen and evaluated for follow-up on acute hypoxemic respiratory failure secondary to coronavirus pneumonia. He remains on AIRVO, with settings of 45 L/m and 60%. The patient had a chest x-ray December 27 which showed bilateral infiltrates. CODE STATUS was discussed with the patient by operation supervisor service and patient does not want CPR or mechanical ventilation. CODE STATUS was changed to DO NOT RESUSCITATE/DO NOT INTUBATE. Sodium 132, potassium 4.5, chlorides 101, CO2 27, anion gap 4, BUN and creatinine were 20 and 0.79. Chest x-ray is essentially unchanged, and consistent with a diagnosis of coronavirus pneumonia. Objective - Vital Signs Vital signs: Vital Signs Temp 97.7 F 12/27/20 08:00 Pulse 88 12/27/20 12:00 Resp 22 12/27/20 12:00 BP 154/65 12/27/20 12:00 Pulse Ox 95 12/27/20 12:00 Intake & Output 12/26/20 12/27/20 12/27/20 18:59 06:59 18:59 Intake Total 358 80 Output Total 200 275 401 Balance 158 -195 -401 Weight 86.183 kg Intake: IV 80 0.9 80 Oral 358 Output: Urine 275 200 Stool 200 201 Other: Voiding Method Urinal Urinal Urinal # Voids 1 - Exam General: Sitting up in bed, NAD. Vitals reviewed Lungs: normal respiratory effort, minimal rhonchi, no wheezes/ rales CV: Regular rate and rhythm, no murmur. Peripheral pulses 2+ Abdomen: soft, nondistended, no organomegaly. Positive bowel sounds Skin: warm and dry. - Labs CBC & Chem 7: 12/23/20 10:40 12/27/20 07:49 Labs: Abnormal Lab Results - Last 24 Hours (Table) 12/26/20 12/26/20 12/27/20 Range/Units 16:48 20:04 07:49 Sodium 132 L (137-145) mmol/L Glucose 111 H (74-99) mg/dL POC Glucose (mg/dL) 227 H 220 H (75-99) mg/dL Calcium 8.2 L (8.4-10.2) mg/dL 12/27/20 Range/Units 12:05 Sodium (137-145) mmol/L Glucose (74-99) mg/dL POC Glucose (mg/dL) 207 H (75-99) mg/dL Calcium (8.4-10.2) mg/dL Assessment and Plan Assessment: Acute hypoxic respiratory failure secondary to acute covid 19 pneumonitis. Acute on chronic kidney injury associated with underlying Covid 19 infection History of bladder cancer. Acute hyperkalemia with acute kidney injury. Chronic kidney disease, previous creatinine was 1.3 in February 2020. 9 essential hypertension. Type 2 diabetes Recommendation: Continue present supportive care measures Continue oxygen Repeat chest x-ray and check inflammatory markers Continue the Covid 19 cocktail. Will recommend convalescent plasma Patient is out of the window for REM and he presently does not qualify for actemra Prognosis is relatively guarded.
[2020-12-28] MEDS ORDERED: SCOPOLAMINE 1.5MG/72HR PATCH TRANSDERM SCH (11:00)
[2020-12-28] MEDS ORDERED: ATROPINE OPHTH SOLN 1% 5ML BTL SUBLINGUAL PRN (11:00)
[2020-12-28] MEDS ORDERED: ARTIFICIAL TEARS-HYPROMELLOSE DROPS 15 ML BTL BOTH EYES PRN (11:00)
[2020-12-28] MEDS ORDERED: MORPHINE SULFATE (100 MG/2 ML) 100 MG in SODIUM CHLORIDE 0.9% 100 ML IV SCH (11:00)
[2020-12-28 14:05] VITALS: PULSE 136; RESP 38
[2021-01-01 15:35] VITALS: BP 114/57; TEMP 99
== END 2020-12-28 12:15 | disposition expired | DRG 177 ==
LOC: EC 17:46 → 4SSUR 21:46 → 6NMEDSUR 11-26 20:48 → 3SCARD 12-13 10:22
PROVIDERS: ADMIT Family Medicine; ATTEND Family Medicine
PROC: XW13325 Transfusion of Convalescent Plasma (Nonautologous) into Peripheral Vein, Percutaneous Approach, New Technology Group 5 (ICD-10-PCS; principal; 2020-11-28)
PROC: XW033H5 Introduction of Tocilizumab into Peripheral Vein, Percutaneous Approach, New Technology Group 5 (ICD-10-PCS; 2020-12-03)
PROC: 05HC33Z Insertion of Infusion Device into Left Basilic Vein, Percutaneous Approach (ICD-10-PCS; 2020-12-18)
PROC: 5A0955A Assistance with Respiratory Ventilation, Greater than 96 Consecutive Hours, High Flow/Velocity Cannula (ICD-10-PCS; 2020-12-21)
PROC: 0W9930Z Drainage of Right Pleural Cavity with Drainage Device, Percutaneous Approach (ICD-10-PCS; 2020-12-28)
DX: U07.1 COVID-19 (principal); J12.82 Pneumonia due to coronavirus disease 2019; J96.01 Acute respiratory failure with hypoxia; N17.0 Acute kidney failure with tubular necrosis; E22.2 Syndrome of inappropriate secretion of antidiuretic hormone; I42.9 Cardiomyopathy, unspecified; E87.2 Acidosis; J93.83 Other pneumothorax; I50.22 Chronic systolic (congestive) heart failure; I13.0 Hypertensive heart and chronic kidney disease with heart failure and stage 1 through stage 4 chronic kidney disease, or unspecified chronic kidney disease; Z66 Do not resuscitate; Z51.5 Encounter for palliative care; C67.9 Malignant neoplasm of bladder, unspecified; E03.9 Hypothyroidism, unspecified; E11.22 Type 2 diabetes mellitus with diabetic chronic kidney disease; I27.20 Pulmonary hypertension, unspecified; E11.649 Type 2 diabetes mellitus with hypoglycemia without coma; E87.70 Fluid overload, unspecified; E78.5 Hyperlipidemia, unspecified; E83.42 Hypomagnesemia; E86.1 Hypovolemia; E11.40 Type 2 diabetes mellitus with diabetic neuropathy, unspecified; E87.5 Hyperkalemia; E11.65 Type 2 diabetes mellitus with hyperglycemia; F41.9 Anxiety disorder, unspecified; I25.10 Atherosclerotic heart disease of native coronary artery without angina pectoris; I25.2 Old myocardial infarction; J43.9 Emphysema, unspecified; K59.00 Constipation, unspecified; M19.041 Primary osteoarthritis, right hand; M19.042 Primary osteoarthritis, left hand; N18.31 Chronic kidney disease, stage 3a; T50.2X5A Adverse effect of carbonic-anhydrase inhibitors, benzothiadiazides and other diuretics, initial encounter; K44.9 Diaphragmatic hernia without obstruction or gangrene; T39.315A Adverse effect of propionic acid derivatives, initial encounter; K21.9 Gastro-esophageal reflux disease without esophagitis; M19.90 Unspecified osteoarthritis, unspecified site; G56.03 Carpal tunnel syndrome, bilateral upper limbs; M54.2 Cervicalgia; G89.29 Other chronic pain; M54.5 Low back pain; Z87.442 Personal history of urinary calculi; Z78.9 Other specified health status; Z79.02 Long term (current) use of antithrombotics/antiplatelets; Z79.1 Long term (current) use of non-steroidal anti-inflammatories (NSAID); Z79.84 Long term (current) use of oral hypoglycemic drugs; Z79.899 Other long term (current) drug therapy; Z79.82 Long term (current) use of aspirin; Z79.890 Hormone replacement therapy; Z80.52 Family history of malignant neoplasm of bladder; Z83.2 Family history of diseases of the blood and blood-forming organs and certain disorders involving the immune mechanism; Z87.891 Personal history of nicotine dependence; Z95.5 Presence of coronary angioplasty implant and graft; Z98.42 Cataract extraction status, left eye; Z98.41 Cataract extraction status, right eye; Z98.890 Other specified postprocedural states
CPT/HCPCS: 36410; 36415; 71045; 71046; 71275; 76770; 76937; 80048; 80053; 81001; 82040; 82247; 82728; 83605; 83615; 83735; 83930; 83935; 84075; 84132; 84145; 84155; 84295; 84300; 84439; 84443; 84450; 84460; 84484; 85025; 85027; 85379; 85610; 85730; 86140; 86850; 86900; 86901; 93005; 93306; 94640; 94760; 96361; 96374; 96375; 99285